=== PATIENT | male | born 1945 | race Caucasian/White ===

== ENCOUNTER 2018-10-30 11:04 | Inpatient (IN) | payer MEDICARE, OTHER ==
[~2018-10-30] VITALS: Ht 165.1 cm; Wt 61.1 kg
[2018-10-30] MEDS ORDERED: NEPH PO ×2 (11:42→11:49)
[2018-10-30] MEDS ORDERED: CALC0.2511 PO (11:42)
[2018-10-30] MEDS ORDERED: SODI650T PO (11:51)
[2018-10-30] MEDS ORDERED: AMLO5TAB4 PO (11:51)
[2018-10-30] MEDS ORDERED: CEFTRIAXONE 1 GM/50 ML (PMX) 50 ML IVPB ONE (13:30)
[2018-10-30] MEDS ORDERED: SODIUM CHLORIDE 0.9% 1L BAG IV* STA (14:32)
--- NOTE | 2018-10-30 14:58 | ERD ---
ER Documentation Chief Complaint Chief Complaint AP X 1 WEEK HPI This is a 73-year-old male with a past medical history of hypertension, chronic kidney disease, 1 kidney, urinary retention with a chronic indwelling Marks catheter who is presenting with approximately 1 week of progressive worsening abdominal pain. 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 The patient is also had decreased urinary output and his pain is primarily suprapubic in nature. The patient has had nausea but no vomiting. The patient has had no changes to bowel movements. He has not had constipation or diarrhea. He has not had black or bloody or tarry stools. The patient denies feeling sick recently. The patient denies fever or chills. The patient has had no headache or vision changes. The patient does not endorse neck or back pain. The patient denies lightheadedness or dizziness. The patient has had no chest pain or trouble breathing. The patient has had no focal deficits. The patient has had no weakness or numbness or tingling to the face or extremities. ROS All systems reviewed and are negative except as per history of present illness. Medications Home Meds Reported Medications Sodium Bicarbonate* (Sodium Bicarbonate*) 650 Mg Tablet, 650 MG PO BID, TAB 10/30/18 Amlodipine Besylate* (Norvasc*) 5 Mg Tablet, 5 MG PO DAILY, TAB 10/30/18 Multivit/Ca Carb/B Cmplx/Fa* (Tanya-Kathryn*) 1 Tab Tab, 1 TAB PO DAILY, TAB 10/30/18 Calcitriol* (Calcitriol*) 0.25 Mcg Capsule, 0.25 MCG PO DAILY, CAP 10/30/18 Discontinued Reported Medications Multivit/Ca Carb/B Cmplx/Fa* (Tanya-Kathryn*) 1 Tab Tab, 1 TAB PO DAILY, TAB 10/30/18 Allergies Allergies: Coded Allergies: No Known Allergy (Unverified , 10/30/18) PMhx/Soc History of Surgery: Yes Hx Neurological Disorder: No Hx Respiratory Disorders: No Hx Cardiac Disorders: Yes (Hypertension) Hx Psychiatric Problems: No Hx Miscellaneous Medical Probl: Yes (Chronic kidney disease, urinary retention with a chronic indwelling Marks catheter) Hx Alcohol Use: No Hx Substance Use: No Hx Tobacco Use: No Smoking Status: Never smoker FmHx Family History: No diabetes Physical Exam Vitals Vital Signs Date Temp Pulse Resp B/P (MAP) Pulse Ox O2 O2 Flow FiO2 Time Delivery Rate 10/30/18 101 18 138/70 94 Room Air 13:05 (92) 10/30/18 97.4 99 20 105/59 99 11:08 (74) Physical Exam Const: No apparent distress, well-developed, well-nourished Head: Normocephalic, Atraumatic Eyes: Normal Conjunctiva. Extraocular movements intact. Pupils equal, round and reactive to light ENT: Normal External Ears, Nose and Mouth. Neck: Full range of motion. No meningismus. Resp: Clear to auscultation bilaterally, No wheezes, rales or rhonchi Cardio: Regular rate and rhythm. No murmurs, rubs or gallops Abd: Soft. Mild distention, general abdominal discomfort with mild suprapubic tenderness. Normal bowel sounds : Marks catheter is in place, minimal draining fluid. Skin: No petechiae or rashes Back: No midline tenderness. No CVA tenderness Ext: No cyanosis, or edema Neur: Awake and alert, oriented 4. Cranial nerves intact. No facial droop. Normal strength, sensation and coordination. Psych: Normal Mood and Affect Result Diagram: 10/30/18 1150 10/30/18 1150 Results 24 hrs Laboratory Tests Test 10/30/18 11:50 10/30/18 11:54 White Blood Count 9.5 10^3/ul Red Blood Count 4.25 10^6/ul Hemoglobin 12.3 g/dl Hematocrit 36.1 % Mean Corpuscular Volume 84.9 fl Mean Corpuscular Hemoglobin 28.9 pg Mean Corpuscular Hemoglobin Concent 34.1 g/dl Red Cell Distribution Width 14.6 % Platelet Count 224 10^3/UL Mean Platelet Volume 11.1 fl Immature Granulocytes % 0.200 % Neutrophils % % Segmented Neutrophils % (Manual) 50 % Band Neutrophils % (Manual) 32 % Lymphocytes % % Lymphocytes % (Manual) 9 % Reactive Lymphocytes % (Manual) 3 % Monocytes % % Monocytes % (Manual) 6 % Eosinophils % % Basophils % % Nucleated Red Blood Cells % 0.0 /100WBC Immature Granulocytes # 0.020 10^3/ul Neutrophils # 10^3/ul Neutrophils # (Manual) 5.0 10^3/ul Band Neutrophils # 3.0 10^3/ul Lymphocytes (Manual) 0.8 10^3/ul Lymphocytes # 10^3/ul Reactive Lymphocytes # 0.2 10^3/ul Monocytes # 10^3/ul Monocytes # (Manual) 0.5 10^3/ul Eosinophils # 10^3/ul Basophils # 10^3/ul Nucleated Red Blood Cells # 10^3/ul Platelet Estimate NORMAL Giant Platelets 3 % Anisocytosis 1+ Microcytosis 1+ Ovalocytes 1+ Urine Color YELLOW Urine Clarity CLOUDY Urine pH 8.0 Urine Specific [place] 1.009 Urine Ketones NEGATIVE mg/dL Urine Nitrite NEGATIVE mg/dL Urine Bilirubin NEGATIVE mg/dL Urine Urobilinogen NEGATIVE mg/dL Urine Leukocyte Esterase 3+ Shani/ul Urine Microscopic RBC 8 /HPF Urine Microscopic WBC > 182 /HPF Urine Bacteria FEW /HPF Urine Mucus FEW /HPF Urine Hemoglobin 2+ mg/dL Urine Glucose NEGATIVE mg/dL Urine Total Protein 2+ mg/dl Sodium Level 141 mmol/L Potassium Level 4.9 mmol/L Chloride Level 102 mmol/L Carbon Dioxide Level 15 mmol/L Anion Gap 24 Blood Urea Nitrogen 117 mg/dl Creatinine 10.85 mg/dl Est Glomerular Filtrat Rate mL/min mL/min Glucose Level 112 mg/dl Calcium Level 9.0 mg/dl Total Bilirubin 0.0 mg/dl Direct Bilirubin 0.00 mg/dl Indirect Bilirubin 0.0 mg/dl Aspartate Amino Transf (AST/SGOT) 33 IU/L Alanine Aminotransferase (ALT/SGPT) 34 IU/L Alkaline Phosphatase 128 IU/L Total Protein 7.8 g/dl Albumin 4.0 g/dl Globulin 3.80 g/dl Albumin/Globulin Ratio 1.05 Lipase 118 U/L POC Venous Lactate 2.4 mmol/L Current Medications Medications Dose Sig/Emily Start Time Status Last (Trade) Ordered Route PRN Stop Time Admin Dose Reason Admin Ceftriaxone 50 ml @ ONCE ONCE 10/30/18 DC 10/30/18 Sodium 100 mls/hr IVPB 13:30 10/30/18 13:34 13:59 Sodium 2,400 ml BOLUS OVER 2 10/30/18 DC Chloride HOURS STAT 14:32 10/30/18 (NS) IV* 14:35 Procedures/MDM MDM The patient's presentation warrants further investigation. Previous medical records, if available, were reviewed. LABS The patient's laboratory testing was obtained and reviewed. No emergent treatment was required unless described below. CBC: Severe bandemia. Mild normocytic anemia, not emergent. No E/o thrombocytopenia. CMP: Anion gap metabolic acidosis, likely related to his renal failure. Elevated BUN and creatinine in line with end-stage renal disease of unclear chronicity, potentially acute renal failure. Elevated alkaline phosphatase, likely reactive, otherwise no evidence of liver disease. Lipase: No E/o pancreatitis Lactate: E/o severe sepsis Urine: E/o acute infection with hematuria IMAGING Imaging and Radiology interpretation reviewed. US Renal PENDING TREATMENT/DISPOSITION The patient presents initially for abdominal pain. The patient was found to frank ve severe urinary retention. The Marks catheter was replaced in the emergency department which removed over a liter of urine. The patient also expressed significant relief of his pain. The patient's lactic acidosis and abdominal pain and increasing creatinine could all be related to obstruction. Unfortunately, the patient's urinalysis also reveals a urinary tract infection with a severe bandemia and lactic acidosis. The patient's vital signs are unremarkable, but I am concerned about a possible systemic infection. The patient did have a septic workup completed. The patient also has evidence of renal failure. The patient has not been to this facility before, so its chronicity is unclear. I do feel the patient will require nephrology evaluation and possible dialysis in the emergency department. The patient is reportedly not been started on dialysis in the past, but he is on medications that indicates to me that he does have chronic end-stage renal disease. SEPSIS NOTE SIRS Criteria: Bandemia, tachycardia Infectious source: UTI End organ damage indicated by: Lactate > 2.0 mmol/L, Cr > 2.0 SEPSIS MANAGEMENT Time to recognize sepsis: 13:00. Time to recognize severe sepsis: 13:00. Time to recognize septic shock: No septic shock at this time. 3 HOUR BUNDLE Blood cultures x 2 before abx: Yes 30 ml/kg NS bolus completed Initial lactate 2.4 Repeat lactate pending SEPTIC SHOCK ASSESSMENT: NO lactic acid > 4.0 NO persistent hypotension (SBP < 90 or 40 mmHg drop, MAP < 65) despite 30 L/kg IV fluid bolus CRITICAL CARE Critical care time 37 minutes Emergent fluid management while maintaining close respiratory support. Provision of immediate and broad-spectrum antibiotic therapy. Simultaneous assessment for possible sources in order to direct targeted therapy. Consideration for invasive and chemical support to prevent cardiopulmonary collapse. Critical care time is independent of procedures performed. ADMISSION The patient will be admitted to panel in accordance with the patient's insurance. The patient was accepted by Dr. Davis at 1435PM on 10/30/2017. Disclaimer: Inadvertent spelling and grammatical errors are likely due to EHR/ dictation software use and do not reflect on the overall quality of patient care. Note that the electronic time recorded on this note does not necessarily reflect the actual time of the patient encounter. Departure Diagnosis: Primary Impression: Severe sepsis Additional Impressions: Bandemia Lactic acidosis Renal failure Renal failure chronicity: acute on chronic Acute renal failure type: unspecified Chronic kidney disease stage: unspecified stage Qualified Codes: N17.9 - Acute kidney failure, unspecified; N18.9 - Chronic kidney disease, unspecified High anion gap metabolic acidosis Elevated alkaline phosphatase in End stage renal disease Tachycardia Normocytic anemia UTI (urinary tract infection) Urinary tract infection type: acute cystitis Hematuria presence: with hematuria Qualified Codes: N30.01 - Acute cystitis with hematuria Condition: Serious MICAH YODER MD Oct 30, 2018 14:58
[2018-10-30] MEDS ORDERED: ACETAMINOPHEN 325 MG TAB PO PRN ×2 (15:30)
[2018-10-30] MEDS ORDERED: DOCUSATE SODIUM 100 MG CAP PO PRN (15:30)
[2018-10-30] MEDS ORDERED: ONDANSETRON 4 MG INJ IV PRN ×2 (15:30)
[2018-10-30] MEDS ORDERED: morphine 2 MG INJ IV PRN (15:30)
[2018-10-30] MEDS ORDERED: BISACODYL (EC) 5 MG TAB PO PRN (15:30)
[2018-10-30] MEDS ORDERED: NACL 0.9% 3 ML SYG IV SCH (15:30)
[2018-10-30] MEDS ORDERED: BISACODYL 10 MG SUPP PR PRN (15:30)
[2018-10-30] MEDS: SOD CHLORIDE 0.9% 1,000 ML IV SCH (16:59)
[2018-10-30 17:00] VITALS: BP 133/62; PULSE 78; RESP 16
[2018-10-30] MEDS ORDERED: INSULIN ASPART [NOVOLOG] 3 ML PEN SC SCH (17:00)
--- NOTE | 2018-10-30 17:17 | HP ---
Date/Time of Note Date/Time of Note DATE: 10/30/18 TIME: 17:11 Assessment/Plan VTE Prophylaxis SCD contraindicated: low risk/ambulating Pharmacological prophylaxis: LMWH Lines/Catheters IV Catheter Type (from [facility]): Saline Lock Reason Cath still needed: urinary retention Assessment/Plan Hospital Course Chief complaint Abdominal pain History of present illness 73-year-old gentleman who is a poor historian. Apparently he is felt poor with abdominal pain and loss of appetite recently. No fever nausea vomiting. I am unable to reach his daughter Gricel. He had a Marks prior to arrival. Past medical history 1. Incomplete data 2. Diabetes 3. Metabolic syndrome 4. Nephrectomy status? 5. CKD 6. Cognitive impairment? 7. Past tobacco 8. Past alcohol? 9. COPD? 10.. Obstructive uropathy Past surgical history None Social history Past tobacco/alcohol? Family history Noncontributory Allergies No known drug allergies Review of systems Neuro: no nancy loss of speech vision or focal deficits Cardiovascular: No chest pain no dyspnea no edema Lungs: Positive cough no fever or edema Abdomen: Pain cough possible nausea no vomiting diarrhea Genitourinary: Indwelling Marks possibly blocked prior to arrival. No hematuria or fever that I am aware of Musculoskeletal: No gait dysfunction no rash no itching no edema that I am aware of Psychiatry: Patient has a mild amount of anxiety agitation no depression Endocrine: Positive diabetes no previous thyroid dysfunction or dyslipidemia Hematologic: No nancy GI bleed melena hematuria hematochezia General/constitutional: No nancy fever loss of weight that I am aware of, or chills PE No pallor icterus adenopathy carotid bruits JVD or bruit. Positive mild bitemporal wasting Cardiovascular S1-S2 regular no murmur gallop. Lungs clear all station bilatera lly Abdomen bowel sounds present nontender nausea no RG no appreciated CVA No edema/Homans Assessment plan 1. Acute renal failure likely top of chronic disease, mod stable continue hydration Marks care 2. Obstructive uropathy, likely improved with Marks 3. Metabolic acidosis secondary #1, stable care 4. Nephrectomy status? 5. Mild cognitive impairmentdementia? Result Diagram: 10/30/18 1150 10/30/18 1150 Results 24hrs Laboratory Tests Test 10/30/18 11:50 10/30/18 11:54 10/30/18 14:58 10/30/18 15:50 White Blood Count 9.5 Red Blood Count 4.25 L Hemoglobin 12.3 L Hematocrit 36.1 L Mean Corpuscular Volume 84.9 Mean Corpuscular 28.9 L Hemoglobin Mean Corpuscular 34.1 Hemoglobin Concent Red Cell Distribution 14.6 H Width Platelet Count 224 Mean Platelet Volume 11.1 H Immature Granulocytes % 0.200 Neutrophils % Segmented Neutrophils 50 % (Manual) Band Neutrophils % 32 H (Manual) Lymphocytes % Lymphocytes % (Manual) 9 L Reactive Lymphocytes 3 H % (Manual) Monocytes % Monocytes % (Manual) 6 Eosinophils % Basophils % Nucleated Red Blood 0.0 Cells % Immature Granulocytes # 0.020 Neutrophils # Neutrophils # (Manual) 5.0 Band Neutrophils # 3.0 H Lymphocytes (Manual) 0.8 Lymphocytes # Reactive Lymphocytes # 0.2 H Monocytes # Monocytes # (Manual) 0.5 Eosinophils # Basophils # Nucleated Red Blood Cells # Platelet Estimate NORMAL Giant Platelets 3 H Anisocytosis 1+ Microcytosis 1+ Ovalocytes 1+ Urine Color YELLOW Urine Clarity CLOUDY A Urine pH 8.0 Urine Specific [place] 1.009 Urine Ketones NEGATIVE Urine Nitrite NEGATIVE Urine Bilirubin NEGATIVE Urine Urobilinogen NEGATIVE Urine Leukocyte Esterase 3+ H Urine Microscopic RBC 8 H Urine Microscopic WBC > 182 H Urine Bacteria FEW A Urine Mucus FEW A Urine Hemoglobin 2+ H Urine Glucose NEGATIVE Urine Total Protein 2+ H Sodium Level 141 Potassium Level 4.9 Chloride Level 102 Carbon Dioxide Level 15 L Anion Gap 24 H Blood Urea Nitrogen 117 H Creatinine 10.85 H Est Glomerular Filtrat Rate mL/min Glucose Level 112 Calcium Level 9.0 Total Bilirubin 0.0 L Direct Bilirubin 0.00 Indirect Bilirubin 0.0 Aspartate Amino 33 Transf (AST/SGOT) Alanine 34 Aminotransferase (ALT/SG PT) Alkaline Phosphatase 128 H Total Protein 7.8 Albumin 4.0 Globulin 3.80 H Albumin/Globulin Ratio 1.05 Lipase 118 POC Venous Lactate 2.4 *H 1.5 Prothrombin Time 16.6 H Prothrombin Time Ratio 1.3 INR International 1.33 Normalized Ratio HPI/ROS Admit Date/Time Admit Date/Time Oct 30, 2018 at 15:19 PMH/Family/Social Past Medical History Medications Current Medications Ondansetron HCl (Zofran Inj) 4 mg BRIDGE ORDER PRN IV NAUSEA AND/OR VOMITING; Start 10/30/18 at 15:30; Stop 10/31/18 at 15:29 Acetaminophen (Tylenol Tab) 650 mg ER BRIDGE PRN PO MILD PAIN(1-3)OR ELEVATED TEMP Last administered on 10/30/18at 15:39; Admin Dose 650 MG; Start 10/30/18 at 15:30; Stop 10/31/18 at 15:29 Diagnostic Test (Pha) (Accu-Chek) 1 ea 02 XX ; Start 10/31/18 at 02:00 Insulin Aspart (Novolog Insulin Pen) NOVOLOG *MODERATE* ALGORITHM WITH MEALS BEDTIME SC ; Start 10/30/18 at 18:00 Insulin Aspart (Novolog Insulin Pen) NOVOLOG *MODERATE* ALGORI... Q4 SC ; Start 10/30/18 at 17:00 Sodium Chloride 1,000 ml @ 75 mls/hr [id number] IV Last administered on 10/30/18at 16:59; Admin Dose 75 MLS/HR; Start 10/30/18 at 15:16 IV Flush (NS 3 ml) 3 ml PER PROTOCOL IV ; Start 10/30/18 at 15:30 Ondansetron HCl (Zofran Inj) 4 mg Q6H PRN IV NAUSEA AND/OR VOMITING; Start 10/30/18 at 15:30 Acetaminophen (Tylenol Tab) 650 mg Q6H PRN PO PAIN LEVEL 1-3 OR FEVER; Start 10/30/18 at 15:30 Acetaminophen/ Hydrocodone Bitart ([place] (5/325)) 1 tab Q6H PRN PO MODERATE PAIN LEVEL 4-6; Start 10/30/18 at 15:30 Morphine Sulfate (morphine) 2 mg Q4H PRN IV SEVERE PAIN LEVEL 7-10; Start 10/30/18 at 15:30 Docusate Sodium (Colace) 100 mg Q12H PRN PO CONSTIPATION; Start 10/30/18 at 15:30 Bisacodyl (Dulcolax) 5 mg DAILY PRN PO CONSTIPATION; Start 10/30/18 at 15:30 Bisacodyl (Dulcolax Supp) 10 mg DAILY PRN [place] CONSTIPATION; Start 10/30/18 at 15:30 Famotidine (Pepcid) 20 mg Q12 PO ; Start 10/30/18 at 21:00 Enoxaparin Sodium (Lovenox) 30 mg DAILY SC ; Start 11/02/18 at 09:00 Coded Allergies: No Known Allergy (Unverified , 10/30/18) Social History Smoking Status: Never smoker Exam/Review of Systems Vital Signs Vitals Vital Signs Date Temp Pulse Resp B/P (MAP) Pulse Ox O2 O2 Flow FiO2 Time Delivery Rate 10/30/18 107 18 127/69 99 Room Air 16:03 (88) 10/30/18 99.9 15:39 SANDRA SHEEHAN MD Oct 30, 2018 17:17
[2018-10-30] MEDS ORDERED: GUAIFENESIN/DM 5ML CUP PO PRN (17:30)
--- NOTE | 2018-10-30 17:33 | CONS ---
Date/Time of Note Date/Time of Note DATE: 10/30/18 TIME: 17:33 Assessment/Plan Assessment/Plan Assessment/Plan 1. acute vs acute on chronic renal failure due to Obstruction + prerenal azotemia 2. H/o left nephrectomy, unclear history 3. metabolic acidosis 4. anemia for CKD 5. Severe hydronephrosis Right side Plan: Bicitra 30ml PO BID for acidosis IVF NS at 70 cc/hr Urine studies including urine Na, urine prot/cr ration, urine eosinophils, CK total, uric acid CT Abdomen + pelvis w/o contrast to assess for CKD and Right hydronephrosis we will get more details of his left nephrectomy Thanks for consultation, I will continue to follow up Result Diagram: 10/30/18 1150 10/30/18 1150 Results 24hrs Laboratory Tests Test 10/30/18 11:50 10/30/18 11:54 10/30/18 14:58 10/30/18 15:50 White Blood Count 9.5 Red Blood Count 4.25 L Hemoglobin 12.3 L Hematocrit 36.1 L Mean Corpuscular Volume 84.9 Mean Corpuscular 28.9 L Hemoglobin Mean Corpuscular 34.1 Hemoglobin Concent Red Cell Distribution 14.6 H Width Platelet Count 224 Mean Platelet Volume 11.1 H Immature Granulocytes % 0.200 Neutrophils % Segmented Neutrophils 50 % (Manual) Band Neutrophils % 32 H (Manual) Lymphocytes % Lymphocytes % (Manual) 9 L Reactive Lymphocytes 3 H % (Manual) Monocytes % Monocytes % (Manual) 6 Eosinophils % Basophils % Nucleated Red Blood 0.0 Cells % Immature Granulocytes # 0.020 Neutrophils # Neutrophils # (Manual) 5.0 Band Neutrophils # 3.0 H Lymphocytes (Manual) 0.8 Lymphocytes # Reactive Lymphocytes # 0.2 H Monocytes # Monocytes # (Manual) 0.5 Eosinophils # Basophils # Nucleated Red Blood Cells # Platelet Estimate NORMAL Giant Platelets 3 H Anisocytosis 1+ Microcytosis 1+ Ovalocytes 1+ Urine Color YELLOW Urine Clarity CLOUDY A Urine pH 8.0 Urine Specific [place] 1.009 Urine Ketones NEGATIVE Urine Nitrite NEGATIVE Urine Bilirubin NEGATIVE Urine Urobilinogen NEGATIVE Urine Leukocyte Esterase 3+ H Urine Microscopic RBC 8 H Urine Microscopic WBC > 182 H Urine Bacteria FEW A Urine Mucus FEW A Urine Hemoglobin 2+ H Urine Glucose NEGATIVE Urine Total Protein 2+ H Sodium Level 141 Potassium Level 4.9 Chloride Level 102 Carbon Dioxide Level 15 L Anion Gap 24 H Blood Urea Nitrogen 117 H Creatinine 10.85 H Est Glomerular Filtrat Rate mL/min Glucose Level 112 Calcium Level 9.0 Total Bilirubin 0.0 L Direct Bilirubin 0.00 Indirect Bilirubin 0.0 Aspartate Amino 33 Transf (AST/SGOT) Alanine 34 Aminotransferase (ALT/SG PT) Alkaline Phosphatase 128 H Total Protein 7.8 Albumin 4.0 Globulin 3.80 H Albumin/Globulin Ratio 1.05 Lipase 118 POC Venous Lactate 2.4 *H 1.5 Prothrombin Time 16.6 H Prothrombin Time Ratio 1.3 INR International 1.33 Normalized Ratio Consultation Date/Type/Reason Admit Date/Time Oct 30, 2018 at 15:19 Date of Consultation: Oct 30, 2018 Type of Consult NEPHROLOGY Reason for Consultation Acute Renal Failure, Uremia, H/o Left nephrectomy Requesting Provider: SANDRA SHEEHAN MD Hx of Present Illness 73-year-old gentleman who is a poor historian. Apparently he is felt poor with abdominal pain and loss of appetite recently. BUN/Cr 117/10.55 on admission- pt is awake alert but not able to provide any hisotry due to confusion. Renal US showed right hydronephrosis, left nephrectomy Renal has been consulted for acute vs acute on chronic renal failure. Constitutional: disoriented, other (unable to proivde ROS ) Past Medical History Medical History: high cholesterol, hypertension Medications Current Medications Ondansetron HCl (Zofran Inj) 4 mg BRIDGE ORDER PRN IV NAUSEA AND/OR VOMITING; Start 10/30/18 at 15:30; Stop 10/31/18 at 15:29 Acetaminophen (Tylenol Tab) 650 mg ER BRIDGE PRN PO MILD PAIN(1-3)OR ELEVATED TEMP Last administered on 10/30/18at 15:39; Admin Dose 650 MG; Start 10/30/18 at 15:30; Stop 10/31/18 at 15:29 Diagnostic Test (Pha) (Accu-Chek) 1 XX ; Start 10/31/18 at 02:00 Insulin Aspart (Novolog Insulin Pen) NOVOLOG *MODERATE* ALGORITHM WITH MEALS BEDTIME SC ; Start 10/30/18 at 18:00 Insulin Aspart (Novolog Insulin Pen) NOVOLOG *MODERATE* ALGORI... Q4 SC ; Start 10/30/18 at 17:00 Sodium Chloride 1,000 ml @ 75 mls/hr [id number] IV Last administered on 10/30/18at 16:59; Admin Dose 75 MLS/HR; Start 10/30/18 at 15:16 IV Flush (NS 3 ml) 3 ml PER PROTOCOL IV ; Start 10/30/18 at 15:30 Ondansetron HCl (Zofran Inj) 4 mg Q6H PRN IV NAUSEA AND/OR VOMITING; Start 10/30/18 at 15:30 Acetaminophen (Tylenol Tab) 650 mg Q6H PRN PO PAIN LEVEL 1-3 OR FEVER; Start 10/30/18 at 15:30 Acetaminophen/ Hydrocodone Bitart ([place] (5/325)) 1 tab Q6H PRN PO MODERATE PAIN LEVEL 4-6; Start 10/30/18 at 15:30 Morphine Sulfate (morphine) 2 mg Q4H PRN IV SEVERE PAIN LEVEL 7-10; Start 10/30/18 at 15:30 Docusate Sodium (Colace) 100 mg Q12H PRN PO CONSTIPATION; Start 10/30/18 at 15:30 Bisacodyl (Dulcolax) 5 mg DAILY PRN PO CONSTIPATION; Start 10/30/18 at 15:30 Bisacodyl (Dulcolax Supp) 10 mg DAILY PRN [place] CONSTIPATION; Start 10/30/18 at 15:30 Famotidine (Pepcid) 20 mg Q12 PO ; Start 10/30/18 at 21:00 Enoxaparin Sodium (Lovenox) 30 mg DAILY SC ; Start 11/02/18 at 09:00 Senna/Docusate Sodium (Senokot-S) 2 tab HS PO ; Start 10/30/18 at 21:00 Guaifenesin/ Dextromethorphan (Robitussin Dm Liquid Cup) 10 ml Q4H PRN PO COUGH; Start 10/30/18 at 17:30 Thiamine HCl (Vitamin B1) 100 mg DAILY PO ; Start 10/31/18 at 09:00 Allergies: Coded Allergies: No Known Allergy (Unverified , 10/30/18) Past Surgical History Past Surgical Hx: other (H/o Left nephrectomy ) Family History Significant Family History: no pertinent family hx Social History Alcohol Use: none Smoking Status: Never smoker Exam/Review of Systems Vital Signs Vitals Vital Signs Date Temp Pulse Resp B/P (MAP) Pulse Ox O2 O2 Flow FiO2 Time Delivery Rate 10/30/18 107 18 127/69 99 Room Air 16:03 (88) 10/30/18 99.9 15:39 Exam Constitutional: alert Head: normocephalic Eyes: nl conjunctiva ENMT: nl external ears & nose Neck: supple, non-tender Respiratory: clear to auscultation, diminished breath sounds Cardiovascular: regular rate and rhythm, nl pulses Gastrointestinal: soft, non-tender Extremities: normal pulses Neurological: confused Medications Medications Current Medications Ondansetron HCl (Zofran Inj) 4 mg BRIDGE ORDER PRN IV NAUSEA AND/OR VOMITING; Start 10/30/18 at 15:30; Stop 10/31/18 at 15:29 Acetaminophen (Tylenol Tab) 650 mg ER BRIDGE PRN PO MILD PAIN(1-3)OR ELEVATED TEMP Last administered on 10/30/18at 15:39; Admin Dose 650 MG; Start 10/30/18 at 15:30; Stop 10/31/18 at 15:29 Diagnostic Test (Pha) (Accu-Chek) 1 ea 02 XX ; Start 10/31/18 at 02:00 Insulin Aspart (Novolog Insulin Pen) NOVOLOG *MODERATE* ALGORITHM WITH MEALS BEDTIME SC ; Start 10/30/18 at 18:00 Insulin Aspart (Novolog Insulin Pen) NOVOLOG *MODERATE* ALGORI... Q4 SC ; Start 10/30/18 at 17:00 Sodium Chloride 1,000 ml @ 75 mls/hr [id number] IV Last administered on 10/30/18at 16:59; Admin Dose 75 MLS/HR; Start 10/30/18 at 15:16 IV Flush (NS 3 ml) 3 ml PER PROTOCOL IV ; Start 10/30/18 at 15:30 Ondansetron HCl (Zofran Inj) 4 mg Q6H PRN IV NAUSEA AND/OR VOMITING; Start 10/30 at 15:30 Acetaminophen (Tylenol Tab) 650 mg Q6H PRN PO PAIN LEVEL 1-3 OR FEVER; Start 10/30/18 at 15:30 Acetaminophen/ Hydrocodone Bitart ([place] (5/325)) 1 tab Q6H PRN PO MODERATE PAIN LEVEL 4-6; Start 10/30/18 at 15:30 Morphine Sulfate (morphine) 2 mg Q4H PRN IV SEVERE PAIN LEVEL 7-10; Start 10/30/18 at 15:30 Docusate Sodium (Colace) 100 mg Q12H PRN PO CONSTIPATION; Start 10/30/18 at 15:30 Bisacodyl (Dulcolax) 5 mg DAILY PRN PO CONSTIPATION; Start 10/30/18 at 15:30 Bisacodyl (Dulcolax Supp) 10 mg DAILY PRN [place] CONSTIPATION; Start 10/30/18 at 15:30 Famotidine (Pepcid) 20 mg Q12 PO ; Start 10/30/18 at 21:00 Enoxaparin Sodium (Lovenox) 30 mg DAILY SC ; Start 11/02/18 at 09:00 Senna/Docusate Sodium (Senokot-S) 2 tab HS PO ; Start 10/30/18 at 21:00 Guaifenesin/ Dextromethorphan (Robitussin Dm Liquid Cup) 10 ml Q4H PRN PO COUGH; Start 10/30/18 at 17:30 Thiamine HCl (Vitamin B1) 100 mg DAILY PO ; Start 10/31/18 at 09:00 YAIR GOLDSMITH MD Oct 30, 2018 17:33
[2018-10-30] MEDS: INSULIN ASPART [NOVOLOG] 3 ML PEN SC SCH ×2 (17:55→20:41)
[2018-10-30 18:19] VITALS: Ht 165.1 cm; Wt 61.1 kg
[2018-10-30 20:00] VITALS: BP 118/68; PULSE 90; RESP 17
[2018-10-30] MEDS: SENNA/DOCUSATE NA (8.6MG/50MG) TAB PO SCH (20:42)
[2018-10-30] MEDS: HYDROCODONE/APAP (5/325) TAB PO PRN (20:42)
[2018-10-30] MEDS: FAMOTIDINE 20 MG TAB PO SCH (20:42)
[2018-10-30] MEDS: CITRIC ACID/NA CITRATE 30 ML CUP PO SCH (21:00)
[2018-10-31 02:00] VITALS: BP 106/58; PULSE 69; RESP 18
[2018-10-31] MEDS: ACCU-CHEK XX SCH (02:00)
[2018-10-31] MEDS: SOD CHLORIDE 0.9% 1,000 ML IV SCH ×2 (06:22→23:17)
[2018-10-31] MEDS: INSULIN ASPART [NOVOLOG] 3 ML PEN SC SCH ×4 (07:56→20:23)
[2018-10-31] MEDS: CITRIC ACID/NA CITRATE 30 ML CUP PO SCH ×2 (08:05→20:13)
[2018-10-31] MEDS: FAMOTIDINE 20 MG TAB PO SCH ×2 (08:05→20:16)
[2018-10-31] MEDS: THIAMINE 100 MG TAB PO SCH (08:05)
[2018-10-31 08:15] VITALS: BP 132/65; PULSE 88; RESP 18
--- NOTE | 2018-10-31 10:33 | PN ---
Date/Time of Note Date/Time of Note DATE: 10/31/18 TIME: 10:31 Assessment/Plan VTE Prophylaxis Risk score (from [facility] [place]0 risk: 3 SCD applied (from [facility] [place]): Yes SCD contraindicated: low risk/ambulating Pharmacological prophylaxis: NA/contraindicated Pharm contraindication: renal impairment Lines/Catheters IV Catheter Type (from [facility]): Peripheral IV Urinary Cath still in place: Yes Reason Cath still needed: urinary retention Assessment/Plan Hospital Course A/P 1. Acute renal failure on ckd, mod stable cont hydration Marks care 2. Obstructive uropathy, Marks; consult urology 3. Metabolic acidosis secondary #1, stable care 4. Nephrectomy status? 5. Mild cognitive impairmentdementia? S: no distress O:vss PE no pallor reg s1s2 no mrg ctab bs+ nt nd; no rrg no edema Result Diagram: 10/31/1822 10/31/18 0722 Results 24hrs Laboratory Tests Test 10/30/18 11:48 10/30/18 11:50 10/30/18 11:54 10/30/18 14:58 Urine Eosinophils % 0.0 Urine Random Creatinine 96.32 Urine Random Sodium 90 White Blood Count 9.5 Red Blood Count 4.25 L Hemoglobin 12.3 L Hematocrit 36.1 L Mean Corpuscular Volume 84.9 Mean Corpuscular 28.9 L Hemoglobin Mean Corpuscular 34.1 Hemoglobin Concent Red Cell Distribution 14.6 H Width Platelet Count 224 Mean Platelet Volume 11.1 H Immature Granulocytes % 0.200 Neutrophils % Segmented Neutrophils 50 % (Manual) Band Neutrophils % 32 H (Manual) Lymphocytes % Lymphocytes % (Manual) 9 L Reactive Lymphocytes 3 H % (Manual) Monocytes % Monocytes % (Manual) 6 Eosinophils % Basophils % Nucleated Red Blood 0.0 Cells % Immature Granulocytes # 0.020 Neutrophils # Neutrophils # (Manual) 5.0 Band Neutrophils # 3.0 H Lymphocytes (Manual) 0.8 Lymphocytes # Reactive Lymphocytes # 0.2 H Monocytes # Monocytes # (Manual) 0.5 Eosinophils # Basophils # Nucleated Red Blood Cells # Platelet Estimate NORMAL Giant Platelets 3 H Anisocytosis 1+ Microcytosis 1+ Ovalocytes 1+ Urine Color YELLOW Urine Clarity CLOUDY A Urine pH 8.0 Urine Specific [place] 1.009 Urine Ketones NEGATIVE Urine Nitrite NEGATIVE Urine Bilirubin NEGATIVE Urine Urobilinogen NEGATIVE Urine Leukocyte Esterase 3+ H Urine Microscopic RBC 8 H Urine Microscopic WBC > 182 H Urine Bacteria FEW A Urine Mucus FEW A Urine Hemoglobin 2+ H Urine Glucose NEGATIVE Urine Total Protein 2+ H Sodium Level 141 Potassium Level 4.9 Chloride Level 102 Carbon Dioxide Level 15 L Anion Gap 24 H Blood Urea Nitrogen 117 H Creatinine 10.85 H Est Glomerular Filtrat Rate mL/min Glucose Level 112 Calcium Level 9.0 Total Bilirubin 0.0 L Direct Bilirubin 0.00 Indirect Bilirubin 0.0 Aspartate Amino 33 Transf (AST/SGOT) Alanine 34 Aminotransferase (ALT/SG PT) Alkaline Phosphatase 128 H Total Protein 7.8 Albumin 4.0 Globulin 3.80 H Albumin/Globulin Ratio 1.05 Lipase 118 POC Venous Lactate 2.4 *H 1.5 Test 10/30/18 15:50 10/30/18 17:50 10/30/18 18:10 10/30/18 20:41 Prothrombin Time 16.6 H Prothrombin Time Ratio 1.3 INR International 1.33 Normalized Ratio Bedside Glucose 75 80 110 Test 10/31/18 03:55 10/31/18 07:22 10/31/18 07:56 Urine Eosinophils % 0.0 Urine Random Creatinine 79.58 Urine Random Sodium 66 Urine Protein/Creatinine 1.40 Ratio Urine Total Protein 112.0 H White Blood Count 9.9 Red Blood Count 3.53 L Hemoglobin 10.3 L Hematocrit 30.5 L Mean Corpuscular Volume 86.4 Mean Corpuscular 29.2 Hemoglobin Mean Corpuscular 33.8 Hemoglobin Concent Red Cell Distribution 14.6 H Width Platelet Count 205 Mean Platelet Volume 11.7 H Immature Granulocytes % 0.300 Neutrophils % 89.9 H Lymphocytes % 5.2 L Monocytes % 3.6 Eosinophils % 0.9 Basophils % 0.1 Nucleated Red Blood 0.0 Cells % Immature Granulocytes # 0.030 Neutrophils # 8.9 H Lymphocytes # 0.5 L Monocytes # 0.4 Eosinophils # 0.1 Basophils # 0.0 Nucleated Red Blood 0.0 Cells # Sodium Level 146 H Potassium Level 4.4 Chloride Level 110 Carbon Dioxide Level 16 L Anion Gap 20 H Blood Urea Nitrogen 114 H Creatinine 9.20 H Est Glomerular Filtrat Rate mL/min Glucose Level 81 Hemoglobin A1c 5.8 Uric Acid 9.5 H Calcium Level 8.1 L Total Bilirubin 0.0 L Direct Bilirubin 0.00 Indirect Bilirubin 0.0 Aspartate Amino 22 Transf (AST/SGOT) Alanine 33 Aminotransferase (ALT/SG PT) Alkaline Phosphatase 117 Creatine Kinase 153 Total Protein 5.4 #L Albumin 2.6 #L Globulin 2.80 Albumin/Globulin Ratio 0.92 Thyroid Stimulating 0.278 L Hormone (TSH) Bedside Glucose 85 Exam/Review of Systems Vital Signs Vitals Vital Signs Date Temp Pulse Resp B/P (MAP) Pulse Ox O2 O2 Flow FiO2 Time Delivery Rate 10/31/18 98.0 88 18 132/65 99 Room Air 08:15 (87) Intake and Output 10/30/18 10/30/18 10/31/18 1515:00 23:00 07:00 IntakeIntake Total 320 ml 2200 ml OutputOutput Total 1700 ml 600 ml 900 ml BalanceBalance -1700 ml -280 ml 1300 ml Medications Medications Current Medications Diagnostic Test (Pha) (Accu-Chek) XX ; Start 10/31/18 at 02:00 Insulin Aspart (Novolog Insulin Pen) NOVOLOG *MODERATE* ALGORITHM WITH MEALS BEDTIME SC ; Start 10/30/18 at 18:00 Sodium Chloride 1,000 ml @ 75 mls/hr [id number] IV Last administered on 10/31/18at 06:22; Admin Dose 75 MLS/HR; Start 10/30/18 at 15:16 IV Flush (NS 3 ml) 3 ml PER PROTOCOL IV ; Start 10/30/18 at 15:30 Ondansetron HCl (Zofran Inj) 4 mg Q6H PRN IV NAUSEA AND/OR VOMITING; Start 10/30/18 at 15:30 Acetaminophen (Tylenol Tab) 650 mg Q6H PRN PO PAIN LEVEL 1-3 OR FEVER; Start 10/30/18 at 15:30 Acetaminophen/ Hydrocodone Bitart ([place] (5/325)) 1 tab Q6H PRN PO MODERATE PAIN LEVEL 4-6 Last administered on 10/30/18at 20:42; Admin Dose 1 TAB; Start 10/30/18 at 15:30 Morphine Sulfate (morphine) 2 mg Q4H PRN IV SEVERE PAIN LEVEL 7-10; Start 10/30/18 at 15:30 Docusate Sodium (Colace) 100 mg Q12H PRN PO CONSTIPATION; Start 10/30/18 at 15:30 Bisacodyl (Dulcolax) 5 mg DAILY PRN PO CONSTIPATION; Start 10/30/18 at 15:30 Bisacodyl (Dulcolax Supp) 10 mg DAILY PRN [place] CONSTIPATION; Start 10/30/18 at 15:30 Famotidine (Pepcid) 20 mg Q12 PO Last administered on 10/31/18at 08:05; Admin Dose 20 MG; Start 10/30/18 at 21:00 Enoxaparin Sodium (Lovenox) 30 mg DAILY SC ; Start 11/02/18 at 09:00 Senna/Docusate Sodium (Senokot-S) 2 tab HS PO Last administered on 10/30/18at 20:42; Admin Dose 2 TAB; Start 10/30/18 at 21:00 Guaifenesin/ Dextromethorphan (Robitussin Dm Liquid Cup) 10 ml Q4H PRN PO COUGH; Start 10/30/18 at 17:30 Thiamine HCl (Vitamin B1) 100 mg DAILY PO Last administered on 10/31/18at 08:05; Admin Dose 100 MG; Start 10/31/18 at 09:00 Citric Acid/ Sodium Citrate (Bicitra) 30 ml BID PO Last administered on 10/31/18at 08:05; Admin Dose 30 ML; Start 10/30/18 at 21:00 SANDRA SHEEHAN MD Oct 31, 2018 10:33
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
--- NOTE | 2018-10-31 13:45 | CONS ---
Date/Time of Note Date/Time of Note DATE: 10/31/18 TIME: 13:45 Assessment/Plan Assessment/Plan Assessment/Plan 1. acute vs acute on chronic renal failure due to Obstruction + prerenal azotemia 2. H/o left nephrectomy, unclear history 3. metabolic acidosis 4. anemia for CKD 5. Severe hydronephrosis Right side Plan: Bicitra 30ml PO BID for acidosis, BUN/Cr 114/9.2- slightly improving IVF NS at 70 cc/hr CT Abdomen + pelvis w/o contrast showed R hydronephrosis, need Urology consult will follow up Result Diagram: 10/31/1872110/31/18721 Results 24hrs Laboratory Tests Test 10/30/18 14:58 10/30/18 15:50 10/30/18 17:50 10/30/18 18:10 POC Venous Lactate 1.5 Prothrombin Time 16.6 H Prothrombin Time Ratio 1.3 INR International 1.33 Normalized Ratio Bedside Glucose 75 80 Test 10/30/18 20:41 10/31/18 03:55 10/31/18 07:22 10/31/18 07:56 Bedside Glucose 110 85 Urine Eosinophils % 0.0 Urine Random Creatinine 79.58 Urine Random Sodium 66 Urine Protein/Creatinine 1.40 Ratio Urine Total Protein 112.0 H White Blood Count 9.9 Red Blood Count 3.53 L Hemoglobin 10.3 L Hematocrit 30.5 L Mean Corpuscular Volume 86.4 Mean Corpuscular 29.2 Hemoglobin Mean Corpuscular 33.8 Hemoglobin Concent Red Cell Distribution 14.6 H Width Platelet Count 205 Mean Platelet Volume 11.7 H Immature Granulocytes % 0.300 Neutrophils % 89.9 H Lymphocytes % 5.2 L Monocytes % 3.6 Eosinophils % 0.9 Basophils % 0.1 Nucleated Red Blood 0.0 Cells % Immature Granulocytes # 0.030 Neutrophils # 8.9 H Lymphocytes # 0.5 L Monocytes # 0.4 Eosinophils # 0.1 Basophils # 0.0 Nucleated Red Blood 0.0 Cells # Sodium Level 146 H Potassium Level 4.4 Chloride Level 110 Carbon Dioxide Level 16 L Anion Gap 20 H Blood Urea Nitrogen 114 H Creatinine 9.20 H Est Glomerular Filtrat Rate mL/min Glucose Level 81 Hemoglobin A1c 5.8 Uric Acid 9.5 H Calcium Level 8.1 L Total Bilirubin 0.0 L Direct Bilirubin 0.00 Indirect Bilirubin 0.0 Aspartate Amino 22 Transf (AST/SGOT) Alanine 33 Aminotransferase (ALT/SG PT) Alkaline Phosphatase 117 Creatine Kinase 153 Total Protein 5.4 #L Albumin 2.6 #L Globulin 2.80 Albumin/Globulin Ratio 0.92 Thyroid Stimulating 0.278 L Hormone (TSH) Test 10/31/18 12:08 Bedside Glucose 113 Consultation Date/Type/Reason Admit Date/Time Oct 30, 2018 at 15:19 Initial Consult Date 10/31/18 Type of Consult NEPHROLOGY Requesting Provider: SANDRA SHEEHAN MD Exam/Review of Systems Vital Signs Vitals Vital Signs Date Temp Pulse Resp B/P (MAP) Pulse Ox O2 O2 Flow FiO2 Time Delivery Rate 10/31/18 98.0 88 18 132/65 99 Room Air 08:15 (87) Intake and Output 10/30/18 10/30/18 10/31/18 1515:00 23:00 07:00 IntakeIntake Total 320 ml 2200 ml OutputOutput Total 1700 ml 600 ml 900 ml BalanceBalance -1700 ml -280 ml 1300 ml Exam Constitutional: alert Head: normocephalic Eyes: nl conjunctiva ENMT: nl external ears & nose Neck: supple, non-tender Respiratory: clear to auscultation, diminished breath sounds Cardiovascular: regular rate and rhythm, nl pulses Gastrointestinal: soft, non-tender Extremities: normal pulses Neurological: less confused today Medications Medications Current Medications Diagnostic Test (Pha) (Accu-Chek) 1 XX ; Start 10/31/18 at 02:00 Insulin Aspart (Novolog Insulin Pen) NOVOLOG *MODERATE* ALGORITHM WITH MEALS BEDTIME SC ; Start 10/30/18 at 18:00 Sodium Chloride 1,000 ml @ 50 mls/hr Q20H IV Last administered on 10/31/18at 06:22; Admin Dose 75 MLS/HR; Start 10/30/18 at 15:16 IV Flush (NS 3 ml) 3 ml PER PROTOCOL IV ; Start 10/30/18 at 15:30 Ondansetron HCl (Zofran Inj) 4 mg Q6H PRN IV NAUSEA AND/OR VOMITING; Start 10/30/18 at 15:30 Acetaminophen (Tylenol Tab) 650 mg Q6H PRN PO PAIN LEVEL 1-3 OR FEVER; Start 10/30/18 at 15:30 Acetaminophen/ Hydrocodone Bitart ([place] (5/325)) 1 tab Q6H PRN PO MODERATE PAIN LEVEL 4-6 Last administered on 10/30/18at 20:42; Admin Dose 1 TAB; Start 10/30/18 at 15:30 Morphine Sulfate (morphine) 2 mg Q4H PRN IV SEVERE PAIN LEVEL 7-10; Start 10/30/18 at 15:30 Docusate Sodium (Colace) 100 mg Q12H PRN PO CONSTIPATION; Start 10/30/18 at 15:30 Bisacodyl (Dulcolax) 5 mg DAILY PRN PO CONSTIPATION; Start 10/30/18 at 15:30 Bisacodyl (Dulcolax Supp) 10 mg DAILY PRN [place] CONSTIPATION; Start 10/30/18 at 15:30 Famotidine (Pepcid) 20 mg Q12 PO Last administered on 10/31/18at 08:05; Admin Dose 20 MG; Start 10/30/18 at 21:00 Enoxaparin Sodium (Lovenox) 30 mg DAILY SC ; Start 11/02/18 at 09:00 Senna/Docusate Sodium (Senokot-S) 2 tab HS PO Last administered on 10/30/18at 20:42; Admin Dose 2 TAB; Start 10/30/18 at 21:00 Guaifenesin/ Dextromethorphan (Robitussin Dm Liquid Cup) 10 ml Q4H PRN PO COUGH; Start 10/30/18 at 17:30 Thiamine HCl (Vitamin B1) 100 mg DAILY PO Last administered on 10/31/18at 08:05; Admin Dose 100 MG; Start 10/31/18 at 09:00 Citric Acid/ Sodium Citrate (Bicitra) 30 ml BID PO Last administered on 10/31/18at 08:05; Admin Dose 30 ML; Start 10/30/18 at 21:00 YAIR GOLDSMITH MD Oct 31, 2018 13:45
[2018-10-31 14:39] VITALS: BP 128/68; PULSE 84; RESP 18
[2018-10-31] MEDS: HYDROCODONE/APAP (5/325) TAB PO PRN (14:42)
[2018-10-31] MEDS: CEFTRIAXONE 1 GM/NS 50 ML IVPB SCH (15:09)
[2018-10-31 19:55] VITALS: BP 144/75; PULSE 97; RESP 18
[2018-10-31] MEDS: SENNA/DOCUSATE NA (8.6MG/50MG) TAB PO SCH (20:16)
[2018-11-01 01:50] VITALS: BP 152/72; PULSE 93; RESP 20
[2018-11-01] MEDS: ACCU-CHEK XX SCH (02:00)
[2018-11-01 07:20] VITALS: BP 150/72; PULSE 83; RESP 18
[2018-11-01] MEDS: INSULIN ASPART [NOVOLOG] 3 ML PEN SC SCH ×4 (08:00→21:00)
[2018-11-01] MEDS: CITRIC ACID/NA CITRATE 30 ML CUP PO SCH ×2 (08:18→21:26)
[2018-11-01] MEDS: FAMOTIDINE 20 MG TAB PO SCH ×2 (08:18→21:25)
[2018-11-01] MEDS: THIAMINE 100 MG TAB PO SCH (08:18)
[2018-11-01] MEDS: SOD CHLORIDE 0.45% 1,000 ML IV SCH (09:45)
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
[2018-11-01 14:30] VITALS: BP 173/84; PULSE 106; RESP 18
[2018-11-01] MEDS: CEFTRIAXONE 1 GM/NS 50 ML IVPB SCH (14:46)
[2018-11-01] MEDS ORDERED: morphine LIQ (10 MG/5 ML) CUP PO PRN (15:00)
[2018-11-01 16:40] VITALS: BP 155/77; PULSE 113; RESP 16
--- NOTE | 2018-11-01 17:16 | CONS ---
Date/Time of Note Date/Time of Note DATE: 11/01/18 TIME: 17:16 Assessment/Plan Assessment/Plan Assessment/Plan 1. acute vs acute on chronic renal failure due to Obstruction + prerenal azotemia 2. H/o left nephrectomy, unclear history 3. metabolic acidosis 4. anemia for CKD 5. Severe hydronephrosis Right side Plan: Bicitra 30ml PO BID for acidosis, BUN/Cr improved to 100/7.5, pt is becoming hy perchloremic metabolic acidosis, d/c iVF NS, willl start IVF 1/2 NS at 70 cc/hr CT Abdomen + pelvis w/o contrast showed R hydronephrosis, s/p Urology consult, no surgical intervention at this time will follow up Result Diagram: 11/01/1844111/01/18440 Results 24hrs Laboratory Tests Test 10/31/18 20:18 11/01/18 04:41 11/01/18 04:42 11/01/18 08:15 Bedside Glucose 106 93 Prothrombin Time 15.1 H Prothrombin Time Ratio 1.2 INR International 1.18 Normalized Ratio Sodium Level 142 Potassium Level 3.7 Chloride Level 113 H Carbon Dioxide Level 16 L Anion Gap 13 # Blood Urea Nitrogen 100 H Creatinine 7.50 H Est Glomerular Filtrat Rate mL/min Glucose Level 94 Calcium Level 8.5 Total Bilirubin 0.0 L Direct Bilirubin 0.00 Indirect Bilirubin 0.0 Aspartate Amino 34 # Transf (AST/SGOT) Alanine 22 Aminotransferase (ALT/SG PT) Alkaline Phosphatase 252 #H Total Protein 6.6 # Albumin 2.9 L Globulin 3.70 H Albumin/Globulin Ratio 0.78 Free Thyroxine 1.44 White Blood Count 11.6 H Red Blood Count 3.52 L Hemoglobin 10.1 L Hematocrit 29.2 L Mean Corpuscular Volume 83.0 Mean Corpuscular 28.7 L Hemoglobin Mean Corpuscular 34.6 Hemoglobin Concent Red Cell Distribution 14.0 Width Platelet Count 201 Mean Platelet Volume 11.1 H Immature Granulocytes % 1.100 H Neutrophils % 85.9 H Lymphocytes % 5.4 L Monocytes % 6.5 Eosinophils % 1.0 Basophils % 0.1 Nucleated Red Blood 0.0 Cells % Immature Granulocytes # 0.130 H Neutrophils # 10.0 H Lymphocytes # 0.6 L Monocytes # 0.8 Eosinophils # 0.1 Basophils # 0.0 Nucleated Red Blood 0.0 Cells # Total Triiodothyronine 0.97 Test 11/01/18 12:11 Bedside Glucose 122 Consultation Date/Type/Reason Admit Date/Time Oct 30, 2018 at 15:19 Initial Consult Date 10/31/18 Type of Consult NEPHROLOGY Requesting Provider: SANDRA SHEEHAN MD Exam/Review of Systems Vital Signs Vitals Vital Signs Date Temp Pulse Resp B/P (MAP) Pulse Ox O2 O2 Flow FiO2 Time Delivery Rate 11/01/18 99.6 113 16 155/77 97 Room Air 16:40 (103) Intake and Output 10/31/18 10/31/18 11/01/18 1515:00 23:00 07:00 IntakeIntake Total 1200 ml 970 ml 700 ml OutputOutput Total 1450 ml 2000 ml BalanceBalance 1200 ml -480 ml -1300 ml Exam Constitutional: alert, awake Head: normocephalic Eyes: nl conjunctiva ENMT: nl external ears & nose Neck: supple, non-tender Respiratory: clear to auscultation, diminished breath sounds Cardiovascular: regular rate and rhythm, nl pulses Gastrointestinal: soft, non-tender Extremities: normal pulses Neurological: non focal Medications Medications Current Medications Diagnostic Test (Pha) (Accu-Chek) 1 ea 02 XX ; Start 10/31/18 at 02:00 Insulin Aspart (Novolog Insulin Pen) NOVOLOG *MODERATE* ALGORITHM WITH MEALS BEDTIME SC ; Start 10/30/18 at 18:00 IV Flush (NS 3 ml) 3 ml PER PROTOCOL IV ; Start 10/30/18 at 15:30 Ondansetron HCl (Zofran Inj) 4 mg Q6H PRN IV NAUSEA AND/OR VOMITING; Start 10/30/18 at 15:30 Acetaminophen (Tylenol Tab) 650 mg Q6H PRN PO PAIN LEVEL 1-3 OR FEVER; Start 10/30/18 at 15:30 Acetaminophen/ Hydrocodone Bitart ([place] (5/325)) 1 tab Q6H PRN PO MODERATE [place] IN LEVEL 4-6 Last administered on 10/31/18at 14:42; Admin Dose 1 TAB; Start 10/30/18 at 15:30 Docusate Sodium (Colace) 100 mg Q12H PRN PO CONSTIPATION; Start 10/30/18 at 15:30 Bisacodyl (Dulcolax) 5 mg DAILY PRN PO CONSTIPATION Last administered on 11/01/18 12:23; Admin Dose 5 MG; Start 10/30/18 at 15:30 Bisacodyl (Dulcolax Supp) 10 mg DAILY PRN [place] CONSTIPATION; Start 10/30/18 at 15:30 Famotidine (Pepcid) 20 mg Q12 PO Last administered on 11/01/18 08:18; Admin Dose 20 MG; Start 10/30/18 at 21:00 Enoxaparin Sodium (Lovenox) 30 mg DAILY SC ; Start 11/02/18 at 09:00 Senna/Docusate Sodium (Senokot-S) 2 tab HS PO Last administered on 10/31/18 20:16; Admin Dose 2 TAB; Start 10/30/18 at 21:00 Guaifenesin/ Dextromethorphan (Robitussin Dm Liquid Cup) 10 ml Q4H PRN PO COUGH; Start 10/30/18 at 17:30 Thiamine HCl (Vitamin B1) 100 mg DAILY PO Last administered on 11/01/18 08:18; Admin Dose 100 MG; Start 10/31/18 at 09:00 Citric Acid/ Sodium Citrate (Bicitra) 30 ml BID PO Last administered on 11/01/18 08:18; Admin Dose 30 ML; Start 10/30/18 at 21:00 Ceftriaxone Sodium 50 ml @ 100 mls/hr Q24H IVPB Last administered on 11/01/18at 14:46; Admin Dose 100 MLS/HR; Start 10/31/18 at 15:00 Sodium Chloride 1,000 ml @ 60 mls/hr [id number] IV Last administered on 11/01/18 09:45; Admin Dose 60 MLS/HR; Start 11/01/18 at 08:30 Morphine Sulfate (morphine) 6 mg Q4H PRN PO SEVERE PAIN LEVEL 7-10; Start 11/01/18 at 15:00 YAIR GOLDSMITH MD Nov 01, 2018 17:16
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
[2018-11-01 20:00] VITALS: BP 155/81; PULSE 99; RESP 18
[2018-11-01] MEDS: SENNA/DOCUSATE NA (8.6MG/50MG) TAB PO SCH (21:26)
[2018-11-02] MEDS: SOD CHLORIDE 0.45% 1,000 ML IV SCH ×2 (01:10→05:47)
[2018-11-02] MEDS: ACCU-CHEK XX SCH (01:53)
[2018-11-02 02:00] VITALS: BP 146/79; PULSE 90; RESP 18
[2018-11-02 07:59] VITALS: BP 151/73; PULSE 89; RESP 16
[2018-11-02] MEDS: INSULIN ASPART [NOVOLOG] 3 ML PEN SC SCH ×4 (08:00→21:00)
[2018-11-02] MEDS: CITRIC ACID/NA CITRATE 30 ML CUP PO SCH ×2 (08:12→21:20)
[2018-11-02] MEDS: FAMOTIDINE 20 MG TAB PO SCH (08:13)
[2018-11-02] MEDS: ENOXAPARIN 30 MG/0.3 ML SYG SC SCH (08:14)
[2018-11-02] MEDS: THIAMINE 100 MG TAB PO SCH (08:17)
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
--- NOTE | 2018-11-02 13:16 | CONS ---
Date/Time of Note Date/Time of Note DATE: 11/02/18 TIME: 13:16 Assessment/Plan Assessment/Plan Assessment/Plan 1. acute vs acute on chronic renal failure due to Obstruction + prerenal azotemia 2. H/o left nephrectomy, unclear history 3. metabolic acidosis 4. anemia for CKD 5. Severe hydronephrosis Right side Plan: Bicitra 30ml PO BID for acidosis, BUN/Cr improved to 100/7.5 yesterday no labs today, BMP stat, Continue IVF 1/2 NS at 60cc/hr CT Abdomen + pelvis w/o contrast showed R hydronephrosis, s/p Urology consult, no surgical intervention at this time will follow up Result Diagram: 11/01/18 0442 11/01/18 0441 Results 24hrs Laboratory Tests Test 11/01/18 17:41 11/01/18 21:24 11/02/18 08:14 11/02/18 12:18 Bedside Glucose 137 118 105 104 Consultation Date/Type/Reason Admit Date/Time Oct 30, 2018 at 15:19 Initial Consult Date 10/31/18 Type of Consult NEPHROLOGY Requesting Provider: SANDRA SHEEHAN MD 24 HR Interval Summary Free Text/Dictation BUN/Cr 100/7.5 yesterday, no labs today to review yet Exam/Review of Systems Vital Signs Vitals Vital Signs Date Temp Pulse Resp B/P (MAP) Pulse Ox O2 O2 Flow FiO2 Time Delivery Rate 11/02/18 98.5 89 16 151/73 98 07:59 (99) 11/01/18 Room Air 16:40 Intake and Output 11/01/18 11/01/18 11/02/18 1515:00 23:00 07:00 IntakeIntake Total 570 ml 1490 ml 1120 ml OutputOutput Total 2450 ml BalanceBalance 570 ml -960 ml 1120 ml Exam Constitutional: alert, awake Head: normocephalic Eyes: nl conjunctiva ENMT: nl external ears & nose Neck: supple, non-tender Respiratory: clear to auscultation, diminished breath sounds Cardiovascular: regular rate and rhythm, nl pulses Gastrointestinal: soft, non-tender Extremities: normal pulses Neurological: non focal Medications Medications Current Medications Diagnostic Test (Pha) (Accu-Chek) 1 XX ; Start 10/31/18 at 02:00 Insulin Aspart (Novolog Insulin Pen) NOVOLOG *MODERATE* ALGORITHM WITH MEALS BEDTIME SC ; Start 10/30/18 at 18:00 IV Flush (NS 3 ml) 3 ml PER PROTOCOL IV ; Start 10/30/18 at 15:30 Ondansetron HCl (Zofran Inj) 4 mg Q6H PRN IV NAUSEA AND/OR VOMITING; Start 10/30/18 at 15:30 Acetaminophen (Tylenol Tab) 650 mg Q6H PRN PO PAIN LEVEL 1-3 OR FEVER; Start 10/30/18 at 15:30 Acetaminophen/ Hydrocodone Bitart ([place] (5/325)) 1 tab Q6H PRN PO MODERATE PAIN LEVEL 4-6 Last administered on 10/31/18at 14:42; Admin Dose 1 TAB; Start 10/30/18 at 15:30 Docusate Sodium (Colace) 100 mg Q12H PRN PO CONSTIPATION; Start 10/30/18 at 15:30 Bisacodyl (Dulcolax) 5 mg DAILY PRN PO CONSTIPATION Last administered on 11/01/18at 12:23; Admin Dose 5 MG; Start 10/30/18 at 15:30 Bisacodyl (Dulcolax Supp) 10 mg DAILY PRN [place] CONSTIPATION; Start 10/30/18 at 15:30 Famotidine (Pepcid) 20 mg Q12 PO Last administered on 11/02/18at 08:13; Admin Dose 20 MG; Start 10/30/18 at 21:00 Enoxaparin Sodium (Lovenox) 30 mg DAILY SC Last administered on 11/02/18at 08:14; Admin Dose 30 MG; Start 11/02/18 at 09:00 Senna/Docusate Sodium (Senokot-S) 2 tab HS PO Last administered on 11/01/18at 21:26; Admin Dose 2 TAB; Start 10/30/18 at 21:00 Guaifenesin/ Dextromethorphan (Robitussin Dm Liquid Cup) 10 ml Q4H PRN PO COUGH; Start 10/30/18 at 17:30 Thiamine HCl (Vitamin B1) 100 mg DAILY PO Last administered on 11/02/18at 08:17; Admin Dose 100 MG; Start 10/31/18 at 09:00 Citric Acid/ Sodium Citrate (Bicitra) 30 ml BID PO Last administered on 11/02/18at 08:12; Admin Dose 30 ML; Start 10/30/18 at 21:00 Ceftriaxone Sodium 50 ml @ 100 mls/hr Q24H IVPB Last administered on 11/01/18at 14:46; Admin Dose 100 MLS/HR; Start 10/31/18 at 15:00 Sodium Chloride 1,000 ml @ 60 mls/hr [id number] IV Last administered on 11/02/18at 05:47; Admin Dose 60 MLS/HR; Start 11/01/18 at 08:30 Morphine Sulfate (morphine) 6 mg Q4H PRN PO SEVERE PAIN LEVEL 7-10; Start 11/01/18 at 15:00 YAIR GOLDSMITH MD Nov 02, 2018 13:16
[2018-11-02 14:22] VITALS: BP 152/85; PULSE 89; RESP 18
[2018-11-02] MEDS: CEFTRIAXONE 1 GM/NS 50 ML IVPB SCH (14:51)
[2018-11-02] MEDS: HYDROCODONE/APAP (5/325) TAB PO PRN (14:57)
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
[2018-11-02] MEDS ORDERED: GLUCAGON 1 MG INJ IM PRN (18:00)
[2018-11-02] MEDS ORDERED: GLUCOSE GEL 15 GRAM TUBE BUCCAL PRN (18:00)
[2018-11-02] MEDS ORDERED: DEXTROSE 50% 50 ML SYRINGE IV PRN ×2 (18:00)
[2018-11-02] MEDS ORDERED: GLUCOSE GEL 15 GRAM TUBE PO PRN ×2 (18:00)
[2018-11-02] MEDS: CIPROFLOXACIN 250 MG TAB PO SCH (18:36)
[2018-11-02 20:00] VITALS: BP 132/78; PULSE 89; RESP 18
[2018-11-02] MEDS: SENNA/DOCUSATE NA (8.6MG/50MG) TAB PO SCH (21:20)
[2018-11-02] MEDS: LACTOBACILLUS RHAMNOSUS CAP PO SCH (21:20)
[2018-11-03 02:00] VITALS: BP 141/82; PULSE 96; RESP 18
[2018-11-03] MEDS: ACCU-CHEK XX SCH (02:00)
[2018-11-03] MEDS: SOD CHLORIDE 0.45% 1,000 ML IV SCH ×2 (02:45→20:45)
[2018-11-03] MEDS: INSULIN ASPART [NOVOLOG] 3 ML PEN SC SCH ×4 (07:48→20:36)
[2018-11-03 08:39] VITALS: BP 124/74; PULSE 91; RESP 18
[2018-11-03] MEDS: LACTOBACILLUS RHAMNOSUS CAP PO SCH ×2 (08:47→20:35)
[2018-11-03] MEDS: CITRIC ACID/NA CITRATE 30 ML CUP PO SCH ×2 (08:47→20:35)
[2018-11-03] MEDS: FAMOTIDINE 20 MG TAB PO SCH (08:47)
[2018-11-03] MEDS: THIAMINE 100 MG TAB PO SCH (08:47)
[2018-11-03] MEDS: ENOXAPARIN 30 MG/0.3 ML SYG SC SCH (08:52)
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
[2018-11-03] MEDS: MAGNESIUM OXIDE 400 MG TAB PO SCH ×2 (13:36→20:35)
[2018-11-03] MEDS: POTASSIUM CHLORIDE 20 MEQ POWDER FOR ORAL SOLN PO SCH (13:36)
[2018-11-03 14:56] VITALS: BP 144/81; PULSE 89; RESP 18
--- NOTE | 2018-11-03 15:35 | CONS ---
Date/Time of Note Date/Time of Note DATE: 11/03/18 TIME: 15:35 Assessment/Plan Assessment/Plan Assessment/Plan 1. acute vs acute on chronic renal failure due to Obstruction + prerenal azotemia 2. H/o left nephrectomy, unclear history 3. metabolic acidosis 4. anemia for CKD 5. Severe hydronephrosis Right side Plan: Bicitra 30ml PO BID for acidosis, BUN/Cr improved to 80/5.24,Continue IVF 1/2 N S at 60cc/hr CT Abdomen + pelvis w/o contrast showed R hydronephrosis, s/p Urology consult, no surgical intervention at this time will follow up Result Diagram: 11/03/18 0432 11/03/18 0432 Results 24hrs Laboratory Tests Test 11/02/18 17:17 11/02/18 21:18 11/03/18 04:32 11/03/18 07:47 Bedside Glucose 120 150 118 White Blood Count 13.7 H Red Blood Count 3.76 L Hemoglobin 10.6 L Hematocrit 30.4 L Mean Corpuscular Volume 80.9 L Mean Corpuscular 28.2 L Hemoglobin Mean Corpuscular 34.9 Hemoglobin Concent Red Cell Distribution 13.4 Width Platelet Count 240 Mean Platelet Volume 11.2 H Immature Granulocytes % 4.100 H Neutrophils % 73.9 Lymphocytes % 8.5 L Monocytes % 11.8 H Eosinophils % 1.3 Basophils % 0.4 Nucleated Red Blood 0.0 Cells % Immature Granulocytes # 0.560 H Neutrophils # 10.1 H Lymphocytes # 1.2 Monocytes # 1.6 H Eosinophils # 0.2 Basophils # 0.1 Nucleated Red Blood 0.0 Cells # Sodium Level 138 Potassium Level 3.4 L Chloride Level 105 Carbon Dioxide Level 21 Anion Gap 12 Blood Urea Nitrogen 80 H Creatinine 5.24 H Est Glomerular Filtrat Rate mL/min Glucose Level 118 # Calcium Level 8.3 L Magnesium Level 1.6 L Test 11/03/18 11:44 Bedside Glucose 150 Consultation Date/Type/Reason Admit Date/Time Oct 30, 2018 at 15:19 Initial Consult Date 10/31/18 Type of Consult NEPHROLOGY Requesting Provider: SANDRA SHEEHAN MD Exam/Review of Systems Vital Signs Vitals Vital Signs Date Temp Pulse Resp B/P (MAP) Pulse Ox O2 O2 Flow FiO2 Time Delivery Rate 11/03/18 99.3 89 18 144/81 96 14:56 (102) 11/01/18 Room Air 16:40 Intake and Output 11/02/18 11/02/18 11/03/18 1515:00 23:00 07:00 IntakeIntake Total 360 ml 1370 ml 740 ml OutputOutput Total 1100 ml 1900 ml 700 ml BalanceBalance -740 ml -530 ml 40 ml Exam Constitutional: alert, awake Head: normocephalic Eyes: nl conjunctiva ENMT: nl external ears & nose Neck: supple, non-tender Respiratory: clear to auscultation, diminished breath sounds Cardiovascular: regular rate and rhythm, nl pulses Gastrointestinal: soft, non-tender Extremities: normal pulses Neurological: non focal Medications Medications Current Medications Diagnostic Test (Pha) (Accu-Chek) XX ; Start 10/31/18 at 02:00 Insulin Aspart (Novolog Insulin Pen) NOVOLOG *MODERATE* ALGORITHM WITH MEALS BEDTIME SC Last administered on 11/03/18at 11:57; Admin Dose 2 UNIT; Start 10/30/18 at 18:00 IV Flush (NS 3 ml) 3 ml PER PROTOCOL IV ; Start 10/30/18 at 15:30 Ondansetron HCl (Zofran Inj) 4 mg Q6H PRN IV NAUSEA AND/OR VOMITING; Start 10/30/18 at 15:30 Acetaminophen (Tylenol Tab) 650 mg Q6H PRN PO PAIN LEVEL 1-3 OR FEVER; Start 10/30/18 at 15:30 Acetaminophen/ Hydrocodone Bitart ([place] (5/325)) 1 tab Q6H PRN PO MODERATE PAIN LEVEL 4-6 Last administered on 11/02/18at 14:57; Admin Dose 1 TAB; Start 10/30/18 at 15:30 Docusate Sodium (Colace) 100 mg Q12H PRN PO CONSTIPATION; Start 10/30/18 at 15:30 Bisacodyl (Dulcolax) 5 mg DAILY PRN PO CONSTIPATION Last administered on at 12:23; Admin Dose 5 MG; Start 10/30/18 at 15:30 Bisacodyl (Dulcolax Supp) 10 mg DAILY PRN [place] CONSTIPATION; Start 10/30/18 at 15:30 Enoxaparin Sodium (Lovenox) 30 mg DAILY SC Last administered on 11/03/18 08:52; Admin Dose 30 MG; Start 11/02/18 at 09:00 Senna/Docusate Sodium (Senokot-S) 2 tab HS PO Last administered on 11/02/18at 21:20; Admin Dose 2 TAB; Start 10/30/18 at 21:00 Guaifenesin/ Dextromethorphan (Robitussin Dm Liquid Cup) 10 ml Q4H PRN PO COUGH; Start 10/30/18 at 17:30 Thiamine HCl (Vitamin B1) 100 mg DAILY PO Last administered on 11/03/18 08:47; Admin Dose 100 MG; Start 10/31/18 at 09:00 Citric Acid/ Sodium Citrate (Bicitra) 30 ml BID PO Last administered on 11/03/18 08:47; Admin Dose 30 ML; Start 10/30/18 at 21:00 Sodium Chloride 1,000 ml @ 50 mls/hr Q20H IV Last administered on 11/03/18at 02:45; Admin Dose 60 MLS/HR; Start 11/01/18 at 08:30 Morphine Sulfate (morphine) 6 mg Q4H PRN PO SEVERE PAIN LEVEL 7-10; Start 11/01/18 at 15:00 Famotidine (Pepcid) 20 mg DAILY PO Last administered on 11/03/18 08:47; Admin Dose 20 MG; Start 11/03/18 at 09:00 Ciprofloxacin (Cipro) 250 mg DAILY@1800 PO Last administered on 11/02/18at 18:36; Admin Dose 250 MG; Start 11/02/18 at 18:30 Lactobacillus Acidophilus/ Rhamnosus (Culturelle) 1 cap BID PO Last administered on 11/03/18 08:47; Admin Dose 1 CAP; Start 11/02/18 at 21:00 Miscellaneous Information 1 ea NOTE XX ; Start 11/02/18 at 18:00 Glucose (Glutose) 15 gm Q15M PRN PO DECREASED GLUCOSE; Start 11/02/18 at 18:00 Glucose (Glutose) 22.5 gm Q15M PRN PO DECREASED GLUCOSE; Start 11/02/18 at 18:00 Dextrose (D50w Syringe) 25 ml Q15M PRN IV DECREASED GLUCOSE; Start 11/02/18 at 18:00 Dextrose (D50w Syringe) 50 ml Q15M PRN IV DECREASED GLUCOSE; Start 11/02/18 at 18:00 Glucagon (Glucagen) 1 mg Q15M PRN IM DECREASED GLUCOSE; Start 11/02/18 at 18:00 Glucose (Glutose) 15 gm Q15M PRN BUCCAL DECREASED GLUCOSE; Start 11/02/18 at 18:00 Potassium Chloride (Potassium Chloride Pwd/Soln) 40 meq DAILY PO Last administered on 11/03/18at 13:36; Admin Dose 40 MEQ; Start 11/03/18 at 12:30 Magnesium Oxide (Mag-Ox 400) 400 mg BID PO Last administered on 11/03/18at 13:36; Admin Dose 400 MG; Start 11/03/18 at 12:30 YAIR GOLDSMITH MD Nov 03, 2018 15:35
[2018-11-03 20:00] VITALS: BP 145/80; PULSE 91; RESP 18
[2018-11-03] MEDS: CIPROFLOXACIN 250 MG TAB PO SCH (20:35)
[2018-11-03] MEDS: SENNA/DOCUSATE NA (8.6MG/50MG) TAB PO SCH (20:36)
[2018-11-04 02:00] VITALS: BP 146/79; PULSE 86; RESP 18
[2018-11-04] MEDS: ACCU-CHEK XX SCH (02:00)
[2018-11-04] MEDS: INSULIN ASPART [NOVOLOG] 3 ML PEN SC SCH ×4 (08:00→20:08)
[2018-11-04] MEDS: ENOXAPARIN 30 MG/0.3 ML SYG SC SCH (08:28)
[2018-11-04] MEDS: FAMOTIDINE 20 MG TAB PO SCH (08:29)
[2018-11-04] MEDS: MAGNESIUM OXIDE 400 MG TAB PO SCH ×2 (08:29→20:01)
[2018-11-04] MEDS: POTASSIUM CHLORIDE 20 MEQ POWDER FOR ORAL SOLN PO SCH (08:29)
[2018-11-04] MEDS: LACTOBACILLUS RHAMNOSUS CAP PO SCH ×2 (08:29→20:01)
[2018-11-04] MEDS: CITRIC ACID/NA CITRATE 30 ML CUP PO SCH ×2 (08:29→20:01)
[2018-11-04] MEDS: THIAMINE 100 MG TAB PO SCH (08:32)
[2018-11-04 08:33] VITALS: BP 149/79; RESP 17
[2018-11-04 14:00] VITALS: BP 143/86; PULSE 89; RESP 18
--- NOTE | 2018-11-04 14:28 | CONS ---
Date/Time of Note Date/Time of Note DATE: 11/04/18 TIME: 14:28 Assessment/Plan Assessment/Plan Assessment/Plan 1. acute vs acute on chronic renal failure due to Obstruction + prerenal azotemia 2. H/o left nephrectomy, unclear history 3. metabolic acidosis 4. anemia for CKD 5. Severe hydronephrosis Right side Plan: Bicitra 30ml PO BID for acidosis, BUN/Cr improved to 74/4.78- Continue IVF 1/2 NS at 60cc/hr CT Abdomen + pelvis w/o contrast showed R hydronephrosis, s/p Urology consult, no surgical intervention at this time will follow up Result Diagram: 11/04/18 0525 11/04/18 0525 Results 24hrs Laboratory Tests Test 11/03/18 17:19 11/03/18 20:30 11/04/18 05:25 11/04/18 08:16 Bedside Glucose 117 147 113 White Blood Count 16.1 H Red Blood Count 3.65 L Hemoglobin 10.7 L Hematocrit 29.8 L Mean Corpuscular Volume 81.6 L Mean Corpuscular 29.3 Hemoglobin Mean Corpuscular 35.9 Hemoglobin Concent Red Cell Distribution 13.6 Width Platelet Count 261 Mean Platelet Volume 10.9 H Immature Granulocytes % 6.600 H Neutrophils % 67.6 Segmented Neutrophils 68 % (Manual) Lymphocytes % 10.3 L Lymphocytes % (Manual) 18 Reactive Lymphocytes 1 H % (Manual) Monocytes % 13.2 H Monocytes % (Manual) 6 Eosinophils % 1.9 Eosinophils % (Manual) 2 Basophils % 0.4 Basophils % (Manual) 2 Myelocytes % (Manual) 2 H Promyelocytes % (Manual) 1 H Nucleated Red Blood 0.0 Cells % Immature Granulocytes # 1.070 H Neutrophils # 10.9 H Lymphocytes (Manual) 2.8 Lymphocytes # 1.7 Reactive Lymphocytes # 0.1 H Monocytes # 2.1 H Monocytes # (Manual) 0.9 Eosinophils # 0.3 Basophils # 0.1 Basophils # (Manual) 0.3 H Myelocytes # 0.3 H Promyelocytes # 0.1 H Nucleated Red Blood 0.0 Cells # Platelet Estimate NORMAL Giant Platelets 1 H Anisocytosis 1+ Macrocytosis 1+ Target Cells 1+ Sodium Level 140 Potassium Level 3.8 Chloride Level 105 Carbon Dioxide Level 24 Anion Gap 11 Blood Urea Nitrogen 74 H Creatinine 4.78 H Est Glomerular Filtrat Rate mL/min Glucose Level 119 Calcium Level 8.2 L Total Bilirubin 0.1 L Direct Bilirubin 0.00 Indirect Bilirubin 0.1 Aspartate Amino 45 Transf (AST/SGOT) Alanine 36 Aminotransferase (ALT/SG PT) Alkaline Phosphatase 314 H Total Protein 6.8 Albumin 2.9 L Globulin 3.90 H Albumin/Globulin Ratio 0.74 Test 11/04/18 12:21 Bedside Glucose 103 Consultation Date/Type/Reason Admit Date/Time Oct 30, 2018 at 15:19 Initial Consult Date 10/31/18 Type of Consult NEPHROLOGY Requesting Provider: SANDRA SHEEHAN MD 24 HR Interval Summary Free Text/Dictation BUN/Cr improved to 74/4.78 Exam/Review of Systems Vital Signs Vitals Vital Signs Date Temp Pulse Resp B/P (MAP) Pulse Ox O2 O2 Flow FiO2 Time Delivery Rate 11/04/18 98.9 17 149/79 97 Room Air 08:33 (102) 11/04/18 86 02:00 Intake and Output 11/03/18 11/03/18 11/04/18 1515:00 23:00 07:00 IntakeIntake Total 660 ml 940 ml OutputOutput Total 2000 ml 2000 ml BalanceBalance 660 ml -1060 ml -2000 ml Medications Medications Current Medications Diagnostic Test (Pha) (Accu-Chek) 1 ea 02 XX ; Start 10/31/18 at 02:00 Insulin Aspart (Novolog Insulin Pen) NOVOLOG *MODERATE* ALGORITHM WITH MEALS BEDTIME SC Last administered on 11/03/18at 11:57; Admin Dose 2 UNIT; Start 10/30/18 at 18:00 IV Flush (NS 3 ml) 3 ml PER PROTOCOL IV ; Start 10/30/18 at 15:30 Ondansetron HCl (Zofran Inj) 4 mg Q6H PRN IV NAUSEA AND/OR VOMITING; Start 10/30/18 at 15:30 Acetaminophen (Tylenol Tab) 650 mg Q6H PRN PO PAIN LEVEL 1-3 OR FEVER; Start 10/30/18 at 15:30 Acetaminophen/ Hydrocodone Bitart ([place] (5/325)) 1 tab Q6H PRN PO MODERATE PAIN LEVEL 4-6 Last administered on 11/02/18at 14:57; Admin Dose 1 TAB; Start 10/30/18 at 15:30 Docusate Sodium (Colace) 100 mg Q12H PRN PO CONSTIPATION; Start 10/30/18 at 15:30 Bisacodyl (Dulcolax) 5 mg DAILY PRN PO CONSTIPATION Last administered on 11/01/18at 12:23; Admin Dose 5 MG; Start 10/30/18 at 15:30 Bisacodyl (Dulcolax Supp) 10 mg DAILY PRN [place] CONSTIPATION; Start 10/30/18 at 15:30 Enoxaparin Sodium (Lovenox) 30 mg DAILY SC Last administered on 11/04/18 08:28; Admin Dose 30 MG; Start 11/02/18 at 09:00 Senna/Docusate Sodium (Senokot-S) 2 tab HS PO Last administered on 11/02/18 21:20; Admin Dose 2 TAB; Start 10/30/18 at 21:00 Guaifenesin/ Dextromethorphan (Robitussin Dm Liquid Cup) 10 ml Q4H PRN PO COUGH; Start 10/30/18 at 17:30 Thiamine HCl (Vitamin B1) 100 mg DAILY PO Last administered on 11/04/18 08:32; Admin Dose 100 MG; Start 10/31/18 at 09:00 Citric Acid/ Sodium Citrate (Bicitra) 30 ml BID PO Last administered on 11/04/18 08:29; Admin Dose 30 ML; Start 10/30/18 at 21:00 Sodium Chloride 1,000 ml @ 50 mls/hr Q20H IV Last administered on 11/03/18 20:45; Admin Dose 50 MLS/HR; Start 11/01/18 at 08:30 Morphine Sulfate (morphine) 6 mg Q4H PRN PO SEVERE PAIN LEVEL 7-10; Start 11/01/18 at 15:00 Famotidine (Pepcid) 20 mg DAILY PO Last administered on 11/04/18 08:29; Admin Dose 20 MG; Start 11/03/18 at 09:00 Ciprofloxacin (Cipro) 250 mg DAILY@1800 PO Last administered on 11/03/18 20:35; Admin Dose 250 MG; Start 11/02/18 at 18:30 Lactobacillus Acidophilus/ Rhamnosus (Culturelle) 1 cap BID PO Last administered on 11/04/18 08:29; Admin Dose 1 CAP; Start 11/02/18 at 21:00 Miscellaneous Information 1 ea NOTE XX ; Start 11/02/18 at 18:00 Glucose (Glutose) 15 gm Q15M PRN PO DECREASED GLUCOSE; Start 11/02/18 at 18:00 Glucose (Glutose) 22.5 gm Q15M PRN PO DECREASED GLUCOSE; Start 11/02/18 at 18:00 Dextrose (D50w Syringe) 25 ml Q15M PRN IV DECREASED GLUCOSE; Start 11/02/18 at 18:00 Dextrose (D50w Syringe) 50 ml Q15M PRN IV DECREASED GLUCOSE; Start 11/02/18 at 18:00 Glucagon (Glucagen) 1 mg Q15M PRN IM DECREASED GLUCOSE; Start 11/02/18 at 18:00 Glucose (Glutose) 15 gm Q15M PRN BUCCAL DECREASED GLUCOSE; Start 11/02/18 at 18:00 Potassium Chloride (Potassium Chloride Pwd/Soln) 40 meq DAILY PO Last administered on 11/04/18at 08:29; Admin Dose 40 MEQ; Start 11/03/18 at 12:30 Magnesium Oxide (Mag-Ox 400) 400 mg BID PO Last administered on 11/04/18at 08:29; Admin Dose 400 MG; Start 11/03/18 at 12:30 YAIR GOLDSMITH MD Nov 04, 2018 14:28
[2018-11-04] MEDS ORDERED: CIPR-193 PO (15:32)
--- NOTE | 2018-11-04 15:36 | PDOCDIS ---
Discharge Instructions CONDITION [id number] Patient Condition: [id number] Stable HOME CARE INSTRUCTIONS: [id number] Special Diet: [id number] S: Other Orders: 1. Resume home medications. 2. Complete the course of antibiotics. 3. Take a renal diet. 4. 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 5. Follow-up with your primary care physician in 2 weeks. 6. Please go to the nearest emergency room if you have any significant abdominal pain, persistent fevers, persistent nausea/vomiting, or any other unusual signs/symptoms. ARAMIS RUSSELL NP Nov 04, 2018 15:36
[2018-11-04] MEDS: CIPROFLOXACIN 250 MG TAB PO SCH (17:29)
[2018-11-04] MEDS: SOD CHLORIDE 0.45% 1,000 ML IV SCH (17:31)
--- NOTE | 2018-11-04 18:01 | DS ---
Discharge Summary Admission/Discharge Info Discharge Date/Time Home Meds Active Scripts Ciprofloxacin Hcl* (Ciprofloxacin Hcl*) 250 Mg Tablet, 250 MG PO DAILY@1800, #10 TAB Prov:ARAMIS RUSSELL NP 11/04/18 Reported Medications Sodium Bicarbonate* (Sodium Bicarbonate*) 650 Mg Tablet, 650 MG PO BID, TAB 10/30/18 Amlodipine Besylate* (Norvasc*) 5 Mg Tablet, 5 MG PO DAILY, TAB 10/30/18 Multivit/Ca Carb/B Cmplx/Fa* (Tanya-Kathryn*) 1 Tab Tab, 1 TAB PO DAILY, TAB 10/30/18 Calcitriol* (Calcitriol*) 0.25 Mcg Capsule, 0.25 MCG PO DAILY, CAP 10/30/18 Discontinued Reported Medications Multivit/Ca Carb/B Cmplx/Fa* (Tanya-Kathryn*) 1 Tab Tab, 1 TAB PO DAILY, TAB 10/30/18 Pending Labs ARAMIS RUSSELL NP Nov 04, 2018 18:01
--- NOTE | 2018-11-04 18:10 | PN ---
Date/Time of Note Date/Time of Note DATE: 11/04/18 TIME: 18:10 Assessment/Plan VTE Prophylaxis Risk score (from Nsg)>0 risk: 5 SCD applied (from Nsg): Yes Pharmacological prophylaxis: LMWH (RENAL DOSE) Lines/Catheters IV Catheter Type (from Nrs): Peripheral IV Urinary Cath still in place: Yes Reason Cath still needed: urinary retention Assessment/Plan Hospital Course SUBJECTIVE: Denies any pain. OBJECTIVE: Physical Exam General: Adequately build 73 year-old male lying in bed in no apparent distress. HEENT: Normocephalic, atraumatic. Eyes: Anicteric sclerae, conjunctivae clear. ENT: Nasal septum midline, oral mucosa moist. Neck supple, no JVD noticed. Respiratory: Bilaterally clear breath sounds. No use of accessory muscles of respiration. No adventitious breath sounds. Cardiovascular: S1, S2 heard. Regular rate and rhythm. Abdomen: Soft, nontender, and nondistended. Bowel sounds positive in all 4 quadrants. Genitourinary: Marks catheter in place. Extremities: No cyanosis, no clubbing, no edema. Peripheral pulses palpable. Neurologic: The patient is awake, alert, and oriented. Labs & Vitals per chart ASSESSMENT& PLAN This is a 73-year-old gentleman who was brought to the emergency room because of chief complaint of abdominal pain. The patient's comorbidities include hypertension, chronic kidney disease who has been refusing hemodialysis initiation, and urinary retention with chronic indwelling Makrs catheter. In the emergency room, the patient underwent a CT scan of the abdomen and pelvis that was showing distended stomach with fluid and debris and scattered borderline prominent small bowel loops without definite transition. The CT also revealed possibly of ongoing infection with persistent severe right-sided hydronephrosis with some air seen in the collecting system within the kidney and ureter. 1. Complicated urinary tract infection. -Urine culture positive for Morganella morganii and Klebsiella pneumonia species. -Continue ciprofloxacin(renal dose). 2. Obstructive uropathy. -Continue Marks catheter. -Being followed by urology. 3. Acute on chronic kidney disease. -Being followed by nephrology. 4. Metabolic acidosis. -Probably secondary to worsening renal function. -Continue Bicitra. 5. Anemia of chronic kidney disease. -Monitor H&H closely. 6. Debility. -Continue fall precautions. 7. Fluids, electrolytes, and nutrition. -Renal diet. 8. DVT prophylaxis. -Subcutaneous Lovenox (Renal dose). 9. Plan. -Continue antimicrobials. -Discharge planning is to home with home health. The patient was seen in collaboration with Dr. Burgess. Result Diagram: 11/04/18 0525 11/04/18 0525 Results 24hrs Laboratory Tests Test 11/03/18 20:30 11/04/18 05:25 11/04/18 08:16 11/04/18 12:21 Bedside Glucose 147 113 103 White Blood Count 16.1 H Red Blood Count 3.65 L Hemoglobin 10.7 L Hematocrit 29.8 L Mean Corpuscular Volume 81.6 L Mean Corpuscular 29.3 Hemoglobin Mean Corpuscular 35.9 Hemoglobin Concent Red Cell Distribution 13.6 Width Platelet Count 261 Mean Platelet Volume 10.9 H Immature Granulocytes % 6.600 H Neutrophils % 67.6 Segmented Neutrophils 68 % (Manual) Lymphocytes % 10.3 L Lymphocytes % (Manual) 18 Reactive Lymphocytes 1 H % (Manual) Monocytes % 13.2 H Monocytes % (Manual) 6 Eosinophils % 1.9 Eosinophils % (Manual) 2 Basophils % 0.4 Basophils % (Manual) 2 Myelocytes % (Manual) 2 H Promyelocytes % (Manual) 1 H Nucleated Red Blood 0.0 Cells % Immature Granulocytes # 1.070 H Neutrophils # 10.9 H Lymphocytes (Manual) 2.8 Lymphocytes # 1.7 Reactive Lymphocytes # 0.1 H Monocytes # 2.1 H Monocytes # (Manual) 0.9 Eosinophils # 0.3 Basophils # 0.1 Basophils # (Manual) 0.3 H Myelocytes # 0.3 H Promyelocytes # 0.1 H Nucleated Red Blood 0.0 Cells # Platelet Estimate NORMAL Giant Platelets 1 H Anisocytosis 1+ Macrocytosis 1+ Target Cells 1+ Sodium Level 140 Potassium Level 3.8 Chloride Level 105 Carbon Dioxide Level 24 Anion Gap 11 Blood Urea Nitrogen 74 H Creatinine 4.78 H Est Glomerular Filtrat Rate mL/min Glucose Level 119 Calcium Level 8.2 L Total Bilirubin 0.1 L Direct Bilirubin 0.00 Indirect Bilirubin 0.1 Aspartate Amino 45 Transf (AST/SGOT) Alanine 36 Aminotransferase (ALT/SG PT) Alkaline Phosphatase 314 H Total Protein 6.8 Albumin 2.9 L Globulin 3.90 H Albumin/Globulin Ratio 0.74 Test 11/04/18 17:26 Bedside Glucose 113 Exam/Review of Systems Vital Signs Vitals Vital Signs Date Temp Pulse Resp B/P (MAP) Pulse Ox O2 O2 Flow FiO2 Time Delivery Rate 11/04/18 100.9 89 18 143/86 96 Room Air 14:00 (105) Intake and Output 11/03/18 11/03/18 11/04/18 1414:59 22:59 06:59 IntakeIntake Total 660 ml 940 ml OutputOutput Total 2000 ml 2000 ml BalanceBalance 660 ml -1060 ml -2000 ml Medications Medications Current Medications Diagnostic Test (Pha) (Accu-Chek) XX ; Start 10/31/18 at 02:00 Insulin Aspart (Novolog Insulin Pen) NOVOLOG *MODERATE* ALGORITHM WITH MEALS BEDTIME SC Last administered on 11/03/18at 11:57; Admin Dose 2 UNIT; Start 10/30/18 at 18:00 IV Flush (NS 3 ml) 3 ml PER PROTOCOL IV ; Start 10/30/18 at 15:30 Ondansetron HCl (Zofran Inj) 4 mg Q6H PRN IV NAUSEA AND/OR VOMITING; Start 10/30/18 at 15:30 Acetaminophen (Tylenol Tab) 650 mg Q6H PRN PO PAIN LEVEL 1-3 OR FEVER; Start 10/30/18 at 15:30 Acetaminophen/ Hydrocodone Bitart ([place] (5/325)) 1 tab Q6H PRN PO MODERATE PAIN LEVEL 4-6 Last administered on 11/02/18at 14:57; Admin Dose 1 TAB; Start 10/30/18 at 15:30 Docusate Sodium (Colace) 100 mg Q12H PRN PO CONSTIPATION; Start 10/30/18 at 15:30 Bisacodyl (Dulcolax) 5 mg DAILY PRN PO CONSTIPATION Last administered on at 12:23; Admin Dose 5 MG; Start 10/30/18 at 15:30 Bisacodyl (Dulcolax Supp) 10 mg DAILY PRN [place] CONSTIPATION; Start 10/30/18 at 15:30 Enoxaparin Sodium (Lovenox) 30 mg DAILY SC Last administered on 11/04/18at 08:28; Admin Dose 30 MG; Start 11/02/18 at 09:00 Senna/Docusate Sodium (Senokot-S) 2 tab HS PO Last administered on 11/02/18at 21:20; Admin Dose 2 TAB; Start 10/30/18 at 21:00 Guaifenesin/ Dextromethorphan (Robitussin Dm Liquid Cup) 10 ml Q4H PRN PO COUGH; Start 10/30/18 at 17:30 Thiamine HCl (Vitamin B1) 100 mg DAILY PO Last administered on 11/04/18at 08:32; Admin Dose 100 MG; Start 10/31/18 at 09:00 Citric Acid/ Sodium Citrate (Bicitra) 30 ml BID PO Last administered on 11/04/18at 08:29; Admin Dose 30 ML; Start 10/30/18 at 21:00 Sodium Chloride 1,000 ml @ 50 mls/hr Q20H IV Last administered on 11/04/18at 17:31; Admin Dose 50 MLS/HR; Start 11/01/18 at 08:30 Morphine Sulfate (morphine) 6 mg Q4H PRN PO SEVERE PAIN LEVEL 7-10; Start 11/01/18 at 15:00 Famotidine (Pepcid) 20 mg DAILY PO Last administered on 11/04/18at 08:29; Admin Dose 20 MG; Start 11/03/18 at 09:00 Ciprofloxacin (Cipro) 250 mg DAILY@1800 PO Last administered on 11/04/18at 17:29; Admin Dose 250 MG; Start 11/02/18 at 18:30 Lactobacillus Acidophilus/ Rhamnosus (Culturelle) 1 cap BID PO Last administered on 11/04/18 08:29; Admin Dose 1 CAP; Start 11/02/18 at 21:00 Miscellaneous Information 1 ea NOTE XX ; Start 11/02/18 at 18:00 Glucose (Glutose) 15 gm Q15M PRN PO DECREASED GLUCOSE; Start 11/02/18 at 18:00 Glucose (Glutose) 22.5 gm Q15M PRN PO DECREASED GLUCOSE; Start 11/02/18 at 18:00 Dextrose (D50w Syringe) 25 ml Q15M PRN IV DECREASED GLUCOSE; Start 11/02/18 at 18:00 Dextrose (D50w Syringe) 50 ml Q15M PRN IV DECREASED GLUCOSE; Start 11/02/18 at 18:00 Glucagon (Glucagen) 1 mg Q15M PRN IM DECREASED GLUCOSE; Start 11/02/18 at 18:00 Glucose (Glutose) 15 gm Q15M PRN BUCCAL DECREASED GLUCOSE; Start 11/02/18 at 18:00 Potassium Chloride (Potassium Chloride Pwd/Soln) 40 meq DAILY PO Last administered on 11/04/18at 08:29; Admin Dose 40 MEQ; Start 11/03/18 at 12:30 Magnesium Oxide (Mag-Ox 400) 400 mg BID PO Last administered on 11/04/18at 08:29; Admin Dose 400 MG; Start 11/03/18 at 12:30 ARAMIS RUSSELL NP Nov 04, 2018 18:10
[2018-11-04 20:00] VITALS: BP 152/74; PULSE 87; RESP 18
[2018-11-04] MEDS: SENNA/DOCUSATE NA (8.6MG/50MG) TAB PO SCH (20:01)
[2018-11-05 02:00] VITALS: BP 161/78; PULSE 82; RESP 18
[2018-11-05] MEDS: ACCU-CHEK XX SCH (02:00)
[2018-11-05 07:52] VITALS: BP 153/81; PULSE 87; RESP 16
[2018-11-05] MEDS: INSULIN ASPART [NOVOLOG] 3 ML PEN SC SCH ×4 (08:00→20:04)
[2018-11-05] MEDS: POTASSIUM CHLORIDE 20 MEQ POWDER FOR ORAL SOLN PO SCH (08:08)
[2018-11-05] MEDS: LACTOBACILLUS RHAMNOSUS CAP PO SCH ×2 (08:08→20:03)
[2018-11-05] MEDS: MAGNESIUM OXIDE 400 MG TAB PO SCH ×2 (08:08→20:04)
[2018-11-05] MEDS: THIAMINE 100 MG TAB PO SCH (08:08)
[2018-11-05] MEDS: CITRIC ACID/NA CITRATE 30 ML CUP PO SCH ×2 (08:08→20:03)
[2018-11-05] MEDS: FAMOTIDINE 20 MG TAB PO SCH (08:08)
[2018-11-05] MEDS: ENOXAPARIN 30 MG/0.3 ML SYG SC SCH (08:10)
--- NOTE | 2018-11-05 10:07 | CONS ---
Date/Time of Note Date/Time of Note DATE: 11/05/18 TIME: 10:07 Assessment/Plan Assessment/Plan Assessment/Plan 1. acute vs acute on chronic renal failure due to Obstruction + prerenal azotemia 2. H/o left nephrectomy, unclear history 3. metabolic acidosis 4. anemia for CKD 5. Severe hydronephrosis Right side Plan: Bicitra 30ml PO BID for acidosis, BUN/Cr improved to 64/4.58, K 5.4- Continue I VF 1/2 NS at 60cc/hr CT Abdomen + pelvis w/o contrast showed R hydronephrosis, s/p Urology consult, no surgical intervention at this time will follow up Result Diagram: 11/04/18 0525 11/04/18 0525 Results 24hrs Laboratory Tests Test 11/04/18 12:21 11/04/18 17:26 11/04/18 20:07 11/05/18 08:05 Bedside Glucose 103 113 113 114 Consultation Date/Type/Reason Admit Date/Time Oct 30, 2018 at 15:19 Initial Consult Date 10/31/18 Type of Consult NEPHROLOGY Requesting Provider: SANDRA SHEEHAN MD Exam/Review of Systems Vital Signs Vitals Vital Signs Date Temp Pulse Resp B/P (MAP) Pulse Ox O2 O2 Flow FiO2 Time Delivery Rate 11/05/18 98.5 87 16 153/81 96 07:52 (105) 11/04/18 Room Air 14:00 Intake and Output 11/04/18 11/04/18 11/05/18 1515:00 23:00 07:00 IntakeIntake Total 2200 ml OutputOutput Total 1000 ml 2000 ml BalanceBalance 1200 ml -2000 ml Exam Constitutional: alert, awake Head: normocephalic Eyes: nl conjunctiva ENMT: nl external ears & nose Neck: supple, non-tender Respiratory: clear to auscultation, diminished breath sounds Cardiovascular: regular rate and rhythm, nl pulses Gastrointestinal: soft, non-tender Extremities: normal pulses Neurological: non focal Medications Medications Current Medications Diagnostic Test (Pha) (Accu-Chek) XX ; Start 10/31/18 at 02:00 Insulin Aspart (Novolog Insulin Pen) NOVOLOG *MODERATE* ALGORITHM WITH MEALS BEDTIME SC Last administered on 11/03/18at 11:57; Admin Dose 2 UNIT; Start 10/30/18 at 18:00 IV Flush (NS 3 ml) 3 ml PER PROTOCOL IV ; Start 10/30/18 at 15:30 Ondansetron HCl (Zofran Inj) 4 mg Q6H PRN IV NAUSEA AND/OR VOMITING; Start 10/30/18 at 15:30 Acetaminophen (Tylenol Tab) 650 mg Q6H PRN PO PAIN LEVEL 1-3 OR FEVER; Start 10/30/18 at 15:30 Acetaminophen/ Hydrocodone Bitart ([place] (5/325)) 1 tab Q6H PRN PO MODERATE PAIN LEVEL 4-6 Last administered on 11/02/18 14:57; Admin Dose 1 TAB; Start 10/30/18 at 15:30 Docusate Sodium (Colace) 100 mg Q12H PRN PO CONSTIPATION; Start 10/30/18 at 15:30 Bisacodyl (Dulcolax) 5 mg DAILY PRN PO CONSTIPATION Last administered on 11/01/18 12:23; Admin Dose 5 MG; Start 10/30/18 at 15:30 Bisacodyl (Dulcolax Supp) 10 mg DAILY PRN [place] CONSTIPATION; Start 10/30/18 at 15:30 Enoxaparin Sodium (Lovenox) 30 mg DAILY SC Last administered on 11/05/18 08:10; Admin Dose 30 MG; Start 11/02/18 at 09:00 Senna/Docusate Sodium (Senokot-S) 2 tab HS PO Last administered on 11/04/18 20:01; Admin Dose 2 TAB; Start 10/30/18 at 21:00 Guaifenesin/ Dextromethorphan (Robitussin Dm Liquid Cup) 10 ml Q4H PRN PO COUGH; Start 10/30/18 at 17:30 Thiamine HCl (Vitamin B1) 100 mg DAILY PO Last administered on 11/05/18 08:08; Admin Dose 100 MG; Start 10/31/18 at 09:00 Citric Acid/ Sodium Citrate (Bicitra) 30 ml BID PO Last administered on 11/05/18 08:08; Admin Dose 30 ML; Start 10/30/18 at 21:00 Sodium Chloride 1,000 ml @ 50 mls/hr Q20H IV Last administered on 11/04/18 17:31; Admin Dose 50 MLS/HR; Start 11/01/18 at 08:30 Morphine Sulfate (morphine) 6 mg Q4H PRN PO SEVERE PAIN LEVEL 7-10; Start 11/01/18 at 15:00 Famotidine (Pepcid) 20 mg DAILY PO Last administered on 11/05/18at 08:08; Admin Dose 20 MG; Start 11/03/18 at 09:00 Ciprofloxacin (Cipro) 250 mg DAILY@1800 PO Last administered on 11/04/18at 17:29; Admin Dose 250 MG; Start 11/02/18 at 18:30 Lactobacillus Acidophilus/ Rhamnosus (Culturelle) 1 cap BID PO Last administered on 11/05/18at 08:08; Admin Dose 1 CAP; Start 11/02/18 at 21:00 Miscellaneous Information 1 ea NOTE XX ; Start 11/02/18 at 18:00 Glucose (Glutose) 15 gm Q15M PRN PO DECREASED GLUCOSE; Start 11/02/18 at 18:00 Glucose (Glutose) 22.5 gm Q15M PRN PO DECREASED GLUCOSE; Start 11/02/18 at 18:00 Dextrose (D50w Syringe) 25 ml Q15M PRN IV DECREASED GLUCOSE; Start 11/02/18 at 18:00 Dextrose (D50w Syringe) 50 ml Q15M PRN IV DECREASED GLUCOSE; Start 11/02/18 at 18:00 Glucagon (Glucagen) 1 mg Q15M PRN IM DECREASED GLUCOSE; Start 11/02/18 at 18:00 Glucose (Glutose) 15 gm Q15M PRN BUCCAL DECREASED GLUCOSE; Start 11/02/18 at 18:00 Potassium Chloride (Potassium Chloride Pwd/Soln) 40 meq DAILY PO Last administered on 11/05/18at 08:08; Admin Dose 40 MEQ; Start 11/03/18 at 12:30 Magnesium Oxide (Mag-Ox 400) 400 mg BID PO Last administered on 11/05/18at 08:08; Admin Dose 400 MG; Start 11/03/18 at 12:30 YAIR GOLDSMITH MD Nov 05, 2018 10:07
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
--- NOTE | 2018-11-05 13:59 | PN ---
Date/Time of Note Date/Time of Note DATE: 11/05/18 TIME: 13:57 Assessment/Plan VTE Prophylaxis Risk score (from Ns)>0 risk: 6 SCD applied (from Ns): Yes Pharmacological prophylaxis: LMWH (Renal dose.) Lines/Catheters IV Catheter Type (from Rust): Peripheral IV Urinary Cath still in place: Yes Reason Cath still needed: urinary retention Assessment/Plan Hospital Course SUBJECTIVE: Denies any pain. Had 2 episodes of fever in the evening on 11/04/18. OBJECTIVE: Physical Exam General: Adequately build 73 year-old male lying in bed in no apparent distress. HEENT: Normocephalic, atraumatic. Eyes: Anicteric sclerae, conjunctivae clear. ENT: Nasal septum midline, oral mucosa moist. Neck supple, no JVD noticed. Respiratory: Bilaterally clear breath sounds. No use of accessory muscles of respiration. No adventitious breath sounds. Cardiovascular: S1, S2 heard. Regular rate and rhythm. Abdomen: Soft, nontender, and nondistended. Bowel sounds positive in all 4 quadrants. Genitourinary: Marks catheter in place. Extremities: No cyanosis, no clubbing, no edema. Peripheral pulses palpable. Neurologic: The patient is awake, alert, and oriented. Labs & Vitals per chart ASSESSMENT& PLAN This is a 73-year-old gentleman who was brought to the emergency room because of chief complaint of abdominal pain. The patient's comorbidities include hypertension, chronic kidney disease who has been refusing hemodialysis initiation, and urinary retention with chronic indwelling Marks catheter. In the emergency room, the patient underwent a CT scan of the abdomen and pelvis that was showing distended stomach with fluid and debris and scattered borderline prominent small bowel loops without definite transition. The CT also revealed possibly of ongoing infection with persistent severe right-sided hydronephrosis with some air seen in the collecting system within the kidney and ureter. 1. Complicated urinary tract infection. -Urine culture positive for Morganella morganii and Klebsiella pneumonia species. -Continue ciprofloxacin(renal dose). 2. Obstructive uropathy. -Continue Marks catheter. -Being followed by urology. 3. Acute on chronic kidney disease. -Being followed by nephrology. 4. Metabolic acidosis. -Probably secondary to worsening renal function. -Continue Bicitra. 5. Anemia of chronic kidney disease. -Monitor H&H closely. 6. Debility. -Continue fall precautions. 7. Fluids, electrolytes, and nutrition. -Renal diet. 8. DVT prophylaxis. -Subcutaneous Lovenox (Renal dose). 9. Plan. -Continue antimicrobials. -Correct hyperkalemia. -Discharge planning is to home with home health once clinically stable. The patient was seen in collaboration with Dr. Burgess. Result Diagram: 11/05/18 0947 11/05/18 0947 Results 24hrs Laboratory Tests Test 11/04/18 17:26 11/04/18 20:07 11/05/18 08:05 11/05/18 09:47 Bedside Glucose 113 113 114 White Blood Count 21.1 #H Red Blood Count 3.99 L Hemoglobin 11.3 L Hematocrit 33.0 L Mean Corpuscular Volume 82.7 Mean Corpuscular 28.3 L Hemoglobin Mean Corpuscular 34.2 Hemoglobin Concent Red Cell Distribution 13.8 Width Platelet Count 333 # Mean Platelet Volume 10.3 Immature Granulocytes % 3.900 H Neutrophils % 79.1 H Lymphocytes % 7.7 L Monocytes % 7.9 Eosinophils % 1.0 Basophils % 0.4 Nucleated Red Blood 0.0 Cells % Immature Granulocytes # 0.820 H Neutrophils # 16.7 H Lymphocytes # 1.6 Monocytes # 1.7 H Eosinophils # 0.2 Basophils # 0.1 Nucleated Red Blood 0.0 Cells # Sodium Level 141 Potassium Level 5.4 H Chloride Level 104 Carbon Dioxide Level 24 Anion Gap 13 Blood Urea Nitrogen 64 H Creatinine 4.58 H Est Glomerular Filtrat Rate mL/min Glucose Level 148 Calcium Level 8.3 L Test 11/05/18 12:23 Bedside Glucose 127 Exam/Review of Systems Vital Signs Vitals Vital Signs Date Temp Pulse Resp B/P (MAP) Pulse Ox O2 O2 Flow FiO2 Time Delivery Rate 11/05/18 98.5 87 16 153/81 96 07:52 (105) 11/04/18 Room Air 14:00 Intake and Output 11/04/18 11/04/18 11/05/18 1515:00 23:00 07:00 IntakeIntake Total 2200 ml OutputOutput Total 1000 ml 2000 ml BalanceBalance 1200 ml -2000 ml Medications Medications Current Medications Diagnostic Test (Pha) (Accu-Chek) 1 ea 02 XX ; Start 10/31/18 at 02:00 Insulin Aspart (Novolog Insulin Pen) NOVOLOG *MODERATE* ALGORITHM WITH MEALS BEDTIME SC Last administered on 11/03/18 11:57; Admin Dose 2 UNIT; Start 10/30/18 at 18:00 IV Flush (NS 3 ml) 3 ml PER PROTOCOL IV ; Start 10/30/18 at 15:30 Ondansetron HCl (Zofran Inj) 4 mg Q6H PRN IV NAUSEA AND/OR VOMITING; Start 10/30/18 at 15:30 Acetaminophen (Tylenol Tab) 650 mg Q6H PRN PO PAIN LEVEL 1-3 OR FEVER; Start 10/30/18 at 15:30 Acetaminophen/ Hydrocodone Bitart ([place] (5/325)) 1 tab Q6H PRN PO MODERATE PAIN LEVEL 4-6 Last administered on 11/02/18 14:57; Admin Dose 1 TAB; Start 10/30/18 at 15:30 Docusate Sodium (Colace) 100 mg Q12H PRN PO CONSTIPATION; Start 10/30/18 at 15:30 Bisacodyl (Dulcolax) 5 mg DAILY PRN PO CONSTIPATION Last administered on 11/01/18at 12:23; Admin Dose 5 MG; Start 10/30/18 at 15:30 Bisacodyl (Dulcolax Supp) 10 mg DAILY PRN [place] CONSTIPATION; Start 10/30/18 at 15:30 Enoxaparin Sodium (Lovenox) 30 mg DAILY SC Last administered on 11/05/18 08:10; Admin Dose 30 MG; Start 11/02/18 at 09:00 Senna/Docusate Sodium (Senokot-S) 2 tab HS PO Last administered on 11/04/18at 20:01; Admin Dose 2 TAB; Start 10/30/18 at 21:00 Guaifenesin/ Dextromethorphan (Robitussin Dm Liquid Cup) 10 ml Q4H PRN PO COUGH; Start 10/30/18 at 17:30 Thiamine HCl (Vitamin B1) 100 mg DAILY PO Last administered on 11/05/18 08:08; Admin Dose 100 MG; Start 10/31/18 at 09:00 Citric Acid/ Sodium Citrate (Bicitra) 30 ml BID PO Last administered on 11/05/18 08:08; Admin Dose 30 ML; Start 10/30/18 at 21:00 Sodium Chloride 1,000 ml @ 50 mls/hr Q20H IV Last administered on 11/04/18 17:31; Admin Dose 50 MLS/HR; Start 11/01/18 at 08:30 Morphine Sulfate (morphine) 6 mg Q4H PRN PO SEVERE PAIN LEVEL 7-10; Start 11/01/18 at 15:00 Famotidine (Pepcid) 20 mg DAILY PO Last administered on 11/05/18 08:08; Admin Dose 20 MG; Start 11/03/18 at 09:00 Ciprofloxacin (Cipro) 250 mg DAILY@1800 PO Last administered on 11/04/18 17:29; Admin Dose 250 MG; Start 11/02/18 at 18:30 Lactobacillus Acidophilus/ Rhamnosus (Culturelle) 1 cap BID PO Last administered on 11/05/18 08:08; Admin Dose 1 CAP; Start 11/02/18 at 21:00 Miscellaneous Information 1 ea NOTE XX ; Start 11/02/18 at 18:00 Glucose (Glutose) 15 gm Q15M PRN PO DECREASED GLUCOSE; Start 11/02/18 at 18:00 Glucose (Glutose) 22.5 gm Q15M PRN PO DECREASED GLUCOSE; Start 11/02/18 at 18:00 Dextrose (D50w Syringe) 25 ml Q15M PRN IV DECREASED GLUCOSE; Start 11/02/18 at 18:00 Dextrose (D50w Syringe) 50 ml Q15M PRN IV DECREASED GLUCOSE; Start 11/02/18 at 18:00 Glucagon (Glucagen) 1 mg Q15M PRN IM DECREASED GLUCOSE; Start 11/02/18 at 18:00 Glucose (Glutose) 15 gm Q15M PRN BUCCAL DECREASED GLUCOSE; Start 11/02/18 at 18:00 Potassium Chloride (Potassium Chloride Pwd/Soln) 40 meq DAILY PO Last administered on 11/05/18 08:08; Admin Dose 40 MEQ; Start 11/03/18 at 12:30 Magnesium Oxide (Mag-Ox 400) 400 mg BID PO Last administered on 11/05/18 08:08; Admin Dose 400 MG; Start 11/03/18 at 12:30 ARAMIS RUSSELL NP Nov 05, 2018 13:59
[2018-11-05] MEDS ORDERED: NA POLYST SULFON 15 GM/60 ML BTL PO ONE (14:00)
[2018-11-05] MEDS: HYDROCODONE/APAP (5/325) TAB PO PRN (14:29)
[2018-11-05 15:33] VITALS: BP 137/68; PULSE 79; RESP 20
[2018-11-05] MEDS: SOD CHLORIDE 0.45% 1,000 ML IV SCH (17:31)
[2018-11-05] MEDS: CIPROFLOXACIN 250 MG TAB PO SCH (18:17)
[2018-11-05] MEDS: SENNA/DOCUSATE NA (8.6MG/50MG) TAB PO SCH (20:04)
[2018-11-05 20:05] VITALS: BP 119/67; PULSE 80; RESP 18
[2018-11-06] MEDS: ACCU-CHEK XX SCH (02:00)
[2018-11-06 02:10] VITALS: BP 122/72; PULSE 79; RESP 18
[2018-11-06 07:59] VITALS: BP 140/74; PULSE 82; RESP 18
[2018-11-06] MEDS: INSULIN ASPART [NOVOLOG] 3 ML PEN SC SCH (08:00)
[2018-11-06] MEDS: THIAMINE 100 MG TAB PO SCH (08:21)
[2018-11-06] MEDS: MAGNESIUM OXIDE 400 MG TAB PO SCH (08:21)
[2018-11-06] MEDS: CITRIC ACID/NA CITRATE 30 ML CUP PO SCH (08:21)
[2018-11-06] MEDS: LACTOBACILLUS RHAMNOSUS CAP PO SCH (08:21)
[2018-11-06] MEDS: FAMOTIDINE 20 MG TAB PO SCH (08:21)
[2018-11-06] MEDS: ENOXAPARIN 30 MG/0.3 ML SYG SC SCH (08:23)
--- NOTE | 2018-11-06 11:06 | CONS ---
Date/Time of Note Date/Time of Note DATE: 11/06/18 TIME: 11:06 Assessment/Plan Assessment/Plan Assessment/Plan 1. acute vs acute on chronic renal failure due to Obstruction + prerenal azotemia 2. H/o left nephrectomy, unclear history 3. metabolic acidosis 4. anemia for CKD 5. Severe hydronephrosis Right side Plan: Bicitra 30ml PO BID for acidosis, BUN/Cr improved to 59/4.71, IVF as ordered CT Abdomen + pelvis w/o contrast showed R hydronephrosis, s/p Urology consult, no surgical intervention at this time will follow up Result Diagram: 11/06/18 0525 11/06/18 0525 Results 24hrs Laboratory Tests Test 11/05/18 12:23 11/05/18 17:29 11/05/18 20:02 11/06/18 05:25 Bedside Glucose 127 119 153 White Blood Count 17.3 H Red Blood Count 3.84 L Hemoglobin 10.9 L Hematocrit 32.6 L Mean Corpuscular Volume 84.9 Mean Corpuscular 28.4 L Hemoglobin Mean Corpuscular 33.4 Hemoglobin Concent Red Cell Distribution 14.0 Width Platelet Count 359 Mean Platelet Volume 10.3 Immature Granulocytes % 3.800 H Neutrophils % 73.7 Lymphocytes % 11.4 L Monocytes % 9.0 Eosinophils % 1.7 Basophils % 0.4 Nucleated Red Blood 0.0 Cells % Immature Granulocytes # 0.650 H Neutrophils # 12.8 H Lymphocytes # 2.0 Monocytes # 1.6 H Eosinophils # 0.3 Basophils # 0.1 Nucleated Red Blood 0.0 Cells # Sodium Level 138 Potassium Level 4.6 Chloride Level 104 Carbon Dioxide Level 25 Anion Gap 9 Blood Urea Nitrogen 59 H Creatinine 4.71 H Est Glomerular Filtrat Rate mL/min Glucose Level 127 Calcium Level 8.1 L Phosphorus Level 4.4 Magnesium Level 2.0 Test 11/06/18 08:01 Bedside Glucose 105 Consultation Date/Type/Reason Admit Date/Time Oct 30, 2018 at 15:19 Initial Consult Date 10/31/18 Type of Consult NEPHROLOGY Requesting Provider: SANDRA SHEEHAN MD Exam/Review of Systems Vital Signs Vitals Vital Signs Date Temp Pulse Resp B/P (MAP) Pulse Ox O2 O2 Flow FiO2 Time Delivery Rate 11/06/18 98.6 82 18 140/74 97 07:59 (96) 11/04/18 Room Air 14:00 Intake and Output 11/05/18 11/05/18 11/06/18 1515:00 23:00 07:00 IntakeIntake Total 220 ml 1200 ml OutputOutput Total 1400 ml 1050 ml BalanceBalance 220 ml -200 ml -1050 ml Exam Constitutional: alert, awake Head: normocephalic Eyes: nl conjunctiva ENMT: nl external ears & nose Neck: supple, non-tender Respiratory: clear to auscultation, diminished breath sounds Cardiovascular: regular rate and rhythm, nl pulses Gastrointestinal: soft, non-tender Extremities: normal pulses Neurological: non focal Medications Medications Current Medications Diagnostic Test (Pha) (Accu-Chek) XX ; Start 10/31/18 at 02:00 Insulin Aspart (Novolog Insulin Pen) NOVOLOG *MODERATE* ALGORITHM WITH MEALS BEDTIME SC Last administered on 11/03/18at 11:57; Admin Dose 2 UNIT; Start at 18:00 IV Flush (NS 3 ml) 3 ml PER PROTOCOL IV ; Start 10/30/18 at 15:30 Ondansetron HCl (Zofran Inj) 4 mg Q6H PRN IV NAUSEA AND/OR VOMITING; Start 10/30/18 at 15:30 Acetaminophen (Tylenol Tab) 650 mg Q6H PRN PO PAIN LEVEL 1-3 OR FEVER; Start 10/30/18 at 15:30 Acetaminophen/ Hydrocodone Bitart ([place] (5/325)) 1 tab Q6H PRN PO MODERATE PAIN LEVEL 4-6 Last administered on 11/05/18at 14:29; Admin Dose 1 TAB; Start 10/30/18 at 15:30 Docusate Sodium (Colace) 100 mg Q12H PRN PO CONSTIPATION; Start 10/30/18 at 15:30 Bisacodyl (Dulcolax) 5 mg DAILY PRN PO CONSTIPATION Last administered on 11/01/18at 12:23; Admin Dose 5 MG; Start 10/30/18 at 15:30 Bisacodyl (Dulcolax Supp) 10 mg DAILY PRN [place] CONSTIPATION; Start 10/30/18 at 15:30 Enoxaparin Sodium (Lovenox) 30 mg DAILY SC Last administered on 11/06/18at 08:23; Admin Dose 30 MG; Start 11/02/18 at 09:00 Senna/Docusate Sodium (Senokot-S) 2 tab HS PO Last administered on 11/05/18at 20:04; Admin Dose 2 TAB; Start 10/30/18 at 21:00 Guaifenesin/ Dextromethorphan (Robitussin Dm Liquid Cup) 10 ml Q4H PRN PO COUGH; Start 10/30/18 at 17:30 Thiamine HCl (Vitamin B1) 100 mg DAILY PO Last administered on 11/06/18at 08:21; Admin Dose 100 MG; Start 10/31/18 at 09:00 Citric Acid/ Sodium Citrate (Bicitra) 30 ml BID PO Last administered on 11/06/18 08:21; Admin Dose 30 ML; Start 10/30/18 at 21:00 Sodium Chloride 1,000 ml @ 50 mls/hr Q20H IV Last administered on 11/05/18at 17:31; Admin Dose 50 MLS/HR; Start 11/01/18 at 08:30 Morphine Sulfate (morphine) 6 mg Q4H PRN PO SEVERE PAIN LEVEL 7-10; Start 11/01/18 at 15:00 Famotidine (Pepcid) 20 mg DAILY PO Last administered on 11/06/18 08:21; Admin Dose 20 MG; Start 11/03/18 at 09:00 Ciprofloxacin (Cipro) 250 mg DAILY@1800 PO Last administered on 11/05/18 18:17; Admin Dose 250 MG; Start 11/02/18 at 18:30 Lactobacillus Acidophilus/ Rhamnosus (Culturelle) 1 cap BID PO Last administered on 11/06/18at 08:21; Admin Dose 1 CAP; Start 11/02/18 at 21:00 Miscellaneous Information 1 ea NOTE XX ; Start 11/02/18 at 18:00 Glucose (Glutose) 15 gm Q15M PRN PO DECREASED GLUCOSE; Start 11/02/18 at 18:00 Glucose (Glutose) 22.5 gm Q15M PRN PO DECREASED GLUCOSE; Start 11/02/18 at 18:00 Dextrose (D50w Syringe) 25 ml Q15M PRN IV DECREASED GLUCOSE; Start 11/02/18 at 18:00 Dextrose (D50w Syringe) 50 ml Q15M PRN IV DECREASED GLUCOSE; Start 11/02/18 at 18:00 Glucagon (Glucagen) 1 mg Q15M PRN IM DECREASED GLUCOSE; Start 11/02/18 at 18:00 Glucose (Glutose) 15 gm Q15M PRN BUCCAL DECREASED GLUCOSE; Start 11/02/18 at 18:00 Magnesium Oxide (Mag-Ox 400) 400 mg BID PO Last administered on 11/06/18at 08:21; Admin Dose 400 MG; Start 11/03/18 at 12:30 YAIR GOLDSMITH MD Nov 06, 2018 11:06
--- NOTE | 2018-11-06 13:58 | DS ---
Date/Time of Note Date/Time of Note DATE: 11/06/18 TIME: 13:56 Discharge Summary Admission/Discharge Info Admit Date/Time Oct 30, 2018 at 15:19 Discharge Date/Time Discharge Diagnosis 1. Complicated urinary tract infection. 2. Obstructive uropathy. 3. Acute on chronic kidney disease. 4. Anemia of chronic kidney disease. 5. Pre-diabetes. A1C 5.8. 6. Debility. 7. History of left nephrectomy. Patient Condition: Stable Consults 1. Deep Stephens MD, Nephrology. 2. Jaxon Mcdonald MD, Urology. 3. Jeramie Cesar MD, Infectious Diseases. Procedures IMPRESSION: Persistent or recurrent severe right hydronephrosis, now with some air seen within the collecting system within the kidney and ureter that may be on the basis of recent intervention including Marks catheter placement although the possibility of ongoing (gas-forming/emphysematous) infection is to be considered. There is also now new perinephric fluid tracking inferiorly in the right perinephric space. Results were called to the covering floor nurse Pallavi Hill at time of dictation 0555 hours on 10/31/2018 and she will be relaying results to the ordering base loader. Urologic input may be useful as well. Distended stomach with fluid and debris, and scattered borderline prominent small bowel loops without defined transition, may be on the basis of ongoing ile us or gastroenteritis. Renal US IMPRESSION: Increased echogenicity of the right kidney suggesting medical renal disease. Severe hydronephrosis of the single right kidney. History of left-sided nephrectomy. Brain CT 1. No acute intracranial abnormality. No intracranial hemorrhage, extra-axial fluid collection, mass lesion or hydrocephalous. 2. Mild peripheral and central cerebral volume loss. 3. Moderate patchy periventricular and subcortical white matter hypodensity, likely related to chronic microangiopathic changes. 4. 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 No CT evidence of acute infarct at this time. If clinical concern for acute infarct, MRI is recommended for further evaluation. Hx of Present Illness This is a 73-year-old gentleman who was brought to the emergency room because of chief complaint of abdominal pain. The patient's comorbidities include hypertension, chronic kidney disease who has been refusing hemodialysis initiation, urinary retention with chronic indwelling Marks catheter. In the emergency room, the patient underwent a CT scan of the abdomen and pelvis that was showing distended stomach with fluid and debris and scattered borderline prominent small bowel loops without definite transition. The CT also revealed possibly of ongoing infection with persistent severe right-sided hydronephrosis with some air seen in the collecting system within the kidney and ureter. Provided the patient's history of present illness and the diagnostic findings, a clinical decision was made to admit the patient inpatient setting to have him further evaluated. Hospital Course The patient was admitted to inpatient setting. A nephrology and urology consult was obtained. The patient has refused hemodialysis before and he never wanted to be started on hemodialysis. Therefore, the patient was managed conservatively. The patient was maintained on Bicitra for his underlying metabolic acidosis. The patient's metabolic acidosis could have been most probably secondary to his underlying worsening renal function. The patient had positive urinalysis. The patient's urine culture showed Klebsiella pneumoniae and Morganella morganii sensitive to fluoroquinolones. Therefore, the patient was initiated fluoroquinolones dosed at renal dosing. The patient continued to have febrile illness and worsening leukocytosis on 11/05/2018. Therefore, the patient was evaluated by infectious diseases who concurred with continuing the patient currently on fluoroquinolones. The patient will be continued on fluoroquinolones to complete a course of 2 weeks. The patient has chronic urinary retention. The patient was evaluated by neur ology. The patient's PSA was found to be elevated. Urology recommended to leave the Marks catheter in place. The patient probably has underlying cognitive delay possibly secondary to dementia. The patient lives with a caregiver. The patient also has a history of right sided nephrectomy with the details unclear. The patient was also noticed to have anemia chronic kidney disease. The patient's H&H remained stable. The patient has prediabetes. The patient hemoglobin A1c is 5.8. The patient was initially maintained on sliding scale insulin, which was later discontinued because of no need for any coverage. The patient was noticed to be debilitated. Therefore, physical therapy evaluated the patient. The patient otherwise lives with his caregiver at the caregiver's place. The patient has no immediate family members. Therefore, it was concluded that for the best interest of the patient, the patient could benefit from acute rehabilitation for improved mobility before the patient could be discharged back to his previous living situation. Acute rehabilitation team evaluated the patient and the patient will be transferred to acute r ehabilitation unit. At this time I would like to thank all the consultants for seeing the patient and providing clinical recommendations. The patient was seen in collaboration with Dr. Burgess. Home Meds Active Scripts Ciprofloxacin Hcl* (Ciprofloxacin Hcl*) 250 Mg Tablet, 250 MG PO DAILY@1800, #10 TAB Prov:ARAMIS RUSSELL EARRING MAKER 11/04/18 Reported Medications Sodium Bicarbonate* (Sodium Bicarbonate*) 650 Mg Tablet, 650 MG PO BID, TAB 10/30/18 Amlodipine Besylate* (Norvasc*) 5 Mg Tablet, 5 MG PO DAILY, TAB 10/30/18 Multivit/Ca Carb/B Cmplx/Fa* (Tanya-Kathryn*) 1 Tab Tab, 1 TAB PO DAILY, TAB 10/30/18 Calcitriol* (Calcitriol*) 0.25 Mcg Capsule, 0.25 MCG PO DAILY, CAP 10/30/18 Follow-up Plan The patient being transferred to ARU. Primary Care Provider Care Physician No Primary Time spent on discharge: > 30 minutes Pending Labs RUN DATE: 11/02/18 [facility] PAGE 1 RUN TIME: [id number] [place] [address] Gigi Olsen M.D. Cake Press Operator Shayna Haynes M.D. [employer] Operator RADHIKA#: [id number] Name: KALI VARGAS Age/Sex: 73/M Attend Dr: SANDRA SHEEHAN MD Acct: [id number] MR# : [id number] : 1945 Location: [address] Admit: 10/30/18 Specimen: [id number] Status: Complete Marina: 10/31/18 Rcvd: 10/31/18 Source: RITO SAVAGE Sp Descrip: ----- Procedure Result Microbiology URINE CULTURE Final Organism 1 MORGANELLA MORGANII SSP MORG. COLONY COUNT >100,000 CFU/ml Organism 2 K.PNEUMONIAE SSP PNEUMONIAE MORMOSP K PNE SPP M.I.C. RX M.I.C. RX --------- --- --------- --- CEFAZOLIN <=4 S CEFEPIME <=1 S CEFOTAXIME S S CIPROFLOXACIN 1 S <=0.25 S GENTAMICIN <=1 S <=1 S LEVOFLOXACIN 1 S <=0.12 S NITROFURANTOIN 128 R 64 I TOBRAMYCIN <=1 S <=1 S TRIMETHOPRIM/SULFAMETHOXAZOLE <=20 S >=320 R ............................................................................................ Flags: Critical Hi = *H Critical Lo = *L Microbiology Abnormal = * Abnormal Hi = H Abnormal Lo = L Blood Bank Abnormal = * Susceptability Flags: S = Sensitive R = Resistant I = Intermediate END OF REPORT Laboratory Tests Test 11/05/18 17:29 11/05/18 20:02 11/06/18 05:25 11/06/18 08:01 Bedside 119 153 105 Glucose mg/dL (70-220) mg/dL (70-220) mg/dL (70-220) White Blood 17.3 Count 10^3/ul (4.8-1 0.8) Red Blood 3.84 Count 10^6/ul (4.70- 6.10) Hemoglobin 10.9 g/dl (14.0-18. 0) Hematocrit 32.6 % (42.0-52.0) Mean 84.9 Corpuscular fl (82.0-101.0 Volume ) Mean 28.4 Corpuscular pg (29.0-33.0) Hemoglobin Mean 33.4 Corpuscular g/dl (32.0-37. Hemoglobin Conc 0) ent Red Cell 14.0 Distribution % (11.5-14.5) Width Platelet Count 359 10^3/UL (140-4 15) Mean Platelet 10.3 Volume fl (7.4-10.4) Immature 3.800 Granulocytes % % (0.001-0.429 ) Neutrophils % 73.7 % (39.0-77.0) Lymphocytes % 11.4 % (15.0-51.0) Monocytes % 9.0 % (0.0-11.0) Eosinophils % 1.7 % (0.0-7.0) Basophils % 0.4 % (0.0-2.0) Nucleated Red 0.0 Blood Cells % /100WBC (0.0-0 .0) Immature 0.650 Granulocytes # 10^3/ul (0.0-0 .031) Neutrophils # 12.8 10^3/ul (1.6-7 .5) Lymphocytes # 2.0 10^3/ul (0.8-2 .9) Monocytes # 1.6 10^3/ul (0.3-0 .9) Eosinophils # 0.3 10^3/ul (0.0-0 .5) Basophils # 0.1 10^3/ul (0.0-0 .1) Nucleated Red 0.0 Blood Cells # 10^3/ul (0.0-0 .0) Sodium Level 138 mmol/L (135-14 4) Potassium 4.6 Level mmol/L (3.5-5. 1) Chloride Level 104 mmol/L (97-110 ) Carbon Dioxide 25 Level mmol/L (21-31) Anion Gap 9 (5-13) Blood Urea 59 Nitrogen mg/dl (7-20) Creatinine 4.71 mg/dl (0.61-1. 24) Est Glomerular mL/min (>60) Filtrat Rate mL/min Glucose Level 127 mg/dl (70-220) Calcium Level 8.1 mg/dl (8.4-10. 2) Phosphorus 4.4 Level mg/dl (2.5-4.9 ) Magnesium 2.0 Level mg/dl (1.7-2.5 ) ARAMIS RUSSELL NP Nov 06, 2018 13:58
[2018-11-06] MEDS ORDERED: HEPARIN 5,000 UNIT/1 ML VIAL SC SCH (14:00)
--- NOTE | 2018-11-06 14:12 | CONS ---
Date/Time of Note Date/Time of Note DATE: 11/06/18 TIME: 14:12 Assessment/Plan Assessment/Plan Hospital Course No acute events overnight patient is alert feels better looks comfortable no fevers overnight WBC 17.3 H&H 10.9 and 32.6 platelets 359 neutrophils 73.7 BUN 59 creatinine 4.71 Microbiology: Urine culture growing Morganella and Klebsiella pneumonia, blood cultures negative Antimicrobials: Oral ciprofloxacin Physical examination: Well-developed elderly man in no distress. Head atraumatic normocephalic neck is supple chest rise symmetrical breath sounds diminished bases heart S1-S2 abdomen soft bowel sounds present extremities without cyanosis Assessment: 1. Pyelonephritis with right hydronephrosis 2. Acute on chronic kidney disease Plan: Patient is clinically stable, on appropriate antibiotic therapy, nephrology on case, he has Marks catheter Result Diagram: 11/06/18 0525 11/06/18 0525 Results 24hrs Laboratory Tests Test 11/05/18 17:29 11/05/18 20:02 11/06/18 05:25 11/06/18 08:01 Bedside Glucose 119 153 105 White Blood Count 17.3 H Red Blood Count 3.84 L Hemoglobin 10.9 L Hematocrit 32.6 L Mean Corpuscular Volume 84.9 Mean Corpuscular 28.4 L Hemoglobin Mean Corpuscular 33.4 Hemoglobin Concent Red Cell Distribution 14.0 Width Platelet Count 359 Mean Platelet Volume 10.3 Immature Granulocytes % 3.800 H Neutrophils % 73.7 Lymphocytes % 11.4 L Monocytes % 9.0 Eosinophils % 1.7 Basophils % 0.4 Nucleated Red Blood 0.0 Cells % Immature Granulocytes # 0.650 H Neutrophils # 12.8 H Lymphocytes # 2.0 Monocytes # 1.6 H Eosinophils # 0.3 Basophils # 0.1 Nucleated Red Blood 0.0 Cells # Sodium Level 138 Potassium Level 4.6 Chloride Level 104 Carbon Dioxide Level 25 Anion Gap 9 Blood Urea Nitrogen 59 H Creatinine 4.71 H Est Glomerular Filtrat Rate mL/min Glucose Level 127 Calcium Level 8.1 L Phosphorus Level 4.4 Magnesium Level 2.0 Consultation Date/Type/Reason Admit Date/Time Oct 30, 2018 at 15:19 Initial Consult Date 10/31/18 Type of Consult id Requesting Provider: SANDRA SHEEHAN MD Exam/Review of Systems Vital Signs Vitals Vital Signs Date Temp Pulse Resp B/P (MAP) Pulse Ox O2 O2 Flow FiO2 Time Delivery Rate 11/06/18 98.6 82 18 140/74 97 07:59 (96) 11/04/18 Room Air 14:00 Intake and Output 11/05/18 11/05/18 11/06/18 1515:00 23:00 07:00 IntakeIntake Total 220 ml 1200 ml OutputOutput Total 1400 ml 1050 ml BalanceBalance 220 ml -200 ml -1050 ml Medications Medications Current Medications IV Flush (NS 3 ml) 3 ml PER PROTOCOL IV ; Start 10/30/18 at 15:30 Ondansetron HCl (Zofran Inj) 4 mg Q6H PRN IV NAUSEA AND/OR VOMITING; Start 10/30/18 at 15:30 Acetaminophen (Tylenol Tab) 650 mg Q6H PRN PO PAIN LEVEL 1-3 OR FEVER; Start 10/30/18 at 15:30 Acetaminophen/ Hydrocodone Bitart ([place] (5/325)) 1 tab Q6H PRN PO MODERATE PAIN LEVEL 4-6 Last administered on 11/05/18at 14:29; Admin Dose 1 TAB; Start 10/30/18 at 15:30 Docusate Sodium (Colace) 100 mg Q12H PRN PO CONSTIPATION; Start 10/30/18 at 15:30 Bisacodyl (Dulcolax) 5 mg DAILY PRN PO CONSTIPATION Last administered on 11/01/18at 12:23; Admin Dose 5 MG; Start 10/30/18 at 15:30 Bisacodyl (Dulcolax Supp) 10 mg DAILY PRN IN CONSTIPATION; Start 10/30/18 at 15:30 Senna/Docusate Sodium (Senokot-S) 2 tab HS PO Last administered on 11/05/18at 20:04; Admin Dose 2 TAB; Start 10/30/18 at 21:00 Guaifenesin/ Dextromethorphan (Robitussin Dm Liquid Cup) 10 ml Q4H PRN PO COUGH; Start 10/30/18 at 17:30 Thiamine HCl (Vitamin B1) 100 mg DAILY PO Last administered on 11/06/18at 08:21; Admin Dose 100 MG; Start 10/31/18 at 09:00 Citric Acid/ Sodium Citrate (Bicitra) 30 ml BID PO Last administered on 11/06/18 08:21; Admin Dose 30 ML; Start 10/30/18 at 21:00 Morphine Sulfate (morphine) 6 mg Q4H PRN PO SEVERE PAIN LEVEL 7-10; Start 11/01/18 at 15:00 Famotidine (Pepcid) 20 mg DAILY PO Last administered on 11/06/18 08:21; Admin Dose 20 MG; Start 11/03/18 at 09:00 Ciprofloxacin (Cipro) 250 mg DAILY@1800 PO Last administered on 11/05/18 18:17; Admin Dose 250 MG; Start 11/02/18 at 18:30 Lactobacillus Acidophilus/ Rhamnosus (Culturelle) 1 cap BID PO Last administered on 11/06/18 08:21; Admin Dose 1 CAP; Start 11/02/18 at 21:00 Miscellaneous Information 1 ea NOTE XX ; Start 11/02/18 at 18:00 Magnesium Oxide (Mag-Ox 400) 400 mg BID PO Last administered on 11/06/18 08:21; Admin Dose 400 MG; Start 11/03/18 at 12:30 Heparin Sodium (Porcine) (Heparin (5000 Units/1ml)) 5,000 unit Q8 SC Last a dministered on 11/06/18 13:22; Admin Dose 5,000 UNIT; Start 11/06/18 at 14:00 NYDIA PERKINS NP Nov 06, 2018 14:12
[2018-11-06 14:17] VITALS: BP 130/75; PULSE 81; RESP 20
[2018-11-06] MEDS: CIPROFLOXACIN 250 MG TAB PO SCH (17:28)
== END 2018-11-06 17:54 | DRG 683 ==
LOC: E/R 11:04 → PP2 15:19
PROVIDERS: ADMIT Internal Medicine; ATTEND Internal Medicine
DX: N17.9 Acute kidney failure, unspecified (principal); E87.2 Acidosis; N13.6 Pyonephrosis; I12.9 Hypertensive chronic kidney disease with stage 1 through stage 4 chronic kidney disease, or unspecified chronic kidney disease; E11.22 Type 2 diabetes mellitus with diabetic chronic kidney disease; N18.9 Chronic kidney disease, unspecified; G31.84 Mild cognitive impairment of uncertain or unknown etiology; D63.1 Anemia in chronic kidney disease; Z90.5 Acquired absence of kidney; B96.1 Klebsiella pneumoniae [K. pneumoniae] as the cause of diseases classified elsewhere; B96.89 Other specified bacterial agents as the cause of diseases classified elsewhere; N40.0 Benign prostatic hyperplasia without lower urinary tract symptoms
CPT/HCPCS: 36415; 70450; 74176; 76775; 80048; 80053; 81001; 81003; 82550; 82570; 82962; 83036; 83605; 83690; 83735; 84100; 84153; 84154; 84155; 84300; 84439; 84443; 84480; 84560; 85025; 85610; 87040; 87086; 89190; 96374; J0696; J1644; J1650; J1815; J7030

== ENCOUNTER 2018-11-06 18:19 | Inpatient (IN) | payer MEDICARE, OTHER ==
[~2018-11-06] VITALS: Ht 162.6 cm; Wt 59.9 kg
[~2018-11-06 18:19] MED LIST: AMLO5TAB4 PO; CALC0.2511 PO; CIPR-193 PO; NEPH PO; SODI650T PO
--- NOTE | 2018-11-06 18:29 | NUR ---
Patient admitted from 2E via bed accompanied by transporter. Alert, oriented x 3. Able to make needs known. No SOB. Denies pain. Uzbek speaking. Primary dx is Debility. All medications clarified with Dr Bashir & Les [employer] with no new order at this time. Noted & carried out. Inventory list done. Assessment endorsed to next shift for continuing care. Kept clean & dry. Kept comfortable.
[2018-11-06] MEDS ORDERED: LACTULOSE 30ML CUP PO PRN (18:30)
[2018-11-06] MEDS ORDERED: ACETAMINOPHEN 325 MG TAB PO PRN (18:30)
[2018-11-06] MEDS ORDERED: PENDING SANTYL ORDER FOR WOUND CARE XX PRN (18:30)
[2018-11-06] MEDS ORDERED: BISACODYL 10 MG SUPP PR PRN (18:30)
[2018-11-06] MEDS ORDERED: MAGNESIUM HYDROXIDE 30ML CUP PO PRN (18:30)
[2018-11-06 19:35] VITALS: Ht 162.6 cm; Wt 59.9 kg
--- NOTE | 2018-11-06 19:35 | NUR ---
Used translation service via [employer] phone [phone] for Kazakh language and spoke with Orion, scouring train operator ID [id number] around 1935 hours to do admission assessment questionnaires and to educate the patient regarding rehab schedule and medications.
[2018-11-06 20:00] VITALS: BP 116/72; PULSE 86; RESP 18
[2018-11-06] MEDS ORDERED: BISACODYL (EC) 5 MG TAB PO PRN (20:00)
[2018-11-06] MEDS ORDERED: DOCUSATE SODIUM 100 MG CAP PO PRN (20:00)
[2018-11-06] MEDS: SENNA TAB PO SCH (21:00)
[2018-11-06] MEDS: SENNA/DOCUSATE NA (8.6MG/50MG) TAB PO SCH (21:00)
[2018-11-06] MEDS: MAGNESIUM OXIDE 400 MG TAB PO SCH (21:51)
[2018-11-06] MEDS: DOCUSATE SODIUM 100 MG CAP PO SCH (21:51)
[2018-11-06] MEDS: CITRIC ACID/NA CITRATE 30 ML CUP PO SCH (21:51)
[2018-11-06] MEDS: HEPARIN 5,000 UNIT/1 ML VIAL SC SCH (21:53)
[2018-11-07 02:00] VITALS: BP 122/68; PULSE 84; RESP 16
--- NOTE | 2018-11-07 06:09 | NUR ---
Pt is AAO x 3 times, name, place and situation, no other complaints noted. Vital signs stable. Slept well during night hours. Able to turn position by self. On Marks's catheter draining light drake color urine, no BM noted. Using bilateral SCD on. Blanchable redness over sacrococcyx area and bilateral heels. C/o pain over the right AC IV site, removed IV, refused to start new IV line. Hourly round made and patient care needs met. Bed alarm activated for safety, call light and bedside table within reach.
[2018-11-07] MEDS: HEPARIN 5,000 UNIT/1 ML VIAL SC SCH ×3 (06:25→21:48)
[2018-11-07 07:55] VITALS: BP 116/70; RESP 18
--- NOTE | 2018-11-07 08:35 | CONS ---
Date/Time of Note Date/Time of Note DATE: 11/07/18 TIME: 08:35 Assessment/Plan Assessment/Plan Assessment/Plan 1. acute vs acute on chronic renal failure due to Obstruction + prerenal azotemia 2. H/o left nephrectomy, unclear history 3. metabolic acidosis 4. anemia for CKD 5. Severe hydronephrosis Right side Plan: Bicitra 30ml PO BID for acidosis, BUN/Cr improved to 55/4.97 CT Abdomen + pelvis w/o contrast showed R hydronephrosis, s/p Urology consult, no surgical intervention at this time will follow up Result Diagram: 11/07/18 0635 11/07/18 0635 Results 24hrs Laboratory Tests Test 11/06/18 20:15 11/07/18 06:35 Urine Color YELLOW Urine Clarity CLOUDY A Urine pH 8.0 Urine Specific Cody 1.011 Urine Ketones NEGATIVE Urine Nitrite NEGATIVE Urine Bilirubin NEGATIVE Urine Urobilinogen NEGATIVE Urine Leukocyte Esterase 3+ H Urine Microscopic RBC 26 H Urine Microscopic WBC > 182 H Urine Amorphous Crystals FEW A Urine Bacteria FEW A Urine Hemoglobin 2+ H Urine Glucose NEGATIVE Urine Total Protein 2+ H White Blood Count 18.0 H Red Blood Count 3.63 L Hemoglobin 10.3 L Hematocrit 31.2 L Mean Corpuscular Volume 86.0 Mean Corpuscular Hemoglobin 28.4 L Mean Corpuscular Hemoglobin Concent 33.0 Red Cell Distribution Width 14.0 Platelet Count 394 Mean Platelet Volume 9.9 Immature Granulocytes % 2.400 H Neutrophils % 72.2 Lymphocytes % 14.7 L Monocytes % 8.6 Eosinophils % 1.6 Basophils % 0.5 Nucleated Red Blood Cells % 0.0 Immature Granulocytes # 0.430 H Neutrophils # 13.0 H Lymphocytes # 2.6 Monocytes # 1.5 H Eosinophils # 0.3 Basophils # 0.1 Nucleated Red Blood Cells # 0.0 Sodium Level 140 Potassium Level 4.4 Chloride Level 105 Carbon Dioxide Level 23 Anion Gap 12 Blood Urea Nitrogen 55 H Creatinine 4.97 H Est Glomerular Filtrat Rate mL/min Glucose Level 124 Calcium Level 8.1 L Total Bilirubin 0.1 L Direct Bilirubin 0.00 Indirect Bilirubin 0.1 Aspartate Amino Transf (AST/SGOT) 33 Alanine Aminotransferase (ALT/SGPT) 30 Alkaline Phosphatase 241 H Total Protein 6.8 Albumin 3.0 L Globulin 3.80 H Albumin/Globulin Ratio 0.78 Consultation Date/Type/Reason Admit Date/Time Nov 06, 2018 at 18:19 Initial Consult Date 24 HR Interval Summary Free Text/Dictation transferred to acute rehab unit, Bp stable Exam/Review of Systems Vital Signs Vitals Vital Signs Date Temp Pulse Resp B/P (MAP) Pulse Ox O2 O2 Flow FiO2 Time Delivery Rate 11/07/18 98.5 18 116/70 97 Room Air 07:55 (85) 11/07/18 84 02:00 Intake and Output 11/06/18 11/06/18 11/07/18 1515:00 23:00 07:00 IntakeIntake Total 240 ml OutputOutput Total 1000 ml BalanceBalance -760 ml Exam Constitutional: alert, awake Head: normocephalic Eyes: nl conjunctiva ENMT: nl external ears & nose Neck: supple, non-tender Respiratory: clear to auscultation, diminished breath sounds Cardiovascular: regular rate and rhythm, nl pulses Gastrointestinal: soft, non-tender Extremities: normal pulses Neurological: non focal Medications Medications Current Medications Docusate Sodium (Colace) 100 mg BID PO Last administered on 11/06/18at 21:51; Admin Dose 100 MG; Start 11/06/18 at 21:00 Senna (Senokot) 1 tab HS PO ; Start 11/06/18 at 21:00 Magnesium Hydroxide (Milk Of Mag) 30 ml BID PRN PO CONSTIPATION; Start 11/06/18 at 18:30 Lactulose (Enulose) 20 gm DAILY PRN PO CONSTIPATION; Start 11/06/18 at 18:30 Bisacodyl (Dulcolax Supp) 10 mg DAILY PRN RI CONSTIPATION; Start 11/06/18 at 18:30 Miscellaneous Information (Pending [facility] Order For Wound Care) This patient frank... PRN PRN XX wound; Start 11/06/18 at 18:30 Acetaminophen (Tylenol Tab) 650 mg Q6H PRN PO PAIN LEVEL 1-3 OR FEVER; Start 11/06/18 at 20:00 Bisacodyl (Dulcolax) 5 mg DAILY PRN PO CONSTIPATION; Start 11/06/18 at 20:00 Ciprofloxacin (Cipro) 250 mg DAILY@1800 PO ; Start 11/07/18 at 18:00 Citric Acid/ Sodium Citrate (Bicitra) 30 ml BID PO Last administered on 11/06/18at 21:51; Admin Dose 30 ML; Start 11/06/18 at 21:00 Senna/Docusate Sodium (Senokot-S) 2 tab HS PO ; Start 11/06/18 at 21:00 Docusate Sodium (Colace) 100 mg Q12H PRN PO CONSTIPATION; Start 11/06/18 at 20:00 Famotidine (Pepcid) 20 mg DAILY PO ; Start 11/07/18 at 09:00 Heparin Sodium (Porcine) (Heparin (5000 Units/1ml)) 5,000 unit Q8 SC Last administered on 11/07/18at 06:25; Admin Dose 5,000 UNIT; Start 11/06/18 at 22:00 Magnesium Oxide (Mag-Ox 400) 400 mg BID PO Last administered on 11/06/18at 21:51; Admin Dose 400 MG; Start 11/06/18 at 21:00 Thiamine HCl (Vitamin B1) 100 mg DAILY PO ; Start 11/07/18 at 09:00 YAIR GOLDSMITH MD Nov 07, 2018 08:35
[2018-11-07] MEDS: MAGNESIUM OXIDE 400 MG TAB PO SCH ×2 (08:54→21:46)
[2018-11-07] MEDS: FAMOTIDINE 20 MG TAB PO SCH (08:54)
[2018-11-07] MEDS: THIAMINE 100 MG TAB PO SCH (08:54)
[2018-11-07] MEDS: CITRIC ACID/NA CITRATE 30 ML CUP PO SCH ×2 (08:54→21:46)
[2018-11-07] MEDS: DOCUSATE SODIUM 100 MG CAP PO SCH ×2 (08:54→21:00)
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
--- NOTE | 2018-11-07 11:00 | NUR ---
PT EVAL Pt is a 73 y/o, male, admitted to [facility] with c/o abdominal pain. Diagnoses include complicated UTI, obstructive uropathy, acute on CKD, anemia of CKD and debility. Pt transferred to [facility] for continuation of care and rehabilitation. Pt agreeable to PT eval and safe to proceed per RN. Pt denied having pain. A/O to name and situation only. Noted pt to be confused and forgetful. Also noted slow thought process, difficulty following some commands even in Ethiopian language, and poor carryover of learning. Edu. topics presented include role of PT, POC, goals, and safety. Will need further reinforcement. PLOF: Lives with a female friend in an apt. w/o stairs. Indep. with ADLs, ambulatory w/o device. No DME at home. CLOF: See PT technical record. Precautions: fall risk, Ethiopian language, confused/forgetful Short-term goals: SBA bed mobility SBA transfers CGA/SBA gait x 75 ft with FWW Min A 6-step stair ascent/descent using rails. Long-term goals: Mod indep. bed mobility Mod indep. transfers Sup. gait x 150 ft with FWW SBA 12-step stair ascent/descent using rails. Recommendations: FWW, commode, HHPT and full-time assistance at home. Progress toward goals with POC.
[2018-11-07] MEDS ORDERED: CEFPODOXIME 200 MG TAB PO SCH (11:30)
[2018-11-07] MEDS ORDERED: CEFTRIAXONE 1 GM INJ IM ONE (11:30)
--- NOTE | 2018-11-07 13:04 | CONS ---
DATE OF ADMISSION: 11/06/2018 DATE OF CONSULTATION: 11/07/2018 REHABILITATION POST-ADMISSION PHYSICIAN EVALUATION REHABILITATION IMPAIRMENT CATEGORY: Debility secondary to obstructive uropathy, urinary tract infect ion. ACTIVE COMORBIDITIES: 1. Toxic metabolic encephalopathy. 2. Acute on chronic kidney disease with a history of nephrectomy. 3. Upper extremity cellulitis. 4. Hypertension. 5. Impairments in self-care, mobility and cognition. HISTORY OF PRESENT ILLNESS: The patient is a pleasant 73-year-old gentleman with a history of nephre ctomy x1 in addition to chronic kidney disease, hypertension, osteoarthritis, and hypothyroidism who was admitted with generalized weakness, confusion and general malaise. Workup did reveal obstructive uropathy in addition to urinary tract infection, and acute on chronic kidney disease. The patient's hospital course also notable for significant impairments in self-care and mobility as compared to [place]idy [place], and patient has been cleared to transfer to the rehabilitation unit for comprehensive interdi sciplinary rehab care. The patient noted to have upper extremity cellulitis at IV site. The patient also noted to have significant impairments in cognition as compared to baseline, presumed secondary to toxic metabolic encephalopathy. FUNCTIONAL HISTORY: Prior to recent events, he was independent in self-care tasks and mobility. Cur rently, he requires minimal assist for self-care and mobility tasks. I have reviewed the preadmission screen and patient's current functional status is consistent with [facility] preadmission screen. FAMILY AND SOCIAL HISTORY: The patient lives at home. There is caregiver assistance available. He does hope to return home upon discharge. PAST MEDICAL HISTORY: 1. Chronic kidney disease. 2. Nephrectomy. 3. Hypertension. 4. Hypothyroidism. 5. Osteoarthritis. 6. Chronic pain. CURRENT MEDICATIONS: 1. Tylenol p.r.n. 2. Cipro 250 p.o. daily. 3. Bicitra p.o. b.i.d. 4. Pepcid 20 mg p.o. daily. 5. Heparin subcutaneously. 6. Magnesium oxide 400 mg p.o. b.i.d. 7. Multivitamins 1 tab p.o. daily. ALLERGIES: The patient with no known drug allergies. PHYSICAL EXAMINATION: VITAL SIGNS: He is currently afebrile with stable vital signs. HEENT: Extraocular motions are intact. Oropharynx clear. NECK: Supple. LUNGS: Clear anteriorly. CARDIAC: S1, S2. ABDOMEN: Soft, nontender, positive bowel sounds. NEUROLOGIC: He is awake and alert. He is oriented to person. He does not know the date. He will f ollow simple 1-step commands. He has impaired short-term memory. He demonstrates antigravity streng th in bilateral upper extremity and lower extremity. He does have impaired dynamic balance. PLAN: The patient has been admitted for comprehensive interdisciplinary acute rehab and is anticipat ed to tolerate 3 hours of daily therapy in divided doses for at least 5/7 days a week. The treatment plan will include: 1. Physical therapy to focus on bed mobility, transfers, and household ambulation with the goal of h aving the patient reach standby assist level. 2. Occupational therapy to focus on hygiene, grooming, dressing, bathing, and toileting activities w ith goal of having the patient reach a standby assist level. 3. Neuropsychology for full cognitive assessment and retraining in addition to the institution of me mary book and focus on functional carryover of cognitive tasks. 4. Speech therapy for full cognitive assessment and retraining with the goal of having the patient r eturn to baseline cognition. 5. Rehabilitation nursing for carryover of therapeutic interventions, the goal of continent of bowel and bladder, and patient education with regard to the aforementioned issues. REHABILITATION BARRIER: Cognition. INTERVENTION FOR BARRIER: Neuropsychology oversight in addition to speech therapy for cognitive retr aining and education and environmental strategies. ESTIMATED LENGTH OF STAY: 10 days. DISPOSITION GOAL: Home with supervision. I acknowledge that I performed a full physical examination on this patient within 24 hours of admissi on to the rehabilitation unit. I believe the patient is a good candidate for comprehensive interdisc iplinary rehab care and is anticipated to make reasonable goals in a reasonable period of time as out lined above. Dictated By: VENU REYNOSO/LUIS MIGUEL Conf#: [id number] DID#: [id number]
[2018-11-07 14:00] VITALS: BP 115/66; PULSE 78; RESP 19
--- NOTE | 2018-11-07 15:19 | CONS ---
Date/Time of Note Date/Time of Note DATE: 11/07/18 TIME: 15:16 Assessment/Plan Assessment/Plan Hospital Course Patient was transferred to acute rehab he is awake looks comfortable no fevers overnight vital signs stable WBC 18 H&H 10.3 and 31.2 platelets 394 neutrophils 72.2 BUN 55 creatinine 4.97 Urinalysis positive for leukocyte white blood cell count and few bacteria Microbiology: Urine culture growing Morganella and Klebsiella pneumonia, blood cultures negative Antimicrobials: Cefpodoxime Physical examination: Well-developed elderly man in no distress. Head atraumatic normocephalic neck is supple chest rise symmetrical breath sounds diminished bases heart S1-S2 abdomen soft bowel sounds present extremities without cyanosis Assessment: 1. Pyelonephritis with right hydronephrosis 2. Acute on chronic kidney disease Plan: Patient is clinically stable, given persistent leukocytosis will start him on IV cefepime Result Diagram: 11/07/18 0635 11/07/18 0635 Results 24hrs Laboratory Tests Test 11/06/18 20:15 11/07/18 06:35 Urine Color YELLOW Urine Clarity CLOUDY A Urine pH 8.0 Urine Specific [place] 1.011 Urine Ketones NEGATIVE Urine Nitrite NEGATIVE Urine Bilirubin NEGATIVE Urine Urobilinogen NEGATIVE Urine Leukocyte Esterase 3+ H Urine Microscopic RBC 26 H Urine Microscopic WBC > 182 H Urine Amorphous Crystals FEW A Urine Bacteria FEW A Urine Hemoglobin 2+ H Urine Glucose NEGATIVE Urine Total Protein 2+ H White Blood Count 18.0 H Red Blood Count 3.63 L Hemoglobin 10.3 L Hematocrit 31.2 L Mean Corpuscular Volume 86.0 Mean Corpuscular Hemoglobin 28.4 L Mean Corpuscular Hemoglobin Concent 33.0 Red Cell Distribution Width 14.0 Platelet Count 394 Mean Platelet Volume 9.9 Immature Granulocytes % 2.400 H Neutrophils % 72.2 Lymphocytes % 14.7 L Monocytes % 8.6 Eosinophils % 1.6 Basophils % 0.5 Nucleated Red Blood Cells % 0.0 Immature Granulocytes # 0.430 H Neutrophils # 13.0 H Lymphocytes # 2.6 Monocytes # 1.5 H Eosinophils # 0.3 Basophils # 0.1 Nucleated Red Blood Cells # 0.0 Sodium Level 140 Potassium Level 4.4 Chloride Level 105 Carbon Dioxide Level 23 Anion Gap 12 Blood Urea Nitrogen 55 H Creatinine 4.97 H Est Glomerular Filtrat Rate mL/min Glucose Level 124 Calcium Level 8.1 L Iron Level 30 L Total Iron Binding Capacity 227 L Percent Iron Saturation 13 L Total Bilirubin 0.1 L Direct Bilirubin 0.00 Indirect Bilirubin 0.1 Aspartate Amino Transf (AST/SGOT) 33 Alanine Aminotransferase (ALT/SGPT) 30 Alkaline Phosphatase 241 H Total Protein 6.8 Albumin 3.0 L Globulin 3.80 H Albumin/Globulin Ratio 0.78 Consultation Date/Type/Reason Admit Date/Time Nov 06, 2018 at 18:19 Initial Consult Date Type of Consult id Exam/Review of Systems Vital Signs Vitals Vital Signs Date Temp Pulse Resp B/P (MAP) Pulse Ox O2 O2 Flow FiO2 Time Delivery Rate 11/07/18 98.5 18 116/70 97 Room Air 07:55 (85) 11/07/18 84 02:00 Intake and Output 11/06/18 11/06/18 11/07/18 1414:59 22:59 06:59 IntakeIntake Total 240 ml OutputOutput Total 1000 ml BalanceBalance -760 ml Medications Medications Current Medications Docusate Sodium (Colace) 100 mg BID PO Last administered on 11/07/18at 08:54; Admin Dose 100 MG; Start 11/06/18 at 21:00 Senna (Senokot) 1 tab HS PO ; Start 11/06/18 at 21:00 Magnesium Hydroxide (Milk Of Mag) 30 ml BID PRN PO CONSTIPATION; Start 11/06/18 at 18:30 Lactulose (Enulose) 20 gm DAILY PRN PO CONSTIPATION; Start 11/06/18 at 18:30 Bisacodyl (Dulcolax Supp) 10 mg DAILY PRN MD CONSTIPATION; Start 11/06/18 at 18:30 Miscellaneous Information (Pending [facility] Order For Wound Care) This patient frank... PRN PRN XX wound; Start 11/06/18 at 18:30 Acetaminophen (Tylenol Tab) 650 mg Q6H PRN PO PAIN LEVEL 1-3 OR FEVER; Start 11/06/18 at 20:00 Bisacodyl (Dulcolax) 5 mg DAILY PRN PO CONSTIPATION; Start 11/06/18 at 20:00 Citric Acid/ Sodium Citrate (Bicitra) 30 ml BID PO Last administered on 11/07/18at 08:54; Admin Dose 30 ML; Start 11/06/18 at 21:00 Senna/Docusate Sodium (Senokot-S) 2 tab HS PO ; Start 11/06/18 at 21:00 Docusate Sodium (Colace) 100 mg Q12H PRN PO CONSTIPATION; Start 11/06/18 at 20:00 Famotidine (Pepcid) 20 mg DAILY PO Last administered on 11/07/18at 08:54; Admin Dose 20 MG; Start 11/07/18 at 09:00 Heparin Sodium (Porcine) (Heparin (5000 Units/1ml)) 5,000 unit Q8 SC Last administered on 11/07/18at 14:21; Admin Dose 5,000 UNIT; Start 11/06/18 at 22:00 Magnesium Oxide (Mag-Ox 400) 400 mg BID PO Last administered on 11/07/18at 08:54; Admin Dose 400 MG; Start 11/06/18 at 21:00 Thiamine HCl (Vitamin B1) 100 mg DAILY PO Last administered on 11/07/18at 08:54; Admin Dose 100 MG; Start 11/07/18 at 09:00 Cefpodoxime Proxetil (Vantin) 400 mg BID PO ; Start 11/08/18 at 09:00 NYDIA PERKINS NP Nov 07, 2018 15:19
[2018-11-07] MEDS ORDERED: CIPROFLOXACIN 250 MG TAB PO SCH (18:00)
--- NOTE | 2018-11-07 19:38 | NUR ---
End of shift summary note Patient alert, oriented and able to make needs known without complaints of pain during the shift. All due medications given. No noted dizziness and denies nausea or vomiting. Call light and bedside table placed within reach. Bed alarm activated for safety and bed placed on lowest position. Participated with therapy. Needs attended and continuous monitoring provided. Will endorse to next shift.
[2018-11-07 20:00] VITALS: BP 118/62; RESP 18
--- NOTE | 2018-11-07 20:10 | NUR ---
Thuan RENEWALS MANAGER informed that pt refuses IV insertion and IV meds/ATB. RENEWALS MANAGER changed order for Maxipime IV to Cipro PO 250mg BID.
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
[2018-11-07] MEDS ORDERED: CEFEPIME 1GM/50 ML (PMX) 50 ML IVPB SCH (21:00)
[2018-11-07] MEDS: SENNA TAB PO SCH (21:00)
[2018-11-07] MEDS: SENNA/DOCUSATE NA (8.6MG/50MG) TAB PO SCH (21:00)
--- NOTE | 2018-11-08 05:40 | NUR ---
Pt asleep, no s/s of distress. Slept well through the night. No complaints of pain at this time. Due meds given, needs attended. Kept clean and dry. Safety precautions in place. Frequent checks done. Encouraged to call for help whenever necessary. Will endorse accordingly.
[2018-11-08] MEDS: CIPROFLOXACIN 250 MG TAB PO SCH ×2 (06:26→19:37)
[2018-11-08] MEDS: HEPARIN 5,000 UNIT/1 ML VIAL SC SCH ×3 (06:29→21:52)
[2018-11-08 07:30] VITALS: BP 106/64; PULSE 79; RESP 18
[2018-11-08] MEDS ORDERED: CEFPODOXIME 200 MG TAB PO SCH (09:00)
[2018-11-08] MEDS: DOCUSATE SODIUM 100 MG CAP PO SCH ×2 (09:00→20:41)
[2018-11-08] MEDS: CITRIC ACID/NA CITRATE 30 ML CUP PO SCH ×2 (09:35→20:41)
[2018-11-08] MEDS: FAMOTIDINE 20 MG TAB PO SCH (09:36)
[2018-11-08] MEDS: THIAMINE 100 MG TAB PO SCH (09:36)
[2018-11-08] MEDS: MAGNESIUM OXIDE 400 MG TAB PO SCH ×2 (09:38→20:40)
--- NOTE | 2018-11-08 13:42 | PN ---
Date/Time of Note Date/Time of Note DATE: 11/08/18 TIME: 13:40 Subjective Comfortable Objective Vital Signs Date Temp Pulse Resp B/P (MAP) Pulse Ox O2 O2 Flow FiO2 Time Delivery Rate 11/08/18 98.5 79 18 106/64 98 Room Air 07:30 (78) Intake and Output 11/07/18 11/07/18 11/08/18 1515:00 23:00 07:00 IntakeIntake Total 120 ml OutputOutput Total 400 ml BalanceBalance -400 ml 120 ml Exam pulm-cta abd-soft min ambulation Results/Medications Result Diagram: 11/07/1835 11/07/1835 Results 24 hrs Laboratory Tests Test 11/08/18 13:35 White Blood Count Pending Red Blood Count Pending Hemoglobin Pending Hematocrit Pending Mean Corpuscular Volume Pending Mean Corpuscular Hemoglobin Pending Mean Corpuscular Hemoglobin Concent Pending Red Cell Distribution Width Pending Platelet Count Pending Mean Platelet Volume Pending Medications Current Medications Docusate Sodium (Colace) 100 mg BID PO Last administered on 11/07/18at 08:54; Admin Dose 100 MG; Start 11/06/18 at 21:00 Senna (Senokot) 1 tab HS PO ; Start 11/06/18 at 21:00 Magnesium Hydroxide (Milk Of Mag) 30 ml BID PRN PO CONSTIPATION; Start 11/06/18 at 18:30 Lactulose (Enulose) 20 gm DAILY PRN PO CONSTIPATION; Start 11/06/18 at 18:30 Bisacodyl (Dulcolax Supp) 10 mg DAILY PRN [place] CONSTIPATION; Start 11/06/18 at 18:30 Miscellaneous Information (Pending [facility] Order For Wound Care) This patient frank... PRN PRN XX wound; Start 11/06/18 at 18:30 Acetaminophen (Tylenol Tab) 650 mg Q6H PRN PO PAIN LEVEL 1-3 OR FEVER; Start 11/06/18 at 20:00 Bisacodyl (Dulcolax) 5 mg DAILY PRN PO CONSTIPATION; Start 11/06/18 at 20:00 Citric Acid/ Sodium Citrate (Bicitra) 30 ml BID PO Last administered on 11/08/18at 09:35; Admin Dose 30 ML; Start 11/06/18 at 21:00 Senna/Docusate Sodium (Senokot-S) 2 tab HS PO ; Start 11/06/18 at 21:00 Docusate Sodium (Colace) 100 mg Q12H PRN PO CONSTIPATION; Start 11/06/18 at 20:00 Famotidine (Pepcid) 20 mg DAILY PO Last administered on 11/08/18at 09:36; Admin Dose 20 MG; Start 11/07/18 at 09:00 Heparin Sodium (Porcine) (Heparin (5000 Units/1ml)) 5,000 unit Q8 SC Last administered on 11/08/18at 06:29; Admin Dose 5,000 UNIT; Start 11/06/18 at 22:00 Magnesium Oxide (Mag-Ox 400) 400 mg BID PO Last administered on 11/08/18at 09:38; Admin Dose 400 MG; Start 11/06/18 at 21:00 Thiamine HCl (Vitamin B1) 100 mg DAILY PO Last administered on 11/08/18at 09:36; Admin Dose 100 MG; Start 11/07/18 at 09:00 Ciprofloxacin (Cipro) 250 mg BID@,18 PO Last administered on 11/08/18at 06:26; Admin Dose 250 MG; Start 11/08/18 at 06:00 Assessment/Plan Additional Assessment/Plan Rehab Debility;Toxic metabolic encephalopathy. Continue treatment plan - Acute on chronic kidney disease with a history of nephrectomy; obstructive uropathy- followed by Urology Upper extremity cellulitis-continue antibiotics Hypertension. VENU BELLE MD Nov 08, 2018 13:42
[2018-11-08 14:00] VITALS: BP 115/65; PULSE 80; RESP 18
--- NOTE | 2018-11-08 14:03 | CONS ---
Date/Time of Note Date/Time of Note DATE: 11/08/18 TIME: 14:03 Assessment/Plan Assessment/Plan Assessment/Plan 1. acute vs acute on chronic renal failure due to Obstruction + prerenal azotemia 2. H/o left nephrectomy, unclear history 3. metabolic acidosis 4. anemia for CKD 5. Severe hydronephrosis Right side Plan: Bicitra 30ml PO BID for acidosis, BUN/Cr 54/5.07, WBC 14 CT Abdomen + pelvis w/o contrast showed R hydronephrosis, s/p Urology consult, no surgical intervention at this time will follow up Result Diagram: 11/08/18 1335 11/08/18 1335 Results 24hrs Laboratory Tests Test 11/08/18 13:35 White Blood Count 14.5 H Red Blood Count 3.80 L Hemoglobin 10.9 L Hematocrit 33.9 L Mean Corpuscular Volume 89.2 Mean Corpuscular Hemoglobin 28.7 L Mean Corpuscular Hemoglobin Concent 32.2 Red Cell Distribution Width 14.5 Platelet Count 428 H Mean Platelet Volume 9.8 Immature Granulocytes % 1.700 H Neutrophils % 76.2 Lymphocytes % 11.3 L Monocytes % 8.8 Eosinophils % 1.2 Basophils % 0.8 Nucleated Red Blood Cells % 0.0 Immature Granulocytes # 0.240 H Neutrophils # 11.1 H Lymphocytes # 1.6 Monocytes # 1.3 H Eosinophils # 0.2 Basophils # 0.1 Nucleated Red Blood Cells # 0.0 Sodium Level 136 Potassium Level 4.5 Chloride Level 102 Carbon Dioxide Level 23 Anion Gap 11 Blood Urea Nitrogen 54 H Creatinine 5.07 H Est Glomerular Filtrat Rate mL/min Glucose Level 173 Calcium Level 8.1 L Consultation Date/Type/Reason Admit Date/Time Nov 06, 2018 at 18:19 Initial Consult Date Type of Consult NEPHROLOGY Requesting Provider: WALTER CARTER NP 24 HR Interval Summary Free Text/Dictation BUN/Cr 54/5.07, WBC 14 Exam/Review of Systems Vital Signs Vitals Vital Signs Date Temp Pulse Resp B/P (MAP) Pulse Ox O2 O2 Flow FiO2 Time Delivery Rate 11/08/18 98.5 79 18 106/64 98 Room Air 07:30 (78) Intake and Output 11/07/18 11/07/18 11/08/18 1515:00 23:00 07:00 IntakeIntake Total 120 ml OutputOutput Total 400 ml BalanceBalance -400 ml 120 ml Exam onstitutional: alert, awake Head: normocephalic Eyes: nl conjunctiva ENMT: nl external ears & nose Neck: supple, non-tender Respiratory: clear to auscultation, diminished breath sounds Cardiovascular: regular rate and rhythm, nl pulses Gastrointestinal: soft, non-tender Extremities: normal pulses Neurological: non focal Medications Medications Current Medications Docusate Sodium (Colace) 100 mg BID PO Last administered on 11/07/18at 08:54; Admin Dose 100 MG; Start 11/06/18 at 21:00 Senna (Senokot) 1 tab HS PO ; Start 11/06/18 at 21:00 Magnesium Hydroxide (Milk Of Mag) 30 ml BID PRN PO CONSTIPATION; Start 11/06/18 at 18:30 Lactulose (Enulose) 20 gm DAILY PRN PO CONSTIPATION; Start 11/06/18 at 18:30 Bisacodyl (Dulcolax Supp) 10 mg DAILY PRN [place] CONSTIPATION; Start 11/06/18 at 18:30 Miscellaneous Information (Pending [facility] Order For Wound Care) This patient frank... PRN PRN XX wound; Start 11/06/18 at 18:30 Acetaminophen (Tylenol Tab) 650 mg Q6H PRN PO PAIN LEVEL 1-3 OR FEVER; Start 11/06/18 at 20:00 Bisacodyl (Dulcolax) 5 mg DAILY PRN PO CONSTIPATION; Start 11/06/18 at 20:00 Citric Acid/ Sodium Citrate (Bicitra) 30 ml BID PO Last administered on at 09:35; Admin Dose 30 ML; Start 11/06/18 at 21:00 Senna/Docusate Sodium (Senokot-S) 2 tab HS PO ; Start 11/06/18 at 21:00 Docusate Sodium (Colace) 100 mg Q12H PRN PO CONSTIPATION; Start 11/06/18 at 20:00 Famotidine (Pepcid) 20 mg DAILY PO Last administered on 11/08/18at 09:36; Admin Dose 20 MG; Start 11/07/18 at 09:00 Heparin Sodium (Porcine) (Heparin (5000 Units/1ml)) 5,000 unit Q8 SC Last administered on 11/08/18at 06:29; Admin Dose 5,000 UNIT; Start 11/06/18 at 22:00 Magnesium Oxide (Mag-Ox 400) 400 mg BID PO Last administered on 11/08/18at 09:38; Admin Dose 400 MG; Start 11/06/18 at 21:00 Thiamine HCl (Vitamin B1) 100 mg DAILY PO Last administered on 11/08/18at 09:36; Admin Dose 100 MG; Start 11/07/18 at 09:00 Ciprofloxacin (Cipro) 250 mg BID@ PO Last administered on 11/08/18at 06:26; Admin Dose 250 MG; Start 11/08/18 at 06:00 Ferrous Sulfate (Ferrous Sulfate (Ec)) 325 mg BID PO ; Start 11/08/18 at 21:00 YAIR GOLDSMITH MD Nov 08, 2018 14:03
--- NOTE | 2018-11-08 14:08 | PN ---
Date/Time of Note Date/Time of Note DATE: 11/08/18 TIME: 14:05 Assessment/Plan VTE Prophylaxis Risk score (from Ns)>0 risk: 3 SCD applied (from Ns): Yes Pharmacological prophylaxis: heparin Lines/Catheters IV [facility] Saline Lock Urinary Cath still in place: Yes Reason Cath still needed: urinary retention Assessment/Plan Hospital Course SUBJECTIVE: Lying in bed comfortably. No fevers, nausea, vomiting, abdominal pain, hematuria. OBJECTIVE: Vital signs-see below PHYSICAL EXAM: Constitutional: Well-developed, adequately built, lying in bed comfortably. Psych: nl mood/affect, no complaints Head: atraumatic, normocephalic Eyes: nl conjunctiva, nl sclera ENMT: mucosa pink and moist, nl external ears & nose Neck: non-tender, supple Respiratory: clear to auscultation, normal air movement Cardiovascular: nl pulses, regular rate and rhythm Gastrointestinal: non-tender, soft, bowel sounds active in all 4 quadrants. Musculoskeletal/extremities: nl extremities to inspection, motor strength equal bilaterally, no focal deficit. Normal pulses,no cyanosis, no edema. Neurological: Alert oriented 3,nl speech, nl strength Skin: nl turgor ASSESSMENT/PLAN: 73-year-old male with CKD -refused to be on hemodialysis, urinary retention requiring chronic Marks, recurrent UTI, transferred from [facility] s/p CAUTI treatment, acute kidney injury, ileus/gastroenteritis, for rehabilitation. 1. Catheter associated urinary tract infection, recurrent -s/p Marks DC'd 11/08/2018=> not voided H. Plan is to do bladder scan and in and out cath as needed. Follow-up urology recommendations. -Follow-up cultures negative so far -Continue Cipro=> ID managing antibiotics 2. Sepsis secondary to #1 -Improving white count. -Continue current medical management 3. Chronic urinary retention/Neurogenic bladder, requiring indwelling Marks... -Culprit of frequent UTI and obstructive uropathy. -Unfortunately, patient with no family support available to do in and out catheterization after discharge=> as such, he preferred to go home with Marks in place and will have PCP follow-up for Marks changes every 30 days 4. Acute kidney injury on CKD with baseline creatinine unknown -Culprit of acute kidney injury likely obstructive uropathy with #1. -Creatinine went up today, likely secondary to patient has not voided after Marks removal... -Nephrology following. -Patient had refused hemodialysis treatment=>On conservative medical management 5. Anemia of CKD. -Stable H&H. No indication for Epogen at this time. -Start oral iron replacement DVT prophylaxis: Heparin PUD prophylaxis: Not indicated CODE STATUS: Full code Diet: Renal diet. Patient was seen in collaboration with . Result Diagram: 11/08/18 1335 11/08/18 1335 Results 24hrs Laboratory Tests Test 11/08/18 13:35 White Blood Count 14.5 H Red Blood Count 3.80 L Hemoglobin 10.9 L Hematocrit 33.9 L Mean Corpuscular Volume 89.2 Mean Corpuscular Hemoglobin 28.7 L Mean Corpuscular Hemoglobin Concent 32.2 Red Cell Distribution Width 14.5 Platelet Count 428 H Mean Platelet Volume 9.8 Immature Granulocytes % 1.700 H Neutrophils % 76.2 Lymphocytes % 11.3 L Monocytes % 8.8 Eosinophils % 1.2 Basophils % 0.8 Nucleated Red Blood Cells % 0.0 Immature Granulocytes # 0.240 H Neutrophils # 11.1 H Lymphocytes # 1.6 Monocytes # 1.3 H Eosinophils # 0.2 Basophils # 0.1 Nucleated Red Blood Cells # 0.0 Sodium Level 136 Potassium Level 4.5 Chloride Level 102 Carbon Dioxide Level 23 Anion Gap 11 Blood Urea Nitrogen 54 H Creatinine 5.07 H Est Glomerular Filtrat Rate mL/min Glucose Level 173 Calcium Level 8.1 L Exam/Review of Systems Vital Signs Vitals Vital Signs Date Temp Pulse Resp B/P (MAP) Pulse Ox O2 O2 Flow FiO2 Time Delivery Rate 11/08/18 98.5 79 18 106/64 98 Room Air 07:30 (78) Intake and Output 11/07/18 11/07/18 11/08/18 1515:00 23:00 07:00 IntakeIntake Total 120 ml OutputOutput Total 400 ml BalanceBalance -400 ml 120 ml Medications Medications Current Medications Docusate Sodium (Colace) 100 mg BID PO Last administered on 11/07/18at 08:54; Admin Dose 100 MG; Start 11/06/18 at 21:00 Senna (Senokot) 1 tab HS PO ; Start 11/06/18 at 21:00 Magnesium Hydroxide (Milk Of Mag) 30 ml BID PRN PO CONSTIPATION; Start 11/06/18 at 18:30 Lactulose (Enulose) 20 gm DAILY PRN PO CONSTIPATION; Start 11/06/18 at 18:30 Bisacodyl (Dulcolax Supp) 10 mg DAILY PRN [place] CONSTIPATION; Start 11/06/18 at 18:30 Miscellaneous Information (Pending [facility] Order For Wound Care) This patient frank... PRN PRN XX wound; Start 11/06/18 at 18:30 Acetaminophen (Tylenol Tab) 650 mg Q6H PRN PO PAIN LEVEL 1-3 OR FEVER; Start 11/06/18 at 20:00 Bisacodyl (Dulcolax) 5 mg DAILY PRN PO CONSTIPATION; Start 11/06/18 at 20:00 Citric Acid/ Sodium Citrate (Bicitra) 30 ml BID PO Last administered on 11/08/18at 09:35; Admin Dose 30 ML; Start 11/06/18 at 21:00 Senna/Docusate Sodium (Senokot-S) 2 tab HS PO ; Start 11/06/18 at 21:00 Docusate Sodium (Colace) 100 mg Q12H PRN PO CONSTIPATION; Start 11/06/18 at 20:00 Famotidine (Pepcid) 20 mg DAILY PO Last administered on 11/08/18at 09:36; Admin Dose 20 MG; Start 11/07/18 at 09:00 Heparin Sodium (Porcine) (Heparin (5000 Units/1ml)) 5,000 unit Q8 SC Last administered on 11/08/18at 06:29; Admin Dose 5,000 UNIT; Start 11/06/18 at 22:00 Magnesium Oxide (Mag-Ox 400) 400 mg BID PO Last administered on 11/08/18at 09:38; Admin Dose 400 MG; Start 11/06/18 at 21:00 Thiamine HCl (Vitamin B1) 100 mg DAILY PO Last administered on 11/08/18at 09:36; Admin Dose 100 MG; Start 11/07/18 at 09:00 Ciprofloxacin (Cipro) 250 mg BID@,18 PO Last administered on 11/08/18at 06:26; Admin Dose 250 MG; Start 11/08/18 at 06:00 Ferrous Sulfate (Ferrous Sulfate (Ec)) 325 mg BID PO ; Start 11/08/18 at 21:00 WALTER CARTER NP Nov 08, 2018 14:08
--- NOTE | 2018-11-08 15:10 | CONS ---
Date/Time of Note Date/Time of Note DATE: 11/08/18 TIME: 15:09 Assessment/Plan Assessment/Plan Hospital Course No acute events patient is awake sitting comfortably in a chair. Marks catheter was discontinued this morning. Patient unable to void. WBC 14.5 platelets 428 neutrophils 76.2 BUN 54 creatinine 5.07 Antimicrobials: Ciprofloxacin, status post intramuscular Rocephin dose yesterday Microbiology: Urine culture grew Morganella and Klebsiella pneumonia Physical examination: Well-developed elderly man in no distress. Head atraumatic normocephalic neck is supple chest rise symmetrical breath sounds diminished bases heart S1-S2 abdomen soft bowel sounds present extremities without cyanosis Assessment: 1. Pyelonephritis with right hydronephrosis 2. Acute on chronic kidney disease 3. Urinary retention Plan: Patient is clinically stable, continue present care, antibiotics, follow repeat urine culture, urology recommendations Result Diagram: 11/08/18 1335 11/08/18 1335 Results 24hrs Laboratory Tests Test 11/08/18 13:35 White Blood Count 14.5 H Red Blood Count 3.80 L Hemoglobin 10.9 L Hematocrit 33.9 L Mean Corpuscular Volume 89.2 Mean Corpuscular Hemoglobin 28.7 L Mean Corpuscular Hemoglobin Concent 32.2 Red Cell Distribution Width 14.5 Platelet Count 428 H Mean Platelet Volume 9.8 Immature Granulocytes % 1.700 H Neutrophils % 76.2 Lymphocytes % 11.3 L Monocytes % 8.8 Eosinophils % 1.2 Basophils % 0.8 Nucleated Red Blood Cells % 0.0 Immature Granulocytes # 0.240 H Neutrophils # 11.1 H Lymphocytes # 1.6 Monocytes # 1.3 H Eosinophils # 0.2 Basophils # 0.1 Nucleated Red Blood Cells # 0.0 Sodium Level 136 Potassium Level 4.5 Chloride Level 102 Carbon Dioxide Level 23 Anion Gap 11 Blood Urea Nitrogen 54 H Creatinine 5.07 H Est Glomerular Filtrat Rate mL/min Glucose Level 173 Calcium Level 8.1 L Consultation Date/Type/Reason Admit Date/Time Nov 06, 2018 at 18:19 Initial Consult Date Type of Consult id Requesting Provider: WALTER CARTER NP Exam/Review of Systems Vital Signs Vitals Vital Signs Date Temp Pulse Resp B/P (MAP) Pulse Ox O2 O2 Flow FiO2 Time Delivery Rate 11/08/18 98.5 79 18 106/64 98 Room Air 07:30 (78) Intake and Output 11/07/18 11/07/18 11/08/18 1515:00 23:00 07:00 IntakeIntake Total 120 ml OutputOutput Total 400 ml BalanceBalance -400 ml 120 ml Medications Medications Current Medications Docusate Sodium (Colace) 100 mg BID PO Last administered on 11/07/18at 08:54; Admin Dose 100 MG; Start 11/06/18 at 21:00 Senna (Senokot) 1 tab HS PO ; Start 11/06/18 at 21:00 Magnesium Hydroxide (Milk Of Mag) 30 ml BID PRN PO CONSTIPATION; Start 11/06/18 at 18:30 Lactulose (Enulose) 20 gm DAILY PRN PO CONSTIPATION; Start 11/06/18 at 18:30 Bisacodyl (Dulcolax Supp) 10 mg DAILY PRN [place] CONSTIPATION; Start 11/06/18 at 18:30 Miscellaneous Information (Pending [facility] Order For Wound Care) This patient frank... PRN PRN XX wound; Start 11/06/18 at 18:30 Acetaminophen (Tylenol Tab) 650 mg Q6H PRN PO PAIN LEVEL 1-3 OR FEVER; Start 11/06/18 at 20:00 Bisacodyl (Dulcolax) 5 mg DAILY PRN PO CONSTIPATION; Start 11/06/18 at 20:00 Citric Acid/ Sodium Citrate (Bicitra) 30 ml BID PO Last administered on 11/08/18at 09:35; Admin Dose 30 ML; Start 11/06/18 at 21:00 Senna/Docusate Sodium (Senokot-S) 2 tab HS PO ; Start 11/06/18 at 21:00 Docusate Sodium (Colace) 100 mg Q12H PRN PO CONSTIPATION; Start 11/06/18 at 20:00 Famotidine (Pepcid) 20 mg DAILY PO Last administered on 11/08/18at 09:36; Admin Dose 20 MG; Start 11/07/18 at 09:00 Heparin Sodium (Porcine) (Heparin (5000 Units/1ml)) 5,000 unit Q8 SC Last administered on 11/08/18at 14:21; Admin Dose 5,000 UNIT; Start 11/06/18 at 22:00 Magnesium Oxide (Mag-Ox 400) 400 mg BID PO Last administered on 11/08/18at 09:38; Admin Dose 400 MG; Start 11/06/18 at 21:00 Thiamine HCl (Vitamin B1) 100 mg DAILY PO Last administered on 11/08/18at 09:36; Admin Dose 100 MG; Start 11/07/18 at 09:00 Ciprofloxacin (Cipro) 250 mg BID@06,18 PO Last administered on 11/08/18at 06:26; Admin Dose 250 MG; Start 11/08/18 at 06:00 Ferrous Sulfate (Ferrous Sulfate (Ec)) 325 mg BID PO ; Start 11/08/18 at 21:00 NYDIA PERKINS NP Nov 08, 2018 15:10
--- NOTE | 2018-11-08 19:00 | NUR ---
Marks cath removed at 07:30 AM and pt has not voided. Had BM x 1 in the toilet, but no urine output. At 13:00, bladder scan showed 290 cc urine. Insertion of I/O cath attempted but resistance noted. Pt was encourage to increase oral fluid intake, bladder scan at 1700 noted to be [address] Mcdonald at 17:30 to report about the retention. Got order to have Uro cart at bedside. Endorsed to date night sitter RN to collect UA, Urine c/s per Laura's order.
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
[2018-11-08 20:00] VITALS: BP 122/74; PULSE 75; RESP 18
[2018-11-08] MEDS: FERROUS SULFATE (EC) 325 MG TAB PO SCH (20:41)
[2018-11-08] MEDS: SENNA TAB PO SCH (21:51)
[2018-11-09 02:00] VITALS: BP 118/68; PULSE 84; RESP 18
--- NOTE | 2018-11-09 05:14 | NUR ---
LAST NIGHT DR. MINAYA INSERTED VERAS CATHETER. CLOUDY YELLOW DRAINING. UA & C & S SPECIMEN SENT TO THE LAB. RECREATIONAL ACTIVITIES PROVIDED TO PATIENT;TV. NO C/O PAIN OR DISCOMFORT DURING THE NIGHT. CALL LIGHT WITHIN REACH
[2018-11-09] MEDS: CIPROFLOXACIN 250 MG TAB PO SCH ×2 (05:43→17:40)
[2018-11-09] MEDS: HEPARIN 5,000 UNIT/1 ML VIAL SC SCH ×3 (05:48→22:35)
[2018-11-09 07:30] VITALS: BP 115/67; PULSE 79; RESP 20
--- NOTE | 2018-11-09 08:50 | PN ---
Date/Time of Note Date/Time of Note DATE: 11/09/18 TIME: 08:50 Subjective Comfortable Objective Vital Signs Date Temp Pulse Resp B/P (MAP) Pulse Ox O2 O2 Flow FiO2 Time Delivery Rate 11/09/18 98.9 79 20 115/67 95 Room Air 07:30 (83) Intake and Output 11/08/18 11/08/18 11/09/18 1515:00 23:00 07:00 IntakeIntake Total 1440 ml OutputOutput Total 1300 ml BalanceBalance -1300 ml 1440 ml Exam pulm-cta abd-soft ambulating 150 feet Results/Medications Result Diagram: 11/08/18 1335 11/08/18 1335 Results 24 hrs Laboratory Tests Test 11/08/18 13:35 11/08/18 20:00 White Blood Count 14.5 H Red Blood Count 3.80 L Hemoglobin 10.9 L Hematocrit 33.9 L Mean Corpuscular Volume 89.2 Mean Corpuscular Hemoglobin 28.7 L Mean Corpuscular Hemoglobin Concent 32.2 Red Cell Distribution Width 14.5 Platelet Count 428 H Mean Platelet Volume 9.8 Immature Granulocytes % 1.700 H Neutrophils % 76.2 Lymphocytes % 11.3 L Monocytes % 8.8 Eosinophils % 1.2 Basophils % 0.8 Nucleated Red Blood Cells % 0.0 Immature Granulocytes # 0.240 H Neutrophils # 11.1 H Lymphocytes # 1.6 Monocytes # 1.3 H Eosinophils # 0.2 Basophils # 0.1 Nucleated Red Blood Cells # 0.0 Sodium Level 136 Potassium Level 4.5 Chloride Level 102 Carbon Dioxide Level 23 Anion Gap 11 Blood Urea Nitrogen 54 H Creatinine 5.07 H Est Glomerular Filtrat Rate mL/min Glucose Level 173 Calcium Level 8.1 L Urine Color YELLOW Urine Clarity TURBID A Urine pH 8.0 Urine Specific [place] 1.011 Urine Ketones NEGATIVE Urine Nitrite NEGATIVE Urine Bilirubin NEGATIVE Urine Urobilinogen NEGATIVE Urine Leukocyte Esterase 3+ H Urine Microscopic RBC 72 H Urine Microscopic WBC > 182 H Urine Bacteria MANY A Urine Hemoglobin 2+ H Urine Glucose NEGATIVE Urine Total Protein 3+ H Medications Current Medications Docusate Sodium (Colace) 100 mg BID PO Last administered on 11/08/18at 20:41; Admin Dose 100 MG; Start 11/06/18 at 21:00 Senna (Senokot) 1 tab HS PO Last administered on 11/08/18at 21:51; Admin Dose 1 TAB; Start 11/06/18 at 21:00 Magnesium Hydroxide (Milk Of Mag) 30 ml BID PRN PO CONSTIPATION; Start 11/06/18 at 18:30 Lactulose (Enulose) 20 gm DAILY PRN PO CONSTIPATION; Start 11/06/18 at 18:30 Bisacodyl (Dulcolax Supp) 10 mg DAILY PRN [place] CONSTIPATION; Start 11/06/18 at 18:30 [facility] This patient frank... PRN PRN XX wound; Start 11/06/18 at 18:30 Acetaminophen (Tylenol Tab) 650 mg Q6H PRN PO PAIN LEVEL 1-3 OR FEVER; Start 11/06/18 at 20:00 Bisacodyl (Dulcolax) 5 mg DAILY PRN PO CONSTIPATION; Start 11/06/18 at 20:00 Citric Acid/ Sodium Citrate (Bicitra) 30 ml BID PO Last administered on 11/08/18at 20:41; Admin Dose 30 ML; Start 11/06/18 at 21:00 Docusate Sodium (Colace) 100 mg Q12H PRN PO CONSTIPATION; Start 11/06/18 at 20:00 Famotidine (Pepcid) 20 mg DAILY PO Last administered on 11/08/18at 09:36; Admin Dose 20 MG; Start 11/07/18 at 09:00 Heparin Sodium (Porcine) (Heparin (5000 Units/1ml)) 5,000 unit Q8 SC Last administered on 11/09/18 05:48; Admin Dose 5,000 UNIT; Start 11/06/18 at 22:00 Magnesium Oxide (Mag-Ox 400) 400 mg BID PO Last administered on 11/08/18at 20:40; Admin Dose 400 MG; Start 11/06/18 at 21:00 Thiamine HCl (Vitamin B1) 100 mg DAILY PO Last administered on 11/08/18 09:36; Admin Dose 100 MG; Start 11/07/18 at 09:00 Ciprofloxacin (Cipro) 250 mg BID@18 PO Last administered on 11/09/18 05:43; Admin Dose 250 MG; Start 11/08/18 at 06:00 Ferrous Sulfate (Ferrous Sulfate (Ec)) 325 mg BID PO Last administered on 1/11/19at 20:41; Admin Dose 325 MG; Start 11/08/18 at 21:00 Assessment/Plan Additional Assessment/Plan rehab- Debility; Enceph Progressing well with treatment plan. Patient still with significant impairments in cognition as compared to baseline. Neuropsychology for full cognitive evaluation and training. SP to assess - followed closely by urology HTN UE cellulitis VENU BELLE MD Nov 09, 2018 08:50
--- NOTE | 2018-11-09 10:00 | NUR ---
Pt received seated in wc. Declining shower training. UB/LB bathing completed seated in . Needs cues for sequencing and initiation. Close supervision used standing bathing buttocks to prevent falls and for safety. UE ther ex completed seated w emphasis on LUE strengthening. Seated in end of tx, needs within reach, nursing notified. Addendum: 11/09/18 at 1008 by CHIDI DANIELS OT Amended: Links added.
[2018-11-09] MEDS: FAMOTIDINE 20 MG TAB PO SCH (10:01)
[2018-11-09] MEDS: FERROUS SULFATE (EC) 325 MG TAB PO SCH ×2 (10:01→21:38)
[2018-11-09] MEDS: THIAMINE 100 MG TAB PO SCH (10:01)
[2018-11-09] MEDS: DOCUSATE SODIUM 100 MG CAP PO SCH ×2 (10:01→21:38)
[2018-11-09] MEDS: CITRIC ACID/NA CITRATE 30 ML CUP PO SCH ×2 (10:02→21:38)
[2018-11-09] MEDS: MAGNESIUM OXIDE 400 MG TAB PO SCH ×2 (10:02→21:38)
[2018-11-09 14:00] VITALS: BP 105/67; PULSE 84; RESP 20
--- NOTE | 2018-11-09 14:07 | PN ---
Date/Time of Note Date/Time of Note DATE: 11/09/18 TIME: 14:05 Assessment/Plan VTE Prophylaxis Risk score (from Ns)>0 risk: 3 SCD applied (from Ns): Yes Pharmacological prophylaxis: heparin Lines/Catheters IV Catheter Type (from Nrsg): Saline Lock Urinary Cath still in place: Yes Reason Cath still needed: urinary retention Assessment/Plan Assessment/Plan patient is recuperating acute rehabilitation unit following protocol. His urinary tract infections and neurogenic bladder under treatment and stable at this time. Please note with his chronic kidney disease medications have been adjusted. Result Diagram: 11/08/18 1335 11/08/18 1335 Results 24hrs Laboratory Tests Test 11/08/18 20:00 Urine Color YELLOW Urine Clarity TURBID A Urine pH 8.0 Urine Specific [place] 1.011 Urine Ketones NEGATIVE Urine Nitrite NEGATIVE Urine Bilirubin NEGATIVE Urine Urobilinogen NEGATIVE Urine Leukocyte Esterase 3+ H Urine Microscopic RBC 72 H Urine Microscopic WBC > 182 H Urine Bacteria MANY A Urine Hemoglobin 2+ H Urine Glucose NEGATIVE Urine Total Protein 3+ H Subjective 24 Hr Interval Summary Free Text/Dictation patient reports he is doing okay at this time with no specific complaints Constitutional: no complaints Respiratory: no complaints Cardiovascular: no complaints Exam/Review of Systems Vital Signs Vitals Vital Signs Date Temp Pulse Resp B/P (MAP) Pulse Ox O2 O2 Flow FiO2 Time Delivery Rate 11/09/18 98.9 79 20 115/67 95 Room Air 07:30 (83) Intake and Output 11/08/18 11/08/18 11/09/18 1515:00 23:00 07:00 IntakeIntake Total 1440 ml OutputOutput Total 1300 ml BalanceBalance -1300 ml 1440 ml Exam Constitutional: alert, oriented Neck: supple, non-tender Respiratory: clear to auscultation, normal air movement Medications Medications Current Medications Docusate Sodium (Colace) 100 mg BID PO Last administered on 11/09/18at 10:01; Admin Dose 100 MG; Start 11/06/18 at 21:00 Senna (Senokot) 1 tab HS PO Last administered on 11/08/18at 21:51; Admin Dose 1 TAB; Start 11/06/18 at 21:00 Magnesium Hydroxide (Milk Of Mag) 30 ml BID PRN PO CONSTIPATION; Start 11/06/18 at 18:30 Lactulose (Enulose) 20 gm DAILY PRN PO CONSTIPATION; Start 11/06/18 at 18:30 Bisacodyl (Dulcolax Supp) 10 mg DAILY PRN [place] CONSTIPATION; Start 11/06/18 at 18:30 Miscellaneous Information (Pending [facility] Order For Wound Care) This patient frank... PRN PRN XX wound; Start 11/06/18 at 18:30 Acetaminophen (Tylenol Tab) 650 mg Q6H PRN PO PAIN LEVEL 1-3 OR FEVER; Start 11/06/18 at 20:00 Bisacodyl (Dulcolax) 5 mg DAILY PRN PO CONSTIPATION; Start 11/06/18 at 20:00 Citric Acid/ Sodium Citrate (Bicitra) 30 ml BID PO Last administered on 10:02; Admin Dose 30 ML; Start 11/06/18 at 21:00 Docusate Sodium (Colace) 100 mg Q12H PRN PO CONSTIPATION; Start 11/06/18 at 20:00 Famotidine (Pepcid) 20 mg DAILY PO Last administered on 11/09/18 10:01; Admin Dose 20 MG; Start 11/07/18 at 09:00 Heparin Sodium (Porcine) (Heparin (5000 Units/1ml)) 5,000 unit Q8 SC Last administered on 11/09/18at 13:39; Admin Dose 5,000 UNIT; Start 11/06/18 at 22:00 Magnesium Oxide (Mag-Ox 400) 400 mg BID PO Last administered on 11/09/18 10:02; Admin Dose 400 MG; Start 11/06/18 at 21:00 Thiamine HCl (Vitamin B1) 100 mg DAILY PO Last administered on 11/09/18 10:01; Admin Dose 100 MG; Start 11/07/18 at 09:00 Ciprofloxacin (Cipro) 250 mg BID@18 PO Last administered on 11/09/18 05:43; Admin Dose 250 MG; Start 11/08/18 at 06:00 Ferrous Sulfate (Ferrous Sulfate (Ec)) 325 mg BID PO Last administered on 11/09/18 10:01; Admin Dose 325 MG; Start 11/08/18 at 21:00 TRAE GONSALEZ MD Nov 09, 2018 14:07
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
--- NOTE | 2018-11-09 14:18 | CONS ---
Date/Time of Note Date/Time of Note DATE: 11/09/18 TIME: 14:16 Assessment/Plan Assessment/Plan Result Diagram: 11/08/18 1335 11/08/18 1335 Results 24hrs Laboratory Tests Test 11/08/18 20:00 Urine Color YELLOW Urine Clarity TURBID A Urine pH 8.0 Urine Specific [place] 1.011 Urine Ketones NEGATIVE Urine Nitrite NEGATIVE Urine Bilirubin NEGATIVE Urine Urobilinogen NEGATIVE Urine Leukocyte Esterase 3+ H Urine Microscopic RBC 72 H Urine Microscopic WBC > 182 H Urine Bacteria MANY A Urine Hemoglobin 2+ H Urine Glucose NEGATIVE Urine Total Protein 3+ H Consultation Date/Type/Reason Admit Date/Time Nov 06, 2018 at 18:19 Initial Consult Date SUBJECTIVE: Pt is awake,a lert, resting in bed. Denies fevers. VS: stable. T: 98 LABS: reviewed. Antimicrobials: Ciprofloxacin, status post intramuscular Rocephin dose yesterday Microbiology: Urine culture grew Morganella and Klebsiella pneumonia Physical examination: GEN: Well-developed elderly man in no distress. HENT: Head atraumatic normocephalic, neck is supple PULM: chest rise symmetrical, breath sounds diminished bases Heart: RRR, S1-S2 Abdomen soft bowel sounds present Extremities without cyanosis Assessment: 1. Pyelonephritis with right hydronephrosis 2. Acute on chronic kidney disease 3. Urinary retention Plan: Patient is clinically stable. Continue current antibiotics. Repeat urine culture is negative. Urology recommendations Requesting Provider: WALTER CARTER V. TUBULAR STOCK GLASS BULB MACHINE FORMER Exam/Review of Systems Vital Signs Vitals Vital Signs Date Temp Pulse Resp B/P (MAP) Pulse Ox O2 O2 Flow FiO2 Time Delivery Rate 11/09/18 99.1 84 20 105/67 97 Room Air 14:00 (80) Intake and Output 11/08/18 11/08/18 11/09/18 1515:00 23:00 07:00 IntakeIntake Total 1440 ml OutputOutput Total 1300 ml BalanceBalance -1300 ml 1440 ml Medications Medications Current Medications Docusate Sodium (Colace) 100 mg BID PO Last administered on 11/09/18at 10:01; Admin Dose 100 MG; Start 11/06/18 at 21:00 Senna (Senokot) 1 tab HS PO Last administered on 11/08/18at 21:51; Admin Dose 1 TAB; Start 11/06/18 at 21:00 Magnesium Hydroxide (Milk Of Mag) 30 ml BID PRN PO CONSTIPATION; Start 11/06/18 at 18:30 Lactulose (Enulose) 20 gm DAILY PRN PO CONSTIPATION; Start 11/06/18 at 18:30 Bisacodyl (Dulcolax Supp) 10 mg DAILY PRN [place] CONSTIPATION; Start 11/06/18 at 18:30 Miscellaneous Information (Pending [facility] Order For Wound Care) This patient frank... PRN PRN XX wound; Start 11/06/18 at 18:30 Acetaminophen (Tylenol Tab) 650 mg Q6H PRN PO PAIN LEVEL 1-3 OR FEVER; Start 11/06/18 at 20:00 Bisacodyl (Dulcolax) 5 mg DAILY PRN PO CONSTIPATION; Start 11/06/18 at 20:00 Citric Acid/ Sodium Citrate (Bicitra) 30 ml BID PO Last administered on 11/09/18at 10:02; Admin Dose 30 ML; Start 11/06/18 at 21:00 Docusate Sodium (Colace) 100 mg Q12H PRN PO CONSTIPATION; Start 11/06/18 at 20:00 Famotidine (Pepcid) 20 mg DAILY PO Last administered on 11/09/18at 10:01; Admin Dose 20 MG; Start 11/07/18 at 09:00 Heparin Sodium (Porcine) (Heparin (5000 Units/1ml)) 5,000 unit Q8 SC Last administered on 11/09/18at 13:39; Admin Dose 5,000 UNIT; Start 11/06/18 at 22:00 Magnesium Oxide (Mag-Ox 400) 400 mg BID PO Last administered on 11/09/18at 10:02; Admin Dose 400 MG; Start 11/06/18 at 21:00 Thiamine HCl (Vitamin B1) 100 mg DAILY PO Last administered on 11/09/18 10:01; Admin Dose 100 MG; Start 11/07/18 at 09:00 Ciprofloxacin (Cipro) 250 mg BID@18 PO Last administered on 11/09/18at 05:43; Admin Dose 250 MG; Start 11/08/18 at 06:00 Ferrous Sulfate (Ferrous Sulfate (Ec)) 325 mg BID PO Last administered on 11/09/18at 10:01; Admin Dose 325 MG; Start 11/08/18 at 21:00 BART PEARL Nov 09, 2018 14:18
--- NOTE | 2018-11-09 14:34 | CONS ---
Date/Time of Note Date/Time of Note DATE: 11/09/18 TIME: 14:34 Assessment/Plan Assessment/Plan Assessment/Plan 1. acute vs acute on chronic renal failure due to Obstruction + prerenal azotemia 2. H/o left nephrectomy, unclear history 3. metabolic acidosis 4. anemia for CKD 5. Severe hydronephrosis Right side Plan: Bicitra 30ml PO BID for acidosis, BUN/Cr 54/5.07, WBC 14 CT Abdomen + pelvis w/o contrast showed R hydronephrosis, s/p Urology consult, no surgical intervention at this time will follow up Patient is seen in collaboration with Dr Jacob. Result Diagram: 11/08/18 1335 11/08/18 1335 Results 24hrs Laboratory Tests Test 11/08/18 20:00 Urine Color YELLOW Urine Clarity TURBID A Urine pH 8.0 Urine Specific Young 1.011 Urine Ketones NEGATIVE Urine Nitrite NEGATIVE Urine Bilirubin NEGATIVE Urine Urobilinogen NEGATIVE Urine Leukocyte Esterase 3+ H Urine Microscopic RBC 72 H Urine Microscopic WBC > 182 H Urine Bacteria MANY A Urine Hemoglobin 2+ H Urine Glucose NEGATIVE Urine Total Protein 3+ H Consultation Date/Type/Reason Admit Date/Time Nov 06, 2018 at 18:19 Initial Consult Date Type of Consult NEPHROLOGY Requesting Provider: WALTER CARTER NP Detailed Summary ENT: no complaints Respiratory: no complaints Cardiovascular: no complaints Gastrointestinal: no complaints Genitourinary: no complaints Exam/Review of Systems Vital Signs Vitals Vital Signs Date Temp Pulse Resp B/P (MAP) Pulse Ox O2 O2 Flow FiO2 Time Delivery Rate 11/09/18 98.9 79 20 115/67 95 Room Air 07:30 (83) Intake and Output 11/08/18 11/08/18 11/09/18 1515:00 23:00 07:00 IntakeIntake Total 1440 ml OutputOutput Total 1300 ml BalanceBalance -1300 ml 1440 ml Exam Constitutional: well developed Psych: nl mood/affect Eyes: nl lids, nl sclera ENMT: nl external ears & nose Neck: non-tender Respiratory: diminished breath sounds (bases bilaterally) Cardiovascular: regular rate and rhythm, other (s1s2) Gastrointestinal: soft Musculoskeletal: muscle weakness Extremities: normal pulses Neurological: confused Skin: other Lymph: nontender Medications Medications Current Medications Docusate Sodium (Colace) 100 mg BID PO Last administered on 11/09/18 10:01; Admin Dose 100 MG; Start 11/06/18 at 21:00 Senna (Senokot) 1 tab HS PO Last administered on 11/08/18 21:51; Admin Dose 1 TAB; Start 11/06/18 at 21:00 Magnesium Hydroxide (Milk Of Mag) 30 ml BID PRN PO CONSTIPATION; Start 11/06/18 at 18:30 Lactulose (Enulose) 20 gm DAILY PRN PO CONSTIPATION; Start 11/06/18 at 18:30 Bisacodyl (Dulcolax Supp) 10 mg DAILY PRN [place] CONSTIPATION; Start 11/06/18 at 18:30 Miscellaneous Information (Pending [facility] Order For Wound Care) This patient frank... PRN PRN XX wound; Start 11/06/18 at 18:30 Acetaminophen (Tylenol Tab) 650 mg Q6H PRN PO PAIN LEVEL 1-3 OR FEVER; Start 11/06/18 at 20:00 Bisacodyl (Dulcolax) 5 mg DAILY PRN PO CONSTIPATION; Start 11/06/18 at 20:00 Citric Acid/ Sodium Citrate (Bicitra) 30 ml BID PO Last administered on 11/09/18 10:02; Admin Dose 30 ML; Start 11/06/18 at 21:00 Docusate Sodium (Colace) 100 mg Q12H PRN PO CONSTIPATION; Start 11/06/18 at 20:00 Famotidine (Pepcid) 20 mg DAILY PO Last administered on 11/09/18 10:01; Admin Dose 20 MG; Start 11/07/18 at 09:00 Heparin Sodium (Porcine) (Heparin (5000 Units/1ml)) 5,000 unit Q8 SC Last administered on 11/09/18 13:39; Admin Dose 5,000 UNIT; Start 11/06/18 at 22:00 Magnesium Oxide (Mag-Ox 400) 400 mg BID PO Last administered on 11/09/18 10:02; Admin Dose 400 MG; Start 11/06/18 at 21:00 Thiamine HCl (Vitamin B1) 100 mg DAILY PO Last administered on 11/09/18 10:01; Admin Dose 100 MG; Start 11/07/18 at 09:00 Ciprofloxacin (Cipro) 250 mg BID@ PO Last administered on 1/12/19at 05:43; Admin Dose 250 MG; Start 11/08/18 at 06:00 Ferrous Sulfate (Ferrous Sulfate (Ec)) 325 mg BID PO Last administered on 11/09/18at 10:01; Admin Dose 325 MG; Start 11/08/18 at 21:00 BELGICA MORALES Nov 09, 2018 14:34
[2018-11-09] MEDS ORDERED: SOD CHLORIDE 0.9% 500 ML IV SCH ×2 (15:05→15:31)
--- NOTE | 2018-11-09 18:41 | NUR ---
Pt has participated in therapies. VSS. Safely takes medication one pill at a time, sitting up, with minimal cueing for safety. Appetite fair. NS bolus 500ml in progress.
[2018-11-09 19:57] VITALS: BP 118/60; PULSE 79; RESP 20
[2018-11-09] MEDS: SENNA TAB PO SCH (21:38)
[2018-11-10 02:00] VITALS: BP 117/68; PULSE 76; RESP 19
--- NOTE | 2018-11-10 02:29 | NUR ---
SUN RN Weekly Summary Dates From:11/01/18 to 11/10/18 Patient Name: KALI VARGAS MR#: [id number] Height: 5 ft 4 in Weight: 132 lbs 0.91 oz 59.900 kg Reason for Visit: DEBILITY Precautions: Standard/Fall/Pressure Injury/VTE Date: 11/10/18 Time: 0230 User: MACK ELADIO Short-term Goals: 1.Pt will be free from fall/Injury 2.Pt's pain level will be controlled. 3.Pt will be continent for bladder and bowel. 4.Pt's skin integrity will be maintained. 5.Pt will be free from bleeding from anticoagulant therapy Patient's progress: Fair Short-term goals not met and reason/barriers:Ongoing Bladder - level of function and accidents:1, no accident, pt is on daniels's cath Bowel - level of function and accidents: 6, no accident Skin: Intact Status: Treatment: Changes: Pain:No Level: Location: Management: Changes: Functional levels: Self Care:3 Transfers:3 Locomotion:3 Assistance requirements: Communication:5 Social Cognition:5 Safety awareness: Yes, high risk for fall, bed alarm activated for safety Interdisciplinary interactions:PT/OT/ST/SW/RT/RN/MD Patient education:Given QShift and PRN regarding medication teaching, and fall precautions. Discharge needs:Ongoing Comorbid conditions:Complicated UTI, Obstructive Uropathy, CKD, anemia, metabolic acidosis, HTN, Nephrectomy, Hypothyroidism. Plan of Care continuation:Yes, continue current POC.
--- NOTE | 2018-11-10 02:59 | NUR ---
SUN RN Weekly Summary Dates From:11/06/18 to 11/10/18 Patient Name: KALI VARGAS MR#: [id number] Height: 5 ft 4 in Weight: 132 lbs 0.91 oz 59.900 kg Reason for Visit: DEBILITY Precautions: Standard/Fall/Pressure Injury/VTE Date: 11/10/18 Time: 0259 AM User: MACK HENDRICKS Short-term Goals: 1.Pt will be free from fall/Injury 2.Pt's pain level will be controlled. 3.Pt will be continent for bladder and bowel. 4.Pt's skin integrity will be maintained. 5.Pt will be free from bleeding from anticoagulant therapy Patient's progress: Fair Short-term goals not met and reason/barriers:Ongoing Bladder - level of function and accidents:1, no accident, pt is on daniels's cath Bowel - level of function and accidents: 6, no accident Skin: Intact Status: Treatment: Changes: Pain:No Level: Location: Management: Changes: Functional levels: Self Care:3 Transfers:3 Locomotion:3 Assistance requirements: Communication:5 Social Cognition:5 Safety awareness: Yes, high risk for fall, bed alarm activated for safety Interdisciplinary interactions:PT/OT/ST/SW/RT/RN/MD Patient education:Given QShift and PRN regarding medication teaching, and fall precautions. Discharge needs:Ongoing Comorbid conditions:Complicated UTI, Obstructive Uropathy, CKD, anemia, metabolic acidosis, HTN, Nephrectomy, Hypothyroidism. Plan of Care continuation:Yes, continue current POC.
--- NOTE | 2018-11-10 05:36 | NUR ---
End of Shift Note During the shift, pt completed the IVF NS 500 ml at 0105. He is on daniels catheter. At 0100, 600 ml was drained. No pain complaints thru the shift. Bed on lowest position, side rails up 2x, bed alarm on, and call light within reach. will continue to monitor
[2018-11-10] MEDS: CIPROFLOXACIN 250 MG TAB PO SCH ×2 (06:28→19:11)
[2018-11-10] MEDS: HEPARIN 5,000 UNIT/1 ML VIAL SC SCH ×4 (06:34→21:40)
[2018-11-10 08:00] VITALS: BP 119/69; PULSE 88; RESP 18
--- NOTE | 2018-11-10 09:43 | PN ---
Date/Time of Note Date/Time of Note DATE: 11/10/18 TIME: 09:43 Assessment/Plan VTE Prophylaxis Risk score (from Ns)>0 risk: 3 SCD applied (from Ns): Yes SCD contraindicated: other Pharmacological prophylaxis: other Lines/Catheters IV Catheter [facility] (from [facility]): Peripheral IV Urinary Cath still in place: Yes Reason Cath still needed: urinary retention Assessment/Plan Assessment/Plan 1. acute vs acute on chronic renal failure due to Obstruction + prerenal azotemia 2. H/o left nephrectomy, unclear history 3. metabolic acidosis 4. anemia for CKD 5. Severe hydronephrosis Right side Plan: Bicitra 30ml PO BID for acidosis, BUN/Cr 54/5.07, WBC 14 CT Abdomen + pelvis w/o contrast showed R hydronephrosis, s/p Urology consult, no surgical intervention at this time will follow up Result Diagram: 11/08/18 1335 11/08/18 1335 Subjective 24 Hr Interval Summary Eyes: no complaints ENT: no complaints Respiratory: no complaints Cardiovascular: no complaints Exam/Review of Systems Vital Signs Vitals Vital Signs Date Temp Pulse Resp B/P (MAP) Pulse Ox O2 O2 Flow FiO2 Time Delivery Rate 11/10/18 98.9 76 19 117/68 96 Room Air 02:00 (84) Intake and Output 11/09/18 11/09/18 11/10/18 1515:00 23:00 07:00 IntakeIntake Total 1010 ml 500 ml OutputOutput Total 950 ml 200 ml BalanceBalance 60 ml 300 ml Exam Constitutional: well developed Psych: nl mood/affect Head: normocephalic Eyes: nl lids, nl sclera ENMT: nl external ears & nose Neck: non-tender Respiratory: diminished breath sounds (Bbilaterally) Cardiovascular: nl pulses, other (s1s2) Gastrointestinal: soft, non-tender Musculoskeletal: muscle weakness Extremities: normal pulses Neurological: confused Lymph: nontender Medications Medications Current Medications Docusate Sodium (Colace) 100 mg BID PO Last administered on 11/09/18at 21:38; Admin Dose 100 MG; Start 11/06/18 at 21:00 Senna (Senokot) 1 tab HS PO Last administered on 11/09/18at 21:38; Admin Dose 1 TAB; Start 11/06/18 at 21:00 Magnesium Hydroxide (Milk Of Mag) 30 ml BID PRN PO CONSTIPATION; Start 11/06/18 at 18:30 Lactulose (Enulose) 20 gm DAILY PRN PO CONSTIPATION; Start 11/06/18 at 18:30 Bisacodyl (Dulcolax Supp) 10 mg DAILY PRN [place] CONSTIPATION; Start 11/06/18 at 18:30 Miscellaneous Information (Pending Santyl Order For Wound Care) This patient frank... PRN PRN XX wound; Start 11/06/18 at 18:30 Acetaminophen (Tylenol Tab) 650 mg Q6H PRN PO PAIN LEVEL 1-3 OR FEVER; Start 11/06/18 at 20:00 Bisacodyl (Dulcolax) 5 mg DAILY PRN PO CONSTIPATION; Start 11/06/18 at 20:00 Citric Acid/ Sodium Citrate (Bicitra) 30 ml BID PO Last administered on 11/09/18 21:38; Admin Dose 30 ML; Start 11/06/18 at 21:00 Docusate Sodium (Colace) 100 mg Q12H PRN PO CONSTIPATION; Start 11/06/18 at 20:00 Famotidine (Pepcid) 20 mg DAILY PO Last administered on 11/09/18 10:01; Admin Dose 20 MG; Start 11/07/18 at 09:00 Heparin Sodium (Porcine) (Heparin (5000 Units/1ml)) 5,000 unit Q8 SC Last administered on 11/10/18 06:34; Admin Dose 5,000 UNIT; Start 11/06/18 at 22:00 Magnesium Oxide (Mag-Ox 400) 400 mg BID PO Last administered on 11/09/18 21:38; Admin Dose 400 MG; Start 11/06/18 at 21:00 Thiamine HCl (Vitamin B1) 100 mg DAILY PO Last administered on 11/09/18 10:01; Admin Dose 100 MG; Start 11/07/18 at 09:00 Ciprofloxacin (Cipro) 250 mg BID@ PO Last administered on 11/10/18 06:28; Admin Dose 250 MG; Start 11/08/18 at 06:00 Ferrous Sulfate (Ferrous Sulfate (Ec)) 325 mg BID PO Last administered on 11/09/18 21:38; Admin Dose 325 MG; Start 11/08/18 at 21:00 BELGICA MORALES Nov 10, 2018 09:43
[2018-11-10] MEDS: DOCUSATE SODIUM 100 MG CAP PO SCH ×2 (10:39→20:20)
[2018-11-10] MEDS: FAMOTIDINE 20 MG TAB PO SCH (10:39)
[2018-11-10] MEDS: FERROUS SULFATE (EC) 325 MG TAB PO SCH ×2 (10:40→20:20)
[2018-11-10] MEDS: CITRIC ACID/NA CITRATE 30 ML CUP PO SCH ×2 (10:40→20:19)
[2018-11-10] MEDS: THIAMINE 100 MG TAB PO SCH (10:40)
[2018-11-10] MEDS: MAGNESIUM OXIDE 400 MG TAB PO SCH ×2 (10:40→20:20)
--- NOTE | 2018-11-10 13:07 | CONS ---
Date/Time of Note Date/Time of Note DATE: 11/10/18 TIME: 13:05 Assessment/Plan Assessment/Plan Result Diagram: 11/08/18 1335 11/08/18 1335 Consultation Date/Type/Reason Admit Date/Time Nov 06, 2018 at 18:19 Initial Consult Date SUBJECTIVE: Pt is awake,alert. no acute events over night. VS: stable. T: 98.1 LABS: reviewed. Antimicrobials: Ciprofloxacin Microbiology: Urine culture grew Morganella and Klebsiella pneumonia Physical examination: GEN: Well-developed elderly man in no distress. HENT: Head atraumatic normocephalic, neck is supple PULM: chest rise symmetrical, breath sounds diminished bases Heart: RRR, S1-S2 Abdomen soft bowel sounds present Extremities without cyanosis Assessment: 1. Pyelonephritis with right hydronephrosis 2. Acute on chronic kidney disease 3. Urinary retention Plan: Patient is clinically stable. Continue current antibiotics. Urology following. Requesting Provider: WALTER CARTER V. OPHTHALMIC SURGEON Exam/Review of Systems Vital Signs Vitals Vital Signs Date Temp Pulse Resp B/P (MAP) Pulse Ox O2 O2 Flow FiO2 Time Delivery Rate 11/10/18 98.1 88 18 119/69 99 Room Air 08:00 (86) Intake and Output 11/09/18 11/09/18 11/10/18 1515:00 23:00 07:00 IntakeIntake Total 1010 ml 500 ml OutputOutput Total 950 ml 200 ml BalanceBalance 60 ml 300 ml Medications Medications Current Medications Docusate Sodium (Colace) 100 mg BID PO Last administered on 11/10/18at 10:39; Admin Dose 100 MG; Start 11/06/18 at 21:00 Senna (Senokot) 1 tab HS PO Last administered on 11/09/18at 21:38; Admin Dose 1 TAB; Start 11/06/18 at 21:00 Magnesium Hydroxide (Milk Of Mag) 30 ml BID PRN PO CONSTIPATION; Start 11/06/18 at 18:30 Lactulose (Enulose) 20 gm DAILY PRN PO CONSTIPATION; Start 11/06/18 at 18:30 Bisacodyl (Dulcolax Supp) 10 mg DAILY PRN [place] CONSTIPATION; Start 11/06/18 at 18:30 Miscellaneous Information (Pending [facility] Order For Wound Care) This patient frank... PRN PRN XX wound; Start 11/06/18 at 18:30 Acetaminophen (Tylenol Tab) 650 mg Q6H PRN PO PAIN LEVEL 1-3 OR FEVER; Start 11/06/18 at 20:00 Bisacodyl (Dulcolax) 5 mg DAILY PRN PO CONSTIPATION; Start 11/06/18 at 20:00 Citric Acid/ Sodium Citrate (Bicitra) 30 ml BID PO Last administered on 11/10/18 10:40; Admin Dose 30 ML; Start 11/06/18 at 21:00 Docusate Sodium (Colace) 100 mg Q12H PRN PO CONSTIPATION; Start 11/06/18 at 20:00 Famotidine (Pepcid) 20 mg DAILY PO Last administered on 11/10/18 10:39; Admin Dose 20 MG; Start 11/07/18 at 09:00 Heparin Sodium (Porcine) (Heparin (5000 Units/1ml)) 5,000 unit Q8 SC Last administered on 11/10/18 06:34; Admin Dose 5,000 UNIT; Start 11/06/18 at 22:00 Magnesium Oxide (Mag-Ox 400) 400 mg BID PO Last administered on 11/10/18 10:40; Admin Dose 400 MG; Start 11/06/18 at 21:00 Thiamine HCl (Vitamin B1) 100 mg DAILY PO Last administered on 11/10/18 10:40; Admin Dose 100 MG; Start 11/07/18 at 09:00 Ciprofloxacin (Cipro) 250 mg BID@06,18 PO Last administered on 11/10/18 06:28; Admin Dose 250 MG; Start 11/08/18 at 06:00 Ferrous Sulfate (Ferrous Sulfate (Ec)) 325 mg BID PO Last administered on 11/10/18 10:40; Admin Dose 325 MG; Start 11/08/18 at 21:00 BART PEARL Nov 10, 2018 13:07
--- NOTE | 2018-11-10 13:09 | PN ---
Date/Time of Note Date/Time of Note DATE: 11/10/18 TIME: 13:08 Subjective no new complaints pulm-cta cga ambulation Objective Vital Signs Date Temp Pulse Resp B/P (MAP) Pulse Ox O2 O2 Flow FiO2 Time Delivery Rate 11/10/18 98.1 88 18 119/69 99 Room Air 08:00 (86) Intake and Output 11/09/18 11/09/18 11/10/18 1515:00 23:00 07:00 IntakeIntake Total 1010 ml 500 ml OutputOutput Total 950 ml 200 ml BalanceBalance 60 ml 300 ml Results/Medications Result Diagram: 11/08/18 1335 11/08/18 1335 Medications Current Medications Docusate Sodium (Colace) 100 mg BID PO Last administered on 11/10/18at 10:39; Admin Dose 100 MG; Start 11/06/18 at 21:00 Senna (Senokot) 1 tab HS PO Last administered on 11/09/18at 21:38; Admin Dose 1 TAB; Start 11/06/18 at 21:00 Magnesium Hydroxide (Milk Of Mag) 30 ml BID PRN PO CONSTIPATION; Start 11/06/18 at 18:30 Lactulose (Enulose) 20 gm DAILY PRN PO CONSTIPATION; Start 11/06/18 at 18:30 Bisacodyl (Dulcolax Supp) 10 mg DAILY PRN [place] CONSTIPATION; Start 11/06/18 at 18:30 Miscellaneous Information (Pending [facility] Order For Wound Care) This patient frank... PRN PRN XX wound; Start 11/06/18 at 18:30 Acetaminophen (Tylenol Tab) 650 mg Q6H PRN PO PAIN LEVEL 1-3 OR FEVER; Start 11/06/18 at 20:00 Bisacodyl (Dulcolax) 5 mg DAILY PRN PO CONSTIPATION; Start 11/06/18 at 20:00 Citric Acid/ Sodium Citrate (Bicitra) 30 ml BID PO Last administered on 11/10/18at 10:40; Admin Dose 30 ML; Start 11/06/18 at 21:00 Docusate Sodium (Colace) 100 mg Q12H PRN PO CONSTIPATION; Start 11/06/18 at 20:00 Famotidine (Pepcid) 20 mg DAILY PO Last administered on 11/10/18at 10:39; Admin Dose 20 MG; Start 11/07/18 at 09:00 Heparin Sodium (Porcine) (Heparin (5000 Units/1ml)) 5,000 unit Q8 SC Last administered on 11/10/18at 06:34; Admin Dose 5,000 UNIT; Start 11/06/18 at 22:00 Magnesium Oxide (Mag-Ox 400) 400 mg BID PO Last administered on 11/10/18at 10:40; Admin Dose 400 MG; Start 11/06/18 at 21:00 Thiamine HCl (Vitamin B1) 100 mg DAILY PO Last administered on 11/10/18at 10:40; Admin Dose 100 MG; Start 11/07/18 at 09:00 Ciprofloxacin (Cipro) 250 mg BID@,18 PO Last administered on 11/10/18at 06:28; Admin Dose 250 MG; Start 11/08/18 at 06:00 Ferrous Sulfate (Ferrous Sulfate (Ec)) 325 mg BID PO Last administered on 11/10/18at 10:40; Admin Dose 325 MG; Start 11/08/18 at 21:00 Assessment/Plan Additional Assessment/Plan Rehab Debility;Toxic metabolic encephalopathy. Continue treatment plan, team conference tomorrow - Acute on chronic kidney disease with a history of nephrectomy; obstructive uropathy- followed by Urology Upper extremity cellulitis-continue antibiotics Hypertension. VENU BELLE MD Nov 10, 2018 13:09
[2018-11-10 14:00] VITALS: BP 121/61; PULSE 78; RESP 18
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
[2018-11-10 20:01] VITALS: BP 117/74; PULSE 80; RESP 17
[2018-11-10] MEDS: SENNA TAB PO SCH (20:20)
[2018-11-11 02:00] VITALS: BP 119/71; PULSE 86; RESP 18
--- NOTE | 2018-11-11 06:04 | NUR ---
PATIENT SLEPT WELL. NO C/O PAIN OR DISCOMFORT. RECREATIONAL ACTIVITIES PROVIDED TO PATIENT; WATCHING TV. F/C DRAINING CLOUDY YELLOW URINE. CALL LIGHT WITHIN REACH
[2018-11-11] MEDS: CIPROFLOXACIN 250 MG TAB PO SCH ×2 (06:17→18:06)
[2018-11-11] MEDS: HEPARIN 5,000 UNIT/1 ML VIAL SC SCH ×3 (06:18→21:00)
[2018-11-11 08:00] VITALS: BP 114/66; PULSE 76; RESP 18
[2018-11-11] MEDS: DOCUSATE SODIUM 100 MG CAP PO SCH ×2 (08:31→21:00)
[2018-11-11] MEDS: CITRIC ACID/NA CITRATE 30 ML CUP PO SCH ×2 (08:31→20:55)
[2018-11-11] MEDS: THIAMINE 100 MG TAB PO SCH (08:31)
[2018-11-11] MEDS: MAGNESIUM OXIDE 400 MG TAB PO SCH ×2 (08:31→20:55)
[2018-11-11] MEDS: FAMOTIDINE 20 MG TAB PO SCH (08:31)
[2018-11-11] MEDS: FERROUS SULFATE (EC) 325 MG TAB PO SCH ×2 (08:31→20:55)
--- NOTE | 2018-11-11 12:47 | CONS ---
Date/Time of Note Date/Time of Note DATE: 11/11/18 TIME: 12:46 Assessment/Plan Assessment/Plan Assessment/Plan 1. acute vs acute on chronic renal failure due to Obstruction + prerenal azotemia 2. H/o left nephrectomy, unclear history 3. metabolic acidosis 4. anemia for CKD 5. Severe hydronephrosis Right side Plan: Bicitra 30ml PO BID for acidosis, BUN/Cr 54/5.07, WBC 14.5 CT Abdomen + pelvis w/o contrast showed R hydronephrosis, s/p Urology consult, no surgical intervention at this time will follow up Result Diagram: 11/08/18 1335 11/08/18 1335 Consultation Date/Type/Reason Admit Date/Time Nov 06, 2018 at 18:19 Initial Consult Date Type of Consult NEPHROLOGY Requesting Provider: WALTER CARTER V. TRAVEL RN OR Exam/Review of Systems Vital Signs Vitals Vital Signs Date Temp Pulse Resp B/P (MAP) Pulse Ox O2 O2 Flow FiO2 Time Delivery Rate 11/11/18 98.7 86 18 119/71 98 Room Air 02:00 (87) Intake and Output 11/10/18 11/10/18 11/11/18 1414:59 22:59 06:59 IntakeIntake Total 360 ml 1300 ml 200 ml OutputOutput Total 1400 ml 700 ml BalanceBalance 360 ml -100 ml -500 ml Exam Constitutional: alert, awake Head: normocephalic Eyes: nl conjunctiva ENMT: nl external ears & nose Neck: supple, non-tender Respiratory: clear to auscultation, diminished breath sounds Cardiovascular: regular rate and rhythm, nl pulses Gastrointestinal: soft, non-tender Extremities: normal pulses Neurological: non focal Medications Medications Current Medications Docusate Sodium (Colace) 100 mg BID PO Last administered on 11/11/18at 08:31; Admin Dose 100 MG; Start 11/06/18 at 21:00 Senna (Senokot) 1 tab HS PO Last administered on 11/10/18at 20:20; Admin Dose 1 TAB; Start 11/06/18 at 21:00 Magnesium Hydroxide (Milk Of Mag) 30 ml BID PRN PO CONSTIPATION; Start 11/06/18 at 18:30 Lactulose (Enulose) 20 gm DAILY PRN PO CONSTIPATION; Start 11/06/18 at 18:30 Bisacodyl (Dulcolax Supp) 10 mg DAILY PRN [place] CONSTIPATION; Start 11/06/18 at 18:30 Miscellaneous Information (Pending [facility] Order For Wound Care) This patient frank... PRN PRN XX wound; Start 11/06/18 at 18:30 Acetaminophen (Tylenol Tab) 650 mg Q6H PRN PO PAIN LEVEL 1-3 OR FEVER; Start 11/06/18 at 20:00 Bisacodyl (Dulcolax) 5 mg DAILY PRN PO CONSTIPATION; Start 11/06/18 at 20:00 Citric Acid/ Sodium Citrate (Bicitra) 30 ml BID PO Last administered on 11/11/18 08:31; Admin Dose 30 ML; Start 11/06/18 at 21:00 Docusate Sodium (Colace) 100 mg Q12H PRN PO CONSTIPATION; Start 11/06/18 at 20:00 Famotidine (Pepcid) 20 mg DAILY PO Last administered on 11/11/18 08:31; Admin Dose 20 MG; Start 11/07/18 at 09:00 Heparin Sodium (Porcine) (Heparin (5000 Units/1ml)) 5,000 unit Q8 SC Last administered on 11/11/18 06:18; Admin Dose 5,000 UNIT; Start 11/06/18 at 22:00 Magnesium Oxide (Mag-Ox 400) 400 mg BID PO Last administered on 11/11/18 08:31; Admin Dose 400 MG; Start 11/06/18 at 21:00 Thiamine HCl (Vitamin B1) 100 mg DAILY PO Last administered on 11/11/18 08:31; Admin Dose 100 MG; Start 11/07/18 at 09:00 Ciprofloxacin (Cipro) 250 mg BID@,18 PO Last administered on 11/11/18 06:17; Admin Dose 250 MG; Start 11/08/18 at 06:00 Ferrous Sulfate (Ferrous Sulfate (Ec)) 325 mg BID PO Last administered on 11/11/18 08:31; Admin Dose 325 MG; Start 11/08/18 at 21:00 YAIR GOLDSMITH MD Nov 11, 2018 12:47
--- NOTE | 2018-11-11 12:52 | PN ---
Date/Time of Note Date/Time of Note DATE: 11/11/18 TIME: 12:52 Objective Vital Signs Date Temp Pulse Resp B/P (MAP) Pulse Ox O2 O2 Flow FiO2 Time Delivery Rate 11/11/18 98.7 86 18 119/71 98 Room Air 02:00 (87) Intake and Output 11/10/18 11/10/18 11/11/18 1515:00 23:00 07:00 IntakeIntake Total 360 ml 1300 ml 200 ml OutputOutput Total 1400 ml 700 ml BalanceBalance 360 ml -100 ml -500 ml Exam INTERDISCIPLINARY TEAM CONFERENCE Physical Exam: Pulm-cta Abd-soft BOWEL- Cont BLADDER-Catheter SKIN- intact OT- DRESSING-sba/min BATHING-sba/min TOILETING-cga PT- BED MOBILITY-sba TRANSFERS-cga AMBULATION-150 feet SPEECH- COGNITION- mod A/P- Interdisciplinary team conference held today. Please see interdisciplinary sheet. Working toward d.c. on 11/19 with post discharge follow up of physical therapy, occupational therapy. Results/Medications Result Diagram: 11/08/18 1335 11/08/18 1335 Medications Current Medications Docusate Sodium (Colace) 100 mg BID PO Last administered on 11/11/18at 08:31; Admin Dose 100 MG; Start 11/06/18 at 21:00 Senna (Senokot) 1 tab HS PO Last administered on 11/10/18at 20:20; Admin Dose 1 TAB; Start 11/06/18 at 21:00 Magnesium Hydroxide (Milk Of Mag) 30 ml BID PRN PO CONSTIPATION; Start 11/06/18 at 18:30 Lactulose (Enulose) 20 gm DAILY PRN PO CONSTIPATION; Start 11/06/18 at 18:30 Bisacodyl (Dulcolax Supp) 10 mg DAILY PRN [place] CONSTIPATION; Start 11/06/18 at 18:30 Miscellaneous Information (Pending [facility] Order For Wound Care) This patient frank... PRN PRN XX wound; Start 11/06/18 at 18:30 Acetaminophen (Tylenol Tab) 650 mg Q6H PRN PO PAIN LEVEL 1-3 OR FEVER; Start 11/06/18 at 20:00 Bisacodyl (Dulcolax) 5 mg DAILY PRN PO CONSTIPATION; Start 11/06/18 at 20:00 Citric Acid/ Sodium Citrate (Bicitra) 30 ml BID PO Last administered on 11/11/18 08:31; Admin Dose 30 ML; Start 11/06/18 at 21:00 Docusate Sodium (Colace) 100 mg Q12H PRN PO CONSTIPATION; Start 11/06/18 at 20:00 Famotidine (Pepcid) 20 mg DAILY PO Last administered on 11/11/18 08:31; Admin Dose 20 MG; Start 11/07/18 at 09:00 Heparin Sodium (Porcine) (Heparin (5000 Units/1ml)) 5,000 unit Q8 SC Last administered on 11/11/18 06:18; Admin Dose 5,000 UNIT; Start 11/06/18 at 22:00 Magnesium Oxide (Mag-Ox 400) 400 mg BID PO Last administered on 11/11/18 08:31; Admin Dose 400 MG; Start 11/06/18 at 21:00 Thiamine HCl (Vitamin B1) 100 mg DAILY PO Last administered on 11/11/18 08:31; Admin Dose 100 MG; Start 11/07/18 at 09:00 Ciprofloxacin (Cipro) 250 mg BID@06,18 PO Last administered on 11/11/18 06:17; Admin Dose 250 MG; Start 11/08/18 at 06:00 Ferrous Sulfate (Ferrous Sulfate (Ec)) 325 mg BID PO Last administered on 11/11/18 08:31; Admin Dose 325 MG; Start 11/08/18 at 21:00 VENU BELLE MD Nov 11, 2018 12:52
--- NOTE | 2018-11-11 14:28 | NUR ---
SOCIAL WORK NOTE: This social studies department chair attempted to discuss discharge plan w/ pt caregiver - Gricel [phone]. Left 2 voice mails, phone landscaping manager used. Response was not received by end of day. As per pt, Gricel has been taking care of hime, pt appears to be confused and can not engage in further discussion.
--- NOTE | 2018-11-11 14:54 | CONS ---
Date/Time of Note Date/Time of Note DATE: 11/11/18 TIME: 14:52 Assessment/Plan Assessment/Plan Hospital Course All noted, looks comfortable, no fevers, repeat urine culture negative Antimicrobials: Ciprofloxacin Microbiology: Urine culture grew Morganella and Klebsiella pneumonia, repeat culture negative Physical examination: Well-developed elderly man in no distress. Head atraumatic normocephalic neck is supple chest rise symmetrical breath sounds diminished bases heart S1-S2 abdomen soft bowel sounds present extremities without cyanosis Assessment: 1. Pyelonephritis with right hydronephrosis 2. Acute on chronic kidney disease 3. Urinary retention Plan: Patient is clinically unchanged, urology recommendations noted, continue present care and antibiotics Result Diagram: 11/08/18 1335 11/08/18 1335 Consultation Date/Type/Reason Admit Date/Time Nov 06, 2018 at 18:19 Initial Consult Date Type of Consult id Requesting Provider: WALTER CARTER V. MARINE SUPERINTENDENT Exam/Review of Systems Vital Signs Vitals Vital Signs Date Temp Pulse Resp B/P (MAP) Pulse Ox O2 O2 Flow FiO2 Time Delivery Rate 11/11/18 98.7 86 18 119/71 98 Room Air 02:00 (87) Intake and Output 11/10/18 11/10/18 11/11/18 1515:00 23:00 07:00 IntakeIntake Total 360 ml 1300 ml 200 ml OutputOutput Total 1400 ml 700 ml BalanceBalance 360 ml -100 ml -500 ml Medications Medications Current Medications Docusate Sodium (Colace) 100 mg BID PO Last administered on 11/11/18at 08:31; Admin Dose 100 MG; Start 11/06/18 at 21:00 Senna (Senokot) 1 tab HS PO Last administered on 11/10/18at 20:20; Admin Dose 1 TAB; Start 11/06/18 at 21:00 Magnesium Hydroxide (Milk Of Mag) 30 ml BID PRN PO CONSTIPATION; Start 11/06/18 at 18:30 Lactulose (Enulose) 20 gm DAILY PRN PO CONSTIPATION; Start 11/06/18 at 18:30 Bisacodyl (Dulcolax Supp) 10 mg DAILY PRN [place] CONSTIPATION; Start 11/06/18 at 18:30 Miscellaneous Information (Pending [facility] Order For Wound Care) This patient frank... PRN PRN XX wound; Start 11/06/18 at 18:30 Acetaminophen (Tylenol Tab) 650 mg Q6H PRN PO PAIN LEVEL 1-3 OR FEVER; Start 11/06/18 at 20:00 Bisacodyl (Dulcolax) 5 mg DAILY PRN PO CONSTIPATION; Start 11/06/18 at 20:00 Citric Acid/ Sodium Citrate (Bicitra) 30 ml BID PO Last administered on 11/11/18 08:31; Admin Dose 30 ML; Start 11/06/18 at 21:00 Docusate Sodium (Colace) 100 mg Q12H PRN PO CONSTIPATION; Start 11/06/18 at 20:00 Famotidine (Pepcid) 20 mg DAILY PO Last administered on 11/11/18 08:31; Admin Dose 20 MG; Start 11/07/18 at 09:00 Heparin Sodium (Porcine) (Heparin (5000 Units/1ml)) 5,000 unit Q8 SC Last administered on 11/11/18 14:36; Admin Dose 5,000 UNIT; Start 11/06/18 at 22:00 Magnesium Oxide (Mag-Ox 400) 400 mg BID PO Last administered on 11/11/18 08:31; Admin Dose 400 MG; Start 11/06/18 at 21:00 Thiamine HCl (Vitamin B1) 100 mg DAILY PO Last administered on 11/11/18 08:31; Admin Dose 100 MG; Start 11/07/18 at 09:00 Ciprofloxacin (Cipro) 250 mg BID@06,18 PO Last administered on 11/11/18 06:17; Admin Dose 250 MG; Start 11/08/18 at 06:00 Ferrous Sulfate (Ferrous Sulfate (Ec)) 325 mg BID PO Last administered on 11/11/18 08:31; Admin Dose 325 MG; Start 11/08/18 at 21:00 NYDIA PERKINS NP Nov 11, 2018 14:54
--- NOTE | 2018-11-11 17:31 | PN ---
Date/Time of Note Date/Time of Note DATE: 11/11/18 TIME: 17:31 Objective Vitals Vital Signs Date Temp Pulse Resp B/P (MAP) Pulse Ox O2 O2 Flow FiO2 Time Delivery Rate 11/11/18 97.8 76 18 114/66 96 Room Air 08:00 (82) Intake and Output 11/10/18 11/10/18 11/11/18 1515:00 23:00 07:00 IntakeIntake Total 360 ml 1300 ml 200 ml OutputOutput Total 1400 ml 700 ml BalanceBalance 360 ml -100 ml -500 ml Results Result Diagram: 11/08/18 1335 11/08/18 1335 Medications Medications Current Medications Docusate Sodium (Colace) 100 mg BID PO Last administered on 11/11/18at 08:31; Admin Dose 100 MG; Start 11/06/18 at 21:00 Senna (Senokot) 1 tab HS PO Last administered on 11/10/18at 20:20; Admin Dose 1 TAB; Start 11/06/18 at 21:00 Magnesium Hydroxide (Milk Of Mag) 30 ml BID PRN PO CONSTIPATION; Start 11/06/18 at 18:30 Lactulose (Enulose) 20 gm DAILY PRN PO CONSTIPATION; Start 11/06/18 at 18:30 Bisacodyl (Dulcolax Supp) 10 mg DAILY PRN [place] CONSTIPATION; Start 11/06/18 at 18:30 Miscellaneous Information (Pending [facility] Order For Wound Care) This patient frank... PRN PRN XX wound; Start 11/06/18 at 18:30 Acetaminophen (Tylenol Tab) 650 mg Q6H PRN PO PAIN LEVEL 1-3 OR FEVER; Start 11/06/18 at 20:00 Bisacodyl (Dulcolax) 5 mg DAILY PRN PO CONSTIPATION; Start 11/06/18 at 20:00 Citric Acid/ Sodium Citrate (Bicitra) 30 ml BID PO Last administered on 11/11/18at 08:31; Admin Dose 30 ML; Start 11/06/18 at 21:00 Docusate Sodium (Colace) 100 mg Q12H PRN PO CONSTIPATION; Start 11/06/18 at 20:00 Famotidine (Pepcid) 20 mg DAILY PO Last administered on 11/11/18at 08:31; Admin Dose 20 MG; Start 11/07/18 at 09:00 Heparin Sodium (Porcine) (Heparin (5000 Units/1ml)) 5,000 unit Q8 SC Last administered on 11/11/18at 14:36; Admin Dose 5,000 UNIT; Start 11/06/18 at 22:00 Magnesium Oxide (Mag-Ox 400) 400 mg BID PO Last administered on 11/11/18at 08:31; Admin Dose 400 MG; Start 11/06/18 at 21:00 Thiamine HCl (Vitamin B1) 100 mg DAILY PO Last administered on 11/11/18at 08:31; Admin Dose 100 MG; Start 11/07/18 at 09:00 Ciprofloxacin (Cipro) 250 mg BID@06,18 PO Last administered on 11/11/18at 06:17; Admin Dose 250 MG; Start 11/08/18 at 06:00 Ferrous Sulfate (Ferrous Sulfate (Ec)) 325 mg BID PO Last administered on 11/11/18at 08:31; Admin Dose 325 MG; Start 11/08/18 at 21:00 VTE Prophylaxis Risk score (from [facility])>0 risk: 3 SCD applied (from [facility]): No SCD contraindication: other Lines/Catheters IV Catheter Type: Daniels in Place: Yes Cont'd daniels catheter reason: terminal illness/intractable pain Assessment/Plan Hospital Course Subjective Patient only complains of Daniels catheter site pain Objective Physical exam General: Patient is laying in bed and answers questions appropriately Mentation: Patient is alert and oriented 4, Head: Normocephalic atraumatic Eyes: EOMI, pupils reactive to light Neck: Supple, nontender, midline Respiratory: Clear to auscultation bilaterally Cardiovascular: regular rate, no obvious murmurs Gastrointestinal: non-tender to palpation, bowel sounds heard. Neurological: Moves all extremities spontaneously Skin: No new skin lesions SSESSMENT/PLAN: 73-year-old male with CKD -refused to be on hemodialysis, urinary retention requiring chronic Daniels, recurrent UTI, transferred from [facility] s/p CAUTI treatment, acute kidney injury, ileus/gastroenteritis, for rehabilitation. 1. Catheter associated urinary tract infection, recurrent -s/p Daniels DC and reinsertion multiple times, will keep in for now per urology -Follow-up cultures negative so far -ID to manage oral abx 2. Sepsis secondary to #1 -stable white count -Continue current medical management 3. Chronic urinary retention/Neurogenic bladder, requiring indwelling Daniels... -Culprit of frequent UTI and obstructive uropathy. -Unfortunately, patient with no family support available to do in and out catheterization after discharge=> as such, he preferred to go home with Daniels in place and will have PCP follow-up for Daniels changes 4. Acute kidney injury on CKD with baseline creatinine unknown -Culprit of acute kidney injury likely obstructive uropathy with #1. -Creatinine went up today, likely secondary to patient has not voided after Daniels removal... -Nephrology following. -Patient had refused hemodialysis treatment=>On conservative medical management 5. Anemia of CKD. -Stable H&H. No indication for Epogen at this time. -Start oral iron replacement MONIE BURNETT Nov 11, 2018 17:31
--- NOTE | 2018-11-11 18:37 | NUR ---
No acute changes noted w/in shift. Pt tolerated his therapy today. No c/o pain/discomfort. Safety precautions kept at all times. FC kept patent & intact draining to BSB. Needs attended. Call light place w/in reach. Will endorse to PM RN for [facility].
[2018-11-11 20:10] VITALS: BP 138/67; PULSE 81; RESP 18
[2018-11-11] MEDS: SENNA TAB PO SCH (21:00)
[2018-11-12 02:00] VITALS: BP 122/66; RESP 18
[2018-11-12] MEDS: CIPROFLOXACIN 250 MG TAB PO SCH ×2 (06:21→18:17)
[2018-11-12] MEDS: HEPARIN 5,000 UNIT/1 ML VIAL SC SCH ×3 (06:23→22:53)
--- NOTE | 2018-11-12 06:53 | NUR ---
PATIENT SLEPT WELL. RECREATIONAL ACTIVITIES PROVIDED TO PATIENT; TV. CALL LIGHT WITHIN REACH. NO C/O PAIN OR DISCOMFORT
[2018-11-12 07:00] VITALS: BP 114/64; PULSE 75; RESP 18
--- NOTE | 2018-11-12 08:04 | NUR ---
[facility] PT Weekly Summary Dates From: 11/07/18 to 11/12/18 Patient Name: KALI VARGAS MR#: [id number] Height: 5 ft 4 in Weight: 132 lbs 0.91 oz 59.900 kg Reason for Visit: DEBILITY Precautions: fall risk, Albanian language, confused/forgetful Date: 11/12/18 Time: 0804 User: FRANNY IVEY Short-term Goals: SBA bed mobility SBA transfers CGA/SBA gait x 75 ft with FWW Min A 6-step stair ascent/descent using rails. Pt making good progress during his stay at [facility]. Pt demonstrates SBA for bed mobility, CGA for transfers, CGA for gait 150ft using FWW, min A for stairs 6 steps. Pt met all LTG's. Recommend FWW, BSC, home with HHPT. Cont POC and progress as tolerated.
[2018-11-12] MEDS: FAMOTIDINE 20 MG TAB PO SCH (08:53)
[2018-11-12] MEDS: DOCUSATE SODIUM 100 MG CAP PO SCH ×2 (08:53→20:44)
[2018-11-12] MEDS: FERROUS SULFATE (EC) 325 MG TAB PO SCH ×2 (08:53→20:44)
[2018-11-12] MEDS: THIAMINE 100 MG TAB PO SCH (08:53)
[2018-11-12] MEDS: MAGNESIUM OXIDE 400 MG TAB PO SCH ×2 (08:53→20:44)
[2018-11-12] MEDS: CITRIC ACID/NA CITRATE 30 ML CUP PO SCH ×2 (08:53→20:44)
--- NOTE | 2018-11-12 12:11 | PN ---
Date/Time of Note Date/Time of Note DATE: 11/12/18 TIME: 12:10 Subjective Overall improving, Comfortable Objective Vital Signs Date Temp Pulse Resp B/P (MAP) Pulse Ox O2 O2 Flow FiO2 Time Delivery Rate 11/12/18 98.6 75 18 114/64 96 Room Air 07:00 (81) Intake and Output 11/11/18 11/11/18 11/12/18 1515:00 23:00 07:00 IntakeIntake Total 270 ml 240 ml OutputOutput Total 850 ml BalanceBalance 270 ml -610 ml Exam pulm-cta abd-soft sba ambulation 150 feet Results/Medications Result Diagram: 11/12/18 0552 11/12/18 0552 Results 24 hrs Laboratory Tests Test 11/12/18 05:52 White Blood Count 13.1 H Red Blood Count 3.47 L Hemoglobin 9.9 L Hematocrit 30.4 L Mean Corpuscular Volume 87.6 Mean Corpuscular Hemoglobin 28.5 L Mean Corpuscular Hemoglobin Concent 32.6 Red Cell Distribution Width 14.0 Platelet Count 633 #H Mean Platelet Volume 9.8 Immature Granulocytes % 0.600 H Neutrophils % 69.4 Lymphocytes % 17.7 Monocytes % 10.6 Eosinophils % 1.0 Basophils % 0.7 Nucleated Red Blood Cells % 0.0 Immature Granulocytes # 0.080 H Neutrophils # 9.1 H Lymphocytes # 2.3 Monocytes # 1.4 H Eosinophils # 0.1 Basophils # 0.1 Nucleated Red Blood Cells # 0.0 Prothrombin Time 14.0 Prothrombin Time Ratio 1.1 INR International Normalized Ratio 1.07 Activated Partial Thromboplast Time 31.3 Sodium Level 135 Potassium Level 4.4 Chloride Level 103 Carbon Dioxide Level 23 Anion Gap 9 Blood Urea Nitrogen 39 H Creatinine 5.31 H Est Glomerular Filtrat Rate mL/min Glucose Level 114 Calcium Level 8.5 Magnesium Level 2.5 Total Bilirubin 0.1 L Direct Bilirubin 0.00 Indirect Bilirubin 0.1 Aspartate Amino Transf (AST/SGOT) 31 Alanine Aminotransferase (ALT/SGPT) 34 Alkaline Phosphatase 165 H Total Protein 7.0 Albumin 3.1 L Globulin 3.90 H Albumin/Globulin Ratio 0.79 Medications Current Medications Docusate Sodium (Colace) 100 mg BID PO Last administered on 11/11/18at 08:31; Admin Dose 100 MG; Start 11/06/18 at 21:00 Senna (Senokot) 1 tab HS PO Last administered on 11/10/18at 20:20; Admin Dose 1 TAB; Start 11/06/18 at 21:00 Magnesium Hydroxide (Milk Of Mag) 30 ml BID PRN PO CONSTIPATION; Start 11/06/18 at 18:30 Lactulose (Enulose) 20 gm DAILY PRN PO CONSTIPATION; Start 11/06/18 at 18:30 Bisacodyl (Dulcolax Supp) [address] CONSTIPATION; Start 11/06/18 at 18 :30 [facility] This patient frank... PRN PRN XX wound; Start 11/06/18 at 18:30 Acetaminophen (Tylenol Tab) 650 mg Q6H PRN PO PAIN LEVEL 1-3 OR FEVER; Start 11/06/18 at 20:00 Bisacodyl (Dulcolax) 5 mg DAILY PRN PO CONSTIPATION; Start 11/06/18 at 20:00 Citric Acid/ Sodium Citrate (Bicitra) 30 ml BID PO Last administered on 11/12/18at 08:53; Admin Dose 30 ML; Start 11/06/18 at 21:00 Docusate Sodium (Colace) 100 mg Q12H PRN PO CONSTIPATION; Start 11/06/18 at 20:00 Famotidine (Pepcid) 20 mg DAILY PO Last administered on 11/12/18 08:53; Admin Dose 20 MG; Start 11/07/18 at 09:00 Heparin Sodium (Porcine) (Heparin (5000 Units/1ml)) 5,000 unit Q8 SC Last administered on 11/12/18at 06:23; Admin Dose 5,000 UNIT; Start 11/06/18 at 22:00 Magnesium Oxide (Mag-Ox 400) 400 mg BID PO Last administered on 11/12/18 08:53; Admin Dose 400 MG; Start 11/06/18 at 21:00 Thiamine HCl (Vitamin B1) 100 mg DAILY PO Last administered on 11/12/18 08:53; Admin Dose 100 MG; Start 11/07/18 at 09:00 Ciprofloxacin (Cipro) 250 mg BID@18 PO Last administered on 11/12/18 06:21; Admin Dose 250 MG; Start 11/08/18 at 06:00 Ferrous Sulfate (Ferrous Sulfate (Ec)) 325 mg BID PO Last administered on 11/12/18at 08:53; Admin Dose 325 MG; Start 11/08/18 at 21:00 Assessment/Plan Additional Assessment/Plan Rehab Debility;Toxic metabolic encephalopathy. Steady progerss. SW working on dc planning, as patient will need assistance at home - Acute on chronic kidney disease with a history of nephrectomy; obstructive uropathy- followed by Urology Upper extremity cellulitis-continue antibiotics Hypertension. VENU BELLE MD Nov 12, 2018 12:11
[2018-11-12 14:00] VITALS: BP 97/55; PULSE 91; RESP 18
--- NOTE | 2018-11-12 14:27 | CONS ---
Date/Time of Note Date/Time of Note DATE: 11/12/18 TIME: 14:27 Assessment/Plan Assessment/Plan Assessment/Plan 1. acute vs acute on chronic renal failure due to Obstruction + prerenal azotemia 2. H/o left nephrectomy, unclear history 3. metabolic acidosis 4. anemia for CKD 5. Severe hydronephrosis Right side Plan: Bicitra 30ml PO BID for acidosis, BUN/Cr 39/5.31, WBC 13.1 CT Abdomen + pelvis w/o contrast showed R hydronephrosis, s/p Urology consult, no surgical intervention at this time will follow up Result Diagram: 11/12/18 0552 11/12/18 0552 Results 24hrs Laboratory Tests Test 11/12/18 05:52 White Blood Count 13.1 H Red Blood Count 3.47 L Hemoglobin 9.9 L Hematocrit 30.4 L Mean Corpuscular Volume 87.6 Mean Corpuscular Hemoglobin 28.5 L Mean Corpuscular Hemoglobin Concent 32.6 Red Cell Distribution Width 14.0 Platelet Count 633 #H Mean Platelet Volume 9.8 Immature Granulocytes % 0.600 H Neutrophils % 69.4 Lymphocytes % 17.7 Monocytes % 10.6 Eosinophils % 1.0 Basophils % 0.7 Nucleated Red Blood Cells % 0.0 Immature Granulocytes # 0.080 H Neutrophils # 9.1 H Lymphocytes # 2.3 Monocytes # 1.4 H Eosinophils # 0.1 Basophils # 0.1 Nucleated Red Blood Cells # 0.0 Prothrombin Time 14.0 Prothrombin Time Ratio 1.1 INR International Normalized Ratio 1.07 Activated Partial Thromboplast Time 31.3 Sodium Level 135 Potassium Level 4.4 Chloride Level 103 Carbon Dioxide Level 23 Anion Gap 9 Blood Urea Nitrogen 39 H Creatinine 5.31 H Est Glomerular Filtrat Rate mL/min Glucose Level 114 Calcium Level 8.5 Magnesium Level 2.5 Total Bilirubin 0.1 L Direct Bilirubin 0.00 Indirect Bilirubin 0.1 Aspartate Amino Transf (AST/SGOT) 31 Alanine Aminotransferase (ALT/SGPT) 34 Alkaline Phosphatase 165 H Total Protein 7.0 Albumin 3.1 L Globulin 3.90 H Albumin/Globulin Ratio 0.79 Consultation Date/Type/Reason Admit Date/Time Nov 06, 2018 at 18:19 Initial Consult Date Type of Consult NEPHROLOGY Requesting Provider: WALTER CARTER NP Exam/Review of Systems Vital Signs Vitals Vital Signs Date Temp Pulse Resp B/P (MAP) Pulse Ox O2 O2 Flow FiO2 Time Delivery Rate 11/12/18 98.6 75 18 114/64 96 Room Air 07:00 (81) Intake and Output 11/11/18 11/11/18 11/12/18 1515:00 23:00 07:00 IntakeIntake Total 270 ml 240 ml OutputOutput Total 850 ml BalanceBalance 270 ml -610 ml Exam Constitutional: alert, awake ENMT: nl external ears & nose Neck: supple, non-tender Respiratory: clear to auscultation, diminished breath sounds Cardiovascular: regular rate and rhythm, nl pulses Gastrointestinal: soft, non-tender Extremities: normal pulses Neurological: non focal Medications Medications Current Medications Docusate Sodium (Colace) 100 mg BID PO Last administered on 11/11/18at 08:31; Admin Dose 100 MG; Start 11/06/18 at 21:00 Senna (Senokot) 1 tab HS PO Last administered on 11/10/18at 20:20; Admin Dose 1 TAB; Start 11/06/18 at 21:00 Magnesium Hydroxide (Milk Of Mag) 30 ml BID PRN PO CONSTIPATION; Start 11/06/18 at 18:30 Lactulose (Enulose) 20 gm DAILY PRN PO CONSTIPATION; Start 11/06/18 at 18:30 Bisacodyl (Dulcolax Supp) [address] CONSTIPATION; Start 11/06/18 at 18:30 Miscellaneous Information (Pending [facility] Order For Wound Care) This patient frank... PRN PRN XX wound; Start 11/06/18 at 18:30 Acetaminophen (Tylenol Tab) 650 mg Q6H PRN PO PAIN LEVEL 1-3 OR FEVER; Start 11/06/18 at 20:00 Bisacodyl (Dulcolax) 5 mg DAILY PRN PO CONSTIPATION; Start 11/06/18 at 20:00 Citric Acid/ Sodium Citrate (Bicitra) 30 ml BID PO Last administered on 11/12/18at 08:53; Admin Dose 30 ML; Start 11/06/18 at 21:00 Docusate Sodium (Colace) 100 mg Q12H PRN PO CONSTIPATION; Start 11/06/18 at 20:00 Famotidine (Pepcid) 20 mg DAILY PO Last administered on 11/12/18 08:53; Admin Dose 20 MG; Start 11/07/18 at 09:00 Heparin Sodium (Porcine) (Heparin (5000 Units/1ml)) 5,000 unit Q8 SC Last administered on 11/12/18 06:23; Admin Dose 5,000 UNIT; Start 11/06/18 at 22:00 Magnesium Oxide (Mag-Ox 400) 400 mg BID PO Last administered on 11/12/18 08:53; Admin Dose 400 MG; Start 11/06/18 at 21:00 Thiamine HCl (Vitamin B1) 100 mg DAILY PO Last administered on 11/12/18 08:53; Admin Dose 100 MG; Start 11/07/18 at 09:00 Ciprofloxacin (Cipro) 250 mg BID@18 PO Last administered on 11/12/18 06:21; Admin Dose 250 MG; Start 11/08/18 at 06:00 Ferrous Sulfate (Ferrous Sulfate (Ec)) 325 mg BID PO Last administered on 11/12/18 08:53; Admin Dose 325 MG; Start 11/08/18 at 21:00 YAIR GOLDSMITH MD Nov 12, 2018 14:27
--- NOTE | 2018-11-12 14:35 | NUR ---
SOCIAL WORK NOTE: This vp digital marketing social media and crm attempted to contact pt caregiver - Gricel [phone]. Left voice mail, phone quantitative manager used. It is unclear of Gricel is involved, as per pt no family or other friends involved.
--- NOTE | 2018-11-12 15:21 | PN ---
Date/Time of Note Date/Time of Note DATE: 11/12/18 TIME: 15:20 Objective Vitals Vital Signs Date Temp Pulse Resp B/P (MAP) Pulse Ox O2 O2 Flow FiO2 Time Delivery Rate 11/12/18 98.6 75 18 114/64 96 Room Air 07:00 (81) Intake and Output 11/11/18 11/11/18 11/12/18 1515:00 23:00 07:00 IntakeIntake Total 270 ml 240 ml OutputOutput Total 850 ml BalanceBalance 270 ml -610 ml Results Result Diagram: 11/12/18 0552 11/12/18 0552 Medications Medications Current Medications Docusate Sodium (Colace) 100 mg BID PO Last administered on 11/11/18at 08:31; Admin Dose 100 MG; Start 11/06/18 at 21:00 Senna (Senokot) 1 tab HS PO Last administered on 11/10/18at 20:20; Admin Dose 1 TAB; Start 11/06/18 at 21:00 Magnesium Hydroxide (Milk Of Mag) 30 ml BID PRN PO CONSTIPATION; Start 11/06/18 at 18:30 Lactulose (Enulose) 20 gm DAILY PRN PO CONSTIPATION; Start 11/06/18 at 18:30 Bisacodyl (Dulcolax Supp) 10 mg DAILY PRN [place] CONSTIPATION; Start 11/06/18 at 18:30 Miscellaneous Information (Pending [facility] Order For Wound Care) This patient frank... PRN PRN XX wound; Start 11/06/18 at 18:30 Acetaminophen (Tylenol Tab) 650 mg Q6H PRN PO PAIN LEVEL 1-3 OR FEVER; Start 11/06/18 at 20:00 Bisacodyl (Dulcolax) 5 mg DAILY PRN PO CONSTIPATION; Start 11/06/18 at 20:00 Citric Acid/ Sodium Citrate (Bicitra) 30 ml BID PO Last administered on 11/12/18at 08:53; Admin Dose 30 ML; Start 11/06/18 at 21:00 Docusate Sodium (Colace) 100 mg Q12H PRN PO CONSTIPATION; Start 11/06/18 at 20:00 Famotidine (Pepcid) 20 mg DAILY PO Last administered on 11/12/18at 08:53; Admin Dose 20 MG; Start 11/07/18 at 09:00 Heparin Sodium (Porcine) (Heparin (5000 Units/1ml)) 5,000 unit Q8 SC Last administered on 11/12/18at 15:09; Admin Dose 5,000 UNIT; Start 11/06/18 at 22:00 Magnesium Oxide (Mag-Ox 400) 400 mg BID PO Last administered on 11/12/18 08:53 ; Admin Dose 400 MG; Start 11/06/18 at 21:00 Thiamine HCl (Vitamin B1) 100 mg DAILY PO Last administered on 11/12/18 08:53; Admin Dose 100 MG; Start 11/07/18 at 09:00 Ciprofloxacin (Cipro) 250 mg BID@06,18 PO Last administered on 11/12/18 06:21; Admin Dose 250 MG; Start 11/08/18 at 06:00 Ferrous Sulfate (Ferrous Sulfate (Ec)) 325 mg BID PO Last administered on 11/12/18 08:53; Admin Dose 325 MG; Start 11/08/18 at 21:00 VTE Prophylaxis Risk score (from [facility])>0 risk: 3 SCD applied (from [facility]): No SCD contraindication: other Lines/Catheters IV Catheter Type: Marks in Place: No Assessment/Plan Hospital Course Subjective Patient only complains of Marks catheter site pain Objective Physical exam General: Patient is laying in bed and answers questions appropriately Mentation: Patient is alert and oriented 4, Head: Normocephalic atraumatic Eyes: EOMI, pupils reactive to light Neck: Supple, nontender, midline Respiratory: Clear to auscultation bilaterally Cardiovascular: regular rate, no obvious murmurs Gastrointestinal: non-tender to palpation, bowel sounds heard. Neurological: Moves all extremities spontaneously Skin: No new skin lesions SSESSMENT/PLAN: 73-year-old male with CKD -refused to be on hemodialysis, urinary retention requiring chronic Marks, recurrent UTI, transferred from [facility] s/p CAUTI treatment, acute kidney injury, ileus/gastroenteritis, for rehabilitation. 1. Catheter associated urinary tract infection, recurrent -s/p Marks DC and reinsertion multiple times, will keep in for now per urology -Follow-up cultures negative so far -ID to manage oral abx 2. Sepsis secondary to #1 -stable white count -Continue current medical management 3. Chronic urinary retention/Neurogenic bladder, requiring indwelling Marks... -Culprit of frequent UTI and obstructive uropathy. -Unfortunately, patient with no family support available to do in and out catheterization after discharge=> as such, he preferred to go home with Marks in place and will have PCP follow-up for Marks changes 4. Acute kidney injury on CKD with baseline creatinine unknown -Culprit of acute kidney injury likely obstructive uropathy with #1. -Creatinine went up today, likely secondary to patient has not voided after Marks removal... -Nephrology following. -Patient had refused hemodialysis treatment=>On conservative medical management 5. Anemia of CKD. -Stable H&H. -cont oral iron replacement MONIE BURNETT Nov 12, 2018 15:21
--- NOTE | 2018-11-12 16:04 | CONS ---
Date/Time of Note Date/Time of Note DATE: 11/12/18 TIME: 16:03 Assessment/Plan Assessment/Plan Hospital Course Doing good no fevers overnight looks comfortable WBC 13.1 no shift no bands BUN 39 creatinine 5.31 Antimicrobials: Ciprofloxacin Microbiology: Urine culture grew Morganella and Klebsiella pneumonia, repeat culture negative Physical examination: Well-developed elderly man in no distress. Head atraumati c normocephalic neck is supple chest rise symmetrical breath sounds diminished bases heart S1-S2 abdomen soft bowel sounds present extremities without cyanosis Assessment: 1. Pyelonephritis with right hydronephrosis 2. Acute on chronic kidney disease 3. Urinary retention Plan: Stable, continue present care and antibiotics to complete 2 weeks, follow urology recommendations Result Diagram: 11/12/18 0552 11/12/18 0552 Results 24hrs Laboratory Tests Test 11/12/18 05:52 White Blood Count 13.1 H Red Blood Count 3.47 L Hemoglobin 9.9 L Hematocrit 30.4 L Mean Corpuscular Volume 87.6 Mean Corpuscular Hemoglobin 28.5 L Mean Corpuscular Hemoglobin Concent 32.6 Red Cell Distribution Width 14.0 Platelet Count 633 #H Mean Platelet Volume 9.8 Immature Granulocytes % 0.600 H Neutrophils % 69.4 Lymphocytes % 17.7 Monocytes % 10.6 Eosinophils % 1.0 Basophils % 0.7 Nucleated Red Blood Cells % 0.0 Immature Granulocytes # 0.080 H Neutrophils # 9.1 H Lymphocytes # 2.3 Monocytes # 1.4 H Eosinophils # 0.1 Basophils # 0.1 Nucleated Red Blood Cells # 0.0 Prothrombin Time 14.0 Prothrombin Time Ratio 1.1 INR International Normalized Ratio 1.07 Activated Partial Thromboplast Time 31.3 Sodium Level 135 Potassium Level 4.4 Chloride Level 103 Carbon Dioxide Level 23 Anion Gap 9 Blood Urea Nitrogen 39 H Creatinine 5.31 H Est Glomerular Filtrat Rate mL/min Glucose Level 114 Calcium Level 8.5 Magnesium Level 2.5 Total Bilirubin 0.1 L Direct Bilirubin 0.00 Indirect Bilirubin 0.1 Aspartate Amino Transf (AST/SGOT) 31 Alanine Aminotransferase (ALT/SGPT) 34 Alkaline Phosphatase 165 H Total Protein 7.0 Albumin 3.1 L Globulin 3.90 H Albumin/Globulin Ratio 0.79 Consultation Date/Type/Reason Admit Date/Time Nov 06, 2018 at 18:19 Initial Consult Date Type of Consult id Requesting Provider: WALTER CARTER V. [employer] Exam/Review of Systems Vital Signs Vitals Vital Signs Date Temp Pulse Resp B/P (MAP) Pulse Ox O2 O2 Flow FiO2 Time Delivery Rate 11/12/18 98.6 75 18 114/64 96 Room Air 07:00 (81) Intake and Output 11/11/18 11/11/18 11/12/18 1515:00 23:00 07:00 IntakeIntake Total 270 ml 240 ml OutputOutput Total 850 ml BalanceBalance 270 ml -610 ml Medications Medications Current Medications Docusate Sodium (Colace) 100 mg BID PO Last administered on 11/11/18at 08:31; Admin Dose 100 MG; Start 11/06/18 at 21:00 Senna (Senokot) 1 tab HS PO Last administered on 11/10/18at 20:20; Admin Dose 1 TAB; Start 11/06/18 at 21:00 Magnesium Hydroxide (Milk Of Mag) 30 ml BID PRN PO CONSTIPATION; Start 11/06/18 at 18:30 Lactulose (Enulose) 20 gm DAILY PRN PO CONSTIPATION; Start 11/06/18 at 18:30 Bisacodyl (Dulcolax Supp) 10 mg DAILY PRN [place] CONSTIPATION; Start 11/06/18 at 18:30 Miscellaneous Information (Pending [facility] Order For Wound Care) This patient frank... PRN PRN XX wound; Start 11/06/18 at 18:30 Acetaminophen (Tylenol Tab) 650 mg Q6H PRN PO PAIN LEVEL 1-3 OR FEVER; Start 11/06/18 at 20:00 Bisacodyl (Dulcolax) 5 mg DAILY PRN PO CONSTIPATION; Start 11/06/18 at 20:00 Citric Acid/ Sodium Citrate (Bicitra) 30 ml BID PO Last administered on 11/12/18at 08:53; Admin Dose 30 ML; Start 11/06/18 at 21:00 Docusate Sodium (Colace) 100 mg Q12H PRN PO CONSTIPATION; Start 11/06/18 at 20:00 Famotidine (Pepcid) 20 mg DAILY PO Last administered on 11/12/18at 08:53; Admin Dose 20 MG; Start 11/07/18 at 09:00 Heparin Sodium (Porcine) (Heparin (5000 Units/1ml)) 5,000 unit Q8 SC Last administered on 11/12/18at 15:09; Admin Dose 5,000 UNIT; Start 11/06/18 at 22:00 Magnesium Oxide (Mag-Ox 400) 400 mg BID PO Last administered on 11/12/18 08:53; Admin Dose 400 MG; Start 11/06/18 at 21:00 Thiamine HCl (Vitamin B1) 100 mg DAILY PO Last administered on 11/12/18 08:53; Admin Dose 100 MG; Start 11/07/18 at 09:00 Ciprofloxacin (Cipro) 250 mg BID@06,18 PO Last administered on 11/12/18 06:21; Admin Dose 250 MG; Start 11/08/18 at 06:00 Ferrous Sulfate (Ferrous Sulfate (Ec)) 325 mg BID PO Last administered on 11/12/18 08:53; Admin Dose 325 MG; Start 11/08/18 at 21:00 NYDIA PERKINS NP Nov 12, 2018 16:04
--- NOTE | 2018-11-12 18:43 | NUR ---
Patient is alert and breathing even. no SOB. patient on ABT for UTI with no A/R. patient on F/C draining clear yellow urine. patient and intact. no s/sx of malfunction. patient is cooperative during care.fluids encouraged as tolerated.
[2018-11-12 20:00] VITALS: BP 111/63; PULSE 79; RESP 18
[2018-11-12] MEDS: SENNA TAB PO SCH (20:45)
[2018-11-13 02:31] VITALS: BP 121/58; PULSE 72; RESP 18
[2018-11-13] MEDS: HEPARIN 5,000 UNIT/1 ML VIAL SC SCH ×3 (06:26→21:24)
[2018-11-13] MEDS: CIPROFLOXACIN 250 MG TAB PO SCH ×2 (06:26→17:27)
--- NOTE | 2018-11-13 07:00 | NUR ---
End of Shift Note During the shift, 600 ml was drained from urinary bag. No pain complaints made. Bed on lowest position, side rails up 2x, bed alarm on, and call light within reach. will continue to monitor
[2018-11-13 07:30] VITALS: BP 109/68; PULSE 84; RESP 20
[2018-11-13] MEDS: FERROUS SULFATE (EC) 325 MG TAB PO SCH ×2 (09:03→21:22)
[2018-11-13] MEDS: CITRIC ACID/NA CITRATE 30 ML CUP PO SCH ×2 (09:03→21:00)
[2018-11-13] MEDS: MAGNESIUM OXIDE 400 MG TAB PO SCH ×2 (09:04→21:22)
[2018-11-13] MEDS: THIAMINE 100 MG TAB PO SCH (09:04)
[2018-11-13] MEDS: DOCUSATE SODIUM 100 MG CAP PO SCH ×2 (09:04→21:00)
[2018-11-13] MEDS: FAMOTIDINE 20 MG TAB PO SCH (09:04)
--- NOTE | 2018-11-13 09:43 | CONS ---
Date/Time of Note Date/Time of Note DATE: 11/13/18 TIME: 09:43 Assessment/Plan Assessment/Plan Assessment/Plan 1. acute vs acute on chronic renal failure due to Obstruction + prerenal azotemia 2. H/o left nephrectomy, unclear history 3. metabolic acidosis 4. anemia for CKD 5. Severe hydronephrosis Right side Plan: Bicitra 30ml PO BID for acidosis, BUN/Cr 39/5.31, WBC 13.1 CT Abdomen + pelvis w/o contrast showed R hydronephrosis, s/p Urology consult, no surgical intervention at this time will follow up Result Diagram: 11/12/18 0552 11/12/18 0552 Consultation Date/Type/Reason Admit Date/Time Nov 06, 2018 at 18:19 Initial Consult Date Type of Consult NEPHROLOGY Requesting Provider: WALTER CARTER NP 24 HR Interval Summary Free Text/Dictation doing better, no complaints, BUN/Cr stable, Electrolytes normal Exam/Review of Systems Vital Signs Vitals Vital Signs Date Temp Pulse Resp B/P (MAP) Pulse Ox O2 O2 Flow FiO2 Time Delivery Rate 11/13/18 97.9 72 18 121/58 98 Room Air 02:31 (79) Intake and Output 11/12/18 11/12/18 11/13/18 1515:00 23:00 07:00 IntakeIntake Total 240 ml 2020 ml 200 ml OutputOutput Total 1000 ml 1000 ml BalanceBalance 240 ml 1020 ml -800 ml Exam Constitutional: alert, awake ENMT: nl external ears & nose Neck: supple, non-tender Respiratory: clear to auscultation, diminished breath sounds Cardiovascular: regular rate and rhythm, nl pulses Gastrointestinal: soft, non-tender Extremities: normal pulses Neurological: non focal Medications Medications Current Medications Docusate Sodium (Colace) 100 mg BID PO Last administered on 11/13/18at 09:04; Admin Dose 100 MG; Start 11/06/18 at 21:00 Senna (Senokot) 1 tab HS PO Last administered on 11/12/18at 20:45; Admin Dose 1 TAB; Start 11/06/18 at 21:00 Magnesium Hydroxide (Milk Of Mag) 30 ml BID PRN PO CONSTIPATION; Start 11/06/18 at 18:30 Lactulose (Enulose) 20 gm DAILY PRN PO CONSTIPATION; Start 11/06/18 at 18:30 Bisacodyl (Dulcolax Supp) 10 mg DAILY PRN [place] CONSTIPATION; Start 11/06/18 at 18:30 Miscellaneous Information (Pending [facility] Order For Wound Care) This patient frank... PRN PRN XX wound; Start 11/06/18 at 18:30 Acetaminophen (Tylenol Tab) 650 mg Q6H PRN PO PAIN LEVEL 1-3 OR FEVER; Start 11/06/18 at 20:00 Bisacodyl (Dulcolax) 5 mg DAILY PRN PO CONSTIPATION; Start 11/06/18 at 20:00 Citric Acid/ Sodium Citrate (Bicitra) 30 ml BID PO Last administered on 11/13/18 09:03; Admin Dose 30 ML; Start 11/06/18 at 21:00 Docusate Sodium (Colace) 100 mg Q12H PRN PO CONSTIPATION; Start 11/06/18 at 20:00 Famotidine (Pepcid) 20 mg DAILY PO Last administered on 11/13/18 09:04; Admin Dose 20 MG; Start 11/07/18 at 09:00 Heparin Sodium (Porcine) (Heparin (5000 Units/1ml)) 5,000 unit Q8 SC Last administered on 11/13/18 06:26; Admin Dose 5,000 UNIT; Start 11/06/18 at 22:00 Magnesium Oxide (Mag-Ox 400) 400 mg BID PO Last administered on 11/13/18 09:04; Admin Dose 400 MG; Start 11/06/18 at 21:00 Thiamine HCl (Vitamin B1) 100 mg DAILY PO Last administered on 11/13/18 09:04; Admin Dose 100 MG; Start 11/07/18 at 09:00 Ciprofloxacin (Cipro) 250 mg BID@18 PO Last administered on 11/13/18 06:26; Admin Dose 250 MG; Start 11/08/18 at 06:00 Ferrous Sulfate (Ferrous Sulfate (Ec)) 325 mg BID PO Last administered on 11/13/18 09:03; Admin Dose 325 MG; Start 11/08/18 at 21:00 YAIR GOLDSMITH MD Nov 13, 2018 09:43
--- NOTE | 2018-11-13 13:14 | NUR ---
pt removed iv hl and says it's itching. will inform primary rn
--- NOTE | 2018-11-13 13:23 | CONS ---
Date/Time of Note Date/Time of Note DATE: 11/13/18 TIME: 13:22 Assessment/Plan Assessment/Plan Hospital Course Patient is awake feels good denies pain looks comfortable no fevers overnight. Marks catheter still draining cloudy urine Antimicrobials: Ciprofloxacin Microbiology: Urine culture grew Morganella and Klebsiella pneumonia, repeat culture negative Physical examination: Well-developed elderly man in no distress. Head atraumatic normocephalic neck is supple chest rise symmetrical breath sounds diminished bases heart S1-S2 abdomen soft bowel sounds present extremities without cyanosis Assessment: 1. Pyelonephritis with right hydronephrosis 2. Acute on chronic kidney disease 3. Urinary retention Plan: Remains stable, repeat urine culture negative however urine still looks very cloudy, urology on case, continue antibiotics for now Result Diagram: 11/12/18 0552 11/12/18 0552 Consultation Date/Type/Reason Admit Date/Time Nov 06, 2018 at 18:19 Initial Consult Date Type of Consult id Requesting Provider: WALTER CARTER V. [employer] Exam/Review of Systems Vital Signs Vitals Vital Signs Date Temp Pulse Resp B/P (MAP) Pulse Ox O2 O2 Flow FiO2 Time Delivery Rate 11/13/18 98.5 84 20 109/68 96 Room Air 07:30 (82) Intake and Output 11/12/18 11/12/18 11/13/18 1515:00 23:00 07:00 IntakeIntake Total 240 ml 2020 ml 200 ml OutputOutput Total 1000 ml 1000 ml BalanceBalance 240 ml 1020 ml -800 ml Medications Medications Current Medications Docusate Sodium (Colace) 100 mg BID PO Last administered on 11/13/18at 09:04; Admin Dose 100 MG; Start 11/06/18 at 21:00 Senna (Senokot) 1 tab HS PO Last administered on 11/12/18at 20:45; Admin Dose 1 TAB; Start 11/06/18 at 21:00 Magnesium Hydroxide (Milk Of Mag) 30 ml BID PRN PO CONSTIPATION; Start 11/06/18 at 18:30 Lactulose (Enulose) 20 gm DAILY PRN PO CONSTIPATION; Start 11/06/18 at 18:30 Bisacodyl (Dulcolax Supp) 10 mg DAILY PRN [place] CONSTIPATION; Start 11/06/18 at 18:30 Miscellaneous Information (Pending [facility] Order For Wound Care) This patient frank... PRN PRN XX wound; Start 11/06/18 at 18:30 Acetaminophen (Tylenol Tab) 650 mg Q6H PRN PO PAIN LEVEL 1-3 OR FEVER; Start 11/06/18 at 20:00 Bisacodyl (Dulcolax) 5 mg DAILY PRN PO CONSTIPATION; Start 11/06/18 at 20:00 Citric Acid/ Sodium Citrate (Bicitra) 30 ml BID PO Last administered on 11/13/18 09:03; Admin Dose 30 ML; Start 11/06/18 at 21:00 Docusate Sodium (Colace) 100 mg Q12H PRN PO CONSTIPATION; Start 11/06/18 at 20:00 Famotidine (Pepcid) 20 mg DAILY PO Last administered on 11/13/18 09:04; Admin Dose 20 MG; Start 11/07/18 at 09:00 Heparin Sodium (Porcine) (Heparin (5000 Units/1ml)) 5,000 unit Q8 SC Last administered on 11/13/18 06:26; Admin Dose 5,000 UNIT; Start 11/06/18 at 22:00 Magnesium Oxide (Mag-Ox 400) 400 mg BID PO Last administered on 11/13/18 09:04; Admin Dose 400 MG; Start 11/06/18 at 21:00 Thiamine HCl (Vitamin B1) 100 mg DAILY PO Last administered on 11/13/18 09:04; Admin Dose 100 MG; Start 11/07/18 at 09:00 Ciprofloxacin (Cipro) 250 mg BID@18 PO Last administered on 11/13/18 06:26; Admin Dose 250 MG; Start 11/08/18 at 06:00 Ferrous Sulfate (Ferrous Sulfate (Ec)) 325 mg BID PO Last administered on 11/13/18 09:03; Admin Dose 325 MG; Start 11/08/18 at 21:00 NYDIA PERKINS NP Nov 13, 2018 13:23
--- NOTE | 2018-11-13 13:36 | PN ---
Date/Time of Note Date/Time of Note DATE: 11/13/18 TIME: 13:35 Subjective Comfortable Objective Vital Signs Date Temp Pulse Resp B/P (MAP) Pulse Ox O2 O2 Flow FiO2 Time Delivery Rate 11/13/18 98.5 84 20 109/68 96 Room Air 07:30 (82) Intake and Output 11/12/18 11/12/18 11/13/18 1515:00 23:00 07:00 IntakeIntake Total 240 ml 2020 ml 200 ml OutputOutput Total 1000 ml 1000 ml BalanceBalance 240 ml 1020 ml -800 ml Exam pulm-cta abd-soft sba ambulation Results/Medications Result Diagram: 11/12/1852 11/12/18 0552 Medications Current Medications Docusate Sodium (Colace) 100 mg BID PO Last administered on 11/13/18at 09:04; Admin Dose 100 MG; Start 11/06/18 at 21:00 Senna (Senokot) 1 tab HS PO Last administered on 11/12/18at 20:45; Admin Dose 1 TAB; Start 11/06/18 at 21:00 Magnesium Hydroxide (Milk Of Mag) 30 ml BID PRN PO CONSTIPATION; Start 11/06/18 at 18:30 Lactulose (Enulose) 20 gm DAILY PRN PO CONSTIPATION; Start 11/06/18 at 18:30 Bisacodyl (Dulcolax Supp) 10 mg DAILY PRN [place] CONSTIPATION; Start 11/06/18 at 18:30 Miscellaneous Information (Pending [facility] Order For Wound Care) This patient frank... PRN PRN XX wound; Start 11/06/18 at 18:30 Acetaminophen (Tylenol Tab) 650 mg Q6H PRN PO PAIN LEVEL 1-3 OR FEVER; Start 11/06/18 at 20:00 Bisacodyl (Dulcolax) 5 mg DAILY PRN PO CONSTIPATION; Start 11/06/18 at 20:00 Citric Acid/ Sodium Citrate (Bicitra) 30 ml BID PO Last administered on 11/13/18at 09:03; Admin Dose 30 ML; Start 11/06/18 at 21:00 Docusate Sodium (Colace) 100 mg Q12H PRN PO CONSTIPATION; Start 11/06/18 at 20:00 Famotidine (Pepcid) 20 mg DAILY PO Last administered on 1/16/19at 09:04; Admin Dose 20 MG; Start 11/07/18 at 09:00 Heparin Sodium (Porcine) (Heparin (5000 Units/1ml)) 5,000 unit Q8 SC Last administered on 11/13/18 06:26; Admin Dose 5,000 UNIT; Start 11/06/18 at 22:00 Magnesium Oxide (Mag-Ox 400) 400 mg BID PO Last administered on 11/13/18 09:04; Admin Dose 400 MG; Start 11/06/18 at 21:00 Thiamine HCl (Vitamin B1) 100 mg DAILY PO Last administered on 11/13/18 09:04; Admin Dose 100 MG; Start 11/07/18 at 09:00 Ciprofloxacin (Cipro) 250 mg BID@18 PO Last administered on 11/13/18 06:26; Admin Dose 250 MG; Start 11/08/18 at 06:00 Ferrous Sulfate (Ferrous Sulfate (Ec)) 325 mg BID PO Last administered on 11/13/18 09:03; Admin Dose 325 MG; Start 11/08/18 at 21:00 Assessment/Plan Additional Assessment/Plan Rehab- Debility;Toxic metabolic encephalopathy. Continue treatment plan SW working on dc planning, as patient will need assistance at home- he reportedly has caregiver "Gricel" - Acute on chronic kidney disease with a history of nephrectomy; obstructive uropathy- followed by Urology and Renal Upper extremity cellulitis-continue antibiotics Hypertension. VENU BELLE MD Nov 13, 2018 13:36
[2018-11-13 14:00] VITALS: BP 100/60; PULSE 74; RESP 18
--- NOTE | 2018-11-13 14:40 | PN ---
Date/Time of Note Date/Time of Note DATE: 11/13/18 TIME: 14:40 Objective Vitals Vital Signs Date Temp Pulse Resp B/P (MAP) Pulse Ox O2 O2 Flow FiO2 Time Delivery Rate 11/13/18 98.5 74 18 100/60 98 Room Air 14:00 (73) Intake and Output 11/12/18 11/12/18 11/13/18 1414:59 22:59 06:59 IntakeIntake Total 240 ml 2020 ml 200 ml OutputOutput Total 1000 ml 1000 ml BalanceBalance 240 ml 1020 ml -800 ml Results Result Diagram: 11/12/1852 11/12/1852 Medications Medications Current Medications Docusate Sodium (Colace) 100 mg BID PO Last administered on 11/13/18at 09:04; Admin Dose 100 MG; Start 11/06/18 at 21:00 Senna (Senokot) 1 tab HS PO Last administered on 11/12/18at 20:45; Admin Dose 1 TAB; Start 11/06/18 at 21:00 Magnesium Hydroxide (Milk Of Mag) 30 ml BID PRN PO CONSTIPATION; Start 11/06/18 at 18:30 Lactulose (Enulose) 20 gm DAILY PRN PO CONSTIPATION; Start 11/06/18 at 18:30 Bisacodyl (Dulcolax Supp) 10 mg DAILY PRN [place] CONSTIPATION; Start 11/06/18 at 18:30 Miscellaneous Information (Pending [facility] Order For Wound Care) This patient frank... PRN PRN XX wound; Start 11/06/18 at 18:30 Acetaminophen (Tylenol Tab) 650 mg Q6H PRN PO PAIN LEVEL 1-3 OR FEVER; Start 11/06/18 at 20:00 Bisacodyl (Dulcolax) 5 mg DAILY PRN PO CONSTIPATION; Start 11/06/18 at 20:00 Citric Acid/ Sodium Citrate (Bicitra) 30 ml BID PO Last administered on 11/13/18at 09:03; Admin Dose 30 ML; Start 11/06/18 at 21:00 Docusate Sodium (Colace) 100 mg Q12H PRN PO CONSTIPATION; Start 11/06/18 at 20:00 Famotidine (Pepcid) 20 mg DAILY PO Last administered on 11/13/18at 09:04; Admin Dose 20 MG; Start 11/07/18 at 09:00 Heparin Sodium (Porcine) (Heparin (5000 Units/1ml)) 5,000 unit Q8 SC Last administered on 11/13/18at 06:26; Admin Dose 5,000 UNIT; Start 11/06/18 at 22:00 Magnesium Oxide (Mag-Ox 400) 400 mg BID PO Last administered on 11/13/18at 09:04; Admin Dose 400 MG; Start 11/06/18 at 21:00 Thiamine HCl (Vitamin B1) 100 mg DAILY PO Last administered on 11/13/18at 09:04; Admin Dose 100 MG; Start 11/07/18 at 09:00 Ciprofloxacin (Cipro) 250 mg BID@,18 PO Last administered on 11/13/18at 06:26; Admin Dose 250 MG; Start 11/08/18 at 06:00 Ferrous Sulfate (Ferrous Sulfate (Ec)) 325 mg BID PO Last administered on 11/13/18at 09:03; Admin Dose 325 MG; Start 11/08/18 at 21:00 VTE Prophylaxis Risk score (from [facility])>0 risk: 3 SCD applied (from [facility]): No SCD contraindication: other Lines/Catheters IV Catheter Type: Marks in Place: No Assessment/Plan Hospital Course Subjective Patient only complains of Marks catheter site pain Objective Physical exam General: Patient is laying in bed and answers questions appropriately Mentation: Patient is alert and oriented 4, Head: Normocephalic atraumatic Eyes: EOMI, pupils reactive to light Neck: Supple, nontender, midline Respiratory: Clear to auscultation bilaterally Cardiovascular: regular rate, no obvious murmurs Gastrointestinal: non-tender to palpation, bowel sounds heard. Neurological: Moves all extremities spontaneously Skin: No new skin lesions SSESSMENT/PLAN: 73-year-old male with CKD -refused to be on hemodialysis, urinary retention requiring chronic Marks, recurrent UTI, transferred from [facility] s/p CAUTI treatment, acute kidney injury, ileus/gastroenteritis, for rehabilitation. 1. Catheter associated urinary tract infection, recurrent -s/p Marks DC and reinsertion multiple times, will keep in for now per urology -Follow-up cultures negative so far -ID to manage oral abx 2. Sepsis secondary to #1 -stable white count -Continue current medical management 3. Chronic urinary retention/Neurogenic bladder, requiring indwelling Marks... -Culprit of frequent UTI and obstructive uropathy. -Unfortunately, patient with no family support available to do in and out catheterization after discharge=> as such, he preferred to go home with Marks in place and will have PCP follow-up for Marks changes 4. Acute kidney injury on CKD with baseline creatinine unknown -Culprit of acute kidney injury likely obstructive uropathy with #1. -Creatinine went up today, likely secondary to patient has not voided after Fo león removal... -Nephrology following. -Patient had refused hemodialysis treatment=>On conservative medical management 5. Anemia of CKD. -Stable H&H. -cont oral iron replacement MONIE BURNETT Nov 13, 2018 14:40
--- NOTE | 2018-11-13 15:01 | NUR ---
PT NOTE: Attempted to see pt for PT tx. Pt adamantly refused, states "manana." Refused despite max encouragement. Educated on importance of mobility with fair understanding. Refused even therex in bed. Will f/u later if time permits.
--- NOTE | 2018-11-13 18:30 | CONS ---
DATE OF ADMISSION: 11/06/2018 DATE OF CONSULTATION: 11/13/2018 TYPE OF CONSULTATION: Psychological. REFERRING PHYSICIAN: Aishwarya Aldana MD CONSULTING PSYCHOLOGIST: Amy Gaston, PhD REASON FOR CONSULTATION: Consultation was requested by Dr. Krysten Aldana in order to evaluate the cognitive and emotional functioning of this patient related to his present medical condition. HISTORY OF PRESENT ILLNESS: The patient is a 73-year-old male. The patient has a history of chronic kidney disease, hypertension, osteoarthritis, and hypothyroidism. The patient was admitted initially with weakness, confusion and general malaise. The patient's workup revealed a urinary tract infection and acute on chronic kidney disease. The patient was cleared medically and then sent to the acute rehabilitation unit for acute multidisciplinary rehabilitation. The patient speaks mainly [place], and this interview was conducted in [place]. FAMILY AND SOCIAL HISTORY: The patient lives at home. The patient has caregiver assistance available. The patient does seem to want to return there after discharge. MEDICATIONS: The patient is currently not on any psychotropic medications. SUBSTANCE USE: The patient reports that he does not smoke. The patient reports he does not use alcohol or other drugs. BEHAVIOR: The patient was cooperative during the consultation. MENTAL STATUS EXAMINATION: APPEARANCE: The patient was seen up in his wheelchair. Appears to be of average height and weight. The patient says that he uses both hands. BEHAVIOR: The patient was cooperative during the consultation. The patient was extremely confused and mumbled his answers, even in Citizen Of [place] and was difficult to understand what his responses were. The patient did try to respond as well as he could. MOOD AND AFFECT: The patient's mood appears to be depressed. Affect does appear to be slightly anxious. The patient does say that he is frustrated, but does deny depression and anxiety. PERCEPTION: The patient reports no hallucinations or delusions. The patient was alert to person but not to place, situation and time. MEMORY AND COGNITION: The patient's memory and cognition appear to be impaired. He could not remember the name of the hospital. He was able to say the month and the year when asked twice. The patient was able to say who the poultry processor is. The patient could not say who the governor of the state was and he thought the mayor of the city was [facility]. The patient was able to do 1 serial 7 subtraction from 100, but then could not do any anymore. He was asked to spell the word "cliff" the patient could not spell this forward or backward. INTELLIGENCE: Intelligence would appear to fall in the average range when he is functioning well. INSIGHT: Poor. JUDGMENT: Poor. THOUGHT CONTENT: The patient is concerned about his present medical condition. The patient is frustrated. The patient does want to return home as soon as possible. The patient appears to be having a toxic metabolic encephalopathy that relates maybe to his urinary tract infection as well as other issues. DISCUSSION: The patient may be able to benefit from some cognitive/behavioral psychotherapy while he is on the unit. As he clears from his metabolic encephalopathy, he may be able to deal with his underlying level of frustration and confusion as well as his depression and anxiety regarding all his medical problems. The patient can benefit at the present time likely from some cognitive training with use of memory prompts and a memory book to try to help him improve his overall cognitive abilities. DIAGNOSTIC IMPRESSION: 1. F06.31, mood disorder due to multiple medical problems with depressive features. 2. F06.8, cognitive disorder, not otherwise specified. Thank you very much, Dr. Krysten Aldana, for referring this individual. Please do not hesitate to call if you have additional questions. Dictated By: AMY GASTON PHD KIMI/LUIS MIGUEL Conf#: [id number] DID#: [id number]
--- NOTE | 2018-11-13 18:49 | NUR ---
Patient is alert and breathing even. no SOB. no c/o pain. patient on ABT with no A/R. patient is cooperative during care. patient ambulate with therapist this am and tolerated well. patient was moved to 4423C and agreed. Patient with f/c patent and intact draining clear yellow urine. no s/sx of malfunction.
[2018-11-13 20:16] VITALS: BP 118/68; PULSE 77; RESP 18
[2018-11-13] MEDS: SENNA TAB PO SCH (21:00)
[2018-11-14 02:00] VITALS: BP 115/60; PULSE 68; RESP 18
[2018-11-14] MEDS: CIPROFLOXACIN 250 MG TAB PO SCH ×2 (06:04→17:47)
[2018-11-14] MEDS: HEPARIN 5,000 UNIT/1 ML VIAL SC SCH ×3 (06:06→21:40)
[2018-11-14 07:00] VITALS: BP 116/69; PULSE 86; RESP 18
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
--- NOTE | 2018-11-14 08:25 | NUR ---
Pt slept well during night hours, no complaints noted. Vital signs stable. Pt able to turn position by self. Pt is on Marks's catheter, draining light drake color urine, no BM noted. Pt kept under fall and aspiration precaution, Bed alarm activated for safety, call light and bedside table within reach.
[2018-11-14] MEDS: CITRIC ACID/NA CITRATE 30 ML CUP PO SCH ×2 (09:00→21:00)
[2018-11-14] MEDS: THIAMINE 100 MG TAB PO SCH (09:29)
[2018-11-14] MEDS: DOCUSATE SODIUM 100 MG CAP PO SCH ×2 (09:29→21:36)
[2018-11-14] MEDS: FERROUS SULFATE (EC) 325 MG TAB PO SCH ×2 (09:29→21:36)
[2018-11-14] MEDS: MAGNESIUM OXIDE 400 MG TAB PO SCH ×2 (09:29→21:36)
[2018-11-14] MEDS: FAMOTIDINE 20 MG TAB PO SCH (09:29)
--- NOTE | 2018-11-14 12:22 | NUR ---
Mark Dunlap at bedside and reported that patient strongly refused blood draw. Per it's OK just document.
--- NOTE | 2018-11-14 12:37 | CONS ---
Date/Time of Note Date/Time of Note DATE: 11/14/18 TIME: 12:37 Assessment/Plan Assessment/Plan Assessment/Plan 1. acute vs acute on chronic renal failure due to Obstruction + prerenal azotemia 2. H/o left nephrectomy, unclear history 3. metabolic acidosis 4. anemia for CKD 5. Severe hydronephrosis Right side Plan: Bicitra 30ml PO BID for acidosis, BUN/Cr 39/5.31, WBC 13.1 CT Abdomen + pelvis w/o contrast showed R hydronephrosis, s/p Urology consult, no surgical intervention at this time will follow up Result Diagram: 11/12/18 0552 11/12/18 0552 Consultation Date/Type/Reason Admit Date/Time Nov 06, 2018 at 18:19 Initial Consult Date Type of Consult NEPHROLOGY Requesting Provider: WALTER CARTER NP Exam/Review of Systems Vital Signs Vitals Vital Signs Date Temp Pulse Resp B/P (MAP) Pulse Ox O2 O2 Flow FiO2 Time Delivery Rate 11/14/18 98.6 86 18 116/69 96 Room Air 07:00 (85) Intake and Output 11/13/18 11/13/18 11/14/18 1515:00 23:00 07:00 IntakeIntake Total 1640 ml 1440 ml OutputOutput Total 550 ml 850 ml BalanceBalance 1090 ml 590 ml Exam Constitutional: alert, awake ENMT: nl external ears & nose Neck: supple, non-tender Respiratory: clear to auscultation, diminished breath sounds Cardiovascular: regular rate and rhythm, nl pulses Gastrointestinal: soft, non-tender Extremities: normal pulses Neurological: non focal Medications Medications Current Medications Docusate Sodium (Colace) 100 mg BID PO Last administered on 11/14/18at 09:29; Admin Dose 100 MG; Start 11/06/18 at 21:00 Senna (Senokot) 1 tab HS PO Last administered on 11/12/18at 20:45; Admin Dose 1 TAB; Start 11/06/18 at 21:00 Magnesium Hydroxide (Milk Of Mag) 30 ml BID PRN PO CONSTIPATION; Start 11/06/18 at 18:30 Lactulose (Enulose) 20 gm DAILY PRN PO CONSTIPATION; Start 11/06/18 at 18:30 Bisacodyl (Dulcolax Supp) 10 mg DAILY PRN [place] CONSTIPATION; Start 11/06/18 at 18:30 Miscellaneous Information (Pending Santyl Order For Wound Care) This patient frank... PRN PRN XX wound; Start 11/06/18 at 18:30 Acetaminophen (Tylenol Tab) 650 mg Q6H PRN PO PAIN LEVEL 1-3 OR FEVER; Start 11/06/18 at 20:00 Bisacodyl (Dulcolax) 5 mg DAILY PRN PO CONSTIPATION; Start 11/06/18 at 20:00 Citric Acid/ Sodium Citrate (Bicitra) 30 ml BID PO Last administered on 11/13/18 09:03; Admin Dose 30 ML; Start 11/06/18 at 21:00 Docusate Sodium (Colace) 100 mg Q12H PRN PO CONSTIPATION; Start 11/06/18 at 20:00 Famotidine (Pepcid) 20 mg DAILY PO Last administered on 11/14/18 09:29; Admin Dose 20 MG; Start 11/07/18 at 09:00 Heparin Sodium (Porcine) (Heparin (5000 Units/1ml)) 5,000 unit Q8 SC Last administered on 11/14/18 06:06; Admin Dose 5,000 UNIT; Start 11/06/18 at 22:00 Magnesium Oxide (Mag-Ox 400) 400 mg BID PO Last administered on 11/14/18 09:29; Admin Dose 400 MG; Start 11/06/18 at 21:00 Thiamine HCl (Vitamin B1) 100 mg DAILY PO Last administered on 11/14/18 09:29; Admin Dose 100 MG; Start 11/07/18 at 09:00 Ciprofloxacin (Cipro) 250 mg BID@18 PO Last administered on 11/14/18 06:04; Admin Dose 250 MG; Start 11/08/18 at 06:00 Ferrous Sulfate (Ferrous Sulfate (Ec)) 325 mg BID PO Last administered on 11/14/18 09:29; Admin Dose 325 MG; Start 11/08/18 at 21:00 YAIR GOLDSMITH MD Nov 14, 2018 12:37
--- NOTE | 2018-11-14 12:40 | PN ---
Date/Time of Note Date/Time of Note DATE: 11/14/18 TIME: 12:38 Subjective Comfortable Objective Vital Signs Date Temp Pulse Resp B/P (MAP) Pulse Ox O2 O2 Flow FiO2 Time Delivery Rate 11/14/18 98.6 86 18 116/69 96 Room Air 07:00 (85) Intake and Output 11/13/18 11/13/18 11/14/18 1515:00 23:00 07:00 IntakeIntake Total 1640 ml 1440 ml OutputOutput Total 550 ml 850 ml BalanceBalance 1090 ml 590 ml Exam pulm-cta sba ambulation Results/Medications Result Diagram: 11/12/18 0552 11/12/18 0552 Medications Current Medications Docusate Sodium (Colace) 100 mg BID PO Last administered on 11/14/18at 09:29; Admin Dose 100 MG; Start 11/06/18 at 21:00 Senna (Senokot) 1 tab HS PO Last administered on 11/12/18at 20:45; Admin Dose 1 TAB; Start 11/06/18 at 21:00 Magnesium Hydroxide (Milk Of Mag) 30 ml BID PRN PO CONSTIPATION; Start 11/06/18 at 18:30 Lactulose (Enulose) 20 gm DAILY PRN PO CONSTIPATION; Start 11/06/18 at 18:30 Bisacodyl (Dulcolax Supp) 10 mg DAILY PRN [place] CONSTIPATION; Start 11/06/18 at 18:30 Miscellaneous [facility] This patient frank... PRN PRN XX wound; Start 11/06/18 at 18:30 Acetaminophen (Tylenol Tab) 650 mg Q6H PRN PO PAIN LEVEL 1-3 OR FEVER; Start 11/06/18 at 20:00 Bisacodyl (Dulcolax) 5 mg DAILY PRN PO CONSTIPATION; Start 11/06/18 at 20:00 Citric Acid/ Sodium Citrate (Bicitra) 30 ml BID PO Last administered on 11/13/18at 09:03; Admin Dose 30 ML; Start 11/06/18 at 21:00 Docusate Sodium (Colace) 100 mg Q12H PRN PO CONSTIPATION; Start 11/06/18 at 20:00 Famotidine (Pepcid) 20 mg DAILY PO Last administered on 11/14/18at 09:29; Admin Dose 20 MG; Start 11/07/18 at 09:00 Heparin Sodium (Porcine) (Heparin (5000 Units/1ml)) 5,000 unit Q8 SC Last administered on 11/14/18at 06:06; Admin Dose 5,000 UNIT; Start 11/06/18 at 22:00 Magnesium Oxide (Mag-Ox 400) 400 mg BID PO Last administered on 11/14/18at 09:29; Admin Dose 400 MG; Start 11/06/18 at 21:00 Thiamine HCl (Vitamin B1) 100 mg DAILY PO Last administered on 11/14/18at 09:29; Admin Dose 100 MG; Start 11/07/18 at 09:00 Ciprofloxacin (Cipro) 250 mg BID@18 PO Last administered on 11/14/18at 06:04; Admin Dose 250 MG; Start 11/08/18 at 06:00 Ferrous Sulfate (Ferrous Sulfate (Ec)) 325 mg BID PO Last administered on 11/14/18at 09:29; Admin Dose 325 MG; Start 11/08/18 at 21:00 Assessment/Plan Additional Assessment/Plan Rehab- Debility;Toxic metabolic encephalopathy. Continue treatment plan. Case d/w SW. Patient will need supervision, but ca regiver assistance unclear. SW pursuing SNF - Acute on chronic kidney disease with a history of nephrectomy; UTI,obstructive uropathy- followed by Urology and Renal Upper extremity cellulitis- improved Hypertension. VENU BELLE MD Nov 14, 2018 12:40
--- NOTE | 2018-11-14 13:54 | NUR ---
Attempted speech therapy session: patient declining, claiming lack of sleep overnight and does not want to participate until tomorrow
[2018-11-14 14:00] VITALS: BP 113/58; PULSE 73; RESP 18
--- NOTE | 2018-11-14 14:27 | CONS ---
Date/Time of Note Date/Time of Note DATE: 11/14/18 TIME: 14:26 Assessment/Plan Assessment/Plan Hospital Course No acute events overnight. All noted. Patient is alert and feels good. Antimicrobials: Ciprofloxacin Microbiology: Urine culture grew Morganella and Klebsiella pneumonia, repeat culture negative Physical examination: Well-developed elderly man in no distress. Head atraumatic normocephalic neck is supple chest rise symmetrical breath sounds diminished bases heart S1-S2 abdomen soft bowel sounds present extremities without cyanosis Assessment: 1. Pyelonephritis with right hydronephrosis 2. Acute on chronic kidney disease 3. Urinary retention Plan: Remains stable, repeat urine culture negative, patient is completing second week of antibiotics, urology recommendations noted Result Diagram: 11/12/18 0552 11/12/18 0552 Consultation Date/Type/Reason Admit Date/Time Nov 06, 2018 at 18:19 Initial Consult Date Type of Consult id Requesting Provider: WALTER CARTER V. INTERNAL RECRUITER Exam/Review of Systems Vital Signs Vitals Vital Signs Date Temp Pulse Resp B/P (MAP) Pulse Ox O2 O2 Flow FiO2 Time Delivery Rate 11/14/18 98.6 86 18 116/69 96 Room Air 07:00 (85) Intake and Output 11/13/18 11/13/18 11/14/18 1515:00 23:00 07:00 IntakeIntake Total 1640 ml 1440 ml OutputOutput Total 550 ml 850 ml BalanceBalance 1090 ml 590 ml Medications Medications Current Medications Docusate Sodium (Colace) 100 mg BID PO Last administered on 11/14/18at 09:29; Admin Dose 100 MG; Start 11/06/18 at 21:00 Senna (Senokot) 1 tab HS PO Last administered on 11/12/18at 20:45; Admin Dose 1 TAB; Start 11/06/18 at 21:00 Magnesium Hydroxide (Milk Of Mag) 30 ml BID PRN PO CONSTIPATION; Start 11/06/18 at 18:30 Lactulose (Enulose) 20 gm DAILY PRN PO CONSTIPATION; Start 11/06/18 at 18:30 Bisacodyl (Dulcolax Supp) 10 mg DAILY PRN [place] CONSTIPATION; Start 11/06/18 at 18:30 Miscellaneous Information (Pending [facility] Order For Wound Care) This patient frank... PRN PRN XX wound; Start 11/06/18 at 18:30 Acetaminophen (Tylenol Tab) 650 mg Q6H PRN PO PAIN LEVEL 1-3 OR FEVER; Start 11/06/18 at 20:00 Bisacodyl (Dulcolax) 5 mg DAILY PRN PO CONSTIPATION; Start 11/06/18 at 20:00 Citric Acid/ Sodium Citrate (Bicitra) 30 ml BID PO Last administered on 11/13/18at 09:03; Admin Dose 30 ML; Start 11/06/18 at 21:00 Docusate Sodium (Colace) 100 mg Q12H PRN PO CONSTIPATION; Start 11/06/18 at 20:0 0 Famotidine (Pepcid) 20 mg DAILY PO Last administered on 11/14/18 09:29; Admin Dose 20 MG; Start 11/07/18 at 09:00 Heparin Sodium (Porcine) (Heparin (5000 Units/1ml)) 5,000 unit Q8 SC Last administered on 11/14/18at 06:06; Admin Dose 5,000 UNIT; Start 11/06/18 at 22:00 Magnesium Oxide (Mag-Ox 400) 400 mg BID PO Last administered on 11/14/18 09:29; Admin Dose 400 MG; Start 11/06/18 at 21:00 Thiamine HCl (Vitamin B1) 100 mg DAILY PO Last administered on 11/14/18 09:29; Admin Dose 100 MG; Start 11/07/18 at 09:00 Ciprofloxacin (Cipro) 250 mg BID@,18 PO Last administered on 11/14/18at 06:04; Admin Dose 250 MG; Start 11/08/18 at 06:00 Ferrous Sulfate (Ferrous Sulfate (Ec)) 325 mg BID PO Last administered on 11/14/18 09:29; Admin Dose 325 MG; Start 11/08/18 at 21:00 NYDIA PERKINS NP Nov 14, 2018 14:27
--- NOTE | 2018-11-14 15:25 | PN ---
Date/Time of Note Date/Time of Note DATE: 11/14/18 TIME: 15:25 Objective Vitals Vital Signs Date Temp Pulse Resp B/P (MAP) Pulse Ox O2 O2 Flow FiO2 Time Delivery Rate 11/14/18 98.6 86 18 116/69 96 Room Air 07:00 (85) Intake and Output 11/13/18 11/13/18 11/14/18 1515:00 23:00 07:00 IntakeIntake Total 1640 ml 1440 ml OutputOutput Total 550 ml 850 ml BalanceBalance 1090 ml 590 ml Results Result Diagram: 11/12/1852 11/12/1852 Medications Medications Current Medications Docusate Sodium (Colace) 100 mg BID PO Last administered on 11/14/18at 09:29; Admin Dose 100 MG; Start 11/06/18 at 21:00 Senna (Senokot) 1 tab HS PO Last administered on 11/12/18at 20:45; Admin Dose 1 TAB; Start 11/06/18 at 21:00 Magnesium Hydroxide (Milk Of Mag) 30 ml BID PRN PO CONSTIPATION; Start 11/06/18 at 18:30 Lactulose (Enulose) 20 gm DAILY PRN PO CONSTIPATION; Start 11/06/18 at 18:30 Bisacodyl (Dulcolax Supp) 10 mg DAILY PRN [place] CONSTIPATION; Start 11/06/18 at 18:30 [facility] This patient frank... PRN PRN XX wound; Start 11/06/18 at 18:30 Acetaminophen (Tylenol Tab) 650 mg Q6H PRN PO PAIN LEVEL 1-3 OR FEVER; Start 11/06/18 at 20:00 Bisacodyl (Dulcolax) 5 mg DAILY PRN PO CONSTIPATION; Start 11/06/18 at 20:00 Citric Acid/ Sodium Citrate (Bicitra) 30 ml BID PO Last administered on 11/13/18at 09:03; Admin Dose 30 ML; Start 11/06/18 at 21:00 Docusate Sodium (Colace) 100 mg Q12H PRN PO CONSTIPATION; Start 11/06/18 at 20:00 Famotidine (Pepcid) 20 mg DAILY PO Last administered on 11/14/18at 09:29; Admin Dose 20 MG; Start 11/07/18 at 09:00 Heparin Sodium (Porcine) (Heparin (5000 Units/1ml)) 5,000 unit Q8 SC Last administered on 11/14/18at 06:06; Admin Dose 5,000 UNIT; Start 11/06/18 at 22:00 Magnesium Oxide (Mag-Ox 400) 400 mg BID PO Last administered on 11/14/18at 09:29; Admin Dose 400 MG; Start 11/06/18 at 21:00 Thiamine HCl (Vitamin B1) 100 mg DAILY PO Last administered on 11/14/18at 09:29; Admin Dose 100 MG; Start 11/07/18 at 09:00 Ciprofloxacin (Cipro) 250 mg BID@06,18 PO Last administered on 11/14/18 06:04; Admin Dose 250 MG; Start 11/08/18 at 06:00 Ferrous Sulfate (Ferrous Sulfate (Ec)) 325 mg BID PO Last administered on 11/14/18 09:29; Admin Dose 325 MG; Start 11/08/18 at 21:00 VTE Pro[place]axis [place] [facility] [place]: 3 [place]CD [place] [facility] [place] SCD contraindication: other Lines/Catheters IV Catheter Type: Marks in Place: No Assessment/Plan Hospital Course Subjective no acute overnight events Objective Physical exam General: Patient is laying in bed and answers questions appropriately Mentation: Patient is alert and oriented 4, Head: Normocephalic atraumatic Eyes: EOMI, pupils reactive to light Neck: Supple, nontender, midline Respiratory: Clear to auscultation bilaterally Cardiovascular: regular rate, no obvious murmurs Gastrointestinal: non-tender to palpation, bowel sounds heard. Neurological: Moves all extremities spontaneously Skin: No new skin lesions SSESSMENT/PLAN: 73-year-old male with CKD -refused to be on hemodialysis, urinary retention requiring chronic Marks, recurrent UTI, transferred from [facility] s/p CAUTI treatment, acute kidney injury, ileus/gastroenteritis, for rehabilitation. 1. Catheter associated urinary tract infection, recurrent -s/p Marks DC and reinsertion multiple times, will keep in for now per urology -Follow-up cultures negative so far -ID to manage oral abx 2. Sepsis secondary to #1 -stable white count -Continue current medical management 3. Chronic urinary retention/Neurogenic bladder, requiring indwelling Marks... -Culprit of frequent UTI and obstructive uropathy. -Unfortunately, patient with no family support available to do in and out catheterization after discharge=> as such, he preferred to go home with Marks in place and will have PCP follow-up for Marks changes 4. Acute kidney injury on CKD with baseline creatinine unknown -Culprit of acute kidney injury likely obstructive uropathy with #1. -Creatinine went up today, likely secondary to patient has not voided after Marks removal... -Nephrology following. -Patient had refused hemodialysis treatment=>On conservative medical management 5. Anemia of CKD. -Stable H&H. -cont oral iron replacement MONIE BURNETT Nov 14, 2018 15:25
--- NOTE | 2018-11-14 19:00 | NUR ---
Patient seen not in distress or discomfort this time. Due medications given. Refused blood draw despite explanation using a hosiery operator ([id number]). Participated with therapy today. Call light and bedside table placed within reach. Bed alarm activated for safety and bed placed on lowest position. Needs attended and continuous monitoring provided. Will endorse to next shift.
[2018-11-14 19:30] VITALS: BP 125/64; PULSE 66; RESP 19
[2018-11-14] MEDS: SENNA TAB PO SCH (21:36)
[2018-11-15 02:00] VITALS: BP 101/64; PULSE 82; RESP 18
--- NOTE | 2018-11-15 05:16 | NUR ---
Pt stable with no acute distress noted. Due medications given and all needs attended. Pt with daniels catheter patent and draining well. Pt able to ambulate to the bathroom using FWW, no BM noted. Pt can reposition himself in bed. Safety measures in place. Hourly rounding made. Bed alarm activated for safety. bed side rails up and call light within pt's reach.
[2018-11-15] MEDS: CIPROFLOXACIN 250 MG TAB PO SCH ×2 (06:02→16:58)
[2018-11-15] MEDS: HEPARIN 5,000 UNIT/1 ML VIAL SC SCH ×3 (06:07→22:43)
[2018-11-15 07:00] VITALS: BP 110/64; PULSE 83; RESP 17
[2018-11-15] MEDS: CITRIC ACID/NA CITRATE 30 ML CUP PO SCH ×2 (09:00→20:58)
[2018-11-15 09:45] VITALS: BP 110/64; PULSE 83; RESP 17
[2018-11-15] MEDS: MAGNESIUM OXIDE 400 MG TAB PO SCH ×2 (09:55→20:58)
[2018-11-15] MEDS: DOCUSATE SODIUM 100 MG CAP PO SCH ×2 (09:55→20:58)
[2018-11-15] MEDS: THIAMINE 100 MG TAB PO SCH (09:55)
[2018-11-15] MEDS: FAMOTIDINE 20 MG TAB PO SCH (09:55)
[2018-11-15] MEDS: FERROUS SULFATE (EC) 325 MG TAB PO SCH ×2 (09:55→20:58)
--- NOTE | 2018-11-15 12:31 | CONS ---
Date/Time of Note Date/Time of Note DATE: 11/15/18 TIME: 12:31 Assessment/Plan Assessment/Plan Assessment/Plan 1. acute vs acute on chronic renal failure due to Obstruction + prerenal azotemia 2. H/o left nephrectomy, unclear history 3. metabolic acidosis 4. anemia for CKD 5. Severe hydronephrosis Right side Plan: Bicitra 30ml PO BID for acidosis, BUN/Cr 39/5.31, WBC 13.1- no labs today to re view ye t CT Abdomen + pelvis w/o contrast showed R hydronephrosis, s/p Urology consult, no surgical intervention at this time will follow up Result Diagram: 11/12/18 0552 11/12/18 0552 Consultation Date/Type/Reason Admit Date/Time Nov 06, 2018 at 18:19 Initial Consult Date Type of Consult NEPHROLOGY Requesting Provider: WALTER CARTER NP Exam/Review of Systems Vital Signs Vitals Vital Signs Date Temp Pulse Resp B/P (MAP) Pulse Ox O2 O2 Flow FiO2 Time Delivery Rate 11/15/18 99.4 83 17 110/64 99 Room Air 09:45 (79) Intake and Output 11/14/18 11/14/18 11/15/18 1414:59 22:59 06:59 IntakeIntake Total 1600 ml OutputOutput Total 1000 ml BalanceBalance 600 ml Exam Constitutional: alert, awake ENMT: nl external ears & nose Neck: supple, non-tender Respiratory: clear to auscultation, diminished breath sounds Cardiovascular: regular rate and rhythm, nl pulses Gastrointestinal: soft, non-tender Extremities: normal pulses Neurological: non focal Medications Medications Current Medications Docusate Sodium (Colace) 100 mg BID PO Last administered on 11/15/18at 09:55; Admin Dose 100 MG; Start 11/06/18 at 21:00 Senna (Senokot) 1 tab HS PO Last administered on 11/14/18at 21:36; Admin Dose 1 TAB; Start 11/06/18 at 21:00 Magnesium Hydroxide (Milk Of Mag) 30 ml BID PRN PO CONSTIPATION; Start 11/06/18 at 18:30 Lactulose (Enulose) 20 gm DAILY PRN PO CONSTIPATION; Start 11/06/18 at 18:30 Bisacodyl (Dulcolax Supp) 10 mg DAILY PRN [place] CONSTIPATION; Start 11/06/18 at 18:30 Miscellaneous Information (Pending Santyl Order For Wound Care) This patient frank... PRN PRN XX wound; Start 11/06/18 at 18:30 Acetaminophen (Tylenol Tab) 650 mg Q6H PRN PO PAIN LEVEL 1-3 OR FEVER; Start 11/06/18 at 20:00 Bisacodyl (Dulcolax) 5 mg DAILY PRN PO CONSTIPATION; Start 11/06/18 at 20:00 Citric Acid/ Sodium Citrate (Bicitra) 30 ml BID PO Last administered on 11/13/18 09:03; Admin Dose 30 ML; Start 11/06/18 at 21:00 Docusate Sodium (Colace) 100 mg Q12H PRN PO CONSTIPATION; Start 11/06/18 at 20:00 Famotidine (Pepcid) 20 mg DAILY PO Last administered on 11/15/18 09:55; Admin Dose 20 MG; Start 11/07/18 at 09:00 Heparin Sodium (Porcine) (Heparin (5000 Units/1ml)) 5,000 unit Q8 SC Last administered on 11/15/18 06:07; Admin Dose 5,000 UNIT; Start 11/06/18 at 22:00 Magnesium Oxide (Mag-Ox 400) 400 mg BID PO Last administered on 11/15/18 09:55; Admin Dose 400 MG; Start 11/06/18 at 21:00 Thiamine HCl (Vitamin B1) 100 mg DAILY PO Last administered on 11/15/18 09:55; Admin Dose 100 MG; Start 11/07/18 at 09:00 Ciprofloxacin (Cipro) 250 mg BID@ PO Last administered on 11/15/18 06:02; Admin Dose 250 MG; Start 11/08/18 at 06:00 Ferrous Sulfate (Ferrous Sulfate (Ec)) 325 mg BID PO Last administered on 11/15/18 09:55; Admin Dose 325 MG; Start 11/08/18 at 21:00 YAIR GOLDSMITH MD Nov 15, 2018 12:31
--- NOTE | 2018-11-15 12:52 | PN ---
Date/Time of Note Date/Time of Note DATE: 11/15/18 TIME: 12:51 Subjective Comfortable Objective Vital Signs Date Temp Pulse Resp B/P (MAP) Pulse Ox O2 O2 Flow FiO2 Time Delivery Rate 11/15/18 99.4 83 17 110/64 99 Room Air 09:45 (79) Intake and Output 11/14/18 11/14/18 11/15/18 1515:00 23:00 07:00 IntakeIntake Total 1600 ml OutputOutput Total 1000 ml BalanceBalance 600 ml Exam [id number] sba ambulation Results/Medications Result Diagram: 11/12/1852 11/12/1852 Medications Current Medications Docusate Sodium (Colace) 100 mg BID PO Last administered on 11/15/18at 09:55; Admin Dose 100 MG; Start 11/06/18 at 21:00 Senna (Senokot) 1 tab HS PO Last administered on 11/14/18at 21:36; Admin Dose 1 TAB; Start 11/06/18 at 21:00 Magnesium Hydroxide (Milk Of Mag) 30 ml BID PRN PO CONSTIPATION; Start 11/06/18 at 18:30 Lactulose (Enulose) 20 gm DAILY PRN PO CONSTIPATION; Start 11/06/18 at 18:30 Bisacodyl (Dulcolax Supp) 10 mg DAILY PRN [place] CONSTIPATION; Start 11/06/18 at 18:30 Miscellaneous Information (Pending [facility] Order For Wound Care) This patient frank... PRN PRN XX wound; Start 11/06/18 at 18:30 Acetaminophen (Tylenol Tab) 650 mg Q6H PRN PO PAIN LEVEL 1-3 OR FEVER; Start 11/06/18 at 20:00 Bisacodyl (Dulcolax) 5 mg DAILY PRN PO CONSTIPATION; Start 11/06/18 at 20:00 Citric Acid/ Sodium Citrate (Bicitra) 30 ml BID PO Last administered on 11/13/18at 09:03; Admin Dose 30 ML; Start 11/06/18 at 21:00 Docusate Sodium (Colace) 100 mg Q12H PRN PO CONSTIPATION; Start 11/06/18 at 20: 00 Famotidine (Pepcid) 20 mg DAILY PO Last administered on 11/15/18at 09:55; Admin Dose 20 MG; Start 11/07/18 at 09:00 Heparin Sodium (Porcine) (Heparin (5000 Units/1ml)) 5,000 unit Q8 SC Last administered on 11/15/18at 06:07; Admin Dose 5,000 UNIT; Start 11/06/18 at 22:00 Magnesium Oxide (Mag-Ox 400) 400 mg BID PO Last administered on 11/15/18at 09:55; Admin Dose 400 MG; Start 11/06/18 at 21:00 Thiamine HCl (Vitamin B1) 100 mg DAILY PO Last administered on 11/15/18at 09:55; Admin Dose 100 MG; Start 11/07/18 at 09:00 Ciprofloxacin (Cipro) 250 mg BID@ PO Last administered on 11/15/18at 06:02; Admin Dose 250 MG; Start 11/08/18 at 06:00 Ferrous Sulfate (Ferrous Sulfate (Ec)) 325 mg BID PO Last administered on 11/15/18at 09:55; Admin Dose 325 MG; Start 11/08/18 at 21:00 Assessment/Plan Additional Assessment/Plan Rehab- Debility;Toxic metabolic encephalopathy. SW was able to contact patient's caregiver who reports she will be able to provide assist at home. Will arrange caregiver training, and anticipate sunday - Acute on chronic kidney disease with a history of nephrectomy; UTI,obstructive uropathy- followed by Urology and Renal HTN VENU BELLE MD Nov 15, 2018 12:52
[2018-11-15 14:00] VITALS: BP 110/63; PULSE 71; RESP 16
--- NOTE | 2018-11-15 14:49 | PN ---
Date/Time of Note Date/Time of Note DATE: 11/15/18 TIME: 14:45 Objective Vitals Vital Signs Date Temp Pulse Resp B/P (MAP) Pulse Ox O2 O2 Flow FiO2 Time Delivery Rate 11/15/18 97.7 71 16 110/63 96 Room Air 14:00 (79) Intake and Output 11/14/18 11/14/18 11/15/18 1515:00 23:00 07:00 IntakeIntake Total 1600 ml OutputOutput Total 1000 ml BalanceBalance 600 ml Results Result Diagram: 11/12/18 0552 11/12/18 0552 Medications Medications Current Medications Docusate Sodium (Colace) 100 mg BID PO Last administered on 11/15/18at 09:55; Admin Dose 100 MG; Start 11/06/18 at 21:00 Senna (Senokot) 1 tab HS PO Last administered on 11/14/18at 21:36; Admin Dose 1 TAB; Start 11/06/18 at 21:00 Magnesium Hydroxide (Milk Of Mag) 30 ml BID PRN PO CONSTIPATION; Start 11/06/18 at 18:30 Lactulose (Enulose) 20 gm DAILY PRN PO CONSTIPATION; Start 11/06/18 at 18:30 Bisacodyl (Dulcolax Supp) 10 mg DAILY PRN [place] CONSTIPATION; Start 11/06/18 at 18:30 [facility] This patient frank... PRN PRN XX wound; Start 11/06/18 at 18:30 Acetaminophen (Tylenol Tab) 650 mg Q6H PRN PO PAIN LEVEL 1-3 OR FEVER; Start 11/06/18 at 20:00 Bisacodyl (Dulcolax) 5 mg DAILY PRN PO CONSTIPATION; Start 11/06/18 at 20:00 Citric Acid/ Sodium Citrate (Bicitra) 30 ml BID PO Last administered on at 09:03; Admin Dose 30 ML; Start 11/06/18 at 21:00 Docusate Sodium (Colace) 100 mg Q12H PRN PO CONSTIPATION; Start 11/06/18 at 20:00 Famotidine (Pepcid) 20 mg DAILY PO Last administered on 11/15/18at 09:55; Admin Dose 20 MG; Start 11/07/18 at 09:00 Heparin Sodium (Porcine) (Heparin (5000 Units/1ml)) 5,000 unit Q8 SC Last administered on 11/15/18at 06:07; Admin Dose 5,000 UNIT; Start 11/06/18 at 22:00 Magnesium Oxide (Mag-Ox 400) 400 mg BID PO Last administered on 11/15/18 09:55; Admin Dose 400 MG; Start 11/06/18 at 21:00 Thiamine HCl (Vitamin B1) 100 mg DAILY PO Last administered on 11/15/18 09:55; Admin Dose 100 MG; Start 11/07/18 at 09:00 Ciprofloxacin (Cipro) 250 mg BID@18 PO Last administered on 11/15/18 06:02; Admin Dose 250 MG; Start 11/08/18 at 06:00 Ferrous Sulfate (Ferrous Sulfate (Ec)) 325 mg BID PO Last administered on 11/15/18 09:55; Admin Dose 325 MG; Start 11/08/18 at 21:00 VTE Prophylaxis Risk score (from [facility] [place] risk: 3 SCD applied (from [facility] No SCD contraindication: other Lines/Catheters IV Catheter Type: Marks in Place: No Assessment/Plan Hospital Course Subjective no acute overnight events Objective Physical exam General: Patient is laying in bed and answers questions appropriately Mentation: Patient is alert and oriented 4, Head: Normocephalic atraumatic Eyes: EOMI, pupils reactive to light Neck: Supple, nontender, midline Respiratory: Clear to auscultation bilaterally Cardiovascular: regular rate, no obvious murmurs Gastrointestinal: non-tender to palpation, bowel sounds heard. Neurological: Moves all extremities spontaneously Skin: No new skin lesions SSESSMENT/PLAN: 73-year-old male with CKD -refused to be on hemodialysis, urinary retention requiring chronic Marks, recurrent UTI, transferred from [facility] s/p CAUTI treatment, acute kidney injury, ileus/gastroenteritis, for rehabilita tion. 1. Catheter associated urinary tract infection, recurrent -s/p Marks DC and reinsertion multiple times, will keep in for now per urology -Follow-up cultures negative so far -ID to manage oral abx 2. Sepsis secondary to #1 -stable white count -Continue current medical management 3. Chronic urinary retention/Neurogenic bladder, requiring indwelling Marks... -Culprit of frequent UTI and obstructive uropathy. -Unfortunately, patient with no family support available to do in and out darya terization after discharge=> as such, he preferred to go home with Marks in place and will have PCP follow-up for Marks changes 4. Acute kidney injury on CKD with baseline creatinine unknown -Culprit of acute kidney injury likely obstructive uropathy with #1. -Creatinine went up today, likely secondary to patient has not voided after Marks removal... -Nephrology following. -Patient had refused hemodialysis treatment=>On conservative medical management 5. Anemia of CKD. -Stable H&H. -cont oral iron replacement MONIE BURNETT Nov 15, 2018 14:49
--- NOTE | 2018-11-15 14:50 | CONS ---
Date/Time of Note Date/Time of Note DATE: 11/15/18 TIME: 14:49 Assessment/Plan Assessment/Plan Hospital Course No acute events overnight, no fevers Antimicrobials: Ciprofloxacin Microbiology: Urine culture grew Morganella and Klebsiella pneumonia, repeat culture negative Physical examination: Well-developed elderly man in no distress. Head atraumatic normocephalic neck is supple chest rise symmetrical breath sounds diminished bases heart S1-S2 abdomen soft bowel sounds present extremities without cyanosis Assessment: 1. Pyelonephritis with right hydronephrosis 2. Acute on chronic kidney disease 3. Urinary retention Plan: Remains stable, repeat urine culture negative, will dc antibiotics and observe, f/u urology recommendations Result Diagram: 11/12/18 0552 11/12/18 0552 Consultation Date/Type/Reason Admit Date/Time Nov 06, 2018 at 18:19 Initial Consult Date Type of Consult id Requesting Provider: WALTER CARTER V. ANESTHESIOLOGIST Exam/Review of Systems Vital Signs Vitals Vital Signs Date Temp Pulse Resp B/P (MAP) Pulse Ox O2 O2 Flow FiO2 Time Delivery Rate 11/15/18 97.7 71 16 110/63 96 Room Air 14:00 (79) Intake and Output 11/14/18 11/14/18 11/15/18 1515:00 23:00 07:00 IntakeIntake Total 1600 ml OutputOutput Total 1000 ml BalanceBalance 600 ml Medications Medications Current Medications Docusate Sodium (Colace) 100 mg BID PO Last administered on 11/15/18at 09:55; Admin Dose 100 MG; Start 11/06/18 at 21:00 Senna (Senokot) 1 tab HS PO Last administered on 11/14/18at 21:36; Admin Dose 1 TAB; Start 11/06/18 at 21:00 Magnesium Hydroxide (Milk Of Mag) 30 ml BID PRN PO CONSTIPATION; Start 11/06/18 at 18:30 Lactulose (Enulose) 20 gm DAILY PRN PO CONSTIPATION; Start 11/06/18 at 18:30 Bisacodyl (Dulcolax Supp) 10 mg DAILY PRN [place] CONSTIPATION; Start 11/06/18 at 18:30 [facility] This patient frank... PRN PRN XX wound; Start 11/06/18 at 18:30 Acetaminophen (Tylenol Tab) 650 mg Q6H PRN PO PAIN LEVEL 1-3 OR FEVER; Start 11/06/18 at 20:00 Bisacodyl (Dulcolax) 5 mg DAILY PRN PO CONSTIPATION; Start 11/06/18 at 20:00 Citric Acid/ Sodium Citrate (Bicitra) 30 ml BID PO Last administered on 11/13/18 09:03; Admin Dose 30 ML; Start 11/06/18 at 21:00 Docusate Sodium (Colace) 100 mg Q12H PRN PO CONSTIPATION; Start 11/06/18 at 20:00 Famotidine (Pepcid) 20 mg DAILY PO Last administered on 11/15/18 09:55; Admin Dose 20 MG; Start 11/07/18 at 09:00 Heparin Sodium (Porcine) (Heparin (5000 Units/1ml)) 5,000 unit Q8 SC Last administered on 11/15/18 06:07; Admin Dose 5,000 UNIT; Start 11/06/18 at 22:00 Magnesium Oxide (Mag-Ox 400) 400 mg BID PO Last administered on 11/15/18 09:55; Admin Dose 400 MG; Start 11/06/18 at 21:00 Thiamine HCl (Vitamin B1) 100 mg DAILY PO Last administered on 11/15/18 09:55; Admin Dose 100 MG; Start 11/07/18 at 09:00 Ciprofloxacin (Cipro) 250 mg BID@,18 PO Last administered on 11/15/18 06:02; Admin Dose 250 MG; Start 11/08/18 at 06:00 Ferrous Sulfate (Ferrous Sulfate (Ec)) 325 mg BID PO Last administered on 11/15/18 09:55; Admin Dose 325 MG; Start 11/08/18 at 21:00 NYDIA PERKINS NP Nov 15, 2018 14:50
--- NOTE | 2018-11-15 17:00 | NUR ---
Patient up in wheelchair watching TV. Offered educational materials for recreational activities. Alert, oriented x 3. No SOB. Denies pain. No adverse reaction noted with PO ATB treatment. Kept clean & dry. All due meds given. Call light within reach. Chair alarm on. Kept comfortable.
[2018-11-15 20:07] VITALS: BP 115/65; PULSE 78; RESP 18
[2018-11-15] MEDS: SENNA TAB PO SCH (20:58)
[2018-11-16 02:00] VITALS: BP 120/60; PULSE 85; RESP 18
--- NOTE | 2018-11-16 06:01 | NUR ---
Received patient at 0330, resting in bed. No s/s of distress/pain. Needs attended. Hourly rounds done. Call light in reach. Bed alarm on.
[2018-11-16] MEDS: CIPROFLOXACIN 250 MG TAB PO SCH ×2 (06:35→17:26)
[2018-11-16] MEDS: HEPARIN 5,000 UNIT/1 ML VIAL SC SCH ×3 (06:51→21:07)
[2018-11-16 07:30] VITALS: BP 100/56; PULSE 84; RESP 18
[2018-11-16] MEDS: CITRIC ACID/NA CITRATE 30 ML CUP PO SCH ×2 (08:35→20:58)
[2018-11-16] MEDS: MAGNESIUM OXIDE 400 MG TAB PO SCH ×2 (08:35→20:58)
[2018-11-16] MEDS: FAMOTIDINE 20 MG TAB PO SCH (08:36)
[2018-11-16] MEDS: FERROUS SULFATE (EC) 325 MG TAB PO SCH ×2 (08:36→20:59)
[2018-11-16] MEDS: DOCUSATE SODIUM 100 MG CAP PO SCH ×2 (08:36→20:59)
[2018-11-16] MEDS: THIAMINE 100 MG TAB PO SCH (08:36)
[2018-11-16] MEDS: ACETAMINOPHEN 325 MG TAB PO PRN ×2 (12:05→17:26)
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
--- NOTE | 2018-11-16 12:39 | PN ---
Date/Time of Note Date/Time of Note DATE: 11/16/18 TIME: 12:38 Objective Vitals Vital Signs Date Temp Pulse Resp B/P (MAP) Pulse Ox O2 O2 Flow FiO2 Time Delivery Rate 11/16/18 98.5 85 18 120/60 97 Room Air 02:00 (80) Intake and Output 11/15/18 11/15/18 11/16/18 1515:00 23:00 07:00 IntakeIntake Total 200 ml 1950 ml 500 ml OutputOutput Total 700 ml 840 ml BalanceBalance -500 ml 1110 ml 500 ml Results Result Diagram: 11/12/1852 11/12/1852 Medications Medications Current Medications Docusate Sodium (Colace) 100 mg BID PO Last administered on 11/16/18at 08:36; Admin Dose 100 MG; Start 11/06/18 at 21:00 Senna (Senokot) 1 tab HS PO Last administered on 11/15/18at 20:58; Admin Dose 1 TAB; Start 11/06/18 at 21:00 Magnesium Hydroxide (Milk Of Mag) 30 ml BID PRN PO CONSTIPATION; Start 11/06/18 at 18:30 Lactulose (Enulose) 20 gm DAILY PRN PO CONSTIPATION; Start 11/06/18 at 18:30 Bisacodyl (Dulcolax Supp) 10 mg DAILY PRN [place] CONSTIPATION; Start 11/06/18 at 18:30 Miscellaneous Information (Pending [facility] Order For Wound Care) This patient frank... PRN PRN XX wound; Start 11/06/18 at 18:30 Acetaminophen (Tylenol Tab) 650 mg Q6H PRN PO PAIN LEVEL 1-3 OR FEVER Last administered on 11/16/18at 12:05; Admin Dose 650 MG; Start 11/06/18 at 20:00 Bisacodyl (Dulcolax) 5 mg DAILY PRN PO CONSTIPATION; Start 11/06/18 at 20:00 Citric Acid/ Sodium Citrate (Bicitra) 30 ml BID PO Last administered on 11/16/18at 08:35; Admin Dose 30 ML; Start 11/06/18 at 21:00 Docusate Sodium (Colace) 100 mg Q12H PRN PO CONSTIPATION; Start 11/06/18 at 20:00 Famotidine (Pepcid) 20 mg DAILY PO Last administered on 11/16/18 08:36; Admin Dose 20 MG; Start 11/07/18 at 09:00 Heparin Sodium (Porcine) (Heparin (5000 Units/1ml)) 5,000 unit Q8 SC Last administered on 11/16/18 06:51; Admin Dose 5,000 UNIT; Start 11/06/18 at 22:00 Magnesium Oxide (Mag-Ox 400) 400 mg BID PO Last administered on 11/16/18 08:35; Admin Dose 400 MG; Start 11/06/18 at 21:00 Thiamine HCl (Vitamin B1) 100 mg DAILY PO Last administered on 11/16/18 08:36; Admin Dose 100 MG; Start 11/07/18 at 09:00 Ciprofloxacin (Cipro) 250 mg BID@,18 PO Last administered on 11/16/18 06:35; Admin Dose 250 MG; Start 11/08/18 at 06:00 Ferrous Sulfate (Ferrous Sulfate (Ec)) 325 mg BID PO Last administered on 11/16/18 08:36; Admin Dose 325 MG; Start 11/08/18 at 21:00 VTE Prophylaxis Risk score (from [facility]0 risk: 7 [place] [facility] SCD contraindication: other Lines/Catheters IV Catheter Type: Marks in Place: No Assessment/Plan Hospital Course Subjective no acute overnight events Objective Physical exam General: Patient is laying in bed and answers questions appropriately Mentation: Patient is alert and oriented 4, Head: Normocephalic atraumatic Eyes: EOMI, pupils reactive to light Neck: Supple, nontender, midline Respiratory: Clear to auscultation bilaterally Cardiovascular: regular rate, no obvious murmurs Gastrointestinal: non-tender to palpation, bowel sounds heard. Neurological: Moves all extremities spontaneously Skin: No new skin lesions SSESSMENT/PLAN: 73-year-old male with CKD -refused to be on hemodialysis, urinary retention requiring chronic Marks, recurrent UTI, transferred from [facility] s/p CAUTI treatment, acute kidney injury, ileus/gastroenteritis, for rehabilitation. 1. Catheter associated urinary tract infection, recurrent -s/p Marks DC and reinsertion multiple times, will keep in for now per urology -Follow-up cultures negative so far -ID to manage oral abx 2. Sepsis secondary to #1 -stable white count -Continue current medical management 3. Chronic urinary retention/Neurogenic bladder, requiring indwelling Marks... -Culprit of frequent UTI and obstructive uropathy. -Unfortunately, patient with no family support available to do in and out catheterization after discharge=> as such, he preferred to go home with Marks in place and will have PCP follow-up for Marks changes 4. Acute kidney injury on CKD with baseline creatinine unknown -Culprit of acute kidney injury likely obstructive uropathy with #1. -Creatinine went up today, likely secondary to patient has not voided after Marks removal... -Nephrology following. -Patient had refused hemodialysis treatment=>On conservative medical management 5. Anemia of CKD. -Stable H&H. -cont oral iron replacement MONIE BURNETT Nov 16, 2018 12:39
[2018-11-16 14:00] VITALS: BP 108/57; PULSE 72; RESP 18
--- NOTE | 2018-11-16 17:41 | NUR ---
Patient up in wheelchair eating dinner & watching TV. Offered educational materials for recreational activities. Alert, oriented x 3. No SOB. Complained of pain so given PRN pain medication. Relieved after 30 minutes. No adverse reaction noted with PO ATB treatment. Kept clean & dry. All due meds given. Call light within reach. Chair alarm on. Kept comfortable.
[2018-11-16 19:59] VITALS: BP 120/64; PULSE 82; RESP 18
[2018-11-16] MEDS: SENNA TAB PO SCH (20:58)
--- NOTE | 2018-11-16 21:54 | CONS ---
Date/Time of Note Date/Time of Note DATE: 11/16/18 TIME: 21:51 Assessment/Plan Assessment/Plan Assessment/Plan 1. acute vs acute on chronic renal failure due to Obstruction + prerenal azotemia 2. H/o left nephrectomy, unclear history 3. metabolic acidosis 4. anemia for CKD 5. Severe hydronephrosis Right side Plan: Bicitra 30ml PO BID for acidosis, BUN/Cr 39/5.31, WBC 13.1- no labs today to re view ye t CT Abdomen + pelvis w/o contrast showed R hydronephrosis, s/p Urology consult, no surgical intervention at this time will follow up Result Diagram: 11/12/18 0552 11/12/18 0552 Consultation Date/Type/Reason Admit Date/Time Nov 06, 2018 at 18:19 Initial Consult Date Type of Consult NEPHROLOGY Requesting Provider: WALTER CARTER NP Exam/Review of Systems Vital Signs Vitals Vital Signs Date Temp Pulse Resp B/P (MAP) Pulse Ox O2 O2 Flow FiO2 Time Delivery Rate 11/16/18 98.5 82 18 120/64 98 Room Air 19:59 (82) Intake and Output 11/15/18 11/15/18 11/16/18 1414:59 22:59 06:59 IntakeIntake Total 200 ml 1950 ml 500 ml OutputOutput Total 700 ml 840 ml BalanceBalance -500 ml 1110 ml 500 ml Exam Constitutional: alert, awake ENMT: nl external ears & nose Neck: supple, non-tender Respiratory: clear to auscultation, diminished breath sounds Cardiovascular: regular rate and rhythm, nl pulses Gastrointestinal: soft, non-tender Extremities: normal pulses Neurological: non focal Medications Medications Current Medications Docusate Sodium (Colace) 100 mg BID PO Last administered on 11/16/18at 20:59; Admin Dose 100 MG; Start 11/06/18 at 21:00 Senna (Senokot) 1 tab HS PO Last administered on 11/16/18at 20:58; Admin Dose 1 TAB; Start 11/06/18 at 21:00 Magnesium Hydroxide (Milk Of Mag) 30 ml BID PRN PO CONSTIPATION; Start 11/06/18 at 18:30 Lactulose (Enulose) 20 gm DAILY PRN PO CONSTIPATION; Start 11/06/18 at 18:30 Bisacodyl (Dulcolax Supp) 10 mg DAILY PRN [place] CONSTIPATION; Start 11/06/18 at 18:30 Miscellaneous Information (Pending [facility] Order For Wound Care) This patient frank... PRN PRN XX wound; Start 11/06/18 at 18:30 Acetaminophen (Tylenol Tab) 650 mg Q6H PRN PO PAIN LEVEL 1-3 OR FEVER Last administered on 11/16/18 17:26; Admin Dose 650 MG; Start 11/06/18 at 20:00 Bisacodyl (Dulcolax) 5 mg DAILY PRN PO CONSTIPATION; Start 11/06/18 at 20:00 Citric Acid/ Sodium Citrate (Bicitra) 30 ml BID PO Last administered on 11/16/18 20:58; Admin Dose 30 ML; Start 11/06/18 at 21:00 Docusate Sodium (Colace) 100 mg Q12H PRN PO CONSTIPATION; Start 11/06/18 at 20:00 Famotidine (Pepcid) 20 mg DAILY PO Last administered on 11/16/18 08:36; Admin Dose 20 MG; Start 11/07/18 at 09:00 Heparin Sodium (Porcine) (Heparin (5000 Units/1ml)) 5,000 unit Q8 SC Last administered on 11/16/18 21:07; Admin Dose 5,000 UNIT; Start 11/06/18 at 22:00 Magnesium Oxide (Mag-Ox 400) 400 mg BID PO Last administered on 11/16/18 20:58; Admin Dose 400 MG; Start 11/06/18 at 21:00 Thiamine HCl (Vitamin B1) 100 mg DAILY PO Last administered on 11/16/18at 08:36; Admin Dose 100 MG; Start 11/07/18 at 09:00 Ciprofloxacin (Cipro) 250 mg BID@06,18 PO Last administered on 11/16/18 17:26; Admin Dose 250 MG; Start 11/08/18 at 06:00 Ferrous Sulfate (Ferrous Sulfate (Ec)) 325 mg BID PO Last administered on 11/16/18 20:59; Admin Dose 325 MG; Start 11/08/18 at 21:00 YAIR GOLDSMITH MD Nov 16, 2018 21:54
--- NOTE | 2018-11-17 00:43 | NUR ---
SUN RN Weekly Summary Dates From: 11/11/18 to 11/17/18 Patient Name: KALI VARGAS MR#: [id number] Height: 5 ft 4 in Weight: 132 lbs 0.91 oz 59.900 kg Reason for Visit: DEBILITY Precautions: Fall Date: 11/17/18 Time: 0043 User: TERESE ALCANTAREN Short-term Goals: 1.Free from fall/Injury 2.Pain level will be controlled. 3.Regular pattern of B&B 4.Skin integrity will be maintained. 5.Pt will be free from bleeding from anticoagulant therapy Patient's progress: Fair Short-term goals not met and reason/barriers:Ongoing Bladder - level of function and accidents:1, no accident, pt is on daniels's cath Bowel - level of function and accidents: 6, no accident Skin: Intact Status: Treatment: Changes: Pain: yes Level: 3/10 Location: Generalized Management: Tylenol po prn Changes: No Functional levels: Self Care:4 Transfers:5 Locomotion:4 Assistance requirements: Communication:5 Social Cognition:5 Safety awareness: Yes, high risk for fall, bed alarm activated for safety Interdisciplinary interactions:PT/OT/ST/SW/RT/RN/MD Patient education:Given QShift and PRN regarding medication teaching, and fall precautions, use of call light. Discharge needs: 11/19/18 Comorbid conditions:Complicated UTI, Obstructive Uropathy, CKD, anemia, metabolic acidosis, HTN, Nephrectomy, Hypothyroidism. Plan of Care continuation:Yes, continue current POC.
[2018-11-17 02:00] VITALS: BP 116/67; RESP 18
--- NOTE | 2018-11-17 05:33 | NUR ---
Pt stable with no acute distress noted. Pt slept well throughout the night. Due medications given and all needs attended. On PO ATB medication and tolerating well. Pt continent of both bowel and bladder and able to use urinal. Safety measures in place. Hourly rounding made. Bed alarm activated for safety. bed side rails up and call light within pt's reach.
[2018-11-17] MEDS: CIPROFLOXACIN 250 MG TAB PO SCH ×2 (06:25→17:22)
[2018-11-17] MEDS: HEPARIN 5,000 UNIT/1 ML VIAL SC SCH ×3 (06:29→22:25)
[2018-11-17 07:00] VITALS: BP 131/67; PULSE 69; RESP 18
[2018-11-17] MEDS: FAMOTIDINE 20 MG TAB PO SCH (08:48)
[2018-11-17] MEDS: MAGNESIUM OXIDE 400 MG TAB PO SCH ×2 (08:48→20:25)
[2018-11-17] MEDS: CITRIC ACID/NA CITRATE 30 ML CUP PO SCH ×2 (08:48→20:25)
[2018-11-17] MEDS: FERROUS SULFATE (EC) 325 MG TAB PO SCH ×2 (08:48→20:25)
[2018-11-17] MEDS: THIAMINE 100 MG TAB PO SCH (08:48)
[2018-11-17] MEDS: DOCUSATE SODIUM 100 MG CAP PO SCH ×2 (08:48→20:25)
--- NOTE | 2018-11-17 08:54 | PN ---
Date/Time of Note Date/Time of Note DATE: 11/17/18 TIME: 08:53 Subjective In good spirits Objective Vital Signs Date Temp Pulse Resp B/P (MAP) Pulse Ox O2 O2 Flow FiO2 Time Delivery Rate 11/17/18 98.0 18 116/67 97 Room Air 02:00 (83) 11/16/18 82 19:59 Intake and Output 11/16/18 11/16/18 11/17/18 1515:00 23:00 07:00 IntakeIntake Total 400 ml 680 ml OutputOutput Total 550 ml BalanceBalance 400 ml 130 ml Exam pulm-cta sba ambulation Results/Medications Medications Current Medications Docusate Sodium (Colace) 100 mg BID PO Last administered on 11/17/18at 08:48; Admin Dose 100 MG; Start 11/06/18 at 21:00 Senna (Senokot) 1 tab HS PO Last administered on 11/16/18at 20:58; Admin Dose 1 TAB; Start 11/06/18 at 21:00 Magnesium Hydroxide (Milk Of Mag) 30 ml BID PRN PO CONSTIPATION; Start 11/06/18 at 18:30 Lactulose (Enulose) 20 gm DAILY PRN PO CONSTIPATION; Start 11/06/18 at 18:30 Bisacodyl (Dulcolax Supp) 10 mg DAILY PRN [place] CONSTIPATION; Start 11/06/18 at 18:30 Miscellaneous Information ([facility] This patient frank... PRN PRN XX wound; Start 11/06/18 at 18:30 Acetaminophen (Tylenol Tab) 650 mg Q6H PRN PO PAIN LEVEL 1-3 OR FEVER Last administered on 11/16/18at 17:26; Admin Dose 650 MG; Start 11/06/18 at 20:00 Bisacodyl (Dulcolax) 5 mg DAILY PRN PO CONSTIPATION; Start 11/06/18 at 20:00 Citric Acid/ Sodium Citrate (Bicitra) 30 ml BID PO Last administered on 11/17/18at 08:48; Admin Dose 30 ML; Start 11/06/18 at 21:00 Docusate Sodium (Colace) 100 mg Q12H PRN PO CONSTIPATION; Start 11/06/18 at 20:00 Famotidine (Pepcid) 20 mg DAILY PO Last administered on 11/17/18 08:48; Admin Dose 20 MG; Start 11/07/18 at 09:00 Heparin Sodium (Porcine) (Heparin (5000 Units/1ml)) 5,000 unit Q8 SC Last administered on 11/17/18 06:29; Admin Dose 5,000 UNIT; Start 11/06/18 at 22:00 Magnesium Oxide (Mag-Ox 400) 400 mg BID PO Last administered on 11/17/18 08:48; Admin Dose 400 MG; Start 11/06/18 at 21:00 Thiamine HCl (Vitamin B1) 100 mg DAILY PO Last administered on 11/17/18 08:48; Admin Dose 100 MG; Start 11/07/18 at 09:00 Ciprofloxacin (Cipro) 250 mg BID@18 PO Last administered on 11/17/18 06:25; Admin Dose 250 MG; Start 11/08/18 at 06:00 Ferrous Sulfate (Ferrous Sulfate (Ec)) 325 mg BID PO Last administered on 11/17/18 08:48; Admin Dose 325 MG; Start 11/08/18 at 21:00 Assessment/Plan Additional Assessment/Plan Rehab- Debility;Toxic metabolic encephalopathy. Continue rehab and caregiver training, and anticipate dc Sunday - Acute on chronic kidney disease with a history of nephrectomy; UTI,obstructive uropathy- followed by Urology and Renal HTN VENU BELLE MD Nov 17, 2018 08:54
--- NOTE | 2018-11-17 10:46 | CONS ---
Date/Time of Note Date/Time of Note DATE: 11/17/18 TIME: 10:46 Assessment/Plan Assessment/Plan Assessment/Plan 1. acute vs acute on chronic renal failure due to Obstruction + prerenal azotemia 2. H/o left nephrectomy, unclear history 3. metabolic acidosis 4. anemia for CKD 5. Severe hydronephrosis Right side Plan: Bicitra 30ml PO BID for acidosis, BUN/Cr 39/5.31, WBC 13.1- no labs today to review ye t CT Abdomen + pelvis w/o contrast showed R hydronephrosis, s/p Urology consult, no surgical intervention at this time will follow up Consultation Date/Type/Reason Admit Date/Time Nov 06, 2018 at 18:19 Initial Consult Date Type of Consult NEPHROLOGY Requesting Provider: WALTER CARTER NP Exam/Review of Systems Vital Signs Vitals Vital Signs Date Temp Pulse Resp B/P (MAP) Pulse Ox O2 O2 Flow FiO2 Time Delivery Rate 11/17/18 98.3 69 18 131/67 97 Room Air 07:00 (88) Intake and Output 11/16/18 11/16/18 11/17/18 1515:00 23:00 07:00 IntakeIntake Total 400 ml 680 ml OutputOutput Total 550 ml BalanceBalance 400 ml 130 ml Exam Constitutional: alert, awake ENMT: nl external ears & nose Neck: supple, non-tender Respiratory: clear to auscultation, diminished breath sounds Cardiovascular: regular rate and rhythm, nl pulses Gastrointestinal: soft, non-tender Extremities: normal pulses Neurological: non focal Medications Medications Current Medications Docusate Sodium (Colace) 100 mg BID PO Last administered on 11/17/18at 08:48; Admin Dose 100 MG; Start 11/06/18 at 21:00 Senna (Senokot) 1 tab HS PO Last administered on 11/16/18at 20:58; Admin Dose 1 TAB; Start 11/06/18 at 21:00 Magnesium Hydroxide (Milk Of Mag) 30 ml BID PRN PO CONSTIPATION; Start 11/06/18 at 18:30 Lactulose (Enulose) 20 gm DAILY PRN PO CONSTIPATION; Start 11/06/18 at 18:30 Bisacodyl (Dulcolax Supp) 10 mg DAILY PRN [place] CONSTIPATION; Start 11/06/18 at 18:30 Miscellaneous Information (Pending [facility] Order For Wound Care) This patient frank... PRN PRN XX wound; Start 11/06/18 at 18:30 Acetaminophen (Tylenol Tab) 650 mg Q6H PRN PO PAIN LEVEL 1-3 OR FEVER Last administered on 11/16/18 17:26; Admin Dose 650 MG; Start 11/06/18 at 20:00 Bisacodyl (Dulcolax) 5 mg DAILY PRN PO CONSTIPATION; Start 11/06/18 at 20:00 Citric Acid/ Sodium Citrate (Bicitra) 30 ml BID PO Last administered on 9at 08:48; Admin Dose 30 ML; Start 11/06/18 at 21:00 Docusate Sodium (Colace) 100 mg Q12H PRN PO CONSTIPATION; Start 11/06/18 at 20:00 Famotidine (Pepcid) 20 mg DAILY PO Last administered on 11/17/18 08:48; Admin Dose 20 MG; Start 11/07/18 at 09:00 Heparin Sodium (Porcine) (Heparin (5000 Units/1ml)) 5,000 unit Q8 SC Last administered on 11/17/18 06:29; Admin Dose 5,000 UNIT; Start 11/06/18 at 22:00 Magnesium Oxide (Mag-Ox 400) 400 mg BID PO Last administered on 11/17/18 08:48; Admin Dose 400 MG; Start 11/06/18 at 21:00 Thiamine HCl (Vitamin B1) 100 mg DAILY PO Last administered on 11/17/18 08:48; Admin Dose 100 MG; Start 11/07/18 at 09:00 Ciprofloxacin (Cipro) 250 mg BID@,18 PO Last administered on 11/17/18 06:25; Admin Dose 250 MG; Start 11/08/18 at 06:00 Ferrous Sulfate (Ferrous Sulfate (Ec)) 325 mg BID PO Last administered on 11/17/18 08:48; Admin Dose 325 MG; Start 11/08/18 at 21:00 YAIR GOLDSMITH MD Nov 17, 2018 10:46
[2018-11-17 14:00] VITALS: BP 117/60; PULSE 75; RESP 18
--- NOTE | 2018-11-17 17:17 | PN ---
Date/Time of Note Date/Time of Note DATE: 11/17/18 TIME: 17:17 Assessment/Plan VTE Prophylaxis Risk score (from Nsg)>0 risk: 6 SCD applied (from Nsg): Yes Pharmacological prophylaxis: heparin Lines/Catheters IV Catheter Type (from Nrs): Saline Lock Urinary Cath still in place: Yes Reason Cath still needed: urinary retention Assessment/Plan Hospital Course General: Patient is laying in bed and answers questions appropriately Mentation: Patient is alert and oriented 4, Head: Normocephalic atraumatic Eyes: EOMI, pupils reactive to light Neck: Supple, nontender, midline Respiratory: Clear to auscultation bilaterally Cardiovascular: regular rate, no obvious murmurs Gastrointestinal: non-tender to palpation, bowel sounds heard. Neurological: Moves all extremities spontaneously Skin: No new skin lesions SSESSMENT/PLAN: 73-year-old male with CKD -refused to be on hemodialysis, urinary retention requiring chronic Marks, recurrent UTI, transferred from [facility] s/p CAUTI treatment, acute kidney injury, ileus/gastroenteritis, for rehabilita tion. 1. Catheter associated urinary tract infection, recurrent -s/p Marks DC and reinsertion multiple times, will keep in for now per urology -Follow-up cultures negative so far -ID to manage oral abx 2. Sepsis secondary to #1 -stable white count -Continue current medical management 3. Chronic urinary retention/Neurogenic bladder, requiring indwelling Marks... -Culprit of frequent UTI and obstructive uropathy. -Unfortunately, patient with no family support available to do in and out catheterization after discharge=> as such, he preferred to go home with Marks in place and will have PCP follow-up for Marks changes 4. Acute kidney injury on CKD with baseline creatinine unknown -Culprit of acute kidney injury likely obstructive uropathy with #1. -Creatinine went up today, likely secondary to patient has not voided after Marks removal... -Nephrology following. -Patient had refused hemodialysis treatment=>On conservative medical management 5. Anemia of CKD. -Stable H&H. -cont oral iron replacement Subjective 24 Hr Interval Summary Constitutional: no complaints, improved Eyes: no complaints ENT: no complaints Respiratory: no complaints Cardiovascular: no complaints Gastrointestinal: no complaints Genitourinary: no complaints Musculoskeletal: no complaints Skin: no complaints Neurologic: no complaints Endocrine: no complaints Lymphatic: no complaints Psychological: no complaints, nl mood/affect Immunologic: no complaints Exam/Review of Systems Vital Signs Vitals Vital Signs Date Temp Pulse Resp B/P (MAP) Pulse Ox O2 O2 Flow FiO2 Time Delivery Rate 11/17/18 98.1 75 18 117/60 98 Room Air 14:00 (79) Intake and Output 11/16/18 11/16/18 11/17/18 1515:00 23:00 07:00 IntakeIntake Total 400 ml 680 ml OutputOutput Total 550 ml BalanceBalance 400 ml 130 ml Medications Medications Current Medications Docusate Sodium (Colace) 100 mg BID PO Last administered on 11/17/18at 08:48; Admin Dose 100 MG; Start 11/06/18 at 21:00 Senna (Senokot) 1 tab HS PO Last administered on 11/16/18at 20:58; Admin Dose 1 TAB; Start 11/06/18 at 21:00 Magnesium Hydroxide (Milk Of Mag) 30 ml BID PRN PO CONSTIPATION; Start 11/06/18 at 18:30 Lactulose (Enulose) 20 gm DAILY PRN PO CONSTIPATION; Start 11/06/18 at 18:30 Bisacodyl (Dulcolax Supp) 10 mg DAILY PRN [place] CONSTIPATION; Start 11/06/18 at 18:30 Miscellaneous Information (Pending [facility] Order For Wound Care) This patient frank... PRN PRN XX wound; Start 11/06/18 at 18:30 Acetaminophen (Tylenol Tab) 650 mg Q6H PRN PO PAIN LEVEL 1-3 OR FEVER Last administered on 11/16/18at 17:26; Admin Dose 650 MG; Start 11/06/18 at 20:00 Bisacodyl (Dulcolax) 5 mg DAILY PRN PO CONSTIPATION; Start 11/06/18 at 20:00 Citric Acid/ Sodium Citrate (Bicitra) 30 ml BID PO Last administered on 11/17/18at 08:48; Admin Dose 30 ML; Start 11/06/18 at 21:00 Docusate Sodium (Colace) 100 mg Q12H PRN PO CONSTIPATION; Start 11/06/18 at 20:00 Famotidine (Pepcid) 20 mg DAILY PO Last administered on 11/17/18at 08:48; Admin Dose 20 MG; Start 11/07/18 at 09:00 Heparin Sodium (Porcine) (Heparin (5000 Units/1ml)) 5,000 unit Q8 SC Last administered on 11/17/18at 14:56; Admin Dose 5,000 UNIT; Start 11/06/18 at 22:00 Magnesium Oxide (Mag-Ox 400) 400 mg BID PO Last administered on 11/17/18at 08 :48; Admin Dose 400 MG; Start 11/06/18 at 21:00 Thiamine HCl (Vitamin B1) 100 mg DAILY PO Last administered on 11/17/18at 08:48; Admin Dose 100 MG; Start 11/07/18 at 09:00 Ciprofloxacin (Cipro) 250 mg BID@06,18 PO Last administered on 11/17/18at 06:25; Admin Dose 250 MG; Start 11/08/18 at 06:00 Ferrous Sulfate (Ferrous Sulfate (Ec)) 325 mg BID PO Last administered on 11/17/18at 08:48; Admin Dose 325 MG; Start 11/08/18 at 21:00 RITESH BAER MD Nov 17, 2018 17:17
--- NOTE | 2018-11-17 18:39 | NUR ---
Patient is alert and breathing even. no SOB. no c/o pain. patient is cooperative during care. patient on ABT/UTI with no A/R. asymptomatic. call light within reach.
[2018-11-17 20:17] VITALS: BP 114/64; PULSE 65; RESP 18
[2018-11-17] MEDS: SENNA TAB PO SCH (20:25)
[2018-11-18 02:03] VITALS: BP 103/62; PULSE 69; RESP 18
--- NOTE | 2018-11-18 06:00 | NUR ---
End of Shift Note During the shift, No pain complaints made. Bed on lowest position, side rails up 2x, bed alarm on, and call light within reach. will continue to monitor
[2018-11-18] MEDS: CIPROFLOXACIN 250 MG TAB PO SCH ×2 (06:36→17:37)
[2018-11-18] MEDS: HEPARIN 5,000 UNIT/1 ML VIAL SC SCH ×3 (06:37→21:36)
[2018-11-18 07:30] VITALS: BP 100/59; PULSE 70; RESP 20
[2018-11-18] MEDS: MAGNESIUM OXIDE 400 MG TAB PO SCH ×2 (08:34→21:30)
[2018-11-18] MEDS: CITRIC ACID/NA CITRATE 30 ML CUP PO SCH ×2 (08:34→21:29)
[2018-11-18] MEDS: FERROUS SULFATE (EC) 325 MG TAB PO SCH ×2 (08:34→21:30)
[2018-11-18] MEDS: FAMOTIDINE 20 MG TAB PO SCH (08:34)
[2018-11-18] MEDS: DOCUSATE SODIUM 100 MG CAP PO SCH ×2 (08:34→21:30)
[2018-11-18] MEDS: THIAMINE 100 MG TAB PO SCH (08:34)
--- NOTE | 2018-11-18 12:03 | CONS ---
Date/Time of Note Date/Time of Note DATE: 11/18/18 TIME: 12:03 Assessment/Plan Assessment/Plan Assessment/Plan Assessment/Plan 1. acute vs acute on chronic renal failure due to Obstruction + prerenal azotemia 2. H/o left nephrectomy, unclear history 3. metabolic acidosis 4. anemia for CKD 5. Severe hydronephrosis Right side Plan: Bicitra 30ml PO BID for acidosis, BUN/Cr 39/5.31, WBC 13.1- no labs today to review ye t CT Abdomen + pelvis w/o contrast showed R hydronephrosis, s/p Urology consult, no surgical intervention at this time possible d/c planning in progress Follow up with Dr.Kalpesh Goldsmith( [phone]) in outpatient Nephrology clinic in 1 week upon discharge will follow up Consultation Date/Type/Reason Admit Date/Time Nov 06, 2018 at 18:19 Initial Consult Date Type of Consult NEPHROLOGY Requesting Provider: WALTER CARTER V. [employer] Exam/Review of Systems Vital Signs Vitals Vital Signs Date Temp Pulse Resp B/P (MAP) Pulse Ox O2 O2 Flow FiO2 Time Delivery Rate 11/18/18 98.5 70 20 100/59 97 Room Air 07:30 (73) Intake and Output 11/17/18 11/17/18 11/18/18 1515:00 23:00 07:00 IntakeIntake Total 2470 ml OutputOutput Total 1000 ml BalanceBalance 1470 ml Exam Constitutional: alert, awake ENMT: nl external ears & nose Neck: supple, non-tender Respiratory: clear to auscultation, diminished breath sounds Cardiovascular: regular rate and rhythm, nl pulses Gastrointestinal: soft, non-tender Extremities: normal pulses Neurological: non focal Medications Medications Current Medications Docusate Sodium (Colace) 100 mg BID PO Last administered on 11/18/18at 08:34; Admin Dose 100 MG; Start 11/06/18 at 21:00 Senna (Senokot) 1 tab HS PO Last administered on 11/17/18at 20:25; Admin Dose 1 TAB; Start 11/06/18 at 21:00 Magnesium Hydroxide (Milk Of Mag) 30 ml BID PRN PO CONSTIPATION; Start 11/06/18 at 18:30 Lactulose (Enulose) 20 gm DAILY PRN PO CONSTIPATION; Start 11/06/18 at 18:30 Bisacodyl (Dulcolax Supp) 10 mg DAILY PRN [place] CONSTIPATION; Start 11/06/18 at 18:30 Miscellaneous Information (Pending [facility] Order For Wound Care) This patient frank... PRN PRN XX wound; Start 11/06/18 at 18:30 Acetaminophen (Tylenol Tab) 650 mg Q6H PRN PO PAIN LEVEL 1-3 OR FEVER Last administered on 11/16/18 17:26; Admin Dose 650 MG; Start 11/06/18 at 20:00 Bisacodyl (Dulcolax) 5 mg DAILY PRN PO CONSTIPATION; Start 11/06/18 at 20:00 Citric Acid/ Sodium Citrate (Bicitra) 30 ml BID PO Last administered on 11/18/18 08:34; Admin Dose 30 ML; Start 11/06/18 at 21:00 Docusate Sodium (Colace) 100 mg Q12H PRN PO CONSTIPATION; Start 11/06/18 at 20:00 Famotidine (Pepcid) 20 mg DAILY PO Last administered on 11/18/18 08:34; Admin Dose 20 MG; Start 11/07/18 at 09:00 Heparin Sodium (Porcine) (Heparin (5000 Units/1ml)) 5,000 unit Q8 SC Last administered on 11/18/18 06:37; Admin Dose 5,000 UNIT; Start 11/06/18 at 22:00 Magnesium Oxide (Mag-Ox 400) 400 mg BID PO Last administered on 11/18/18 08:34; Admin Dose 400 MG; Start 11/06/18 at 21:00 Thiamine HCl (Vitamin B1) 100 mg DAILY PO Last administered on 11/18/18 08:34; Admin Dose 100 MG; Start 11/07/18 at 09:00 Ciprofloxacin (Cipro) 250 mg BID@18 PO Last administered on 11/18/18 06:36; Admin Dose 250 MG; Start 11/08/18 at 06:00 Ferrous Sulfate (Ferrous Sulfate (Ec)) 325 mg BID PO Last administered on 11/18/18 08:34; Admin Dose 325 MG; Start 11/08/18 at 21:00 YAIR GOLDSMITH MD Nov 18, 2018 12:03
--- NOTE | 2018-11-18 12:30 | NUR ---
Gave caregiver education about daniels catheter care to Gricel/patient's daughter. Instructed to do return demonstration about emptying daniels & patient's daughter was able to demonstrate proper emptying. Advised to familiarize with tasks.
--- NOTE | 2018-11-18 12:46 | NUR ---
PT NOTE: [phone] Caregiver training with pt's daughter Gricel. Clarified Gricel's relation to pt. Per Gricel, she is his daughter. Also confirmed availability to assist at home. Gricel reported that she will be available 24hr/day to assist pt. Daughter educated on safety, functional mobility status, safe transfer techs, hand placement, and recommendations for safe DC home. Recommended FWW, BSC, tub bench with good understanding. During caregiver training, pt started to get agitated refusing stair training and refusing to demonstrate tub transfer. Pt/daughter given verbal/visual demonstration for safe tub transfers with good understanding from daughter. All questions answered. Thorough education provided with functional mobility status and recommendations for safe dc home. Addendum: 11/18/18 at 1253 by FRANNY IVEY PT Daughter demonstrated good understanding for safety, functional mobility status, safe transfer techs, hand placement, and recommendations for safe DC home.
--- NOTE | 2018-11-18 13:37 | PN ---
Date/Time of Note Date/Time of Note DATE: 11/18/18 TIME: 13:34 Objective Vital Signs Date Temp Pulse Resp B/P (MAP) Pulse Ox O2 O2 Flow FiO2 Time Delivery Rate 11/18/18 98.5 70 20 100/59 97 Room Air 07:30 (73) Intake and Output 11/17/18 11/17/18 11/18/18 1515:00 23:00 07:00 IntakeIntake Total 2470 ml OutputOutput Total 1000 ml BalanceBalance 1470 ml Exam Physical Exam: Pulm-cta Abd-soft BOWEL- Cont BLADDER-indwelling catheter SKIN- intact OT- DRESSING- sba/min BATHING-sba/min TOILETING-min PT- BED MOBILITY-sba TRANSFERS-sba AMBULATION-sba 200 feet SPEECH- COGNITION-mod A/P- Interdisciplinary team conference held today. Please see interdisciplinary sheet. Working toward d.c. on 11/19 with post discharge follow up of physical th reinierpy, occupational therapy. Caregiver training today Results/Medications Medications Current Medications Docusate Sodium (Colace) 100 mg BID PO Last administered on 11/18/18at 08:34; Admin Dose 100 MG; Start 11/06/18 at 21:00 Senna (Senokot) 1 tab HS PO Last administered on 11/17/18at 20:25; Admin Dose 1 TAB; Start 11/06/18 at 21:00 Magnesium Hydroxide (Milk Of Mag) 30 ml BID PRN PO CONSTIPATION; Start 11/06/18 at 18:30 Lactulose (Enulose) 20 gm DAILY PRN PO CONSTIPATION; Start 11/06/18 at 18:30 Bisacodyl (Dulcolax Supp) 10 mg DAILY PRN [place] CONSTIPATION; Start 11/06/18 at 18:30 Miscellaneous Information (Pending [facility] Order For Wound Care) This patient frank... PRN PRN XX wound; Start 11/06/18 at 18:30 Acetaminophen (Tylenol Tab) 650 mg Q6H PRN PO PAIN LEVEL 1-3 OR FEVER Last administered on 11/16/18at 17:26; Admin Dose 650 MG; Start 11/06/18 at 20:00 Bisacodyl (Dulcolax) 5 mg DAILY PRN PO CONSTIPATION; Start 11/06/18 at 20:00 Citric Acid/ Sodium Citrate (Bicitra) 30 ml BID PO Last administered on 11/18/18 08:34; Admin Dose 30 ML; Start 11/06/18 at 21:00 Docusate Sodium (Colace) 100 mg Q12H PRN PO CONSTIPATION; Start 11/06/18 at 20:00 Famotidine (Pepcid) 20 mg DAILY PO Last administered on 11/18/18 08:34; Admin Dose 20 MG; Start 11/07/18 at 09:00 Heparin Sodium (Porcine) (Heparin (5000 Units/1ml)) 5,000 unit Q8 SC Last administered on 11/18/18 06:37; Admin Dose 5,000 UNIT; Start 11/06/18 at 22:00 Magnesium Oxide (Mag-Ox 400) 400 mg BID PO Last administered on 11/18/18 08:34; Admin Dose 400 MG; Start 11/06/18 at 21:00 Thiamine HCl (Vitamin B1) 100 mg DAILY PO Last administered on 11/18/18 08:34; Admin Dose 100 MG; Start 11/07/18 at 09:00 Ciprofloxacin (Cipro) 250 mg BID@06,18 PO Last administered on 11/18/18 06:36; Admin Dose 250 MG; Start 11/08/18 at 06:00 Ferrous Sulfate (Ferrous Sulfate (Ec)) 325 mg BID PO Last administered on 11/18/18 08:34; Admin Dose 325 MG; Start 11/08/18 at 21:00 VENU BELLE MD Nov 18, 2018 13:37
[2018-11-18 14:00] VITALS: BP 133/68; PULSE 67; RESP 18
--- NOTE | 2018-11-18 14:35 | NUR ---
Notified Dr Carcamo that patient is going home tomorrow. MD reviewed list of medications with no new order at this time.
--- NOTE | 2018-11-18 16:02 | PN ---
Date/Time of Note Date/Time of Note DATE: 11/18/18 TIME: 16:01 Assessment/Plan VTE Prophylaxis Risk score (from Nsg)>0 risk: 6 SCD applied (from Nsg): Yes Pharmacological prophylaxis: heparin Lines/Catheters IV Catheter Type (from Nrsg): Saline Lock Urinary Cath still in place: Yes Reason Cath still needed: urinary retention Assessment/Plan Hospital Course General: Patient is laying in bed and answers questions appropriately Mentation: Patient is alert and oriented 4, Head: Normocephalic atraumatic Eyes: EOMI, pupils reactive to light Neck: Supple, nontender, midline Respiratory: Clear to auscultation bilaterally Cardiovascular: regular rate, no obvious murmurs Gastrointestinal: non-tender to palpation, bowel sounds heard. Neurological: Moves all extremities spontaneously Skin: No new skin lesions SSESSMENT/PLAN: 73-year-old male with CKD -refused to be on hemodialysis, urinary retention requiring chronic Marks, recurrent UTI, transferred from [facility] s/p CAUTI treatment, acute kidney injury, ileus/gastroenteritis, for rehabilita tion. 1. Catheter associated urinary tract infection, recurrent -s/p Marks DC and reinsertion multiple times, will keep in for now per urology -Follow-up cultures negative so far -ID to manage oral abx 2. Sepsis secondary to #1 -stable white count -Continue current medical management 3. Chronic urinary retention/Neurogenic bladder, requiring indwelling Marks... -Culprit of frequent UTI and obstructive uropathy. -Unfortunately, patient with no family support available to do in and out catheterization after discharge=> as such, he preferred to go home with Marks in place and will have PCP follow-up for Marks changes 4. Acute kidney injury on CKD with baseline creatinine unknown -Culprit of acute kidney injury likely obstructive uropathy with #1. -Creatinine went up today, likely secondary to patient has not voided after Marks removal... -Nephrology following. -Patient had refused hemodialysis treatment=>On conservative medical management 5. Anemia of CKD. -Stable H&H. -cont oral iron replacement Subjective 24 Hr Interval Summary Free Text/Dictation Doing well, no compliants Excited to be going home tomorrow Exam/Review of Systems Vital Signs Vitals Vital Signs Date Temp Pulse Resp B/P (MAP) Pulse Ox O2 O2 Flow FiO2 Time Delivery Rate 11/18/18 98.5 70 20 100/59 97 Room Air 07:30 (73) Intake and Output 11/17/18 11/17/18 11/18/18 1515:00 23:00 07:00 IntakeIntake Total 2470 ml OutputOutput Total 1000 ml BalanceBalance 1470 ml Medications Medications Current Medications Docusate Sodium (Colace) 100 mg BID PO Last administered on 11/18/18 08:34; Admin Dose 100 MG; Start 11/06/18 at 21:00 Senna (Senokot) 1 tab HS PO Last administered on 11/17/18at 20:25; Admin Dose 1 TAB; Start 11/06/18 at 21:00 Magnesium Hydroxide (Milk Of Mag) 30 ml BID PRN PO CONSTIPATION; Start 11/06/18 at 18:30 Lactulose (Enulose) 20 gm DAILY PRN PO CONSTIPATION; Start 11/06/18 at 18:30 Bisacodyl (Dulcolax Supp) 10 mg DAILY PRN [place] CONSTIPATION; Start 11/06/18 at 18:30 Miscellaneous Information (Pending [facility] Order For Wound Care) This patient frank... PRN PRN XX wound; Start 11/06/18 at 18:30 Acetaminophen (Tylenol Tab) 650 mg Q6H PRN PO PAIN LEVEL 1-3 OR FEVER Last administered on 11/16/18at 17:26; Admin Dose 650 MG; Start 11/06/18 at 20:00 Bisacodyl (Dulcolax) 5 mg DAILY PRN PO CONSTIPATION; Start 11/06/18 at 20:00 Citric Acid/ Sodium Citrate (Bicitra) 30 ml BID PO Last administered on 11/18/18at 08:34; Admin Dose 30 ML; Start 11/06/18 at 21:00 Docusate Sodium (Colace) 100 mg Q12H PRN PO CONSTIPATION; Start 11/06/18 at 20:00 Famotidine (Pepcid) 20 mg DAILY PO Last administered on 11/18/18at 08:34; Admin Dose 20 MG; Start 11/07/18 at 09:00 Heparin Sodium (Porcine) (Heparin (5000 Units/1ml)) 5,000 unit Q8 SC Last administered on 11/18/18at 14:17; Admin Dose 5,000 UNIT; Start 11/06/18 at 22:00 Magnesium Oxide (Mag-Ox 400) 400 mg BID PO Last administered on 11/18/18 08:34; Admin Dose 400 MG; Start 11/06/18 at 21:00 Thiamine HCl (Vitamin B1) 100 mg DAILY PO Last administered on 11/18/18at 08:34; Admin Dose 100 MG; Start 11/07/18 at 09:00 Ciprofloxacin (Cipro) 250 mg BID@,18 PO Last administered on 11/18/18at 06:36; Admin Dose 250 MG; Start 11/08/18 at 06:00 Ferrous Sulfate (Ferrous Sulfate (Ec)) 325 mg BID PO Last administered on 11/18/18 08:34; Admin Dose 325 MG; Start 11/08/18 at 21:00 RITESH BAER MD Nov 18, 2018 16:02
--- NOTE | 2018-11-18 17:18 | NUR ---
Patient up in wheelchair talking to his daughter. Offered educational materials for recreational activities. Alert, oriented x 3. No SOB. Denies pain. No adverse reaction noted with PO ATB treatment. Kept clean & dry. All due meds given. Call light within reach. Chair alarm on. Kept comfortable.
[2018-11-18] MEDS: SENNA TAB PO SCH (21:30)
[2018-11-19 02:16] VITALS: BP 121/58; PULSE 62; RESP 18
--- NOTE | 2018-11-19 06:00 | NUR ---
End of Shift Note Pt to be D/C today at 1700. Pt is still with FC to urinary bag draining to drake colored urine. During the shift, No pain complaints made.VS are WNL. Bed on lowest position, side rails up 2x, bed alarm on, and call light within reach. will continue to monitor
[2018-11-19] MEDS: CIPROFLOXACIN 250 MG TAB PO SCH ×2 (06:14→17:46)
[2018-11-19] MEDS: HEPARIN 5,000 UNIT/1 ML VIAL SC SCH ×2 (06:14→13:47)
[2018-11-19 07:30] VITALS: BP 141/72; PULSE 71; RESP 20
[2018-11-19] MEDS: CITRIC ACID/NA CITRATE 30 ML CUP PO SCH (09:11)
[2018-11-19] MEDS: FERROUS SULFATE (EC) 325 MG TAB PO SCH (09:12)
[2018-11-19] MEDS: MAGNESIUM OXIDE 400 MG TAB PO SCH (09:12)
[2018-11-19] MEDS: DOCUSATE SODIUM 100 MG CAP PO SCH (09:12)
[2018-11-19] MEDS: FAMOTIDINE 20 MG TAB PO SCH (09:12)
[2018-11-19] MEDS: THIAMINE 100 MG TAB PO SCH (09:12)
--- NOTE | 2018-11-19 12:01 | PN ---
Date/Time of Note Date/Time of Note DATE: 11/19/18 TIME: 12:00 Objective Vital Signs Date Temp Pulse Resp B/P (MAP) Pulse Ox O2 O2 Flow FiO2 Time Delivery Rate 11/19/18 98.4 71 20 141/72 98 Room Air 07:30 (95) Intake and Output 11/18/18 11/18/18 11/19/18 1515:00 23:00 07:00 IntakeIntake Total 150 ml 890 ml OutputOutput Total 950 ml 300 ml BalanceBalance -800 ml 590 ml Results/Medications Result Diagram: 11/19/18 1102 11/19/18 1102 Results 24 hrs Laboratory Tests Test 11/19/18 11:02 White Blood Count 8.3 # Red Blood Count 3.66 L Hemoglobin 10.2 L Hematocrit 32.5 L Mean Corpuscular Volume 88.8 Mean Corpuscular Hemoglobin 27.9 L Mean Corpuscular Hemoglobin Concent 31.4 L Red Cell Distribution Width 14.0 Platelet Count 718 H Mean Platelet Volume 9.1 Immature Granulocytes % 0.200 Neutrophils % 59.5 Lymphocytes % 26.1 Monocytes % 11.9 H Eosinophils % 1.3 Basophils % 1.0 Nucleated Red Blood Cells % 0.0 Immature Granulocytes # 0.020 Neutrophils # 5.0 Lymphocytes # 2.2 Monocytes # 1.0 H Eosinophils # 0.1 Basophils # 0.1 Nucleated Red Blood Cells # 0.0 Sodium Level 138 Potassium Level 4.3 Chloride Level 98 Carbon Dioxide Level 28 Anion Gap 12 Blood Urea Nitrogen 39 H Creatinine 6.07 H Est Glomerular Filtrat Rate mL/min Glucose Level 116 Calcium Level 8.8 Total Bilirubin 0.0 L Direct Bilirubin 0.00 Indirect Bilirubin 0.0 Aspartate Amino Transf (AST/SGOT) 30 Alanine Aminotransferase (ALT/SGPT) 19 Alkaline Phosphatase 119 Total Protein 7.9 Albumin 3.6 Globulin 4.30 H Albumin/Globulin Ratio 0.83 Medications Current Medications Docusate Sodium (Colace) 100 mg BID PO Last administered on 11/19/18at 09:12; Admin Dose 100 MG; Start 11/06/18 at 21:00 Senna (Senokot) 1 tab HS PO Last administered on 11/18/18at 21:30; Admin Dose 1 TAB; Start 11/06/18 at 21:00 Magnesium Hydroxide (Milk Of Mag) 30 ml BID PRN PO CONSTIPATION; Start 1/9/19 at 18:30 Lactulose (Enulose) 20 gm DAILY PRN PO CONSTIPATION; Start 11/06/18 at 18:30 Bisacodyl (Dulcolax Supp) 10 mg DAILY PRN [place] CONSTIPATION; Start 11/06/18 at 18:30 Miscellaneous Information (Pending [facility] Order For Wound Care) This patient frank... PRN PRN XX wound; Start 11/06/18 at 18:30 Acetaminophen (Tylenol Tab) 650 mg Q6H PRN PO PAIN LEVEL 1-3 OR FEVER Last administered on 11/16/18at 17:26; Admin Dose 650 MG; Start 11/06/18 at 20:00 Bisacodyl (Dulcolax) 5 mg DAILY PRN PO CONSTIPATION; Start 11/06/18 at 20:00 Citric Acid/ Sodium Citrate (Bicitra) 30 ml BID PO Last administered on 11/19/18at 09:11; Admin Dose 30 ML; Start 11/06/18 at 21:00 Docusate Sodium (Colace) 100 mg Q12H PRN PO CONSTIPATION; Start 11/06/18 at 20:00 Famotidine (Pepcid) 20 mg DAILY PO Last administered on 11/19/18 09:12; Admin Dose 20 MG; Start 11/07/18 at 09:00 Heparin Sodium (Porcine) (Heparin (5000 Units/1ml)) 5,000 unit Q8 SC Last administered on 11/19/18 06:14; Admin Dose 5,000 UNIT; Start 11/06/18 at 22:00 Magnesium Oxide (Mag-Ox 400) 400 mg BID PO Last administered on 11/19/18 09:12; Admin Dose 400 MG; Start 11/06/18 at 21:00 Thiamine HCl (Vitamin B1) 100 mg DAILY PO Last administered on 11/19/18 09:12; Admin Dose 100 MG; Start 11/07/18 at 09:00 Ciprofloxacin (Cipro) 250 mg BID@18 PO Last administered on 11/19/18 06:14; Admin Dose 250 MG; Start 11/08/18 at 06:00 Ferrous Sulfate (Ferrous Sulfate (Ec)) 325 mg BID PO Last administered on 11/19/18 09:12; Admin Dose 325 MG; Start 11/08/18 at 21:00 VENU BELLE MD Nov 19, 2018 12:00
--- NOTE | 2018-11-19 12:23 | CONS ---
Assessment/Plan Assessment/Plan Assessment/Plan 1. acute vs acute on chronic renal failure due to Obstruction + prerenal azotemia 2. H/o left nephrectomy, unclear history 3. metabolic acidosis 4. anemia for CKD 5. Severe hydronephrosis Right side Plan: Bicitra 30ml PO BID for acidosis, BUN/Cr 39/5.31, CT Abdomen + pelvis w/o contrast showed R hydronephrosis, s/p Urology consult, no surgical intervention at this time possible d/c planning in progress Follow up with Dr.Kalpesh Goldsmith( [phone]) in outpatient Nephrology clinic in 1 week upon discharge will follow up Result Diagram: 11/19/18 1102 11/19/18 1102 Results 24hrs Laboratory Tests Test 11/19/18 11:02 White Blood Count 8.3 # Red Blood Count 3.66 L Hemoglobin 10.2 L Hematocrit 32.5 L Mean Corpuscular Volume 88.8 Mean Corpuscular Hemoglobin 27.9 L Mean Corpuscular Hemoglobin Concent 31.4 L Red Cell Distribution Width 14.0 Platelet Count 718 H Mean Platelet Volume 9.1 Immature Granulocytes % 0.200 Neutrophils % 59.5 Lymphocytes % 26.1 Monocytes % 11.9 H Eosinophils % 1.3 Basophils % 1.0 Nucleated Red Blood Cells % 0.0 Immature Granulocytes # 0.020 Neutrophils # 5.0 Lymphocytes # 2.2 Monocytes # 1.0 H Eosinophils # 0.1 Basophils # 0.1 Nucleated Red Blood Cells # 0.0 Sodium Level 138 Potassium Level 4.3 Chloride Level 98 Carbon Dioxide Level 28 Anion Gap 12 Blood Urea Nitrogen 39 H Creatinine 6.07 H Est Glomerular Filtrat Rate mL/min Glucose Level 116 Calcium Level 8.8 Total Bilirubin 0.0 L Direct Bilirubin 0.00 Indirect Bilirubin 0.0 Aspartate Amino Transf (AST/SGOT) 30 Alanine Aminotransferase (ALT/SGPT) 19 Alkaline Phosphatase 119 Total Protein 7.9 Albumin 3.6 Globulin 4.30 H Albumin/Globulin Ratio 0.83 Consultation Date/Type/Reason Admit Date/Time Nov 06, 2018 at 18:19 Initial Consult Date Type of Consult NEPHROLOGY Requesting Provider: WALTER CARTER NP Exam/Review of Systems Vital Signs Vitals Vital Signs Date Temp Pulse Resp B/P (MAP) Pulse Ox O2 O2 Flow FiO2 Time Delivery Rate 11/19/18 98.4 71 20 141/72 98 Room Air 07:30 (95) Intake and Output 11/18/18 11/18/18 11/19/18 1515:00 23:00 07:00 IntakeIntake Total 150 ml 890 ml OutputOutput Total 950 ml 300 ml BalanceBalance -800 ml 590 ml Medications Medications Current Medications Docusate Sodium (Colace) 100 mg BID PO Last administered on 11/19/18at 09:12; Admin Dose 100 MG; Start 11/06/18 at 21:00 Senna (Senokot) 1 tab HS PO Last administered on 11/18/18at 21:30; Admin Dose 1 TAB; Start 11/06/18 at 21:00 Magnesium Hydroxide (Milk Of Mag) 30 ml BID PRN PO CONSTIPATION; Start 11/06/18 at 18:30 Lactulose (Enulose) 20 gm DAILY PRN PO CONSTIPATION; Start 11/06/18 at 18:30 Bisacodyl (Dulcolax Supp) 10 mg DAILY PRN [place] CONSTIPATION; Start 11/06/18 at 18:30 Miscellaneous Information (Pending [facility] Order For Wound Care) This patient frank... PRN PRN XX wound; Start 11/06/18 at 18:30 Acetaminophen (Tylenol Tab) 650 mg Q6H PRN PO PAIN LEVEL 1-3 OR FEVER Last administered on 11/16/18at 17:26; Admin Dose 650 MG; Start 11/06/18 at 20:00 Bisacodyl (Dulcolax) 5 mg DAILY PRN PO CONSTIPATION; Start 11/06/18 at 20:00 Citric Acid/ Sodium Citrate (Bicitra) 30 ml BID PO Last administered on 11/19/18at 09:11; Admin Dose 30 ML; Start 11/06/18 at 21:00 Docusate Sodium (Colace) 100 mg Q12H PRN PO CONSTIPATION; Start 11/06/18 at 20:00 Famotidine (Pepcid) 20 mg DAILY PO Last administered on 11/19/18at 09:12; Admin Dose 20 MG; Start 11/07/18 at 09:00 Heparin Sodium (Porcine) (Heparin (5000 Units/1ml)) 5,000 unit Q8 SC Last administered on 11/19/18at 06:14; Admin Dose 5,000 UNIT; Start 11/06/18 at 22:00 Magnesium Oxide (Mag-Ox 400) 400 mg BID PO Last administered on 11/19/18at 09:12; Admin Dose 400 MG; Start 11/06/18 at 21:00 Thiamine HCl (Vitamin B1) 100 mg DAILY PO Last administered on 11/19/18at 09:12; Admin Dose 100 MG; Start 11/07/18 at 09:00 Ciprofloxacin (Cipro) 250 mg BID@18 PO Last administered on 11/19/18at 06:14; Admin Dose 250 MG; Start 11/08/18 at 06:00 Ferrous Sulfate (Ferrous Sulfate (Ec)) 325 mg BID PO Last administered on 11/19/18at 09:12; Admin Dose 325 MG; Start 11/08/18 at 21:00 Date/Time of Note Date/Time of Note DATE: 11/19/18 TIME: 12:23 YAIR GOLDSMITH MD Nov 19, 2018 12:23
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
[2018-11-19 14:00] VITALS: BP 120/61; PULSE 68; RESP 20
--- NOTE | 2018-11-19 18:47 | NUR ---
Patient discharged for home via wheelchair accompanied by daughter. Alert, oriented x 3 with periods of forgetfulness. No SOB. Denies pain. All medication instructions & prescriptions were given to daughter. Body assessment done with no new skin breakdown. Inventory list done & all belongings are complete. DME: bsc & fww brought home by patient. All discharge medications clarified with Dr Bashir & Dr Carcamo with no new order upon discharge. Kept clean & dry. All due meds given. Kept comfortable.
--- NOTE | 2018-11-19 18:56 | NUR ---
S[employer] leather Summary Date of Discharge: 11/19/18 Patient Name: KALI VARGAS MR#: [id number] Height: 5 ft 4 in Weight: 132 lbs 0.91 oz 59.900 kg Reason for Visit: DEBILITY Precautions: Date: 11/19/18 Time: 1855 User: CHIDI RHIANNONAltagracia Patient's progress, Adm-->DC: met Short-term Goals: 1. Improved ADLs 2. No falls/injury during stay 3. No new skin breakdown 4. 5. Short-term goals not met and reason/barriers: Achievement of Long-term Goals: met Long-term Goals not met and reason/barriers: Bladder - level of function and accidents: 5 Bowel - level of function and accidents: 5 Skin: no new skin breakdown Status: Treatment: Changes: Pain: 0/10 Level: Location: Management: Changes: Functional levels:5 Self Care: 6 Transfers: 6 Locomotion: 6 Assistance requirements:5 Communication: 7 Social Cognition: 6 Safety awareness: 6 Interdisciplinary interactions: PT/OT/RN Patient education: fall precautions Discharge needs: met Comorbid conditions: Debility
--- NOTE | 2018-11-20 16:15 | NUR ---
[facility] PT Discharge Summary Date of Discharge: 11/19/18 Patient Name: KALI VARGAS MR#: [id number] Height: 5 ft 4 in Weight: 132 lbs 0.91 oz 59.900 kg Reason for Visit: DEBILITY Precautions: fall risk, Arabic language, forgetful Date: 11/20/18 Time: 1615 User: ERICH SYLVESTER Patient's progress, Adm-->DC: Short-term goals: SBA bed mobility SBA transfers CGA/SBA gait x 75 ft with FWW Min A 6-step stair ascent/descent using rails. Long-term goals: Mod indep. bed mobility Mod indep. transfers Sup. gait x 150 ft with FWW SBA 12-step stair ascent/descent using rails Pt made good gains during his stay here in [facility]. At the time of eval pt was needing min A with bed mobility, min A with transfers, mod A gait w/o device x 5 ft, min A with gait using FWW x 20 ft and mod A with 2-step stair with B rails. Upon DC, he demonstrated modified indep. with bed mobility, sup. transfers, sup. gait with FWW x 300 ft, and SBA 12-step stair with B rails. Most of the goals were achieved. Barriers noted include multiple refusals, poor motivation, forgetfulness. CG training with Gricel pickering completed before DC. Recommendations: FWW, commode, tub bench, HHPT and full-time assistance at home.
--- NOTE | 2018-11-26 13:00 | DS ---
Date/Time of Note Date/Time of Note DATE: 11/26/18 TIME: 12:59 Discharge Summary Admission/Discharge Info Admit Date/Time Nov 06, 2018 at 18:19 Discharge Date/Time Nov 19, 2018 at 18:59 Discharge Diagnosis 1.Debility secondary to obstructive uropathy; Toxic metabolic encephalopathy. 2. Acute on chronic kidney disease with a history of nephrectomy. 3. Upper extremity cellulitis. 4. Hypertension. 5. Improvements in self-care, mobility and cognition. Patient Condition: Good Hospital Course The patient was admitted for comprehensive interdisciplinary rehabilitation and made steady functional gains from a Mod level to a SBA level for self care tasks and mobility including ambulating over 150 feet with the use of a FWW. Patient is being discharged home with the recommendation of home health PT, OT and RN follow up. The DC meds are per the medication reconciliation sheet. The discharge equipment recommendations include: FWW, BSC, shower chair. The patient will follow up with PMD upon DC. Home Meds Active Scripts Ciprofloxacin Hcl* (Ciprofloxacin Hcl*) 250 Mg Tablet, 250 MG PO DAILY@1800, #10 TAB Prov:ARAMIS RUSSELL FINISHED CLOTH EXAMINER 11/04/18 Reported Medications Sodium Bicarbonate* (Sodium Bicarbonate*) 650 Mg Tablet, 650 MG PO BID, TAB 10/30/18 Amlodipine Besylate* (Norvasc*) 5 Mg Tablet, 5 MG PO DAILY, TAB 10/30/18 Multivit/Ca Carb/B Cmplx/Fa* (Tanya-Kathryn*) 1 Tab Tab, 1 TAB PO DAILY, TAB 10/30/18 Calcitriol* (Calcitriol*) 0.25 Mcg Capsule, 0.25 MCG PO DAILY, CAP 10/30/18 Primary Care Provider Care Physician VENU Spann MD Nov 26, 2018 13:00
--- NOTE | 2018-12-02 07:58 | NUR ---
[facility] OT Discharge Summary Date of Discharge: 11/19/18 Patient Name: KALI VARGAS MR#: [id number] Height:5 ft 4 in Weight:132 lbs 0.91 oz 59.900 kg Reason for Visit: DEBILITY Precautions: fall risk Date: 12/02/18 Time: 0758 User: BLADE JUAREZ Short-term Goals: 1. Mod Indep w/ Grooming 2. Mod Indep w/ Bathing 3. Indep/ Mod Indep w/ UB/LB dress 4. Sup w/ Toileting Upon admission pt has the following levels: Grooming: Sup, UB/LB dress: Sup/ MOd A, Toileting: Min A, Funct Transfers: Min A. Pt made good progress towards goals through ADL retraining, NMRE, thera ex and actv, pt and cg education (CG training done). Upon discharge, pt has the following levels: Grooming: Supervision, Bathing: Min A, UB/LB dress: Sup/ Sup, Toileting: Sup, Func transfers: Sup. Barriers include: poor motivation and poor carryover of learning. Pt d/dez home with HH.
== END 2018-11-19 18:59 | disposition home or self-care (01) | DRG 945 ==
LOC: VRC 18:19
PROVIDERS: ADMIT Physical Medicine & Rehabilitation; ATTEND Internal Medicine Pulmonary Disease
PROC: F07Z5ZZ Bed Mobility Treatment (ICD-10-PCS; principal; 2018-11-07)
PROC: F07Z8ZZ Transfer Training Treatment (ICD-10-PCS; 2018-11-07)
PROC: F07Z9ZZ Gait Training/Functional Ambulation Treatment (ICD-10-PCS; 2018-11-07)
PROC: F08Z2ZZ Grooming/Personal Hygiene Treatment (ICD-10-PCS; 2018-11-07)
PROC: F08Z1ZZ Dressing Techniques Treatment (ICD-10-PCS; 2018-11-07)
PROC: F08Z0ZZ Bathing/Showering Techniques Treatment (ICD-10-PCS; 2018-11-07)
PROC: 0T9B70Z Drainage of Bladder with Drainage Device, Via Natural or Artificial Opening (ICD-10-PCS; 2018-11-08)
DX: R53.81 Other malaise (principal); G92 Toxic encephalopathy; N17.9 Acute kidney failure, unspecified; E87.2 Acidosis; L03.113 Cellulitis of right upper limb; Z74.09 Other reduced mobility; D63.1 Anemia in chronic kidney disease; E03.9 Hypothyroidism, unspecified; F06.31 Mood disorder due to known physiological condition with depressive features; F06.8 Other specified mental disorders due to known physiological condition; I12.9 Hypertensive chronic kidney disease with stage 1 through stage 4 chronic kidney disease, or unspecified chronic kidney disease; R33.9 Retention of urine, unspecified; M19.90 Unspecified osteoarthritis, unspecified site; N31.9 Neuromuscular dysfunction of bladder, unspecified; N18.9 Chronic kidney disease, unspecified; Z90.5 Acquired absence of kidney
CPT/HCPCS: 80048; 80053; 81001; 82728; 83540; 83735; 85025; 85610; 85730; 87081; 87086; 92507; 97110; 97116; 97150; 97163; 97530; 97535; A4310; J0692; J0696; J1644; J7030

== ENCOUNTER 2019-01-29 16:13 | Emergency (ER) | payer MEDICARE, OTHER ==
[~2019-01-29] VITALS: Ht 157.5 cm; Wt 56.0 kg
[2019-01-29 16:46] VITALS: BP 134/85; PULSE 98; RESP 16; Ht 157.5 cm; Wt 56.0 kg
--- NOTE | 2019-01-29 19:27 | ERD ---
ER Documentation Chief Complaint Chief Complaint FEVER, COUGH X 2 DAYS HPI This is a 73-year-old male with a history of hypertension who presents to the emergency department with a cough for the past 48 hours. The patient had a productive cough. He had tactile fever with shaking and chills. He has a history of an indwelling Marks catheter as he has one kidney. The patient indicates that he has a Marks catheter changed once a month. The patient's catheter was last changed January 10, 2019. He denies any hematuria. He has no frequency urgency or dysuria. He had no antipyretics prior to arrival. He denies any recent travel or prolonged immobilization. He has no shortness of breath at rest or exertion. No chest pain or pressure that radiates to the neck arm back or jaw. ROS All systems reviewed and are negative except as per history of present illness. Medications Home Meds Active Scripts Azithromycin* (Zithromax*) 250 Mg Tablet, 250 MG PO .ZPACK DIRECTED, #6 TAB TAKE 500 MG (2 TABS) THE FIRST DAY THEN 250 MG (1 TAB) DAYS 2-5 Prov:KAMI SILVA MD 01/29/19 Ciprofloxacin Hcl* (Ciprofloxacin Hcl*) 250 Mg Tablet, 250 MG PO DAILY@1800, #10 TAB Prov:ARAMIS RUSSELL NP 11/04/18 Reported Medications Sodium Bicarbonate* (Sodium Bicarbonate*) 650 Mg Tablet, 650 MG PO BID, TAB 10/30/18 Amlodipine Besylate* (Norvasc*) 5 Mg Tablet, 5 MG PO DAILY, TAB 10/30/18 Multivit/Ca Carb/B Cmplx/Fa* (Tanya-Kathryn*) 1 Tab Tab, 1 TAB PO DAILY, TAB 10/30/18 Calcitriol* (Calcitriol*) 0.25 Mcg Capsule, 0.25 MCG PO DAILY, CAP 10/30/18 Allergies Allergies: Coded Allergies: No Known Allergy (Unverified , 10/30/18) PMhx/Soc History of Surgery: Yes (nephrectomy) Anesthesia Reaction: No Hx Neurological Disorder: No Hx Respiratory Disorders: No Hx Cardiac Disorders: Yes (HTN) Hx Psychiatric Problems: No Hx Miscellaneous Medical Probl: No Hx Alcohol Use: No Hx Substance Use: No Hx Tobacco Use: No Smoking Status: Never smoker Physical Exam Vitals Vital Signs Date Temp Pulse Resp B/P (MAP) Pulse Ox O2 O2 Flow FiO2 Time Delivery Rate 01/29/19 101.3 98 16 134/85 98 16:46 (101) Physical Exam Constitutional:Well-developed. Well-nourished. HEENT:Normocephalic. Atraumatic.Pupils were equal round reactive to light. Moist mucous membranes.No tonsillar exudates. Neck: No nuchal rigidity. No lymphadenopathy. No posterior cervical spine tenderness or step-offs. Respiratory: Not using accessory muscles of respiration.Lungs were clear to auscultation bilaterally. No rhonchi. No rales. Patient had mild wheezing on end auscultation bilaterally Cardiovascular: Regular rate regular rhythm.No murmurs. No rubs were bree reciated.S1, S2 normal. Distal pulses are palpable 2+ bilaterally. GI: Abdomen was soft. Nontender. Non Distended. No pulsatile abdominal masses or bruits. No rebound. No guarding. Bowel sounds were present and normal. Muscle skeletal: Full range of motion of both the upper and lower extremities bilaterally.Normal muscle tone.No assymetrical calf tenderness or swelling. Skin: No petechia, no purpura. No lesions on the palms or the soles of the feet. No maculopapular rash. NEURO: Patient was alert, awake, orientated x3.No facial droop. Gait observed and normal with no ataxia.Speech had regular rate and rhythm. No focal neurological deficits. Results 24 hrs Current Medications Medications Dose Sig/Emily Start Time Status Last (Trade) Ordered Route PRN Stop Time Admin Dose Reason Admin Labetalol 5 mg ONCE ONCE 01/29/19 Cancel HCl IV 19:30 01/29/19 (Labetalol) 19:31 Benzonatate 100 mg ONCE ONCE 01/29/19 (Tessalon) PO 20:00 01/29/19 20:01 Albuterol/ 3 ml ONCE STAT 01/29/19 DC Ipratropium HHN 19:42 01/29/19 (Duoneb) 19:43 Procedures/MDM The patient presented to the emergency department with a reliable history of a fever however the patient was afebrile in the emergency department. The patient was nontoxic in appearance. The patient however stated he want to leave AGAINST MEDICAL ADVICE. My clinical impression was suspected acute bronchitis however I did feel the patient required a chest radiograph to rule out a pneumonia and ancillary laboratory work given his history of indwelling Marks catheter as a could not rule out pyelonephritis as a cause of his fever. They did state they have a primary care physician will follow up with him in the next several days. I did however provide a prescription of azithromycin for the patient as he states he has had similar symptoms in the past diagnosed with bronchitis with resolution with a Z-Caleb. Departure Diagnosis: Primary Impression: Bronchitis Additional Impression: Left against medical advice Condition: KAMI Lo MD Jan 29, 2019 19:26
[2019-01-29] MEDS ORDERED: AZIT250T PO (19:29)
[2019-01-29] MEDS ORDERED: LABETALOL HCL 20MG INJ IV ONE (19:30)
[2019-01-29] MEDS ORDERED: ALBUTEROL/IPRATROPIUM (NEB) 3 ML AMP HHN STA (19:42)
[2019-01-29] MEDS ORDERED: BENZONATATE 100 MG CAP PO ONE (20:00)
== END 2019-01-29 20:02 | disposition left against medical advice (07) ==
LOC: FTE 16:13
DX: J40 Bronchitis, not specified as acute or chronic (principal); I10 Essential (primary) hypertension
CPT/HCPCS: 99283